=== PATIENT | female | born 1950 | race Two or more races ===

== ENCOUNTER → 2022-02-18 | Outpatient (CLI) | payer OTHER ==
[2022-02-18 11:15] LABS: Basophils # (auto) 0.1 10 ^3/uL (0-0.2); Eosinophils # (auto) 0.1 10 ^3/uL (0-0.8); Eosinophils % (auto) 1.7 % (0.0-7.0); Hematocrit 39.6 % (36.0-46.0); Hemoglobin 12.9 g/dL (12.2-16.2); Lymphocytes # (auto) 1.6 10 ^3/uL (0.4-5.4); Lymphocytes % (auto) 18.9 % (10.0-50.0); Mean Corpuscular Hemoglobin 28.6 pg (28.0-32.0); Mean Corpuscular Hgb Conc. 32.6 g/dL (32.0-36.0); Mean Corpuscular Volume 87.8 fL (80.0-100.0); Monocytes # (auto) 0.4 10 ^3/uL (0-1.3); Monocytes % (auto) 4.6 % (0.0-12.0); Neutrophils # (auto) 6.1 10 ^3/uL (1.6-8.6); Neutrophils % (auto) 73.8 % (37.0-80.0); Nucleated Red Blood Cells % 0.1 %; Red Cell Distribution Width 14.9 % (11.8-14.3); White Blood Cell 8.2 10^3/uL (4.4-10.8)
[2022-02-18 12:00] LABS: Albumin 3.3 g/dL (3.4-5.0); Calcium 9.5 mg/dL (8.5-10.1)
[2022-02-18 12:02] LABS: BUN/Creatinine Ratio 26.4; Bilirubin, Total 0.4 mg/dL (0.2-1.0); Phosphorus 3.2 mg/dL (2.5-4.90); Total Protein 7.3 g/dL (6.4-8.2); Uric Acid 5.8 mg/dL (2.6-6.0)
[2022-02-18 12:05] LABS: Protein, Urine 55.4 mg/dL (0.0-11.9)
== END | disposition home or self-care (01) ==
LOC: LAB 10:41
PROVIDERS: ATTEND Internal Medicine
DX: E11.69 Type 2 diabetes mellitus with other specified complication (principal); N18.30 Chronic kidney disease, stage 3 unspecified; D63.1 Anemia in chronic kidney disease; E56.9 Vitamin deficiency, unspecified; R00.9 Unspecified abnormalities of heart beat; E43 Unspecified severe protein-calorie malnutrition
CPT/HCPCS: 36415; 80053; 80069; 82306; 82570; 83036; 83970; 84156; 84550; 85025

== ENCOUNTER 2022-06-21 08:13 | Inpatient (IN) | payer OTHER ==
[2022-06-18 10:12] LABS: Basophils # (auto) 0.1 10 ^3/uL (0-0.2); Eosinophils # (auto) 0.2 10 ^3/uL (0-0.8); Hematocrit 37.7 % (36.0-46.0); Hemoglobin 12.3 g/dL (12.2-16.2); Lymphocytes # (auto) 1.3 10 ^3/uL (0.4-5.4); Lymphocytes % (auto) 16.1 % (10.0-50.0); Mean Corpuscular Hemoglobin 28.8 pg (28.0-32.0); Mean Corpuscular Hgb Conc. 32.7 g/dL (32.0-36.0); Mean Corpuscular Volume 88.2 fL (80.0-100.0); Monocytes # (auto) 0.5 10 ^3/uL (0-1.3); Monocytes % (auto) 6.3 % (0.0-12.0); Neutrophils # (auto) 6.2 10 ^3/uL (1.6-8.6); Neutrophils % (auto) 74.6 % (37.0-80.0); Nucleated Red Blood Cells % 0.1 %; Red Blood Cells 4.28 10^6/uL (4.0-5.20); Red Cell Distribution Width 14.6 % (11.8-14.3); White Blood Cell 8.3 10^3/uL (4.4-10.8)
[2022-06-18 10:21] LABS: Urine Bacteria NONE SEEN /hpf (None Seen); Urine Blood Negative /uL (Negative); Urine WBC 10 /hpf (0 - 5)
[2022-06-18 10:22] LABS: INR 0.91 (0.9-1.15)
[2022-06-18 10:47] LABS: Albumin 3.2 g/dL (3.4-5.0); Calcium 9.4 mg/dL (8.5-10.1); Potassium 4.7 mmol/L (3.5-5.1)
[2022-06-18 10:48] LABS: BUN/Creatinine Ratio 22.2; Bilirubin, Total 0.4 mg/dL (0.2-1.0)
[~2022-06-21] VITALS: Ht 152.4 cm; Wt 79.0 kg
[~2022-06-21 08:13] MED LIST: ALLO300T2 PO; AML5T PO; ATO40T PO; GLIP10TA9 PO; INSU100I47 SC; INSU1INJ19 SC
[2022-06-21] MEDS ORDERED: KETOROLAC TROMETH 30 MG/ML 1ML VIAL ONE ×2 (08:48→09:49)
[2022-06-21] MEDS ORDERED: SODIUM CHLORIDE LOCK 10 ML ONE ×3 (08:48→10:53)
[2022-06-21] MEDS ORDERED: DexAMETHasone SOD PHOS 10MG/1ML VIAL INJ ONE (08:48)
[2022-06-21] MEDS ORDERED: ONDANSETRON HCL 4 MG/2 ML VIAL ONE (08:48)
[2022-06-21] MEDS ORDERED: PROPOFOL 10 MG/ML 20 ML IV ONE ×2 (08:48→11:19)
[2022-06-21] MEDS ORDERED: GLYCOPYRROLATE 0.2 MG/ML 1ML VIAL ONE (08:48)
[2022-06-21] MEDS ORDERED: CELECOXIB 100 MG CAP PO ONE (09:00)
[2022-06-21] MEDS ORDERED: PREGABALIN CAPSULE 75 MG CAP ONE (09:00)
[2022-06-21] MEDS ORDERED: VANCOMYCIN HCL 1000 MG VL ONE ×2 (09:00→09:47)
[2022-06-21] MEDS ORDERED: ACETAMINOPHEN IV 1000 MG/100ML (10MG/ML) IV ONE (09:00)
[2022-06-21] MEDS ORDERED: PREGABALIN CAPSULE 75 MG CAP PO ONE (09:00)
[2022-06-21] MEDS ORDERED: TRANEXAMIC ACID 20 ML ONE (09:47)
[2022-06-21] MEDS ORDERED: BUPIVACAINE 0.25% INJ 50ML VIAL ONE (09:48)
[2022-06-21] MEDS ORDERED: MORPHINE SULF PF 5 MG/10 ML VIAL ONE (09:49)
[2022-06-21] MEDS ORDERED: DexAMETHasone SOD PHOS 4 MG/1ML SDV INJ ONE (10:02)
[2022-06-21] MEDS ORDERED: BUPIVACAINE 0.5% P/F INJ 10 ML VIAL ONE (10:02)
[2022-06-21] MEDS ORDERED: LIDOCAINE W/ EPINEPHRINE 2% INJ 20ML VIAL ONE (10:17)
[2022-06-21] MEDS ORDERED: PHENYLEPHRINE HCL 10 MG/ML VL ONE (10:45)
[2022-06-21] MEDS ORDERED: ceFAZolin 1GM VL ONE (10:53)
[2022-06-21] MEDS ORDERED: ePHEDrine SULFATE 50 MG/ML AMP ONE (11:28)
[2022-06-21] MEDS ORDERED: DEXTROSE (50%) 50ML SYRG IV PRN ×2 (12:15→14:00)
[2022-06-21] MEDS ORDERED: NITROGLYCERIN 0.4 MG SL TAB SL PRN (12:15)
[2022-06-21] MEDS ORDERED: LACTATED RINGER'S 1,000 ML IV SCH (12:15)
[2022-06-21] MEDS ORDERED: ONDANSETRON HCL 4 MG/2 ML VIAL IV PRN ×2 (12:15→13:15)
[2022-06-21] MEDS ORDERED: HYDROmorphone HCL 2 MG/ML VL/or syr IV PRN ×3 (12:15→14:00)
[2022-06-21] MEDS ORDERED: MORPHINE SULFATE INJ 2 MG/ml SYRG IV PRN (12:15)
[2022-06-21] MEDS ORDERED: LABETALOL HCL 5 MG/ML 4ML SYRINGE IV PRN (13:15)
[2022-06-21] MEDS ORDERED: FLUMAZENIL 0.1 MG/ML INJ 10ML MDV IV PRN (13:15)
[2022-06-21] MEDS ORDERED: ePHEDrine SULFATE 50 MG/ML AMP IV PRN (13:15)
[2022-06-21] MEDS ORDERED: fentaNYL CITRATE 100 MCG/2 ML VL IV PRN (13:15)
[2022-06-21] MEDS ORDERED: NALOXONE HCL 0.4 MG/ML VIAL IV PRN (13:15)
[2022-06-21] MEDS ORDERED: hydrALAZINE HCL 20 MG/ML VL IV PRN (13:15)
[2022-06-21] MEDS ORDERED: ceFAZolin 1GM/50ML 50 ML IV SCH (14:00)
[2022-06-21 17:00] VITALS: BP 138/86
[2022-06-21] MEDS ORDERED: InsuLIN REG 1unit/0.01ml Soln (100units/ml) SC SCH ×2 (17:00→22:00)
[2022-06-21] MEDS: InsuLIN REG 1unit/0.01ml Soln (100units/ml) SC SCH ×2 (17:30→22:04)
[2022-06-21] MEDS: ACCU-CHEK COMFORT CURVE STRIP VI SCH ×4 (17:30→21:58)
[2022-06-21] MEDS: ceFAZolin 1GM/50ML 50 ML IV SCH (18:15)
[2022-06-21 20:00] VITALS: BP 122/49
[2022-06-21] MEDS: ATORVASTATIN 20 MG TAB PO SCH (21:56)
[2022-06-21] MEDS: DOCUSATE SOD 100 MG CAP PO SCH (21:56)
[2022-06-21] MEDS: SODIUM CHLOR 0.9% PF (SALINE LOCK) 10ML VIAL/SYR IV SCH (21:57)
[2022-06-21] MEDS ORDERED: VANCOMYCIN 1GM/250ML 250 ML IV SCH (22:00)
[2022-06-22] MEDS: ceFAZolin 1GM/50ML 50 ML IV SCH ×3 (02:02→17:55)
[2022-06-22 03:55] VITALS: BP 122/49
[2022-06-22 06:22] LABS: Basophils # (auto) 0 10 ^3/uL (0-0.2); Eosinophils # (auto) 0 10 ^3/uL (0-0.8); Hematocrit 32.2 % (36.0-46.0); Hemoglobin 10.6 g/dL (12.2-16.2); Lymphocytes # (auto) 0.8 10 ^3/uL (0.4-5.4); Mean Corpuscular Hemoglobin 29.3 pg (28.0-32.0); Mean Corpuscular Volume 88.9 fL (80.0-100.0); Monocytes # (auto) 0.6 10 ^3/uL (0-1.3); Monocytes % (auto) 5.6 % (0.0-12.0); Neutrophils # (auto) 8.5 10 ^3/uL (1.6-8.6); Neutrophils % (auto) 86.4 % (37.0-80.0); Nucleated Red Blood Cells % 0.1 %; Red Blood Cells 3.62 10^6/uL (4.0-5.20); Red Cell Distribution Width 14.3 % (11.8-14.3); White Blood Cell 9.8 10^3/uL (4.4-10.8)
[2022-06-22 06:49] LABS: Albumin 2.7 g/dL (3.4-5.0); Potassium 5.2 mmol/L (3.5-5.1)
[2022-06-22] MEDS: SODIUM CHLOR 0.9% PF (SALINE LOCK) 10ML VIAL/SYR IV SCH ×3 (06:49→20:37)
[2022-06-22] MEDS: InsuLIN REG 1unit/0.01ml Soln (100units/ml) SC SCH ×3 (06:50→17:00)
[2022-06-22] MEDS: ACCU-CHEK COMFORT CURVE STRIP VI SCH ×6 (06:50→21:02)
[2022-06-22 06:59] LABS: BUN/Creatinine Ratio 28.4; Bilirubin, Total 0.3 mg/dL (0.2-1.0); Calcium 8.9 mg/dL (8.5-10.1); Total Protein 5.4 g/dL (6.4-8.2)
[2022-06-22 09:00] VITALS: BP 153/90
[2022-06-22] MEDS: amLODIPine BESYLATE 5 MG TAB PO SCH (10:06)
[2022-06-22] MEDS: ENOXAPARIN SOD 40 MG/0.4 ML SYRINGE SC SCH (10:07)
[2022-06-22] MEDS: OXYCODONE W/ ACETAMINOPHEN 5/325MG TABLET PO PRN (10:07)
[2022-06-22] MEDS: DOCUSATE SOD 100 MG CAP PO SCH ×2 (10:16→20:37)
[2022-06-22] MEDS ORDERED: DEXTROSE (50%) 50ML SYRG IV PRN (12:15)
[2022-06-22 13:00] VITALS: BP 132/73
[2022-06-22 16:52] VITALS: BP 136/75
[2022-06-22 20:00] VITALS: BP 122/54
[2022-06-22] MEDS: ATORVASTATIN 20 MG TAB PO SCH (20:37)
[2022-06-22] MEDS ORDERED: InsuLIN REG 1unit/0.01ml Soln (100units/ml) SC SCH (22:00)
[2022-06-23] MEDS: ceFAZolin 1GM/50ML 50 ML IV SCH ×2 (02:06→09:23)
[2022-06-23] MEDS: ACCU-CHEK COMFORT CURVE STRIP VI SCH ×4 (05:07→11:10)
[2022-06-23] MEDS: SODIUM CHLOR 0.9% PF (SALINE LOCK) 10ML VIAL/SYR IV SCH ×2 (05:07→14:00)
[2022-06-23 05:29] VITALS: BP 130/60
[2022-06-23] MEDS: InsuLIN REG 1unit/0.01ml Soln (100units/ml) SC SCH ×2 (05:42→11:12)
[2022-06-23 06:24] LABS: Basophils # (auto) 0 10 ^3/uL (0-0.2); Basophils % (auto) 0.4 % (0.0-2.0); Eosinophils # (auto) 0 10 ^3/uL (0-0.8); Eosinophils % (auto) 0.5 % (0.0-7.0); Hematocrit 32.2 % (36.0-46.0); Hemoglobin 10.3 g/dL (12.2-16.2); Lymphocytes # (auto) 1.3 10 ^3/uL (0.4-5.4); Lymphocytes % (auto) 15.3 % (10.0-50.0); Mean Corpuscular Hemoglobin 28.4 pg (28.0-32.0); Mean Corpuscular Volume 88.7 fL (80.0-100.0); Monocytes # (auto) 0.8 10 ^3/uL (0-1.3); Monocytes % (auto) 9.7 % (0.0-12.0); Neutrophils # (auto) 6.4 10 ^3/uL (1.6-8.6); Neutrophils % (auto) 74.1 % (37.0-80.0); Nucleated Red Blood Cells % 0.1 %; Red Blood Cells 3.63 10^6/uL (4.0-5.20); Red Cell Distribution Width 14.3 % (11.8-14.3); White Blood Cell 8.6 10^3/uL (4.4-10.8)
[2022-06-23 06:39] LABS: BUN/Creatinine Ratio 30.1; Calcium 9.5 mg/dL (8.5-10.1); Potassium 4.5 mmol/L (3.5-5.1)
[2022-06-23 09:00] VITALS: BP 176/90
[2022-06-23] MEDS: DOCUSATE SOD 100 MG CAP PO SCH (09:23)
[2022-06-23] MEDS: OXYCODONE W/ ACETAMINOPHEN 5/325MG TABLET PO PRN (09:25)
[2022-06-23] MEDS: amLODIPine BESYLATE 5 MG TAB PO SCH (09:25)
[2022-06-23] MEDS: ENOXAPARIN SOD 40 MG/0.4 ML SYRINGE SC SCH (09:26)
[2022-06-23 13:00] VITALS: BP 136/54
[2022-06-23 14:06] VITALS: BP 146/90
== END 2022-06-23 16:01 | disposition home health service (06) | DRG 470 ==
LOC: SUR 08:13 → TELE 12:07 → TELE-WESTW 16:11 → WEST WING 17:20
PROVIDERS: ADMIT Orthopaedic Surgery Adult Reconstructive Orthopaedic Surgery; ATTEND Internal Medicine
PROC: 0SRD0J9 Replacement of Left Knee Joint with Synthetic Substitute, Cemented, Open Approach (ICD-10-PCS; principal; 2022-06-21 10:22)
DX: M17.12 Unilateral primary osteoarthritis, left knee (principal); E11.22 Type 2 diabetes mellitus with diabetic chronic kidney disease; E66.9 Obesity, unspecified; E78.5 Hyperlipidemia, unspecified; I12.9 Hypertensive chronic kidney disease with stage 1 through stage 4 chronic kidney disease, or unspecified chronic kidney disease; M10.9 Gout, unspecified; N18.30 Chronic kidney disease, stage 3 unspecified; Z20.822 Contact with and (suspected) exposure to COVID-19; Z88.0 Allergy status to penicillin; Z68.34 Body mass index [BMI] 34.0-34.9, adult
CPT/HCPCS: 36415; 73562; 80048; 80053; 81001; 82962; 83036; 84443; 85025; 85610; 85730; 86850; 86900; 86901; 97110; 97116; 97163; 97530; C1713; C1776; G0378; J0131; J0690; J1100; J1815; J1885; J2405; J2704; J3490

== ENCOUNTER 2022-07-01 15:29 | Inpatient (IN) | payer OTHER ==
[~2022-07-01] VITALS: Ht 152.4 cm; Wt 81.3 kg
[2022-07-01 17:03] LABS: Basophils # (auto) 0.1 10 ^3/uL (0-0.2); Basophils % (auto) 0.8 % (0.0-2.0); Eosinophils # (auto) 0.1 10 ^3/uL (0-0.8); Eosinophils % (auto) 1.2 % (0.0-7.0); Hematocrit 32.8 % (36.0-46.0); Lymphocytes # (auto) 1.5 10 ^3/uL (0.4-5.4); Mean Corpuscular Hemoglobin 28.6 pg (28.0-32.0); Mean Corpuscular Hgb Conc. 33.5 g/dL (32.0-36.0); Mean Corpuscular Volume 85.5 fL (80.0-100.0); Monocytes # (auto) 0.7 10 ^3/uL (0-1.3); Monocytes % (auto) 6.3 % (0.0-12.0); Neutrophils # (auto) 9.3 10 ^3/uL (1.6-8.6); Neutrophils % (auto) 78.7 % (37.0-80.0); Red Blood Cells 3.83 10^6/uL (4.0-5.20); Red Cell Distribution Width 14.2 % (11.8-14.3); White Blood Cell 11.8 10^3/uL (4.4-10.8)
[2022-07-01] MEDS ORDERED: SODIUM CHLORIDE 0.9% 1,000 ML IV ONE (17:15)
[2022-07-01 17:21] LABS: Albumin 2.8 g/dL (3.4-5.0); BUN/Creatinine Ratio 38.9; Calcium 9.6 mg/dL (8.5-10.1); Potassium 4.9 mmol/L (3.5-5.1)
[2022-07-01 17:25] LABS: Bilirubin, Total 0.4 mg/dL (0.2-1.0); INR 0.93 (0.9-1.15); Partial Thromboplastin Time 27.5 sec (24.6-33.4); Total Protein 6.4 g/dL (6.4-8.2)
[2022-07-01] MEDS ORDERED: DOCUSATE SOD 100 MG CAP PO PRN (22:45)
[2022-07-01] MEDS ORDERED: SODIUM CHLORIDE 0.9% 1,000 ML IV SCH (22:45)
[2022-07-01] MEDS ORDERED: ACETAMINOPHEN 325 MG TAB PO PRN (22:45)
[2022-07-01] MEDS ORDERED: ONDANSETRON HCL 4 MG/2 ML VIAL IV PRN (22:45)
[2022-07-01] MEDS ORDERED: HYDROcodone-ACET 5/325MG TAB PO PRN (22:45)
[2022-07-01] MEDS ORDERED: DEXTROSE (50%) 50ML SYRG IV PRN (22:45)
[2022-07-01] MEDS ORDERED: levoFLOXacin 250MG 50 ML IV SCH (23:00)
[2022-07-01] MEDS ORDERED: NITROGLYCERIN 0.4 MG SL TAB SL PRN (23:45)
[2022-07-01] MEDS ORDERED: MORPHINE SULFATE INJ 2 MG/ml SYRG IV PRN (23:45)
[2022-07-02 06:28] LABS: Basophils # (auto) 0.1 10 ^3/uL (0-0.2); Eosinophils # (auto) 0.2 10 ^3/uL (0-0.8); Eosinophils % (auto) 2.2 % (0.0-7.0); Hemoglobin 9.4 g/dL (12.2-16.2); Lymphocytes # (auto) 1.3 10 ^3/uL (0.4-5.4); Lymphocytes % (auto) 14.9 % (10.0-50.0); Mean Corpuscular Hemoglobin 28.5 pg (28.0-32.0); Mean Corpuscular Hgb Conc. 32.6 g/dL (32.0-36.0); Mean Corpuscular Volume 87.4 fL (80.0-100.0); Monocytes # (auto) 0.7 10 ^3/uL (0-1.3); Monocytes % (auto) 7.9 % (0.0-12.0); Neutrophils # (auto) 6.7 10 ^3/uL (1.6-8.6); Red Blood Cells 3.32 10^6/uL (4.0-5.20); Red Cell Distribution Width 14.1 % (11.8-14.3)
[2022-07-02] MEDS: ACCU-CHEK COMFORT CURVE STRIP VI SCH ×2 (06:43→12:27)
[2022-07-02 06:44] LABS: Potassium 4.6 mmol/L (3.5-5.1)
[2022-07-02] MEDS: InsuLIN REG 1unit/0.01ml Soln (100units/ml) SC SCH ×2 (06:44→12:29)
[2022-07-02 07:00] LABS: Albumin 2.3 g/dL (3.4-5.0); BUN/Creatinine Ratio 40.5; Calcium 9.5 mg/dL (8.5-10.1)
[2022-07-02 07:03] LABS: Bilirubin, Total 0.3 mg/dL (0.2-1.0); Total Protein 6.2 g/dL (6.4-8.2)
[2022-07-02 08:50] VITALS: BP 139/77
[2022-07-02] MEDS ORDERED: HEPARIN SODIUM (PORCINE) 5000 UNITS/ML 1ML VIAL SC SCH (10:00)
[2022-07-02] MEDS ORDERED: FAMOTIDINE (10MG/ML) 2ML VL IV SCH (10:00)
[2022-07-02 13:30] VITALS: BP 148/67
[2022-07-02 13:30] LABS: Urine Bacteria NONE SEEN /hpf (None Seen); Urine Blood Negative /uL (Negative); Urine Specific Gravity 1.008 (1.001-1.035); Urine WBC 2 /hpf (0 - 5)
[2022-07-02 13:42] LABS: Creatinine, Urine 20 mg/dL (30.0-125.0); Sodium Urine 60 mmol/L (40-220)
[2022-07-02] MEDS ORDERED: InsuLIN REG 1unit/0.01ml Soln (100units/ml) SC SCH (22:00)
== END 2022-07-02 16:31 | disposition home or self-care (01) | DRG 555 ==
LOC: ER 15:29 → OVERFLOW 23:40 → WEST WING 07-02 08:25
PROVIDERS: ADMIT Nurse Practitioner Family; ATTEND Internal Medicine
DX: M79.89 Other specified soft tissue disorders (principal); N17.0 Acute kidney failure with tubular necrosis; D63.1 Anemia in chronic kidney disease; D72.829 Elevated white blood cell count, unspecified; E78.5 Hyperlipidemia, unspecified; E87.5 Hyperkalemia; I12.9 Hypertensive chronic kidney disease with stage 1 through stage 4 chronic kidney disease, or unspecified chronic kidney disease; Z96.652 Presence of left artificial knee joint; E88.09 Other disorders of plasma-protein metabolism, not elsewhere classified; E11.22 Type 2 diabetes mellitus with diabetic chronic kidney disease; Z20.822 Contact with and (suspected) exposure to COVID-19; D50.0 Iron deficiency anemia secondary to blood loss (chronic); N18.32 Chronic kidney disease, stage 3b; R00.0 Tachycardia, unspecified; R79.89 Other specified abnormal findings of blood chemistry; E66.9 Obesity, unspecified; Z88.0 Allergy status to penicillin; Z83.3 Family history of diabetes mellitus; Z68.35 Body mass index [BMI] 35.0-35.9, adult
CPT/HCPCS: 36415; 76775; 78582; 80053; 81001; 82570; 84300; 85025; 85379; 85610; 85730; 87081; 87426; 93970; 93971; 96365; 96366; G0378; J1815; J3490

== ENCOUNTER → 2022-07-05 | Outpatient (CLI) | payer OTHER ==
[~2022-07-05] MED LIST changes: -GLIP10TA9 PO
[2022-07-05 13:37] LABS: Basophils # (auto) 0.1 10 ^3/uL (0-0.2); Eosinophils # (auto) 0.1 10 ^3/uL (0-0.8); Eosinophils % (auto) 1.6 % (0.0-7.0); Hematocrit 31.4 % (36.0-46.0); Hemoglobin 10.5 g/dL (12.2-16.2); Lymphocytes % (auto) 10.8 % (10.0-50.0); Mean Corpuscular Hemoglobin 29.1 pg (28.0-32.0); Mean Corpuscular Hgb Conc. 33.3 g/dL (32.0-36.0); Mean Corpuscular Volume 87.5 fL (80.0-100.0); Monocytes # (auto) 0.5 10 ^3/uL (0-1.3); Monocytes % (auto) 5.5 % (0.0-12.0); Neutrophils # (auto) 7.4 10 ^3/uL (1.6-8.6); Neutrophils % (auto) 81.1 % (37.0-80.0); Nucleated Red Blood Cells % 0.1 %; Red Blood Cells 3.59 10^6/uL (4.0-5.20); Red Cell Distribution Width 14.4 % (11.8-14.3); White Blood Cell 9.1 10^3/uL (4.4-10.8)
[2022-07-05 14:00] LABS: Protein, Urine 206.7 mg/dL (0.0-11.9)
[2022-07-05 14:20] LABS: Calcium 10.1 mg/dL (8.5-10.1); Potassium 4.9 mmol/L (3.5-5.1)
[2022-07-05 14:22] LABS: BUN/Creatinine Ratio 28.7 (10.0-20.0)
== END | disposition home or self-care (01) ==
LOC: LAB 12:54
PROVIDERS: ATTEND Internal Medicine
DX: N18.4 Chronic kidney disease, stage 4 (severe) (principal)
CPT/HCPCS: 36415; 80048; 82306; 82570; 83970; 84156; 84550; 85025

== ENCOUNTER → 2022-10-04 | Outpatient (CLI) | payer OTHER ==
[2022-10-04 12:11] LABS: Calcium 9.1 mg/dL (8.5-10.1); Potassium 4.8 mmol/L (3.5-5.1)
[2022-10-04 12:13] LABS: BUN/Creatinine Ratio 25.3 (10.0-20.0)
== END | disposition home or self-care (01) ==
LOC: LAB 10:35
PROVIDERS: ATTEND Internal Medicine
DX: E11.22 Type 2 diabetes mellitus with diabetic chronic kidney disease (principal); N18.9 Chronic kidney disease, unspecified
CPT/HCPCS: 36415; 80048; 82043; 82570

== ENCOUNTER → 2022-10-07 | Outpatient (CLI) | payer OTHER ==
[2022-10-07 10:22] LABS: Basophils # (auto) 0.1 10 ^3/uL (0-0.2); Basophils % (auto) 1.6 % (0.0-2.0); Eosinophils # (auto) 0.2 10 ^3/uL (0-0.8); Eosinophils % (auto) 2.2 % (0.0-7.0); Hematocrit 35.5 % (36.0-46.0); Hemoglobin 11.5 g/dL (12.2-16.2); Lymphocytes # (auto) 1.2 10 ^3/uL (0.4-5.4); Lymphocytes % (auto) 16.6 % (10.0-50.0); Mean Corpuscular Hemoglobin 28.3 pg (28.0-32.0); Mean Corpuscular Hgb Conc. 32.4 g/dL (32.0-36.0); Mean Corpuscular Volume 87.2 fL (80.0-100.0); Monocytes # (auto) 0.4 10 ^3/uL (0-1.3); Neutrophils # (auto) 5.2 10 ^3/uL (1.6-8.6); Neutrophils % (auto) 73.6 % (37.0-80.0); Nucleated Red Blood Cells % 0.1 %; Red Blood Cells 4.07 10^6/uL (4.0-5.20)
[2022-10-07 11:02] LABS: Albumin 3.1 g/dL (3.4-5.0); BUN/Creatinine Ratio 27.2 (10.0-20.0); Calcium 8.6 mg/dL (8.5-10.1); Phosphorus 3.2 mg/dL (2.5-4.90); Potassium 5.2 mmol/L (3.5-5.1); Uric Acid 5.9 mg/dL (2.6-6.0)
== END | disposition home or self-care (01) ==
LOC: LAB 10:06
PROVIDERS: ATTEND Internal Medicine Nephrology
DX: N18.30 Chronic kidney disease, stage 3 unspecified (principal); D63.1 Anemia in chronic kidney disease; M10.9 Gout, unspecified; E21.3 Hyperparathyroidism, unspecified; R80.9 Proteinuria, unspecified; E56.9 Vitamin deficiency, unspecified
CPT/HCPCS: 36415; 80069; 82306; 82570; 83970; 84156; 84550; 85025

== ENCOUNTER → 2023-01-31 | Outpatient (CLI) | payer OTHER ==
[2023-01-31 10:37] LABS: Basophils # (auto) 0.1 10 ^3/uL (0-0.2); Basophils % (auto) 1.1 % (0.0-2.0); Eosinophils # (auto) 0.2 10 ^3/uL (0-0.8); Eosinophils % (auto) 2.3 % (0.0-7.0); Hemoglobin 11.8 g/dL (12.2-16.2); Lymphocytes # (auto) 1.5 10 ^3/uL (0.4-5.4); Lymphocytes % (auto) 21.7 % (10.0-50.0); Mean Corpuscular Hemoglobin 28.4 pg (28.0-32.0); Mean Corpuscular Hgb Conc. 32.8 g/dL (32.0-36.0); Mean Corpuscular Volume 86.6 fL (80.0-100.0); Monocytes # (auto) 0.5 10 ^3/uL (0-1.3); Monocytes % (auto) 6.8 % (0.0-12.0); Neutrophils # (auto) 4.6 10 ^3/uL (1.6-8.6); Neutrophils % (auto) 68.1 % (37.0-80.0); Red Blood Cells 4.15 10^6/uL (4.0-5.20); Red Cell Distribution Width 15.2 % (11.8-14.3); White Blood Cell 6.8 10^3/uL (4.4-10.8)
[2023-01-31 12:05] LABS: Potassium 4.7 mmol/L (3.5-5.1)
[2023-01-31 12:06] LABS: Calcium 9.4 mg/dL (8.5-10.1)
[2023-01-31 12:08] LABS: Protein, Urine 94.4 mg/dL (0.0-11.9)
[2023-01-31 12:11] LABS: BUN/Creatinine Ratio 20.3 (10.0-20.0); Creatinine, Urine 40.45 mg/dL (30.0-125.0); Urine Protein/Creatinine Ratio 2.33
[2023-01-31 12:13] LABS: Albumin 3.9 g/dL (3.2-4.8)
[2023-01-31 12:14] LABS: Phosphorus 3.9 mg/dL (2.4-5.1)
[2023-01-31 14:41] LABS: Uric Acid 5.6 mg/dL (3.1-7.8)
[2023-01-31 15:53] LABS: Urine Bacteria FEW /hpf (None Seen); Urine Blood Negative /uL (Negative); Urine Clarity Clear (Clear); Urine Color Colorless (Yellow); Urine Protein, UAD 2+ (Negative); Urine Specific Gravity 1.008 (1.001-1.035); Urine Urobilinogen Normal (Negative); Urine WBC 2 /hpf (0 - 5)
== END | disposition home or self-care (01) ==
LOC: LAB 10:17
PROVIDERS: ATTEND Internal Medicine Nephrology
DX: E56.9 Vitamin deficiency, unspecified (principal); E21.3 Hyperparathyroidism, unspecified; R80.9 Proteinuria, unspecified
CPT/HCPCS: 36415; 80069; 81001; 82306; 82570; 83970; 84156; 84550; 85025

== ENCOUNTER → 2023-03-30 | Outpatient (CLI) | payer OTHER ==
[2023-03-30 10:29] LABS: Basophils # (auto) 0.1 10 ^3/uL (0-0.2); Eosinophils # (auto) 0.1 10 ^3/uL (0-0.8); Hematocrit 35.4 % (36.0-46.0); Hemoglobin 11.4 g/dL (12.2-16.2); Lymphocytes # (auto) 1.4 10 ^3/uL (0.4-5.4); Lymphocytes % (auto) 20.4 % (10.0-50.0); Mean Corpuscular Hemoglobin 28.2 pg (28.0-32.0); Mean Corpuscular Hgb Conc. 32.2 g/dL (32.0-36.0); Mean Corpuscular Volume 87.6 fL (80.0-100.0); Monocytes # (auto) 0.4 10 ^3/uL (0-1.3); Neutrophils % (auto) 70.6 % (37.0-80.0); Nucleated Red Blood Cells % 0.1 %; Red Blood Cells 4.05 10^6/uL (4.0-5.20); Red Cell Distribution Width 15.1 % (11.8-14.3); White Blood Cell 7.1 10^3/uL (4.4-10.8)
[2023-03-30 11:17] LABS: Alanine Aminotransferase 25 U/L (7-40); Albumin 3.9 g/dL (3.2-4.8); Alkaline Phosphatase 157 U/L (46-116); Anion Gap 6 (5-15); Aspartate Aminotransferase 25 U/L (13-40); BUN/Creatinine Ratio 17.8 (10.0-20.0); Bilirubin, Total 0.4 mg/dL (0.2-1.0); Blood Urea Nitrogen 37 mg/dL (9-23); Calcium 9.4 mg/dL (8.5-10.1); Carbon Dioxide 25 mmol/L (20-30); Chloride 107 mmol/L (98-107); Cholesterol 170 mg/dL (< 200); Glucose 113 mg/dL (74-106); HDL Cholesterol 46 mg/dL (40-59); LDL Cholesterol 99 mg/dL (< 100); Potassium 4.8 mmol/L (3.5-5.1); Sodium 138 mmol/L (136-145); Triglycerides 122 mg/dL (< 150)
[2023-03-30 11:18] LABS: Total Protein 6.4 g/dL (5.7-8.2)
== END | disposition home or self-care (01) ==
LOC: LAB 09:53
PROVIDERS: ATTEND Internal Medicine
DX: E11.22 Type 2 diabetes mellitus with diabetic chronic kidney disease (principal); N18.9 Chronic kidney disease, unspecified; E11.69 Type 2 diabetes mellitus with other specified complication
CPT/HCPCS: 36415; 80053; 80061; 82274; 83036; 85025

== ENCOUNTER → 2023-07-04 | Outpatient (CLI) | payer OTHER ==
[2023-07-04 11:33] LABS: Basophils # (auto) 0.1 10 ^3/uL (0-0.2); Basophils % (auto) 1.3 % (0.0-2.0); Eosinophils # (auto) 0.1 10 ^3/uL (0-0.8); Eosinophils % (auto) 1.7 % (0.0-7.0); Hematocrit 36.7 % (36.0-46.0); Hemoglobin 11.8 g/dL (12.2-16.2); Lymphocytes # (auto) 1.7 10 ^3/uL (0.4-5.4); Lymphocytes % (auto) 19.6 % (10.0-50.0); Mean Corpuscular Hemoglobin 28.2 pg (28.0-32.0); Mean Corpuscular Hgb Conc. 32.2 g/dL (32.0-36.0); Mean Corpuscular Volume 87.6 fL (80.0-100.0); Monocytes # (auto) 0.4 10 ^3/uL (0-1.3); Monocytes % (auto) 5.2 % (0.0-12.0); Neutrophils # (auto) 6.2 10 ^3/uL (1.6-8.6); Neutrophils % (auto) 72.2 % (37.0-80.0); Nucleated Red Blood Cells % 0.1 %; Red Blood Cells 4.19 10^6/uL (4.0-5.20); Red Cell Distribution Width 15.2 % (11.8-14.3); White Blood Cell 8.6 10^3/uL (4.4-10.8)
[2023-07-04 11:41] LABS: Urine Bacteria NONE SEEN /hpf (None Seen); Urine Blood Negative /uL (Negative); Urine Clarity Clear (Clear); Urine Protein, UAD 2+ (Negative); Urine Specific Gravity 1.008 (1.001-1.035); Urine Urobilinogen Normal (Negative); Urine WBC 8 /hpf (0 - 5); Urine pH 6.5 (5.0-8.0)
[2023-07-04 11:42] LABS: Urine Color Straw (Yellow)
[2023-07-04 12:18] LABS: Creatinine, Urine 27.76 mg/dL (30.0-125.0)
[2023-07-04 12:27] LABS: Alanine Aminotransferase 27 U/L (7-40); Albumin 4.1 g/dL (3.2-4.8); Alkaline Phosphatase 149 U/L (46-116); Anion Gap 7 (5-15); Aspartate Aminotransferase 30 U/L (13-40); BUN/Creatinine Ratio 22.8 (10.0-20.0); Blood Urea Nitrogen 45 mg/dL (9-23); Calcium 9.6 mg/dL (8.5-10.1); Carbon Dioxide 27 mmol/L (20-30); Chloride 108 mmol/L (98-107); Glucose 77 mg/dL (74-106); LDL Cholesterol 93 mg/dL (< 100); Potassium 4.9 mmol/L (3.5-5.1); Sodium 142 mmol/L (136-145); Triglycerides 177 mg/dL (< 150)
[2023-07-04 12:28] LABS: Bilirubin, Total 0.5 mg/dL (0.2-1.0); Cholesterol 182 mg/dL (< 200); HDL Cholesterol 56 mg/dL (40-59)
[2023-07-04 12:29] LABS: Total Protein 6.5 g/dL (5.7-8.2)
== END | disposition home or self-care (01) ==
LOC: LAB 10:27
PROVIDERS: ATTEND Internal Medicine
DX: Z00.01 Encounter for general adult medical examination with abnormal findings (principal); I12.9 Hypertensive chronic kidney disease with stage 1 through stage 4 chronic kidney disease, or unspecified chronic kidney disease; E11.22 Type 2 diabetes mellitus with diabetic chronic kidney disease; N18.4 Chronic kidney disease, stage 4 (severe)
CPT/HCPCS: 36415; 80053; 80061; 81001; 82043; 82570; 83036; 84439; 84443; 85025

== ENCOUNTER → 2023-08-23 | Outpatient (CLI) | payer OTHER ==
[~2023-08-23] MED LIST changes: -ATO40T PO; +ATOR-507 PO
== END | disposition home or self-care (01) ==
LOC: LAB 15:16
PROVIDERS: ATTEND Internal Medicine
DX: Z12.11 Encounter for screening for malignant neoplasm of colon (principal)
CPT/HCPCS: 82270

== ENCOUNTER 2023-10-13 12:16 | Emergency (ER) | payer OTHER ==
[~2023-10-13] VITALS: Ht 149.9 cm; Wt 85.0 kg
[2023-10-13] MEDS: ACETAMINOPHEN 500 MG TAB PO ONE (14:37)
[2023-10-13 15:22] VITALS: BP 153/74; PULSE 69; RESP 16; TEMP 97.6; O2SAT 96
[2023-10-13] MEDS ORDERED: METH-1181 PO (15:24)
[2023-10-13] MEDS ORDERED: ACET-1080 PO (15:24)
== END 2023-10-13 15:30 | disposition home or self-care (01) ==
LOC: ER 12:16
DX: S29.019A Strain of muscle and tendon of unspecified wall of thorax, initial encounter (principal); S00.03XA Contusion of scalp, initial encounter; R91.1 Solitary pulmonary nodule; E78.5 Hyperlipidemia, unspecified; I12.9 Hypertensive chronic kidney disease with stage 1 through stage 4 chronic kidney disease, or unspecified chronic kidney disease; E11.22 Type 2 diabetes mellitus with diabetic chronic kidney disease; N18.9 Chronic kidney disease, unspecified; Z79.1 Long term (current) use of non-steroidal anti-inflammatories (NSAID); Z79.4 Long term (current) use of insulin; W18.39XA Other fall on same level, initial encounter; Y93.89 Activity, other specified; Y92.89 Other specified places as the place of occurrence of the external cause; Y99.8 Other external cause status
CPT/HCPCS: 70450; 71250

== ENCOUNTER 2023-10-18 06:18 | Emergency (ER) | payer OTHER ==
[~2023-10-18] VITALS: Ht 149.9 cm; Wt 180.0 kg
[~2023-10-18 06:18] MED LIST changes: +ACET-1080 PO; +METH-1181 PO
[2023-10-18 08:18] VITALS: BP 161/79; PULSE 68; RESP 96; TEMP 97.9; O2SAT 96
[2023-10-18] MEDS ORDERED: HYDR-4902 PO ×2 (08:44→08:57)
[2023-10-18] MEDS ORDERED: LIDO4PAD EX (08:44)
[2023-10-18] MEDS: ACETAMINOPHEN 325 MG TAB PO ONE (08:55)
== END 2023-10-18 09:00 | disposition home or self-care (01) ==
LOC: ER 06:18
DX: R07.81 Pleurodynia (principal); E78.5 Hyperlipidemia, unspecified; I12.9 Hypertensive chronic kidney disease with stage 1 through stage 4 chronic kidney disease, or unspecified chronic kidney disease; E11.22 Type 2 diabetes mellitus with diabetic chronic kidney disease; N18.9 Chronic kidney disease, unspecified; Z88.0 Allergy status to penicillin; Z79.1 Long term (current) use of non-steroidal anti-inflammatories (NSAID); Z79.4 Long term (current) use of insulin; Z79.891 Long term (current) use of opiate analgesic; Z98.890 Other specified postprocedural states

== ENCOUNTER → 2023-11-07 | Outpatient (CLI) | payer OTHER ==
[~2023-11-07] MED LIST changes: +HYDR-4902 PO; +LIDO4PAD EX
[2023-11-07 09:19] LABS: Urine Bacteria None Seen /hpf (None Seen)
[2023-11-07 09:33] LABS: Basophils # (auto) 0.1 10 ^3/uL (0-0.2); Basophils % (auto) 0.8 % (0.0-2.0); Eosinophils # (auto) 0.1 10 ^3/uL (0-0.8); Eosinophils % (auto) 2.1 % (0.0-7.0); Hematocrit 29.8 % (36.0-46.0); Hemoglobin 9.7 g/dL (12.2-16.2); Lymphocytes # (auto) 1.4 10 ^3/uL (0.4-5.4); Lymphocytes % (auto) 20.3 % (10.0-50.0); Mean Corpuscular Hemoglobin 28.2 pg (28.0-32.0); Mean Corpuscular Hgb Conc. 32.4 g/dL (32.0-36.0); Mean Corpuscular Volume 86.9 fL (80.0-100.0); Monocytes # (auto) 0.5 10 ^3/uL (0-1.3); Monocytes % (auto) 7.9 % (0.0-12.0); Neutrophils # (auto) 4.7 10 ^3/uL (1.6-8.6); Neutrophils % (auto) 68.9 % (37.0-80.0); Nucleated Red Blood Cells % 0.1 %; Red Blood Cells 3.43 10^6/uL (4.0-5.20); Red Cell Distribution Width 15.6 % (11.8-14.3); White Blood Cell 6.9 10^3/uL (4.4-10.8)
[2023-11-07 09:41] LABS: Urine Blood Negative /uL (Negative); Urine Clarity Clear (Clear); Urine Color Light-Yellow (Yellow); Urine Protein, UAD 1+ (Negative); Urine Specific Gravity 1.009 (1.001-1.035); Urine Urobilinogen Normal (Negative); Urine WBC 3 /hpf (0 - 5)
[2023-11-07 10:09] LABS: Potassium 5.5 mmol/L (3.5-5.1)
[2023-11-07 10:10] LABS: Calcium 8.7 mg/dL (8.7-10.4)
[2023-11-07 10:11] LABS: Protein, Urine 84.1 mg/dL (0.0-11.9)
[2023-11-07 10:14] LABS: Creatinine, Urine 44.84 mg/dL (30.0-125.0); Urine Protein/Creatinine Ratio 1.88
[2023-11-07 10:15] LABS: BUN/Creatinine Ratio 21.9 (10.0-20.0)
[2023-11-07 10:16] LABS: Albumin 3.5 g/dL (3.2-4.8)
[2023-11-07 10:17] LABS: Phosphorus 3.7 mg/dL (2.4-5.1)
[2023-11-07 12:34] LABS: Uric Acid 5.7 mg/dL (3.1-7.8)
== END | disposition home or self-care (01) ==
LOC: LAB 09:06
PROVIDERS: ATTEND Internal Medicine Nephrology
DX: I12.9 Hypertensive chronic kidney disease with stage 1 through stage 4 chronic kidney disease, or unspecified chronic kidney disease (principal); E11.22 Type 2 diabetes mellitus with diabetic chronic kidney disease; E11.69 Type 2 diabetes mellitus with other specified complication; N18.4 Chronic kidney disease, stage 4 (severe); E56.9 Vitamin deficiency, unspecified; E21.3 Hyperparathyroidism, unspecified; R80.9 Proteinuria, unspecified
CPT/HCPCS: 36415; 80069; 81001; 82306; 82570; 83970; 84156; 84550; 85025

== ENCOUNTER → 2023-11-15 | Outpatient (CLI) | payer OTHER ==
[2023-11-15 10:52] LABS: Urine Bacteria None Seen /hpf (None Seen)
[2023-11-15 11:11] LABS: Basophils # (auto) 0.1 10 ^3/uL (0-0.2); Basophils % (auto) 0.9 % (0.0-2.0); Eosinophils # (auto) 0.1 10 ^3/uL (0-0.8); Eosinophils % (auto) 1.8 % (0.0-7.0); Hematocrit 33.2 % (36.0-46.0); Lymphocytes # (auto) 1.5 10 ^3/uL (0.4-5.4); Lymphocytes % (auto) 18.6 % (10.0-50.0); Mean Corpuscular Hemoglobin 28.9 pg (28.0-32.0); Mean Corpuscular Hgb Conc. 33.2 g/dL (32.0-36.0); Mean Corpuscular Volume 86.9 fL (80.0-100.0); Monocytes # (auto) 0.6 10 ^3/uL (0-1.3); Monocytes % (auto) 7.7 % (0.0-12.0); Neutrophils # (auto) 5.8 10 ^3/uL (1.6-8.6); Red Blood Cells 3.81 10^6/uL (4.0-5.20); Red Cell Distribution Width 16.3 % (11.8-14.3); White Blood Cell 8.1 10^3/uL (4.4-10.8)
[2023-11-15 11:32] LABS: Chloride 112 mmol/L (98-107); Potassium 5.1 mmol/L (3.5-5.1); Sodium 140 mmol/L (136-145)
[2023-11-15 11:33] LABS: Anion Gap 7 (5-15); Carbon Dioxide 21 mmol/L (20-30)
[2023-11-15 11:34] LABS: Calcium 9.5 mg/dL (8.7-10.4)
[2023-11-15 11:37] LABS: Urine Blood Negative /uL (Negative); Urine Clarity Clear (Clear); Urine Color Colorless (Yellow); Urine Protein, UAD 1+ (Negative); Urine Specific Gravity 1.009 (1.001-1.035); Urine Urobilinogen Normal (Negative); Urine WBC <1 /hpf (0 - 5); Urine pH 5.5 (5.0-9.0)
[2023-11-15 11:38] LABS: BUN/Creatinine Ratio 24.4 (10.0-20.0); Blood Urea Nitrogen 50 mg/dL (9-23); Glucose 92 mg/dL (74-106)
== END | disposition home or self-care (01) ==
LOC: LAB 10:41
PROVIDERS: ATTEND Internal Medicine
DX: E11.22 Type 2 diabetes mellitus with diabetic chronic kidney disease (principal); N18.9 Chronic kidney disease, unspecified; E87.5 Hyperkalemia; N17.9 Acute kidney failure, unspecified; R00.1 Bradycardia, unspecified; R82.90 Unspecified abnormal findings in urine
CPT/HCPCS: 36415; 80048; 81001; 85025

== ENCOUNTER → 2024-02-10 | Outpatient (CLI) | payer OTHER ==
[2024-02-10 10:45] LABS: Basophils # (auto) 0.1 10 ^3/uL (0-0.2); Basophils % (auto) 1.1 % (0.0-2.0); Eosinophils # (auto) 0.1 10 ^3/uL (0-0.8); Eosinophils % (auto) 2.2 % (0.0-7.0); Hematocrit 32.4 % (36.0-46.0); Hemoglobin 10.4 g/dL (12.2-16.2); Lymphocytes # (auto) 1.4 10 ^3/uL (0.4-5.4); Lymphocytes % (auto) 21.9 % (10.0-50.0); Mean Corpuscular Hemoglobin 28.2 pg (28.0-32.0); Mean Corpuscular Hgb Conc. 32.1 g/dL (32.0-36.0); Mean Corpuscular Volume 87.9 fL (80.0-100.0); Monocytes # (auto) 0.4 10 ^3/uL (0-1.3); Monocytes % (auto) 6.5 % (0.0-12.0); Neutrophils # (auto) 4.3 10 ^3/uL (1.6-8.6); Neutrophils % (auto) 68.3 % (37.0-80.0); Nucleated Red Blood Cells % 0.1 %; Platelet Count (auto) 252 10^3/uL (140-450); Red Blood Cells 3.68 10^6/uL (4.0-5.20); Red Cell Distribution Width 15.8 % (11.8-14.3); White Blood Cell 6.3 10^3/uL (4.4-10.8)
[2024-02-10 11:27] LABS: Calcium 9.7 mg/dL (8.7-10.4)
[2024-02-10 11:31] LABS: Uric Acid 6.7 mg/dL (3.1-7.8)
[2024-02-10 11:32] LABS: BUN/Creatinine Ratio 21.8 (10.0-20.0)
[2024-02-10 11:33] LABS: Albumin 3.9 g/dL (3.2-4.8)
[2024-02-10 11:43] LABS: Creatinine, Urine 31.13 mg/dL (30.0-125.0)
== END | disposition home or self-care (01) ==
LOC: LAB 10:20
PROVIDERS: ATTEND Internal Medicine Nephrology
DX: E11.21 Type 2 diabetes mellitus with diabetic nephropathy (principal); E21.3 Hyperparathyroidism, unspecified; N39.0 Urinary tract infection, site not specified; R80.9 Proteinuria, unspecified; D63.1 Anemia in chronic kidney disease; N18.30 Chronic kidney disease, stage 3 unspecified; M10.9 Gout, unspecified; E55.9 Vitamin D deficiency, unspecified
CPT/HCPCS: 36415; 80069; 82043; 82306; 82570; 83970; 84550; 85025

== ENCOUNTER → 2024-03-13 | Outpatient (CLI) | payer OTHER ==
[~2024-03-13] VITALS: Ht 152.4 cm; Wt 78.9 kg
[2024-03-13] MEDS: ADENOSINE 66 MG in GIVE UN-DILUTED 0 ML IV STA (11:44)
--- NOTE | 2024-03-13 14:14 | DVHSR ---
APPROVED REPORT Exam: Nuclear Stress Test BMI: 0 Stress Test Details HR Max Heart Rate (APMHR): 149.772312 bpm Target HR (85% APMHR): 126.848803 bpm BP ECG Stress ECG Conclusion Resting ECG shows normal sinus rhythm. Resting images shows near homogeneous uptake of radioactive tracer throughout the myocardium without evidence of myocardial infarction. Stress images shows near homogeneous uptake of radioactive tracer throughout the myocardium without e vidence of myocardial ischemia. Well-preserved left ventricular systolic function at 73%. Impression: Negative stress test for ischemia, low risk study. NM EXAM: Myocardial Perfusion REST/STRESS Imaging Protocol: Rest Tc-99m/Stress Tc-99m 1 day Resting Data Rest SPECT myocardial perfusion imaging was performed in supine position 60 minutes following the int ravenous injection of 11.5 mCi of Tc-99m Sestamibi. Time of rest injection: 1030 Time of rest imagin Administration Route: IV Administration Site: Left AC Pharmacologic Stress Pharmacologic stress test was performed by injecting Adenosine mg IV push followed by the intravenou s injection of 30.8 mCi of Tc-99m Sestamibi. Time of stress injection: 1142 Time of stress imagin Administration Route: IV Administration Site: Left AC Gated Stress SPECT was performed 60 minutes after stress injection. The images were gated to evaluate regional wall motion and calculate left ventricular ejection fracti on. Stress only was performed in the Supine position. Nuclear Conclusion ECG Findings: negative for ischemia Clinical Findings: negative for ischemia Nuclear Findings: negative for ischemia Exercise Capacity: not assessed Left Ventricular Function: normal Risk Study: low Resting ECG shows normal sinus rhythm. Resting images shows near homogeneous uptake of radioactive tracer throughout the myocardium without evidence of myocardial infarction. Stress images shows near homogeneous uptake of radioactive tracer throughout the myocardium without e vidence of myocardial ischemia. Well-preserved left ventricular systolic function at 73%. Impression: Negative stress test for ischemia, low risk study.
== END | disposition home or self-care (01) ==
LOC: XYW 10:25
PROVIDERS: ATTEND Student in an Organized Health Care Education/Training Program
CPT/HCPCS: 78452 ×2; 93017 ×2; A9500; J0153 ×2

== ENCOUNTER → 2024-04-24 | Outpatient (CLI) | payer OTHER ==
[2024-04-24 10:03] LABS: Urine Bacteria None Seen /hpf (None Seen)
[2024-04-24 10:22] LABS: Basophils # (auto) 0.1 10 ^3/uL (0-0.2); Basophils % (auto) 1.2 % (0.0-2.0); Eosinophils # (auto) 0.2 10 ^3/uL (0-0.8); Eosinophils % (auto) 2.3 % (0.0-7.0); Hematocrit 30.8 % (36.0-46.0); Hemoglobin 9.7 g/dL (12.2-16.2); Lymphocytes # (auto) 1.3 10 ^3/uL (0.4-5.4); Lymphocytes % (auto) 15.9 % (10.0-50.0); Mean Corpuscular Hemoglobin 28.1 pg (28.0-32.0); Mean Corpuscular Hgb Conc. 31.6 g/dL (32.0-36.0); Mean Corpuscular Volume 89.1 fL (80.0-100.0); Monocytes # (auto) 0.6 10 ^3/uL (0-1.3); Monocytes % (auto) 7.2 % (0.0-12.0); Neutrophils % (auto) 73.4 % (37.0-80.0); Platelet Count (auto) 273 10^3/uL (140-450); Red Blood Cells 3.46 10^6/uL (4.0-5.20); Red Cell Distribution Width 17.1 % (11.8-14.3); White Blood Cell 8.1 10^3/uL (4.4-10.8)
[2024-04-24 10:37] LABS: Urine Blood TRACE /uL (Negative); Urine Clarity Clear (Clear); Urine Color Colorless (Yellow); Urine Protein, UAD 2+ (Negative); Urine Specific Gravity 1.008 (1.001-1.035); Urine Squamous Epithelial Cell FEW /hpf (<5); Urine Urobilinogen Normal (Negative); Urine WBC 1 /hpf (0 - 5)
[2024-04-24 11:06] LABS: Protein, Urine 159.4 mg/dL (1-14)
[2024-04-24 11:08] LABS: Calcium 9.5 mg/dL (8.7-10.4)
[2024-04-24 11:09] LABS: Creatinine, Urine 32.94 mg/dL (30.0-125.0); Urine Protein/Creatinine Ratio 4.84
[2024-04-24 11:12] LABS: Albumin 3.8 g/dL (3.2-4.8)
[2024-04-24 11:13] LABS: BUN/Creatinine Ratio 20.6 (10.0-20.0); Potassium 5.1 mmol/L (3.5-5.1)
[2024-04-24 11:15] LABS: Phosphorus 4.7 mg/dL (2.4-5.1)
[2024-04-24 12:19] LABS: Uric Acid 7.9 mg/dL (3.1-7.8)
== END | disposition home or self-care (01) ==
LOC: LAB 09:49
PROVIDERS: ATTEND Internal Medicine Nephrology
DX: E11.21 Type 2 diabetes mellitus with diabetic nephropathy (principal); N39.0 Urinary tract infection, site not specified; N18.30 Chronic kidney disease, stage 3 unspecified; E21.3 Hyperparathyroidism, unspecified; M10.9 Gout, unspecified; E55.9 Vitamin D deficiency, unspecified; R80.9 Proteinuria, unspecified; D63.1 Anemia in chronic kidney disease
CPT/HCPCS: 36415; 80069; 81001; 82570; 83970; 84156; 84550; 85025

== ENCOUNTER 2024-05-17 22:03 | Inpatient (IN) | payer OTHER ==
[~2024-05-17] VITALS: Ht 152.4 cm; Wt 82.6 kg
--- NOTE | 2024-05-17 22:17 | ED.PDOC ---
HPI Comments HPI: Poor Historian. Cough, Diarrhea, Sore Throat, Hypertension (189 systolic at home). 73-year-old female brought in by her daughter for evaluation of hypertension in the last week that is not being well managed at home. She does take a blood pressure medications. She was informed that the blood pressures greater than 160 to seek medical attention. She decided to come here today because her blood pressure at home was systolic 189. Daughter at bedside does not remember the lower diastolic number. Incidentally patient has been having four day history of some nonspecific diarrhea sore throat cough but they specifically state they are not here for that. Past Medical History: CKF, DM, HLD, HTN Past Surgical History: Left Knee Allergies: Penicillins REVIEW OF SYSTEMS: CONSTITUTIONAL: Denies acute: fever, diaphoresis, chills, HEAD: Denies acute: headache, photophobia Eyes: Denies acute: Double vision, vision loss, eye pain, eye discharge. EARS: Denies acute: tinnitus, hearing loss, ear discharge, ear pain, THROAT: Denies acute: sore throat, swelling, difficulty swallowing , pain with swallowing, change in voice. NECK: Denies acute: neck pain, neck swelling, stiff neck. HEART: Denies acute : chest pain, palpitations, LUNGS: Denies acute: SOB, wheezing, hemoptysis ABDOMEN: Denies acute: abdominal pain, Nausea, Vomiting, melena , hematemesis, hematochezia SKIN: Denies acute: rash, redness, lesions, itchiness. EXTREMITIES: Denies acute: calf pain, numbness, tingling, weakness, denies pain in extremity. Denies acute: Low back pain. Neuro: Denies acute: focal neurological deficit, motor or sensory focal neurological deficit, tremors, seizure like activity, confusion, dizziness, change in mental status, loss of bowel or bladder function, cauda equina like symptoms. : Denies acute: dysuria, hematuria, flank pain, increase in urinary frequency. PSYCH: Denies acute: hallucination, suicidal ideation, homicidal ideation. FEMALE: Denies acute: abnormal vaginal bleeding, foul odor, unusual discharge. PHYSICAL EXAM: General: no acute distress, awake and alert. Head: normocephalic, atraumatic. Neck: supple, trachea is midline, no swelling. Throat: Normal phonation. Eyes:, no erythema, no purulent discharge, no proptosis, no icterus. Heart: regular rate, regular rhythm, no significant murmur appreciated. Lungs: no apparent respiratory distress, Able to speak in full sentences. No wheezing, no rhonchi, no crackles. No stridors Clear to auscultation bilaterally. Abdomen: non tender to palpation, non distended, soft, no guarding, no rebound, + bowel sounds. Neuro: Awake, Alert, oriented to name, self, situation, follows commands GCS=15. Speech is normal. Skin: no petechia, no purpura, no cyanosis, non-pale, not jaundice. Lower extremities: --1/4 - Pitting edema no deformity, no focal swelling, no calf TTP. Makes eye contact. moves all four extremities. Face: no apparent facial droop. Ambulating in the ED independently. Ears: Normal appearing TM b/l, Stroke: finger to nose cerebellar testing is intact. No pronator drift. 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 Time Seen by MD: 22:13 Primary Care Provider: MICHAEL Cid Notes: Nurses Notes, Medications, Allergies Allergies: Coded Allergies: Penicillins (Unverified Allergy, Mild, hives, 03/13/24) Home Meds Active Scripts Lidocaine (Lidocaine Maximum Strengt) 4 % Pad, 4 % EX DAILY PRN for 15 Days, #15 PAD Prov:LUDWIN SHIPMAN TELEMETRY TECH 10/18/23 Hydrocodone-Acetaminophen (Hydrocodone Bitartrate/AC 5-325 mg) 1 Tab Tab, 1 TAB PO Q6HP PRN for 5 Days, #20 TAB Prov:LUDWIN SHIPMAN NP 24 Lidocaine (Lidocaine Maximum Strengt) 4 % Pad, 4 % EX DAILY PRN for 15 Days, #15 PAD Prov:LUDWIN SHIPMAN TELEMETRY TECH 24 Methocarbamol (Methocarbamol) 500 Mg Tab, 500 MG PO BID, #20 TAB Prov:MARTHA KIRKPATRICK 10/13/23 Acetaminophen (Tylenol 8 Hour Arthritis) 650 Mg Tab, 650 MG PO TID, #30 TAB Prov:MARTHA KIRKPATRICK 10/13/23 Reported Medications Insulin NPH (Human) (Isophane) (Novolin N Flexpen) 100 Unit/Ml Inj, 100 UNIT SC UD, INJ 0-150 0 151-200 4 u 201-250 6 u 251-300 8 u 301-350 10 u 351-400 12 u 06/18/22 Insulin Glargine (Basaglar Kwikpen) 100 Unit/Ml Inj, 100 UNIT SC, INJ 25 units q am, 10 units qhs 06/18/22 Atorvastatin Calcium (Lipitor) 40 Mg Tab, 40 MG PO HS, TAB 06/18/22 Allopurinol (Allopurinol) 300 Mg Tab, 300 MG PO DAILY, TAB 06/18/22 Amlodipine Besylate (NORVASC TABLET) 5 Mg Tb, 5 MG PO DAILY, TAB 06/18/22 Information Source: Patient, Relative Past Medical History PAST MEDICAL HISTORY: CKF, DM, High Lipids, HTN Surgical History: Denies all surgeries 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 Was a procedure done?: No CP Differential Dx Differential Diagnosis: N/A Differential Diagnosis: N/A (DDX include renal disease, thyroid disease, electrolyte abnormality, increased salt intake, medications non-compliance, undiagnosed HTN, Hypertensive crisis, hypertensive urgency., drug toxicity.) X-Ray, Labs, Meds, VS Vital Signs Date Time Temp Pulse Resp B/P (MAP) Pulse Ox O2 Delivery O2 Flow Rate FiO2 05/18/24 01:35 159/78 05/18/24 00:08 154/69 05/18/24 00:07 154/69 05/18/24 00:00 66 05/18/24 00:00 68 16 154/69 (97) 98 05/17/24 23:45 18 98 Room Air* 0 21 05/17/24 22:20 60 05/17/24 22:20 97.7 60 20 195/69 (111) 99 05/17/24 22:03 56 Lab Test 05/18/24 01:20 05/17/24 23:17 05/17/24 23:00 05/17/24 22:40 Range/Units Troponin I High Sensitivity Pending 7 </=34 ng/L Sodium Level 134 L 136-145 mmol/L Potassium Level 7.2 *H 3.5-5.1 mmol/L Chloride Level 110 H 98-107 mmol/L Carbon Dioxide Level 17 L 20-31 mmol/L Anion Gap 7 5-15 Blood Urea Nitrogen 64 H 9-23 mg/dL Creatinine 3.32 H 0.550-1.02 mg/dL Glomerular Filtration Rate Calc 14 >90 mL/min BUN/Creatinine Ratio 19.3 10.0-20.0 Serum Glucose 172 H 74-106 mg/dL Calcium Level 9.8 8.7-10.4 mg/dL Urine Color Colorless Yellow Urine Clarity Clear Clear Urine pH 6.5 5.0-9.0 Urine Specific [place] 1.007 1.001-1.035 Urine Protein 2+ H Negative Urine Ketones Negative Negative Urine Blood Trace H Negative /uL Urine Nitrite Negative Negative Urine Bilirubin Negative Negative Urine Urobilinogen Normal Negative mg/dL Urine Leukocyte Esterase Negative Negative /uL Urine RBC <1 0 - 4 /hpf Urine Microscopic WBC 1 0-5 /HPF Urine Squamous Epithelial Cells Few <5 /hpf Urine Bacteria None seen None Seen /hpf Urine Glucose Normal Normal mg/dL Influenza Type A Antigen Negative Negative Influenza Type B Antigen Negative Negative SARS-CoV-2 Antigen (Rapid) Negative NEGATIVE Test 05/17/24 22:29 Range/Units White Blood Count 8.7 4.4-10.8 10^3/uL Red Blood Count 3.98 L 4.0-5.20 10^6/uL Hemoglobin 11.2 L 12.2-16.2 g/dL Hematocrit 34.6 L 36.0-46.0 % Mean Corpuscular Volume 86.9 80.0-100.0 fL Mean Corpuscular Hemoglobin 28.2 28.0-32.0 pg Mean Corpuscular Hemoglobin Concent 32.5 32.0-36.0 g/dL Red Cell Distribution Width 16.1 H 11.8-14.3 % Platelet Count 348 140-450 10^3/uL Mean Platelet Volume 7.2 6.9-10.8 fL Neutrophils (%) (Auto) 72.1 37.0-80.0 % Lymphocytes (%) (Auto) 18.3 10.0-50.0 % Monocytes (%) (Auto) 6.0 0.0-12.0 % Eosinophils (%) (Auto) 2.6 0.0-7.0 % Basophils (%) (Auto) 1.0 0.0-2.0 % Neutrophils # (Auto) 6.3 1.6-8.6 10 ^3/uL Lymphocytes # (Auto) 1.6 0.4-5.4 10 ^3/uL Monocytes # (Auto) 0.5 0-1.3 10 ^3/uL Eosinophils # (Auto) 0.2 0-0.8 10 ^3/uL Basophils # (Auto) 0.1 0-0.2 10 ^3/uL Nucleated Red Blood Cells 0.1 % Sodium Level 134 L 136-145 mmol/L Potassium Level 7.4 *H 3.5-5.1 mmol/L Chloride Level 108 H 98-107 mmol/L Carbon Dioxide Level 19 L 20-31 mmol/L Anion Gap 7 5-15 Blood Urea Nitrogen 64 H 9-23 mg/dL Creatinine 3.32 H 0.550-1.02 mg/dL Glomerular Filtration Rate Calc 14 >90 mL/min BUN/Creatinine Ratio 19.3 10.0-20.0 Serum Glucose 190 H 74-106 mg/dL Lactic Acid Level 0.7 0.4-2.0 mmol/L Calcium Level 9.8 8.7-10.4 mg/dL Total Bilirubin 0.3 0.2-1.0 mg/dL Aspartate Amino Transferase (AST) 28 13-40 U/L Alanine Aminotransferase (ALT) 32 7-40 U/L Alkaline Phosphatase 171 H 46-116 U/L Troponin I High Sensitivity 7 </=34 ng/L Total Protein 7.1 5.7-8.2 g/dL Albumin 4.3 3.2-4.8 g/dL Current Medications Medications (Trade) Dose Ordered Sig/Rigo Route Start Time Stop Time Status Last Admin Nitroglycerin (Ntrostat Sublingual) 0.4 mg ONCE ONCE SL 05/17/24 22:30 05/17/24 22:31 DC 05/18/24 00:07 Albuterol (Ventolin Medneb) 20 mg ONCE ONCE NEB 05/17/24 23:30 05/17/24 23:37 DC 05/17/24 23:44 Sodium Bicarbonate 50 ml ONCE ONCE IV 05/17/24 23:30 05/17/24 23:37 DC 05/18/24 00:09 Furosemide (Lasix Injection) 20 mg ONCE ONCE IV 05/17/24 23:30 05/17/24 23:37 DC 05/18/24 00:08 Calcium Gluconate/ Sodium Chloride 50 ml @ 120 mls/hr ONCE ONCE IV 05/17/24 23:30 05/17/24 23:54 DC 05/18/24 00:39 Zirconium Oxide (Lokelma) 10 gm ONCE ONCE PO 05/17/24 23:30 05/17/24 23:37 DC 05/18/24 00:09 Ceftriaxone Sodium 50 ml @ 100 mls/hr ONCE ONCE IV 05/18/24 00:45 05/18/24 01:14 DC 05/18/24 01:31 Time of 1ST Reevaluation: 22:45 Reevaluation 1ST: Unchanged Patient Education/Counseling: Diagnosis, Treatment Family Education/Counseling: Diagnosis, Treatment Comments Patient presented with the above HPI.---hypertension evaluation and vital symptoms---workup was initiated. patient was found with the above mentioned diagnosis. the following medications were ordered: please refer to order lists of meds and tests obtained by myself Dr. Sumner. Patient ED course and VS have been stabilized. Patient has been reassessed in e ED and remained in a stable condition. Pertinent incidental findings were discussed with the patient and/or family. Patient/family voices understanding and is agreeable with plan. Patient has been observed in the ED adequate length of time to insure improvement/stability. Escalation of care considered: Consideration of escalation to observation or admission Patient was ADMITTED to the medicine team for further evaluation and treatment of their presentation. Patient was found with hyperkalemia. Hyperkalemia protocol was initiated. All the reports of any imaging studies that were ordered by myself were reviewed by myself. Departure 1 Departure Time of Disposition: 23:18 Impression: Primary Impression: Hypertensive crisis Additional Impression: Hyperkalemia Disposition: ADMITTED INPATIENT Admit to: Tele Condition: Guarded Discharged With: Self Critical Care Note Critical Care Time?: Yes (45 min-critical care time only) Heart Score Heart Score: Heart Score Response (Comments) Value History Slightly Suspicious 0 EKG Normal 0 Age >65 2 Risk Factors >3 or Hx ASHD 2 Troponin Normal limit 0 Total 4 TAMI SUMNER DO May 17, 2024 22:17
[2024-05-17 22:42] LABS: Basophils # (auto) 0.1 10 ^3/uL (0-0.2); Eosinophils # (auto) 0.2 10 ^3/uL (0-0.8); Eosinophils % (auto) 2.6 % (0.0-7.0); Hematocrit 34.6 % (36.0-46.0); Hemoglobin 11.2 g/dL (12.2-16.2); Lymphocytes # (auto) 1.6 10 ^3/uL (0.4-5.4); Lymphocytes % (auto) 18.3 % (10.0-50.0); Mean Corpuscular Hemoglobin 28.2 pg (28.0-32.0); Mean Corpuscular Hgb Conc. 32.5 g/dL (32.0-36.0); Mean Corpuscular Volume 86.9 fL (80.0-100.0); Monocytes # (auto) 0.5 10 ^3/uL (0-1.3); Neutrophils # (auto) 6.3 10 ^3/uL (1.6-8.6); Neutrophils % (auto) 72.1 % (37.0-80.0); Nucleated Red Blood Cells % 0.1 %; Platelet Count (auto) 348 10^3/uL (140-450); Red Blood Cells 3.98 10^6/uL (4.0-5.20); Red Cell Distribution Width 16.1 % (11.8-14.3); White Blood Cell 8.7 10^3/uL (4.4-10.8)
[2024-05-17 23:02] LABS: Alanine Aminotransferase 32 U/L (7-40); Albumin 4.3 g/dL (3.2-4.8); Anion Gap 7 (5-15); Aspartate Aminotransferase 28 U/L (13-40); BUN/Creatinine Ratio 19.3 (10.0-20.0); Calcium 9.8 mg/dL (8.7-10.4); Total Protein 7.1 g/dL (5.7-8.2)
[2024-05-17 23:13] LABS: Sodium 134 mmol/L (136-145)
[2024-05-17 23:14] LABS: Alkaline Phosphatase 171 U/L (46-116); Bilirubin, Total 0.3 mg/dL (0.2-1.0); Blood Urea Nitrogen 64 mg/dL (9-23); Carbon Dioxide 19 mmol/L (20-31); Chloride 108 mmol/L (98-107); Glucose 190 mg/dL (74-106)
[2024-05-17 23:20] LABS: Potassium 7.4 mmol/L (3.5-5.1)
--- NOTE | 2024-05-17 23:26 | DVH ---
EXAMINATION: AP portable chest radiograph CLINICAL HISTORY: HTN, cough COMPARISON: Chest CT dated 10/13/2023 FINDINGS: Prominence of the cardiac silhouette which may be in part exaggerated by technique. Interstitial prom inence also noted. No sizable pleural effusion or pneumothorax. No lobar consolidation identified. IMPRESSION: Pulmonary vascular congestion/interstitial edema. Please correlate to exclude atypical infection.
[2024-05-17 23:33] LABS: Urine Bacteria None Seen /hpf (None Seen)
[2024-05-17] MEDS: ALBUTEROL SULF 2.5 MG/0.5ML(0.5%) NEB SOLN NEB ONE (23:44)
[2024-05-17] MEDS: ALBUTEROL SULF 2.5 MG/0.5ML(0.5%) NEB SOLN ONE (23:45)
[2024-05-17 23:51] LABS: COVID19 ANTIGEN SOFIA FIA NEGATIVE (NEGATIVE); Rapid Influenza A Negative (Negative); Rapid Influenza B Negative (Negative)
[2024-05-17 23:56] LABS: Urine Blood TRACE /uL (Negative); Urine Clarity Clear (Clear); Urine Color Colorless (Yellow); Urine Protein, UAD 2+ (Negative); Urine Specific Gravity 1.007 (1.001-1.035); Urine Squamous Epithelial Cell FEW /hpf (<5); Urine Urobilinogen Normal (Negative); Urine WBC 1 /HPF (0-5); Urine pH 6.5 (5.0-9.0)
[2024-05-18] VITALS (8 sets, daily range): BP systolic 137–164; BP diastolic 63–77; PULSE 84–93; RESP 14–19; TEMP 98–98.1; O2SAT 95–99
[2024-05-18] MEDS: NITROGLYCERIN 0.4 MG SL TAB SL ONE (00:07)
[2024-05-18] MEDS: FUROSEMIDE 20 MG/2 ML VIAL IV ONE (00:08)
[2024-05-18] MEDS: SODIUM BICARB 8.4% 50Meq/50ml SYR INJ IV ONE (00:09)
[2024-05-18] MEDS: SODIUM ZIRCONIUM CYCL 10 GM PAK PO ONE ×4 (00:09→20:42)
[2024-05-18 00:27] LABS: Anion Gap 7 (5-15); Calcium 9.8 mg/dL (8.7-10.4)
[2024-05-18 00:32] LABS: BUN/Creatinine Ratio 19.3 (10.0-20.0)
[2024-05-18 00:33] LABS: Blood Urea Nitrogen 64 mg/dL (9-23); Carbon Dioxide 17 mmol/L (20-31); Chloride 110 mmol/L (98-107); Glucose 172 mg/dL (74-106); Sodium 134 mmol/L (136-145)
[2024-05-18 00:34] LABS: Potassium 7.2 mmol/L (3.5-5.1)
[2024-05-18] MEDS: CALCIUM GLUC 1,000mg/50ml-NS 50 ML IV ONE ×2 (00:39→13:24)
[2024-05-18] MEDS: cefTRIAXone 1GM/50ML D5W 50 ML IV ONE (01:31)
--- NOTE | 2024-05-18 02:03 | ECG ---
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
[2024-05-18] MEDS: InsuLIN REG 1unit/0.01ml Soln (100units/ml) IV ONE ×2 (02:14→14:36)
[2024-05-18] MEDS: DEXTROSE (50%) 50ML SYRG IV ONE ×2 (02:15→14:10)
--- NOTE | 2024-05-18 07:12 | DVHHP2 ---
History of Present Illness Reason for Visit: High blood pressure History of Present Illness Geovanna Peres is a 73-year-old female with past medical history of hypertension, hyperlipidemia, diabetes, CKD and left knee replacement who presents to the ED for high blood pressure, general weakness, diarrhea, protective cough with white phlegm, sore throat, and bilateral lower extremity pitting edema 2+ x1 day. Patient's daughter is at bedside and states that she just recently felt weak and has not been walking but no complaints of lower extremity pain. Patient's daughter also reports no recent injury or trauma, no chest pain, no abdominal pain nausea, vomiting, dizziness, and headaches. Cardiovascular: HTN, hyperipidemia Renal/: Chronic renal failure Endocrine: Diabetes Past Surgical History: Other (Left knee replacement) Family History: Cancer, DM, Other (Grandma with diabetes and grandfather with prostate cancer) Smoke: No ALCOHOL: none Drugs: None Lives: with Family Domestic Violence: Neg Review of Systems Constitutional: Yes: Weakness; No: Fever, Chills, Sweats, Malaise, Other Eyes: No: Pain, Vision change, Conjunctivae inflammation, Eyelid inflammation, Other, Redness ENT: Throat pain; No: Ear pain, Ear discharge, Nose pain, Nose discharge, Nose congestion, Mouth pain, Mouth swelling, Throat swelling, Other Respiratory: Cough; No: Dry, Shortness of breath, SOB with excertion, Wheezing, Hemoptysis, Pleuritic Pain, Sputum, Wheezing, Other Cardiovascular: No: Chest Pain, Palpitations, Orthopnea, Paroxysmal Noc. Dyspnea, Edema, Lt Headedness, Other Gastrointestinal: Diarrhea; No: Nausea, Vomiting, Abdominal Pain, Constipation, Melena, Hematochezia, Other Genitourinary: No Dysuria, No Frequency, No Incontinence, No Hematuria, No Retention, No Other Musculoskeletal: No: other, neck pain, shoulder pain, arm pain, back pain, hand pain, leg pain, foot pain Skin: Other (Bilateral pitting edema 2+); No: Rash, Lesions, Jaundice, Bruising Neurological: No: Weakness, Numbness, Incoordination, Change in speech, Confusion, Seizures, Other Allergies: Coded Allergies: Penicillins (Unverified Allergy, Mild, hives, 03/13/24) Medications Current Medications Medications Dose Ordered Sig/Rigo Route Start Time Stop Time Status Last Admin Dose Admin Furosemide 40 mg BIDD IV 1/31/25 18:00 UNV Ondansetron HCl 4 mg Q4HP PRN IV 05/18/24 07:15 UNV Enoxaparin Sodium 40 mg DAILY SC 05/18/24 10:00 UNV Acetaminophen 650 mg Q6HP PRN PO 05/18/24 07:15 UNV Nitroglycerin 0.4 mg Q5MINP PRN SL 05/18/24 07:15 UNV Morphine Sulfate 2 mg Q30M PRN IV 05/18/24 07:15 UNV Ceftriaxone Sodium 50 ml @ 100 mls/hr DAILY@09 IV 05/18/24 09:00 UNV Exam Vital Signs Vital Signs Date Time Temp Pulse Resp B/P (MAP) Pulse Ox O2 Delivery O2 Flow Rate FiO2 05/18/24 06:00 85 20 149/64 (92) 92 05/17/24 23:45 Room Air* 0 21 05/17/24 23:35 98.1 98.1 General Appearance: Alert, Oriented X3, Cooperative, No acute distress HEENT: Atraumatic, PERRLA, EOMI, Mucous membr. moist/pink Respiratory: Normal air movement Cardiovascular: Regular rate, Normal S1, Normal S2, No murmurs Abdominal: Normal bowel sounds, Soft, No tenderness, No hepatospenomegaly, No masses Extremities: No clubbing, No cyanosis, Normal pulses, No tenderness/swelling Skin: No significant lesion Neuro: Normal speech, Normal tone, Sensation intact Psych/Mental Status: Mental status NL, Mood NL Labs/Xrays Labs Test 05/18/24 03:17 05/18/24 02:09 05/18/24 01:20 05/17/24 23:17 Range/Units Potassium Level 6.0 *H 3.5-5.1 mmol/L POC Glucose 231 H 70-106 mg/dl Troponin I High Sensitivity 8 </=34 ng/L Sodium Level 134 L 136-145 mmol/L Chloride Level 110 H 98-107 mmol/L Carbon Dioxide Level 17 L 20-31 mmol/L Anion Gap 7 5-15 Blood Urea Nitrogen 64 H 9-23 mg/dL Creatinine 3.32 H 0.550-1.02 mg/dL Glomerular Filtration Rate Calc 14 >90 mL/min BUN/Creatinine Ratio 19.3 10.0-20.0 Serum Glucose 172 H 74-106 mg/dL Calcium Level 9.8 8.7-10.4 mg/dL Test 05/17/24 23:00 05/17/24 22:40 05/17/24 22:29 Range/Units Urine Color Colorless Yellow Urine Clarity Clear Clear Urine pH 6.5 5.0-9.0 Urine Specific [place] 1.007 1.001-1.035 Urine Protein 2+ H Negative Urine Ketones Negative Negative Urine Blood Trace H Negative /uL Urine Nitrite Negative Negative Urine Bilirubin Negative Negative Urine Urobilinogen Normal Negative mg/dL Urine Leukocyte Esterase Negative Negative /uL Urine RBC <1 0 - 4 /hpf Urine Microscopic WBC 1 0-5 /HPF Urine Squamous Epithelial Cells Few <5 /hpf Urine Bacteria None seen None Seen /hpf Urine Glucose Normal Normal mg/dL Influenza Type A Antigen Negative Negative Influenza Type B Antigen Negative Negative SARS-CoV-2 Antigen (Rapid) Negative NEGATIVE White Blood Count 8.7 4.4-10.8 10^3/uL Red Blood Count 3.98 L 4.0-5.20 10^6/uL Hemoglobin 11.2 L 12.2-16.2 g/dL Hematocrit 34.6 L 36.0-46.0 % Mean Corpuscular Volume 86.9 80.0-100.0 fL Mean Corpuscular Hemoglobin 28.2 28.0-32.0 pg Mean Corpuscular Hemoglobin Concent 32.5 32.0-36.0 g/dL Red Cell Distribution Width 16.1 H 11.8-14.3 % Platelet Count 348 140-450 10^3/uL Mean Platelet Volume 7.2 6.9-10.8 fL Neutrophils (%) (Auto) 72.1 37.0-80.0 % Lymphocytes (%) (Auto) 18.3 10.0-50.0 % Monocytes (%) (Auto) 6.0 0.0-12.0 % Eosinophils (%) (Auto) 2.6 0.0-7.0 % Basophils (%) (Auto) 1.0 0.0-2.0 % Neutrophils # (Auto) 6.3 1.6-8.6 10 ^3/uL Lymphocytes # (Auto) 1.6 0.4-5.4 10 ^3/uL Monocytes # (Auto) 0.5 0-1.3 10 ^3/uL Eosinophils # (Auto) 0.2 0-0.8 10 ^3/uL Basophils # (Auto) 0.1 0-0.2 10 ^3/uL Nucleated Red Blood Cells 0.1 % Lactic Acid Level 0.7 0.4-2.0 mmol/L Total Bilirubin 0.3 0.2-1.0 mg/dL Aspartate Amino Transferase (AST) 28 13-40 U/L Alanine Aminotransferase (ALT) 32 7-40 U/L Alkaline Phosphatase 171 H 46-116 U/L Total Protein 7.1 5.7-8.2 g/dL Albumin 4.3 3.2-4.8 g/dL EXAMINATION: AP portable chest radiograph CLINICAL HISTORY: HTN, cough COMPARISON: Chest CT dated 10/13/2023 FINDINGS: Prominence of the cardiac silhouette which may be in part exaggerated by technique. Interstitial prominence also noted. No sizable pleural effusion or pneumothorax. No lobar consolidation identified. IMPRESSION: Pulmonary vascular congestion/interstitial edema. Please correlate to exclude at ypical infection. Assessment/Plan Assessment/Plan Assessment/Plan: Hypertensive crisis Hyperkalemia Probable pneumonia Hyperkalemia protocol Labs IV antibiotics-ceftriaxone Lasix Breathing treatments Nitro given in ED Troponin negative x2 EKG Chest x-ray COVID test Flu test UA Lactic acid level BNP A.m. 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 Procedure Category Date Status Time Furosemide Injection PHA 05/18/24 Logged (Lasix Injection) 18:00 B-Type Natriuretic LAB 05/18/24 Logged Peptide 07:08 Admit ADMIT 05/18/24 Transmitted 07:08 Allergies DELL 05/18/24 In Process 07:08 Code Status CODE 05/18/24 Transmitted 07:08 Ondansetron Hcl PHA 05/18/24 Logged (Zofran) 07:15 Enoxaparin Sodium PHA 05/18/24 Logged (Lovenox) 10:00 Complete Blood Count LAB 05/19/24 Verified 04:00 Comprehensive LAB 05/19/24 Verified Metabolic Panel 04:00 Cardiac DIET 05/18/24 Transmitted Diet-2gna,Lofat,Lochol Breakfast Acetaminophen Tablet PHA 05/18/24 Logged (Tylenol Tablet) 07:15 Nitroglycerin PHA 05/18/24 Logged Sublingual (Ntrostat 07:15 Morphine Sulfate PHA 05/18/24 Logged Injection 07:15 Stat Ekg For Chest [facility] 05/18/24 In Process Pain 07:08 Notify Md Of Changes [facility] 05/18/24 In Process From Base 07:08 Tallow Refiner For [facility] 05/18/24 In Process 24 Hours 07:08 Emergency Dysrhythmia [facility] 05/18/24 In Process Protocol 07:08 Rhythm Strips Once [facility] 05/18/24 In Process Every Shift 07:08 Oxygen By Nasal RT 05/18/24 Transmitted Cannula 07:08 Ceftriaxone 1gm/50ml PHA 05/18/24 Logged D5w (Rocephin) 09:00 Albuterol Medneb PHA 05/18/24 Transmitted (Ventolin Medneb) 07:15 Ipratropium Medneb PHA 05/18/24 Transmitted (Atrovent Medneb) 07:15 Hemoglobin A1c LAB 05/18/24 Transmitted 07:10 Glucose Blood PHA 05/18/24 Transmitted (Accu-Chek Comfort 11:30 Mild Sliding Scale PHA 05/18/24 Transmitted 11:30 Dextrose 50% Syringe PHA 05/18/24 Transmitted 07:15 Date of Service: May 18, 2024 Billing Provider: ALLAN LARA Common Visit Codes: [id number] INP/OBS CARE (HIGH) ALLAN LARA May 18, 2024 07:12
[2024-05-18] MEDS ORDERED: NITROGLYCERIN 0.4 MG SL TAB SL PRN (07:15)
[2024-05-18] MEDS ORDERED: DEXTROSE (50%) 50ML SYRG IV PRN (07:15)
[2024-05-18] MEDS ORDERED: IPRATROPIUM BROM 0.5 MG/2.5ML INH SOL NEB PRN (07:15)
[2024-05-18] MEDS ORDERED: ALBUTEROL SULF 2.5 MG/0.5ML(0.5%) NEB SOLN NEB PRN (07:15)
[2024-05-18] MEDS ORDERED: MORPHINE SULFATE INJ 2 MG/ml SYRG IV PRN (07:15)
[2024-05-18] MEDS ORDERED: cefTRIAXone 1GM/50ML D5W 50 ML IV SCH (09:00)
[2024-05-18] MEDS ORDERED: ERGO400T PO (11:20)
[2024-05-18] MEDS ORDERED: ALLO100T PO (11:20)
[2024-05-18] MEDS ORDERED: AMLO1TAB22 PO (11:20)
[2024-05-18] MEDS ORDERED: MET50T PO (11:20)
[2024-05-18] MEDS: ACCU-CHEK COMFORT CURVE STRIP VI SCH (12:30)
[2024-05-18] MEDS: ENOXAPARIN SOD 40 MG/0.4 ML SYRINGE SC SCH (12:31)
[2024-05-18] MEDS: InsuLIN REG 1unit/0.01ml Soln (100units/ml) SC SCH (12:34)
[2024-05-18 15:22] LABS: Base Excess -6.3 mmol/L (-2.0-3.0)
[2024-05-18 16:22] LABS: Erythrocyte Sedimentation Rate 46 mm/hr (0-20)
--- NOTE | 2024-05-18 17:04 | DVHPN2 ---
Subjective 05/18 - patient recent darrhea illness, although looks volume overload on feet swelling. will need volume to reassess if mackenzie on ckd from depletion vs overload. will conitnue magnement. Reviewed: H&P Changes from previous H/P or p: No Changes General: Per HPI Skin: Other (Bilateral pitting edema 2+) Objective Vitals Vital Signs Date Time Temp Pulse Resp B/P (MAP) Pulse Ox O2 Delivery O2 Flow Rate FiO2 05/18/24 16:46 98.1 89 17 164/76 (105) 96 98.1 05/18/24 07:54 Room Air* 0 21 Exam lungs clear, BL LE edema +2-3 , no murmur. abd BS nl. Medications Current Medications Medications Dose Ordered Sig/Rigo Route Start Time Stop Time Status Last Admin Dose Admin Furosemide 40 mg BIDD IV 05/18/24 18:00 Ondansetron HCl 4 mg Q4HP PRN IV 05/18/24 07:15 Enoxaparin Sodium 40 mg DAILY SC 05/18/24 10:00 05/18/24 12:31 40 MG Acetaminophen 650 mg Q6HP PRN PO 05/18/24 07:15 Nitroglycerin 0.4 mg Q5MINP PRN SL 05/18/24 07:15 Morphine Sulfate 2 mg Q30M PRN IV 05/18/24 07:15 Ceftriaxone Sodium 50 ml @ 100 mls/hr DAILY@09 IV 05/18/24 09:00 Hold Albuterol 2.5 mg Q4HPRN PRN NEB 05/18/24 07:15 Ipratropium [place] 0.5 mg Q4HPRN PRN NEB 05/18/24 07:15 Diagnostic Test (Pha) 1 strip ACHS 05/18/24 11:30 05/18/24 12:30 1 STRIP Insulin Human Regular ACHS SC 05/18/24 11:30 05/18/24 12:34 3 UNITS Dextrose 50 ml UD PRN IV 05/18/24 07:15 Laboratory Results Laboratory Tests 05/17/24 22:29 05/17/24 23:17 05/18/24 14:50 Chemistry Test 05/17/24 22:29 05/17/24 23:17 Albumin 4.3 g/dL (3.2-4.8) Calcium Level 9.8 mg/dL (8.7-10.4) 9.8 mg/dL (8.7-10.4) Total Protein 7.1 g/dL (5.7-8.2) Cardiac Markers Test 05/18/24 07:48 B-Type Natriuretic Peptide 85.59 pg/mL (0-100) LFT Test 05/17/24 22:29 Alanine Aminotransferase (ALT) 32 U/L (7-40) Alkaline Phosphatase 171 U/L (46-116) H Aspartate Amino Transferase (AST) 28 U/L (13-40) Total Bilirubin 0.3 mg/dL (0.2-1.0) HgA1c, TSH Test 05/18/24 07:48 Hemoglobin A1c 7.0 % A1C (<5.7) H Urinalysis Test 05/17/24 23:00 Urine Color Colorless (Yellow) Urine Clarity Clear (Clear) Urine pH 6.5 (5.0-9.0) Urine Specific [place] 1.007 (1.001-1.035) Urine Protein 2+ (Negative) H Urine Ketones Negative (Negative) Urine Blood Trace /uL (Negative) H Urine Nitrite Negative (Negative) Urine Bilirubin Negative (Negative) Urine Urobilinogen Normal mg/dL (Negative) Urine Leukocyte Esterase Negative /uL (Negative) Urine RBC <1 /hpf (0 - 4) Urine Microscopic WBC 1 /HPF (0-5) Urine Squamous Epithelial Cells Few /hpf (<5) Urine Bacteria None seen /hpf (None Seen) Urine Glucose Normal mg/dL (Normal) Blood Gas Results Test 05/18/24 15:13 Arterial Blood pH 7.385 (7.350-7.450) FiO2 % 21.0 Labs and/or images reviewed: Labs reviewed by me, Image(s) reviewed by me Assessment/Plan Assessment/Plan 05/18 - patient recent darrhea illness, although looks volume overload on feet swelling. will need volume to reassess if mackenzie on ckd from depletion vs overload. will conitnue magnement. mackenzie on ckd - trial lfuids. hold off lasix. repeat bmp and monitor. bnp nl. hyperkalemia - on protocol, repeat bmp, K q6h. on tele. s/p hyperK protocol URI infection - pt with SOB - flu/cov neg, URI common cold possible pneumonia possible - atypical pna possibe. will tx empirically with zpac iv HTN - home meds HLD - home meds DM - mild SSI Hx L TKA Plan discussed with: Patient My Orders Orders - ANANDA SMALL MD Procedure Category Date Status Time *Dr. Ramirez [facility] CONS 05/18/24 Transmitted -[place] 13:11 Abg W/ Co-Ox RT 05/18/24 Logged 14:02 Date of Service: May 18, 2024 Billing Provider: ANANDA SMALL MD Common Visit Codes: [id number] INP/OBS CARE(HIGH) ANANDA SMALL MD May 18, 2024 17:03
[2024-05-18] MEDS: FUROSEMIDE 40 MG/4 ML VIAL IV SCH ×2 (17:07→20:42)
[2024-05-18] MEDS: LACTATED RINGER'S 1,000 ML IV SCH (17:15)
--- NOTE | 2024-05-18 19:22 | DVHINCON2 ---
Date of service: May 18, [address] Smomers Reason for Consultation Acute kidney injury History of Present Illness History obtained from patient's daughter who is her caregiver 73-year-old female past medical history of diabetes, hypertension, diastolic heart failure, chronic kidney disease stage 4. Patient sees Dr[address] Ramirez in renal Clinic. Patient reports recent visit her amlodipine was increased due to uncontrolled blood pressure. Patient has been complaining over the last several days of abnormal feeling in her legs while sleeping and restlessness. She presents to the hospital for this reason was found to have a potassium level of 7.4. Nephrology consulted for acute management of electrolytes and renal function. Her workup during this hospitalization thus far showed an x-ray showing pulmonary congestion and echo showing diastolic heart failure. Patient has bilateral lower extremity swelling and per daughter the swelling has been persistent over the last several months. Past Medical History As above Allergies: Coded Allergies: Penicillins (Unverified Allergy, Mild, hives, 03/13/24) Home Meds Reported Medications Amlodipine Besylate (Amlodipine Besylate) 5 Mg Tab, 10 MG PO DAILY for 30 Days, MG 05/18/24 Allopurinol (Allopurinol) 100 Mg Tab, 100 MG PO DAILY for 30 Days, MG 05/18/24 Ergocalciferol (VITAMIN D2) 400 Unit Tab, 74702 UNIT PO once a week, TAB 05/18/24 Metoprolol Tartrate (LOPRESSOR TABLET) 50 Mg Tb, 25 MG PO PRN for bid, TAB 05/18/24 Insulin NPH (Human) (Isophane) (Novolin N Flexpen) 100 Unit/Ml Inj, 100 UNIT SC UD, INJ 0-150 0 151-200 4 u 201-250 6 u 251-300 8 u 301-350 10 u 351-400 12 u 06/18/22 Insulin Glargine (Basaglar Kwikpen) 100 Unit/Ml Inj, 100 UNIT SC, INJ 25 units q am, 10 units qhs 06/18/22 Atorvastatin Calcium (Lipitor) 40 Mg Tab, 40 MG PO HS, TAB 06/18/22 Current Medications Current Medications Medications (Trade) Dose Ordered Sig/Rigo Route PRN Reason Start Time Stop Time Status Last Admin Furosemide (Lasix Injection) 40 mg BIDD IV 05/18/24 18:00 Ondansetron HCl (Zofran) 4 mg Q4HP PRN IV NAUSEA / VOMITING 05/18/24 07:15 Enoxaparin Sodium (Lovenox) 40 mg DAILY SC 05/18/24 10:00 05/18/24 12:31 Acetaminophen (Tylenol Tablet) 650 mg Q6HP PRN PO PAIN SCALE 1-3 OR TEMP>100.4 05/18/24 07:15 Nitroglycerin (Ntrostat Sublingual) 0.4 mg Q5MINP PRN SL FOR CHEST PAIN 05/18/24 07:15 Morphine Sulfate 2 mg Q30M PRN IV FOR CHEST PAIN 05/18/24 07:15 Ceftriaxone Sodium 50 ml @ 100 mls/hr DAILY@09 IV 05/18/24 09:00 Hold Albuterol (Ventolin Medneb) 2.5 mg Q4HPRN PRN NEB SHORTNESS OF BREATH 05/18/24 07:15 Ipratropium [place] (Atrovent Medneb) 0.5 mg Q4HPRN PRN NEB SHORTNESS OF BREATH 05/18/24 07:15 Diagnostic Test (Pha) (Accu-Chek Comfort Curve T) 1 strip ACHS 05/18/24 11:30 05/18/24 17:07 Insulin Human Regular (InsuLIN R) ACHS SC 05/18/24 11:30 05/18/24 17:06 Dextrose 50 ml UD PRN IV Blood Sugar LESS THAN 60 05/18/24 07:15 Azithromycin 250 ml @ 125 mls/hr DAILY IV 05/19/24 10:00 Lactated Ringer's 1,000 ml @ 125 mls/hr Q8H IV 05/18/24 17:15 05/18/24 17:15 Family History: Diabetes mellitus G8 MOTHER FHx: cancer G8 MOTHER G8 FATHER Review of Systems Weakness H&P Exam Vital Signs/I&O Vital Sign Date Time Temp Pulse Resp B/P (MAP) Pulse Ox O2 Delivery O2 Flow Rate FiO2 05/18/24 16:46 98.1 89 17 164/76 (105) 96 98.1 05/18/24 08:59 Room Air* 0 21 Physical Exam Elderly female Not in overt distress Abdomen is soft Mild crackles at the bases No murmur Abdomen is soft Bilateral lower extremity edema with mild pitting Labs/Diagnostic Data Labs/Diagnostic Data Laboratory Tests Test 05/18/24 18:45 05/18/24 16:39 05/18/24 15:13 05/18/24 15:10 Range/Units POC Glucose 136 H 221 H 70-106 mg/dl Blood Gas Specimen Type Arterial Blood Gas Sample Site Right radial Blood Gas Patient Temperature 37.0 Arterial Blood Date Drawn [id number] Arterial Blood pH 7.385 7.350-7.450 Arterial Blood Partial Pressure CO2 30.4 L 32.0-45.0 mmHg Arterial Blood Partial Pressure O2 88.9 83.0-108.0 mmHg Arterial Blood HCO3 17.8 L 21.0-28.0 mmol/L Arterial Blood Oxygen Saturation 96.5 94.0-98.0 % Arterial Blood Base Excess -6.3 L -2.0-3.0 mmol/L Arterial Blood Oxyhemoglobin 96.2 94.0-98.0 % Arterial Blood Carboxyhemoglobin 0.1 L 0.5-1.5 % Arterial Blood Methemoglobin 0.2 0.0-1.5 % Romulo Test Yes Blood Gas Total Hemoglobin 10.50 L 12.0-16.0 g/dL Blood Gas Modality Room air FiO2 % 21.0 Test 05/18/24 14:50 05/18/24 14:16 05/18/24 11:22 05/18/24 10:35 Range/Units Erythrocyte Sedimentation Rate 46 H 0-20 mm/hr Potassium Level 6.0 *H 6.7 *H 3.5-5.1 mmol/L POC Glucose 251 H 171 H 70-106 mg/dl Test 05/18/24 07:48 05/18/24 03:17 05/18/24 02:09 05/18/24 01:20 Range/Units Hemoglobin A1c 7.0 H <5.7 % A1C B-Type Natriuretic Peptide 85.59 0-100 pg/mL Potassium Level 6.0 *H 3.5-5.1 mmol/L POC Glucose 231 H 70-106 mg/dl Troponin I High Sensitivity 8 </=34 ng/L Test 05/17/24 23:17 05/17/24 23:00 05/17/24 22:40 05/17/24 22:29 Range/Units Sodium Level 134 L 134 L 136-145 mmol/L Potassium Level 7.2 *H 7.4 *H 3.5-5.1 mmol/L Chloride Level 110 H 108 H 98-107 mmol/L Carbon Dioxide Level 17 L 19 L 20-31 mmol/L Anion Gap 7 7 5-15 Blood Urea Nitrogen 64 H 64 H 9-23 mg/dL Creatinine 3.32 H 3.32 H 0.550-1.02 mg/dL Glomerular Filtration Rate Calc 14 14 >90 mL/min BUN/Creatinine Ratio 19.3 19.3 10.0-20.0 Serum Glucose 172 H 190 H 74-106 mg/dL Calcium Level 9.8 9.8 8.7-10.4 mg/dL Troponin I High Sensitivity 7 7 </=34 ng/L Urine Color Colorless Yellow Urine Clarity Clear Clear Urine pH 6.5 5.0-9.0 Urine Specific [place] 1.007 1.001-1.035 Urine Protein 2+ H Negative Urine Ketones Negative Negative Urine Blood Trace H Negative /uL Urine Nitrite Negative Negative Urine Bilirubin Negative Negative Urine Urobilinogen Normal Negative mg/dL Urine Leukocyte Esterase Negative Negative /uL Urine RBC <1 0 - 4 /hpf Urine Microscopic WBC 1 0-5 /HPF Urine Squamous Epithelial Cells Few <5 /hpf Urine Bacteria None seen None Seen /hpf Urine Glucose Normal Normal mg/dL Influenza Type A Antigen Negative Negative Influenza Type B Antigen Negative Negative SARS-CoV-2 Antigen (Rapid) Negative NEGATIVE White Blood Count 8.7 4.4-10.8 10^3/uL Red Blood Count 3.98 L 4.0-5.20 10^6/uL Hemoglobin 11.2 L 12.2-16.2 g/dL Hematocrit 34.6 L 36.0-46.0 % Mean Corpuscular Volume 86.9 80.0-100.0 fL Mean Corpuscular Hemoglobin 28.2 28.0-32.0 pg Mean Corpuscular Hemoglobin Concent 32.5 32.0-36.0 g/dL Red Cell Distribution Width 16.1 H 11.8-14.3 % Platelet Count 348 140-450 10^3/uL Mean Platelet Volume 7.2 6.9-10.8 fL Neutrophils (%) (Auto) 72.1 37.0-80.0 % Lymphocytes (%) (Auto) 18.3 10.0-50.0 % Monocytes (%) (Auto) 6.0 0.0-12.0 % Eosinophils (%) (Auto) 2.6 0.0-7.0 % Basophils (%) (Auto) 1.0 0.0-2.0 % Neutrophils # (Auto) 6.3 1.6-8.6 10 ^3/uL Lymphocytes # (Auto) 1.6 0.4-5.4 10 ^3/uL Monocytes # (Auto) 0.5 0-1.3 10 ^3/uL Eosinophils # (Auto) 0.2 0-0.8 10 ^3/uL Basophils # (Auto) 0.1 0-0.2 10 ^3/uL Nucleated Red Blood Cells 0.1 % Lactic Acid Level 0.7 0.4-2.0 mmol/L Total Bilirubin 0.3 0.2-1.0 mg/dL Aspartate Amino Transferase (AST) 28 13-40 U/L Alanine Aminotransferase (ALT) 32 7-40 U/L Alkaline Phosphatase 171 H 46-116 U/L Total Protein 7.1 5.7-8.2 g/dL Albumin 4.3 3.2-4.8 g/dL Assessment Acute kidney injury on chronic kidney disease stage 4 Hyperkalemia possibly due to decreased renal function versus in garage is intake or medication side effect. Hypertension Fluid overload Diastolic heart disease Type 4 renal tubular acidosis? Discontinue IV fluids clinically patient appears to be hypervolemic Start diuretics Add sodium bicarbonate Medical treatment for elevated potassium Obtain ultrasound of the kidney for baseline evaluation and to rule out any obstruction Strict Is&Os No emergent indication for hemodialysis at this time Hold angiotensin and JO ANN inhibitors Reduce amlodipine as it possibly contributed to patient's lower extremity swelling Plan discussed with: Patient, Daughter GALISumiVENANCIO MD May 18, 2024 19:22
[2024-05-18 19:38] LABS: Anion Gap 9 (5-15); Chloride 107 mmol/L (98-107)
[2024-05-18 19:39] LABS: Calcium 10.1 mg/dL (8.7-10.4)
[2024-05-18 19:44] LABS: BUN/Creatinine Ratio 17.4 (10.0-20.0); Magnesium 2.3 mg/dL (1.6-2.6)
[2024-05-18 19:46] LABS: Phosphorus 4.7 mg/dL (2.4-5.1)
[2024-05-18 19:47] LABS: Blood Urea Nitrogen 62 mg/dL (9-23); Carbon Dioxide 19 mmol/L (20-31); Glucose 247 mg/dL (74-106); Sodium 135 mmol/L (136-145)
[2024-05-18 19:50] LABS: Potassium 5.8 mmol/L (3.5-5.1)
--- NOTE | 2024-05-18 20:20 | DVH ---
EXAM: US KIDNEY INDICATION: KEHINDE TECHNIQUE: Multiple real-time sonographic images of the kidneys and bladder were obtained. COMPARISON: US KIDNEY on DOS: 07/02/22 Findings: Right kidney measures 6.1 cm with normal contours, increased echotexture, and normal cortical thickne ss. 1.1 x 0.9 x 0.8 cm anechoic lesion. No evidence of hydronephrosis, calculi, or solid lesions. Left kidney measures 8.4 cm with normal contours, increased echotexture, and normal cortical thicknes s. 1.5 x 1.1 x 1.1 cm anechoic lesion. No evidence of hydronephrosis, calculi, or solid lesions. Urinary bladder is unremarkable without evidence of abnormal wall thickening, mass, or calculi. Prevo id volume 95 mL. Postvoid volume was not obtained. Impression: 1. Unremarkable sonographic study of the urinary bladder. 2. Increased echogenicity of bilateral kidneys. Correlate for medical renal disease. 3. Bilateral renal cysts.
[2024-05-18] MEDS ORDERED: LACTATED RINGER'S 1,000 ML IV ONE (20:30)
[2024-05-18] MEDS: SODIUM BICARBONATE 650 MG TAB PO SCH (22:47)
[2024-05-18] MEDS: AZITHROMYCIN 500MG/ 250ML 250 ML IV ONE (22:55)
[2024-05-18] MEDS: ACETAMINOPHEN 325 MG TAB PO PRN (23:53)
[2024-05-19] VITALS (10 sets, daily range): BP systolic 115–152; BP diastolic 61–83; PULSE 80–117; RESP 16–19; TEMP 97.6–98.4; O2SAT 94–98
[2024-05-19 06:14] LABS: Basophils # (auto) 0.1 10 ^3/uL (0-0.2); Basophils % (auto) 1.4 % (0.0-2.0); Eosinophils # (auto) 0.2 10 ^3/uL (0-0.8); Eosinophils % (auto) 2.7 % (0.0-7.0); Hematocrit 31.5 % (36.0-46.0); Hemoglobin 10.4 g/dL (12.2-16.2); Lymphocytes # (auto) 1.8 10 ^3/uL (0.4-5.4); Lymphocytes % (auto) 24.9 % (10.0-50.0); Mean Corpuscular Hemoglobin 28.3 pg (28.0-32.0); Mean Corpuscular Hgb Conc. 33.1 g/dL (32.0-36.0); Mean Corpuscular Volume 85.6 fL (80.0-100.0); Monocytes # (auto) 0.5 10 ^3/uL (0-1.3); Monocytes % (auto) 6.2 % (0.0-12.0); Neutrophils # (auto) 4.8 10 ^3/uL (1.6-8.6); Neutrophils % (auto) 64.8 % (37.0-80.0); Nucleated Red Blood Cells % 0.1 %; Platelet Count (auto) 322 10^3/uL (140-450); Red Blood Cells 3.68 10^6/uL (4.0-5.20); Red Cell Distribution Width 15.5 % (11.8-14.3); White Blood Cell 7.4 10^3/uL (4.4-10.8)
[2024-05-19] MEDS: SODIUM ZIRCONIUM CYCL 10 GM PAK PO SCH (06:32)
[2024-05-19 06:49] LABS: Alanine Aminotransferase 25 U/L (7-40); Anion Gap 11 (5-15); BUN/Creatinine Ratio 15.7 (10.0-20.0); Carbon Dioxide 21 mmol/L (20-31); Chloride 101 mmol/L (98-107)
[2024-05-19 06:50] LABS: Albumin 4.1 g/dL (3.2-4.8); Aspartate Aminotransferase 23 U/L (13-40); Bilirubin, Total 0.5 mg/dL (0.2-1.0); Total Protein 6.6 g/dL (5.7-8.2)
[2024-05-19 06:52] LABS: Alkaline Phosphatase 145 U/L (46-116); Blood Urea Nitrogen 52 mg/dL (9-23); Calcium 10.8 mg/dL (8.7-10.4); Glucose 62 mg/dL (74-106); Potassium 5.3 mmol/L (3.5-5.1); Sodium 133 mmol/L (136-145)
[2024-05-19] MEDS: AZITHROMYCIN 500MG/ 250ML 250 ML IV SCH (09:28)
[2024-05-19] MEDS: ALLOPURINOL 100 MG TAB PO SCH (10:00)
[2024-05-19] MEDS: ONDANSETRON HCL 4 MG/2 ML VIAL IV PRN (10:32)
--- NOTE | 2024-05-19 10:51 | DVHPN2 ---
Progress Note Date Seen: May 19, 2024 Medical Necessity Reason Pt with a Central, PICC or Fol: No Subjective Patient reports: Feels better Objective vital signs Vital Sign Date Time Temp Pulse Resp B/P (MAP) Pulse Ox O2 Delivery O2 Flow Rate FiO2 05/19/24 09:00 97.9 80 17 115/61 (79) 98 97.9 05/19/24 08:00 Room Air* 0 21 Total Intake and Output 05/18/24 05/18/24 05/19/24 15:00 23:00 07:00 Intake Total 50 ml 1735 ml 1510 ml Output Total 1500 ml Balance 50 ml 1735 ml 10 ml medications Current Medications Medications Dose Ordered Sig/Rigo Route Start Time Stop Time Status Last Admin Dose Admin Ondansetron HCl 4 mg Q4HP PRN IV 05/18/24 07:15 05/19/24 10:32 4 MG Enoxaparin Sodium 40 mg DAILY SC 05/18/24 10:00 05/19/24 10:00 40 MG Acetaminophen 650 mg Q6HP PRN PO 05/18/24 07:15 05/18/24 23:53 650 MG Nitroglycerin 0.4 mg Q5MINP PRN SL 05/18/24 07:15 Morphine Sulfate 2 mg Q30M PRN IV 05/18/24 07:15 Ceftriaxone Sodium 50 ml @ 100 mls/hr DAILY@09 IV 05/18/24 09:00 Hold Albuterol 2.5 mg Q4HPRN PRN NEB 05/18/24 07:15 Ipratropium [place] 0.5 mg Q4HPRN PRN NEB 05/18/24 07:15 Diagnostic Test (Pha) 1 strip ACHS 05/18/24 11:30 05/19/24 06:09 1 STRIP Insulin Human Regular ACHS SC 05/18/24 11:30 05/18/24 22:51 3 UNITS Dextrose 50 ml UD PRN IV 05/18/24 07:15 Azithromycin 250 ml @ 125 mls/hr DAILY IV 05/19/24 10:00 05/19/24 09:28 125 MLS/HR Furosemide 80 mg BIDD IV 05/18/24 19:15 05/19/24 05:38 80 MG Sodium Bicarbonate 650 mg TID PO 05/18/24 22:00 05/19/24 04:43 650 MG Zirconium Oxide 10 gm TID PO 05/19/24 06:00 05/21/24 05:59 05/19/24 06:32 10 GM Allopurinol 100 mg DAILY PO 05/19/24 10:00 05/19/24 10:00 100 MG Examination: GENERAL:Normal, CVS:Normal, ABDOMEN:Normal laboratory and microbiology Laboratory Tests 05/19/24 04:36 Test 05/19/24 04:36 Range/Units Serum Glucose 62 L 74-106 mg/dL Problem List/Assessment/Plan Problem List/Assessment/Plan Acute kidney injury on chronic kidney disease stage 4 Hyperkalemia possibly due to decreased renal function versus in garage is intake or medication side effect. Hypertension Fluid overload Diastolic heart disease Type 4 renal tubular acidosis hyperuricemia IV diuretics Continue sodium bicarbonate Medical treatment for elevated potassium ultrasound of the kidney unremarkable Strict Is&Os No emergent indication for hemodialysis at this time Hold angiotensin and JO ANN inhibitors Reduce amlodipine as it possibly contributed to patient's lower extremity swelling Plan discussed with: Patient My Orders My Orders Orders - VENANCIO PALMER MD Procedure Category Date Status Time Urine LAB 05/18/24 Logged Protein/Creatinine Moni; Comprehensive LAB 05/18/24 In Process Panel 14:18 Anca Panel LAB 05/18/24 In Process 14:18 Complement C3 & C4 LAB 05/18/24 In Process 14:18 Furosemide Injection PHA 05/18/24 In Process (Lasix Injection) 19:15 Communication Order ORDERS 05/18/24 Transmitted 19:11 Kidney US 05/18/24 Resulted 19:16 Strict I & O DELL 05/18/24 In Process 19:17 Sodium Bicarb Tab PHA 05/18/24 In Process 22:00 Cardiac DIET 05/19/24 Transmitted Diet-2gna,Lofat,Lochol Breakfast Sodium Zirconium PHA 05/19/24 In Process Cyclosilicate 06:00 Allopurinol Tablet PHA 05/19/24 In Process (Zyloprim Tablet) 10:00 VENANCIO PALMER MD May 19, 2024 10:51
[2024-05-19 13:24] LABS: Protein, Urine 80.6 mg/dL (1-14)
[2024-05-19 13:27] LABS: Creatinine, Urine 19.77 mg/dL (30.0-125.0); Urine Protein/Creatinine Ratio 4.08
[2024-05-19 14:33] LABS: Anion Gap 10 (5-15); Calcium 10.2 mg/dL (8.7-10.4); Carbon Dioxide 22 mmol/L (20-31)
[2024-05-19 14:38] LABS: BUN/Creatinine Ratio 14.9 (10.0-20.0)
[2024-05-19 14:39] LABS: Blood Urea Nitrogen 55 mg/dL (9-23); Chloride 97 mmol/L (98-107); Glucose 184 mg/dL (74-106); Sodium 129 mmol/L (136-145)
[2024-05-19 14:41] LABS: Potassium 5.9 mmol/L (3.5-5.1)
[2024-05-19] MEDS: InsuLIN REG 1unit/0.01ml Soln (100units/ml) IV ONE (16:07)
[2024-05-19] MEDS: DEXTROSE (50%) 50ML SYRG IV ONE (16:07)
--- NOTE | 2024-05-19 23:27 | DVHPN2 ---
Subjective 05/19 update 05/18 - patient recent darrhea illness, although looks volume overload on feet swelling. will need volume to reassess if mackenzie on ckd from depletion vs overload. will conitnue magnement. 05/19 - patient doing well. no complains. nephro onboard doing diuress. starte bicaarb tabs, [facility]. Reviewed: H&P Changes from previous H/P or p: No Changes General: Per HPI Skin: Other (Bilateral pitting edema 2+) Objective Vitals Vital Signs Date Time Temp Pulse Resp B/P (MAP) Pulse Ox O2 Delivery O2 Flow Rate FiO2 05/19/24 21:00 98.1 94 18 139/71 (93) 95 98.1 05/19/24 20:02 Room Air 0.0 05/19/24 20:02 21 Intake/Output Intake and Output 05/19/24 07:00 Intake Total 3295 ml Output Total 1500 ml Balance 1795 ml Intake Oral 1820 ml IV Total 1475 ml Output Urine Total 1500 ml # Voids 4 # Bowel Movements 2 Exam lungs clear, BL LE edema +2-3 , no murmur. abd BS nl. Medications Current Medications Medications Dose Ordered Sig/Rigo Route Start Time Stop Time Status Last Admin Dose Admin Ondansetron HCl 4 mg Q4HP PRN IV 05/18/24 07:15 05/19/24 10:32 4 MG Enoxaparin Sodium 40 mg DAILY SC 05/18/24 10:00 05/19/24 10:00 40 MG Acetaminophen 650 mg Q6HP PRN PO 05/18/24 07:15 05/18/24 23:53 650 MG Nitroglycerin 0.4 mg Q5MINP PRN SL 05/18/24 07:15 Morphine Sulfate 2 mg Q30M PRN IV 05/18/24 07:15 Ceftriaxone Sodium 50 ml @ 100 mls/hr DAILY@09 IV 05/18/24 09:00 Hold Albuterol 2.5 mg Q4HPRN PRN NEB 05/18/24 07:15 Ipratropium [place] 0.5 mg Q4HPRN PRN NEB 05/18/24 07:15 Diagnostic Test (Pha) 1 strip ACHS 05/18/24 11:30 05/19/24 21:14 1 STRIP Insulin Human Regular ACHS SC 05/18/24 11:30 05/19/24 21:14 2 UNITS Dextrose 50 ml UD PRN IV 05/18/24 07:15 Azithromycin 250 ml @ 125 mls/hr DAILY IV 05/19/24 10:00 05/19/24 09:28 125 MLS/HR Sodium Bicarbonate 650 mg TID PO 05/18/24 22:00 05/19/24 21:14 650 MG Zirconium Oxide 10 gm TID PO 05/19/24 06:00 05/21/24 05:59 05/19/24 21:14 10 GM Allopurinol 100 mg DAILY PO 05/19/24 10:00 05/19/24 10:00 100 MG Furosemide 80 mg DAILY IV 05/20/24 10:00 Laboratory Results Laboratory Tests 05/19/24 04:36 05/19/24 13:24 Chemistry Test 05/19/24 04:36 05/19/24 13:24 Albumin 4.1 g/dL (3.2-4.8) Calcium Level 10.8 mg/dL (8.7-10.4) H 10.2 mg/dL (8.7-10.4) Total Protein 6.6 g/dL (5.7-8.2) LFT Test 05/19/24 04:36 Alanine Aminotransferase (ALT) 25 U/L (7-40) Alkaline Phosphatase 145 U/L (46-116) H Aspartate Amino Transferase (AST) 23 U/L (13-40) Total Bilirubin 0.5 mg/dL (0.2-1.0) Urinalysis Test 05/17/24 23:00 05/19/24 12:53 Urine Color Colorless (Yellow) Urine Clarity Clear (Clear) Urine pH 6.5 (5.0-9.0) Urine Specific [place] 1.007 (1.001-1.035) Urine Protein 2+ (Negative) H Urine Ketones Negative (Negative) Urine Blood Trace /uL (Negative) H Urine Nitrite Negative (Negative) Urine Bilirubin Negative (Negative) Urine Urobilinogen Normal mg/dL (Negative) Urine Leukocyte Esterase Negative /uL (Negative) Urine RBC <1 /hpf (0 - 4) Urine Microscopic WBC 1 /HPF (0-5) Urine Squamous Epithelial Cells Few /hpf (<5) Urine Bacteria None seen /hpf (None Seen) Urine Glucose Normal mg/dL (Normal) Urine Creatinine 19.77 mg/dL (30.0-125.0) L Urine Protein/Creatinine Ratio 4.08 Urine Total Protein 80.6 mg/dL (1-14) H Microbiology Microbiology Date/Time Source Procedure Growth Status 05/19/24 02:50 Nose MRSA Screen - Final Complete Labs and/or images reviewed: Labs reviewed by me, Image(s) reviewed by me Assessment/Plan Assessment/Plan 05/19 - patient doing well. no complains. nephro onboard doing diuress. starte bicaarb tabs, [facility] now. mackenzie on ckd 4- lasix 80 iv bid. bnp nl Type 4 renal tubular acidosis- hyperkalemia acidosis, hyperkalemia - on protocol, on tele. s/p hyperK protocol. [facility] URI infection - pt with SOB - flu/cov neg, URI common cold possible pneumonia possible - atypical pna possibe. will tx empirically with zpac/ctx. Fluid overload Diastolic heart disease possible hyperuricemia/ gout - allopurinol. HTN - home meds HLD - home meds DM - mild SSI Hx L TKA diet renal dvt OOB gi - [place] diet med tele (for hyperK) full code. Plan discussed with: Patient My Orders Orders - ANANDA SMALL MD Procedure Category Date Status Time Furosemide Injection PHA 05/20/24 In Process (Lasix Injection) 10:00 Date of Service: May 19, 2024 Billing Provider: ANANDA SMALL MD Common Visit Codes: [id number] INP/OBS CARE(HIGH) ANANDA SMALL MD May 19, 2024 23:27
[2024-05-20] VITALS (10 sets, daily range): BP systolic 130–154; BP diastolic 60–79; PULSE 86–102; RESP 16–18; TEMP 97.7–98.2; O2SAT 95–99
[2024-05-20] MEDS: ALBUMIN 25% 100 ML IV ONE (05:50)
[2024-05-20 07:49] LABS: Basophils # (auto) 0.1 10 ^3/uL (0-0.2); Eosinophils # (auto) 0.1 10 ^3/uL (0-0.8); Eosinophils % (auto) 1.7 % (0.0-7.0); Hematocrit 28.9 % (36.0-46.0); Hemoglobin 9.5 g/dL (12.2-16.2); Lymphocytes # (auto) 1.1 10 ^3/uL (0.4-5.4); Lymphocytes % (auto) 21.4 % (10.0-50.0); Mean Corpuscular Hemoglobin 28.3 pg (28.0-32.0); Mean Corpuscular Hgb Conc. 32.9 g/dL (32.0-36.0); Mean Corpuscular Volume 85.8 fL (80.0-100.0); Monocytes # (auto) 0.4 10 ^3/uL (0-1.3); Monocytes % (auto) 7.9 % (0.0-12.0); Neutrophils # (auto) 3.6 10 ^3/uL (1.6-8.6); Nucleated Red Blood Cells % 0.1 %; Platelet Count (auto) 296 10^3/uL (140-450); Red Blood Cells 3.37 10^6/uL (4.0-5.20); Red Cell Distribution Width 15.3 % (11.8-14.3); White Blood Cell 5.4 10^3/uL (4.4-10.8)
[2024-05-20 08:05] LABS: Alanine Aminotransferase 22 U/L (7-40); Anion Gap 12 (5-15); Aspartate Aminotransferase 22 U/L (13-40); BUN/Creatinine Ratio 13.1 (10.0-20.0); Calcium 9.9 mg/dL (8.7-10.4); Carbon Dioxide 21 mmol/L (20-31); Potassium 4.5 mmol/L (3.5-5.1)
[2024-05-20 08:06] LABS: Bilirubin, Total 0.4 mg/dL (0.2-1.0); Total Protein 6.1 g/dL (5.7-8.2)
[2024-05-20 08:22] LABS: Alkaline Phosphatase 133 U/L (46-116); Blood Urea Nitrogen 50 mg/dL (9-23); Chloride 93 mmol/L (98-107); Glucose 133 mg/dL (74-106); Sodium 126 mmol/L (136-145)
[2024-05-20] MEDS: FUROSEMIDE 40 MG/4 ML VIAL IV SCH (09:08)
[2024-05-20] MEDS: SODIUM BICARBONATE 650 MG TAB PO SCH (14:00)
--- NOTE | 2024-05-20 17:51 | DVHPN2 ---
Subjective 05/20 update 05/18 - patient recent darrhea illness, although looks volume overload on feet swelling. will need volume to reassess if mackenzie on ckd from depletion vs overload. will conitnue magnement. 05/19 - patient doing well. no complains. nephro onboard doing diuress. starte bicaarb tabs, rigo lokelma now. 05/20 K is better with Lokelma, patient continues to feel nauseated. But also wound take Zofran IV. She had a has a headache from not being able to sleep. Because of her restless legs . Family family wants to have home remedies for restless leg, some sort of magnesium cream and oral magnesium. Reviewed: H&P Changes from previous H/P or p: No Changes General: Per HPI Skin: Other (Bilateral pitting edema 2+) Objective Vitals Vital Signs Date Time Temp Pulse Resp B/P (MAP) Pulse Ox O2 Delivery O2 Flow Rate FiO2 05/20/24 13:00 97.7 95 18 130/60 (83) 99 97.7 05/20/24 07:57 Room Air* 0 21 Intake/Output Intake and Output 05/20/24 07:00 Intake Total 2000 ml Output Total 2645 ml Balance -645 ml Intake Oral 1750 ml IV Total 250 ml Output Urine Total 2645 ml # Bowel Movements 3 Exam lungs clear, BL LE edema +2-3 , murmur. abd BS nl. Medications Current Medications Medications Dose Ordered Sig/Rigo Route Start Time Stop Time Status Last Admin Dose Admin Ondansetron HCl 4 mg Q4HP PRN IV 05/18/24 07:15 05/19/24 10:32 4 MG Enoxaparin Sodium 40 mg DAILY SC 05/18/24 10:00 05/19/24 10:00 40 MG Acetaminophen 650 mg Q6HP PRN PO 05/18/24 07:15 05/18/24 23:53 650 MG Nitroglycerin 0.4 mg Q5MINP PRN SL 05/18/24 07:15 Morphine Sulfate 2 mg Q30M PRN IV 05/18/24 07:15 Ceftriaxone Sodium 50 ml @ 100 mls/hr DAILY@09 IV 05/18/24 09:00 Hold Albuterol 2.5 mg Q4HPRN PRN NEB 05/18/24 07:15 Ipratropium [place] 0.5 mg Q4HPRN PRN NEB 05/18/24 07:15 Diagnostic Test (Pha) 1 strip ACHS 05/18/24 11:30 05/20/24 17:01 1 STRIP Insulin Human Regular ACHS SC 05/18/24 11:30 05/20/24 17:26 3 UNITS Dextrose 50 ml UD PRN IV 05/18/24 07:15 Azithromycin 250 ml @ 125 mls/hr DAILY IV 05/19/24 10:00 05/19/24 09:28 125 MLS/HR Zirconium Oxide 10 gm TID PO 05/19/24 06:00 05/21/24 05:59 05/20/24 05:49 10 GM Allopurinol 100 mg DAILY PO 05/19/24 10:00 05/19/24 10:00 100 MG Furosemide 80 mg DAILY IV 05/20/24 10:00 Sodium Bicarbonate 1,300 mg TID PO 05/20/24 14:00 Laboratory Results Laboratory Tests 05/20/24 06:44 Chemistry Test 05/20/24 06:44 Albumin 4.0 g/dL (3.2-4.8) Calcium Level 9.9 mg/dL (8.7-10.4) Total Protein 6.1 g/dL (5.7-8.2) LFT Test 05/20/24 06:44 Alanine Aminotransferase (ALT) 22 U/L (7-40) Alkaline Phosphatase 133 U/L (46-116) H Aspartate Amino Transferase (AST) 22 U/L (13-40) Total Bilirubin 0.4 mg/dL (0.2-1.0) Urinalysis Test 05/17/24 23:00 05/19/24 12:53 Urine Color Colorless (Yellow) Urine Clarity Clear (Clear) Urine pH 6.5 (5.0-9.0) Urine Specific [place] 1.007 (1.001-1.035) Urine Protein 2+ (Negative) H Urine Ketones Negative (Negative) Urine Blood Trace /uL (Negative) H Urine Nitrite Negative (Negative) Urine Bilirubin Negative (Negative) Urine Urobilinogen Normal mg/dL (Negative) Urine Leukocyte Esterase Negative /uL (Negative) Urine RBC <1 /hpf (0 - 4) Urine Microscopic WBC 1 /HPF (0-5) Urine Squamous Epithelial Cells Few /hpf (<5) Urine Bacteria None seen /hpf (None Seen) Urine Glucose Normal mg/dL (Normal) Urine Creatinine 19.77 mg/dL (30.0-125.0) L Urine Protein/Creatinine Ratio 4.08 Urine Total Protein 80.6 mg/dL (1-14) H Microbiology Microbiology Date/Time Source Procedure Growth Status 05/19/24 02:50 Nose MRSA Screen - Final Complete Labs and/or images reviewed: Labs reviewed by me, Image(s) reviewed by me Assessment/Plan Assessment/Plan 05/20 K is better with Lokelma, patient continues to feel nauseated. But also wound take Zofran IV. She had a has a headache from not being able to sleep. Because of her restless legs . Family family wants to have home remedies for restless leg, some sort of magnesium cream and oral magnesium. We will add Tylenol and magnesium cream as per patient's family's request mackenzie on ckd 4- lasix 80 iv bid. bnp nl Type 4 renal tubular acidosis- hyperkalemia acidosis, hyperkalemia - on protocol, on tele. s/p hyperK protocol. on rigo lokelm URI infection - pt with SOB - flu/cov neg, URI common cold possible pneumonia possible - atypical pna possibe. will tx empirically with zpac/ctx. Fluid overload Diastolic heart disease possible Restless legs family wants home magnesium cream. hyperuricemia/ gout - allopurinol. HTN - home meds HLD - home meds DM - mild SSI Hx L TKA diet renal dvt OOB gi - khushboo diet med tele (for hyperK) full code. Plan discussed with: Daughter My Orders Orders - ANANDA SMALL MD Procedure Category Date Status Time Furosemide Injection PHA 05/20/24 In Process (Lasix Injection) 10:00 Date of Service: May 20, 2024 Billing Provider: ANANDA SMALL MD Common Visit Codes: [id number] INP/OBS CARE(HIGH) ANANDA SMALL MD May 20, 2024 17:51
--- NOTE | 2024-05-20 18:47 | DVHPN2 ---
Progress Note Date Seen: May 20, 2024 Medical Necessity Reason Pt with a Central, PICC or Fol: No Subjective Patient reports: Feels worse (vomited) Objective vital signs Vital Sign Date Time Temp Pulse Resp B/P (MAP) Pulse Ox O2 Delivery O2 Flow Rate FiO2 05/20/24 13:00 97.7 95 18 130/60 (83) 99 97.7 05/20/24 07:57 Room Air* 0 21 Total Intake and Output 05/19/24 05/19/24 05/20/24 15:00 23:00 07:00 Intake Total 250 ml 400 ml 1350 ml Output Total 820 ml 1825 ml Balance 250 ml -420 ml -475 ml medications Current Medications Medications Dose Ordered Sig/Rigo Route Start Time Stop Time Status Last Admin Dose Admin Ondansetron HCl 4 mg Q4HP PRN IV 05/18/24 07:15 05/19/24 10:32 4 MG Enoxaparin Sodium 40 mg DAILY SC 05/18/24 10:00 05/19/24 10:00 40 MG Acetaminophen 650 mg Q6HP PRN PO 05/18/24 07:15 05/18/24 23:53 650 MG Nitroglycerin 0.4 mg Q5MINP PRN SL 05/18/24 07:15 Morphine Sulfate 2 mg Q30M PRN IV 05/18/24 07:15 Ceftriaxone Sodium 50 ml @ 100 mls/hr DAILY@09 IV 05/18/24 09:00 Hold Albuterol 2.5 mg Q4HPRN PRN NEB 05/18/24 07:15 Ipratropium [place] 0.5 mg Q4HPRN PRN NEB 05/18/24 07:15 Diagnostic Test (Pha) 1 strip ACHS 05/18/24 11:30 05/20/24 17:01 1 STRIP Insulin Human Regular ACHS SC 05/18/24 11:30 05/20/24 17:26 3 UNITS Dextrose 50 ml UD PRN IV 05/18/24 07:15 Azithromycin 250 ml @ 125 mls/hr DAILY IV 05/19/24 10:00 05/19/24 09:28 125 MLS/HR Zirconium Oxide 10 gm TID PO 05/19/24 06:00 05/21/24 05:59 05/20/24 05:49 10 GM Allopurinol 100 mg DAILY PO 05/19/24 10:00 05/19/24 10:00 100 MG Furosemide 80 mg DAILY IV 05/20/24 10:00 Sodium Bicarbonate 1,300 mg TID PO 05/20/24 14:00 Patient Own Medication 1 HS PO 05/20/24 22:00 Examination: GENERAL:Normal, CVS:Normal laboratory and microbiology Laboratory Tests 05/20/24 06:44 Test 05/20/24 06:44 Range/Units Serum Glucose 133 H 74-106 mg/dL Microbiology Date/Time Source Procedure Growth Status 05/19/24 02:50 Nose MRSA Screen - Final Complete Problem List/Assessment/Plan Problem List/Assessment/Plan Acute kidney injury on chronic kidney disease stage 4 Hyperkalemia possibly due to decreased renal function versus in garage is intake or medication side effect. Hypertension Fluid overload Diastolic heart disease Type 4 renal tubular acidosis hyperuricemia IV diuretics reduce and convert to po Continue sodium bicarbonate reduce lokelma to once a day in outpatient ultrasound of the kidney unremarkable Strict Is&Os No emergent indication for hemodialysis at this time Hold angiotensin and JO ANN inhibitors Reduce amlodipine as it possibly contributed to patient's lower extremity swelling can be discharged tomorrow if potassium is normal to follow Dr. Ramirez in clinic for ckd 4 Plan discussed with: Patient My Orders My Orders Orders - VENANCIO PALMER MD Procedure Category Date Status Time Sodium Bicarb Tab PHA 05/20/24 In Process 14:00 Basic Metabolic Panel LAB 05/21/24 Verified 04:00 VENANCIO PALMER MD May 20, 2024 18:47
[2024-05-20] MEDS: MAGNESIUM PO SCH (20:20)
[2024-05-20] MEDS: MELATONIN 5 MG TAB PO SCH (21:08)
[2024-05-21 05:00] VITALS: BP 148/74; PULSE 88; RESP 18; TEMP 97.8; O2SAT 97
[2024-05-21] MEDS: FUROSEMIDE 40 MG TAB PO SCH (06:20)
[2024-05-21 06:57] LABS: Basophils # (auto) 0 10 ^3/uL (0-0.2); Eosinophils # (auto) 0.1 10 ^3/uL (0-0.8); Eosinophils % (auto) 2.1 % (0.0-7.0); Hematocrit 28.9 % (36.0-46.0); Hemoglobin 9.8 g/dL (12.2-16.2); Lymphocytes # (auto) 1.2 10 ^3/uL (0.4-5.4); Lymphocytes % (auto) 23.4 % (10.0-50.0); Mean Corpuscular Hemoglobin 28.8 pg (28.0-32.0); Mean Corpuscular Volume 84.7 fL (80.0-100.0); Monocytes # (auto) 0.5 10 ^3/uL (0-1.3); Monocytes % (auto) 10.1 % (0.0-12.0); Neutrophils # (auto) 3.3 10 ^3/uL (1.6-8.6); Neutrophils % (auto) 63.4 % (37.0-80.0); Platelet Count (auto) 289 10^3/uL (140-450); Red Blood Cells 3.42 10^6/uL (4.0-5.20); Red Cell Distribution Width 14.7 % (11.8-14.3); White Blood Cell 5.2 10^3/uL (4.4-10.8)
[2024-05-21 07:01] LABS: Anion Gap 12 (5-15); Carbon Dioxide 21 mmol/L (20-31); Potassium 4.5 mmol/L (3.5-5.1)
[2024-05-21 07:02] LABS: Calcium 9.6 mg/dL (8.7-10.4)
[2024-05-21 07:07] LABS: BUN/Creatinine Ratio 12.2 (10.0-20.0)
[2024-05-21 07:09] LABS: Blood Urea Nitrogen 47 mg/dL (9-23); Chloride 92 mmol/L (98-107); Glucose 116 mg/dL (74-106); Sodium 125 mmol/L (136-145)
[2024-05-21 08:00] VITALS: PULSE 102; PULSE 95; RESP 17; O2SAT 95
[2024-05-21 08:06] LABS: Complement C3 146 mg/dL (82-167)
[2024-05-21 09:00] VITALS: BP 157/80; PULSE 95; RESP 17; TEMP 97.8; O2SAT 95
[2024-05-21] MEDS: NIFEdipine ER 30 MG TAB PO ONE (11:39)
[2024-05-21 13:00] VITALS: BP 145/83; PULSE 95; RESP 17; TEMP 97.9; O2SAT 96
[2024-05-21] MEDS ORDERED: SODI650T PO (14:03)
[2024-05-21] MEDS ORDERED: ZOFR4T PO (14:03)
[2024-05-21] MEDS ORDERED: CARV6.2551 PO (14:03)
[2024-05-21] MEDS ORDERED: SODI10PA PO (14:03)
[2024-05-21] MEDS ORDERED: MECL1TAB42 PO (14:03)
[2024-05-21] MEDS ORDERED: FURO40TA4 PO (14:03)
--- NOTE | 2024-05-21 14:05 | DVHDS2 ---
Discharge Summary Date of Admission May 18, 2024 at 07:08 Date of Discharge: May 21, 2024 Labs/Diagnostic Data: Laboratory Results Test 05/21/24 11:50 05/21/24 05:27 05/20/24 06:44 05/19/24 12:53 POC Glucose 174 mg/dl (70-106) White Blood Count 5.2 10^3/uL (4.4-10.8) Red Blood Count 3.42 10^6/uL (4.0-5.20) Hemoglobin 9.8 g/dL (12.2-16.2) Hematocrit 28.9 % (36.0-46.0) Mean Corpuscular Volume 84.7 fL (80.0-100.0) Mean Corpuscular Hemoglobin 28.8 pg (28.0-32.0) Mean Corpuscular Hemoglobin Concent 34.0 g/dL (32.0-36.0) Red Cell Distribution Width 14.7 % (11.8-14.3) Platelet Count 289 10^3/uL (140-450) Mean Platelet Volume 7.6 fL (6.9-10.8) Neutrophils (%) (Auto) 63.4 % (37.0-80.0) Lymphocytes (%) (Auto) 23.4 % (10.0-50.0) Monocytes (%) (Auto) 10.1 % (0.0-12.0) Eosinophils (%) (Auto) 2.1 % (0.0-7.0) Basophils (%) (Auto) 1.0 % (0.0-2.0) Neutrophils # (Auto) 3.3 10 ^3/uL (1.6-8.6) Lymphocytes # (Auto) 1.2 10 ^3/uL (0.4-5.4) Monocytes # (Auto) 0.5 10 ^3/uL (0-1.3) Eosinophils # (Auto) 0.1 10 ^3/uL (0-0.8) Basophils # (Auto) 0 10 ^3/uL (0-0.2) Nucleated Red Blood Cells 0.0 % Sodium Level 125 mmol/L (136-145) Potassium Level 4.5 mmol/L (3.5-5.1) Chloride Level 92 mmol/L (98-107) Carbon Dioxide Level 21 mmol/L (20-31) Anion Gap 12 (5-15) Blood Urea Nitrogen 47 mg/dL (9-23) Creatinine 3.84 mg/dL (0.550-1.02) Glomerular Filtration Rate Calc 12 mL/min (>90) BUN/Creatinine Ratio 12.2 (10.0-20.0) Serum Glucose 116 mg/dL (74-106) Calcium Level 9.6 mg/dL (8.7-10.4) Total Bilirubin 0.4 mg/dL (0.2-1.0) Aspartate Amino Transferase (AST) 22 U/L (13-40) Alanine Aminotransferase (ALT) 22 U/L (7-40) Alkaline Phosphatase 133 U/L (46-116) Total Protein 6.1 g/dL (5.7-8.2) Albumin 4.0 g/dL (3.2-4.8) Urine Creatinine 19.77 mg/dL (30.0-125.0) Urine Protein/Creatinine Ratio 4.08 Urine Total Protein 80.6 mg/dL (1-14) Test 05/19/24 04:36 05/18/24 18:45 05/18/24 15:13 05/18/24 14:50 Parathyroid Hormone (Intact) 252.5 pg/mL (18.4-80.1) Uric Acid 8.0 mg/dL (3.1-7.8) Phosphorus Level 4.7 mg/dL (2.4-5.1) Magnesium Level 2.3 mg/dL (1.6-2.6) Anti-Nuclear Antibody Comment Comment (.) Complement C3 146 mg/dL (82-167) Complement C4 46 mg/dL (12-38) Blood Gas Specimen Type Arterial Blood Gas Sample Site Right radial Blood Gas Patient Temperature 37.0 Arterial Blood Date Drawn [id number] Arterial Blood pH 7.385 (7.350-7.450) Arterial Blood Partial Pressure CO2 30.4 mmHg (32.0-45.0) Arterial Blood Partial Pressure O2 88.9 mmHg (83.0-108.0) Arterial Blood HCO3 17.8 mmol/L (21.0-28.0) Arterial Blood Oxygen Saturation 96.5 % (94.0-98.0) Arterial Blood Base Excess -6.3 mmol/L (-2.0-3.0) Arterial Blood Oxyhemoglobin 96.2 % (94.0-98.0) Arterial Blood Carboxyhemoglobin 0.1 % (0.5-1.5) Arterial Blood Methemoglobin 0.2 % (0.0-1.5) Romulo Test Yes Blood Gas Total Hemoglobin 10.50 g/dL (12.0-16.0) Blood Gas Modality Room air FiO2 % 21.0 Erythrocyte Sedimentation Rate 46 mm/hr (0-20) Test 05/18/24 07:48 05/18/24 01:20 05/17/24 23:00 05/17/24 22:40 Hemoglobin A1c 7.0 % A1C (<5.7) B-Type Natriuretic Peptide 85.59 pg/mL (0-100) Troponin I High Sensitivity 8 ng/L (</=34) Urine Color Colorless (Yellow) Urine Clarity Clear (Clear) Urine pH 6.5 (5.0-9.0) Urine Specific [place] 1.007 (1.001-1.035) Urine Protein 2+ (Negative) Urine Ketones Negative (Negative) Urine Blood Trace /uL (Negative) Urine Nitrite Negative (Negative) Urine Bilirubin Negative (Negative) Urine Urobilinogen Normal mg/dL (Negative) Urine Leukocyte Esterase Negative /uL (Negative) Urine RBC <1 /hpf (0 - 4) Urine Microscopic WBC 1 /HPF (0-5) Urine Squamous Epithelial Cells Few /hpf (<5) Urine Bacteria None seen /hpf (None Seen) Urine Glucose Normal mg/dL (Normal) Influenza Type A Antigen Negative (Negative) Influenza Type B Antigen Negative (Negative) SARS-CoV-2 Antigen (Rapid) Negative (NEGATIVE) Test 05/17/24 22:29 Lactic Acid Level 0.7 mmol/L (0.4-2.0) Other Laboratory Tests 05/21/24 05:27 Brief Hx & Hospital Course: HPI: 73-year-old female with past medical history of hypertension, hyperlipidemia, diabetes, CKD and left knee replacement who presents to the ED for high blood pressure, general weakness, diarrhea, protective cough with white phlegm, sore throat, and bilateral lower extremity pitting edema 2+ x1 day. Patient's daughter is at bedside and states that she just recently felt weak and has not been walking but no complaints of lower extremity pain. course: present with complains of high BP and s/p recent URI/diarrheal illness. labs in ED show hyperkalemia 7.4 , mackenzie on ckd4 cr 3.3, pexcal edema +2-3 signs of volume overload. she has high PTH, uric acid high 8.0. Tn neg, BNP wnl. There is also acidosis NAGMA, bicarb 19, abg pH7.3. admit for mackenzie on ckd and hyperkaemia. nephrology onboard. treated with lasix 80 bid, hyperkalemia protocol (calcium gluconate, insulin/d50, albuterol, lokelma), shc lokelma 10mg bid and sodium bicarb tabs 1.3 tid. patient becomes euvolemic, hyperK resolves, acidosis controlled. Cr 3.8 near discharge, bmp stable. cxr appear congested, concern for pna, started on ctx/azithro. plan to continue following outpatient with nephrology. stable dc with plan below. diagnosis: Acute kidney injury on chronic kidney disease stage 4 Type 4 renal tubular acidosis Hyperkalemia possibly due to decreased renal function, resolving pneumonia possible, gram-/gram+ /atypical possible. URI infection possible s/p diarrheal illness, resolved acute on chronic Diastolic heart failure exacerbation possible EF 55% (03/12/24) gout hyperuricemia HTN discharge plan: - Take Lasix 40 daily, sodium bicarb 1.3 g 3 times daily, Lokelma 10 g daily, Coreg 6 mg twice daily - For dizziness use meclizine as needed, Zofran for nausea as needed. - stop metoprolol, - Follow up with Nephrology in 1 week - Repeat BNP labs on Tuesday05/25/2024 - Strict renal diet (low-sodium, < 1.5 L fluids per day) - Follow up with PCP to review discharge - Continue other home medications not mentioned above. Condition at Discharge: Fair Final Diagnosis/Problems List Acute kidney injury on chronic kidney disease stage 4 Type 4 renal tubular acidosis Hyperkalemia possibly due to decreased renal function, resolving pneumonia possible, gram-/gram+ /atypical possible. URI infection possible s/p diarrheal illness, resolved acute on chronic Diastolic heart failure exacerbation possible EF 55% (03/12/24) gout hyperuricemia HTN Discharge Disposition: Home Discharge Instruct/Medications Diet: Consistent carbohydrate, Renal Activity: No Restrictions, As Tolerated Follow Up/Referral: pcp, nephro Medications: below Discharge Statement: "Patient was advised to return to the ER or call 911 if any headaches, dizziness, shortness of breath, chest pain, abdominal pain, bleeding, fevers, or worsening of medical condition. Patient was counseled about treatment plan, medications, possible side effects, patientverbalized understanding. All questions were answered to the best of my ability. This discharge took greater then 30 minutes in planning, reviewing documentation, counseling the patient, and discussing with other team members." ASSESSMENT ASSESSMENT Assessment Acute kidney injury on chronic kidney disease stage 4 Type 4 renal tubular acidosis Hyperkalemia possibly due to decreased renal function, resolving pneumonia possible, gram-/gram+ /atypical possible. URI infection possible s/p diarrheal illness, resolved acute on chronic Diastolic heart failure exacerbation possible EF 55% (03/12/24) gout hyperuricemia HTN Date of Service: May 21, 2024 Billing Provider: ANANDA SMALL MD Common Visit Codes: [id number] DISCH DAY >30min ANANDA SMALL MD May 21, 2024 14:05
[2024-05-21 14:52] VITALS: BP 158/80
--- NOTE | 2024-05-21 15:04 | DVHPN2 ---
Progress Note Date Seen: May 21, 2024 Medical Necessity Reason Pt with a Central, PICC or Fol: No Subjective Patient reports: No new complaints Review of Systems: HEENT:Normal, CVS:Normal, RESPIRATORY:Normal, GI:Normal, :Normal, MSK:Normal, NEURO:Normal Objective vital signs Vital Sign Date Time Temp Pulse Resp B/P (MAP) Pulse Ox O2 Delivery O2 Flow Rate FiO2 05/21/24 11:39 158/80 05/21/24 09:00 97.8 95 17 95 97.8 05/21/24 08:00 Room Air* 0 21 Total Intake and Output 05/20/24 05/20/24 05/21/24 15:00 23:00 07:00 Intake Total 500 ml 1350 ml Output Total 1000 ml 1100 ml Balance -500 ml 250 ml medications Current Medications Medications Dose Ordered Sig/Rigo Route Start Time Stop Time Status Last Admin Dose Admin Ondansetron HCl 4 mg Q4HP PRN IV 05/18/24 07:15 05/20/24 20:16 4 MG Enoxaparin Sodium 40 mg DAILY SC 05/18/24 10:00 05/19/24 10:00 40 MG Acetaminophen 650 mg Q6HP PRN PO 05/18/24 07:15 05/21/24 02:32 650 MG Nitroglycerin 0.4 mg Q5MINP PRN SL 05/18/24 07:15 Morphine Sulfate 2 mg Q30M PRN IV 05/18/24 07:15 Ceftriaxone Sodium 50 ml @ 100 mls/hr DAILY@09 IV 05/18/24 09:00 Hold Albuterol 2.5 mg Q4HPRN PRN NEB 05/18/24 07:15 Cancel Ipratropium [place] 0.5 mg Q4HPRN PRN NEB 05/18/24 07:15 Cancel Diagnostic Test (Pha) 1 strip ACHS 05/18/24 11:30 05/21/24 12:15 1 STRIP Insulin Human Regular ACHS SC 05/18/24 11:30 05/21/24 12:14 3 UNITS Dextrose 50 ml UD PRN IV 05/18/24 07:15 Azithromycin 250 ml @ 125 mls/hr DAILY IV 05/19/24 10:00 05/21/24 09:33 125 MLS/HR Allopurinol 100 mg DAILY PO 05/19/24 10:00 05/21/24 09:33 100 MG Sodium Bicarbonate 1,300 mg TID PO 05/20/24 14:00 Patient Own Medication 1 HS PO 05/20/24 22:00 05/20/24 20:20 1 Furosemide 40 mg BIDD PO 05/21/24 06:00 05/21/24 06:20 40 MG Melatonin 10 mg HS PO 05/20/24 22:00 05/20/24 21:08 10 MG Examination: GENERAL:Normal, HEENT:Normal, NECK:Normal, LUNGS:Normal, CVS:Normal, ABDOMEN:Normal, MSK:Abnormal, SKIN:Normal, NEURO:Normal, :Normal laboratory and microbiology Laboratory Tests 05/21/24 05:27 Test 05/21/24 05:27 Range/Units Serum Glucose 116 H 74-106 mg/dL Microbiology Date/Time Source Procedure Growth Status 05/19/24 02:50 Nose MRSA Screen - Final Complete Problem List/Assessment/Plan Problem List/Assessment/Plan Acute kidney injury on chronic kidney disease stage 4 Hyperkalemia Hypertension Fluid overload Diastolic heart disease Type 4 renal tubular acidosis hyperuricemia Hyponatremia likely secondary to Lasix po lasix Continue sodium bicarbonate reduce lokelma to once a day in outpatient ultrasound of the kidney unremarkable Strict Is&Os No emergent indication for hemodialysis at this time Hold angiotensin and JO ANN inhibitors fluid restriction 1200 cc a day Plan discussed with: Patient, Daughter PRICE VILLANUEVA MD May 21, 2024 15:04
--- NOTE | 2024-05-21 15:40 | CONS ---
Pharmacy Clinical Information: From Heart Failure Fallout Report on CQM Application, Geovanna Peres is a 73 year old female with PMH of HTN, HLD, DM, CKD, and left knee replacement. Her home medications include atorvastatin 40 mg PO QHS. Her inpatient medications do not include any lipid lowering drugs. The 2024 ADA guidelines recommend a high intensity statin for diabetic patients aged 40 - 75 years with > 1 ASCVD risk factor. Consider resuming home statin dose if patient tolerates PO since LFTs are WNL or consider continuing at discharge. LAWRENCE SALEH PHARMACIST May 21, 2024 15:40
[2024-05-21 16:06] LABS: Cytoplasmic (C-ANCA) <1:20 titer (Neg:<1:20); Perinuclear (P-ANCA) <1:20 titer (Neg:<1:20)
[2024-05-21 17:06] LABS: Antimyeloperoxidase (MPO) Ab <0.2 units (0.0-0.9); Antiproteinase 3 (PR-3) Ab <0.2 units (0.0-0.9)
[2024-05-22] MEDS ORDERED: ENOXAPARIN SOD 30 MG/0.3 ML SYRINGE SC SCH (10:00)
[2024-05-22 11:06] LABS: Anti-Centromere B Antibody <0.2 AI (0.0-0.9); Anti-Jo-1 Antibody <0.2 AI (0.0-0.9); Anti-dsDNA Antibody <1 IU/mL (0-9); Antichromatin Antibody <0.2 AI (0.0-0.9); Antiscleroderma-70 Antibody <0.2 AI (0.0-0.9); RNP Antibody 0.2 AI (0.0-0.9); Sjogren's Anti-SS-A Antibody <0.2 AI (0.0-0.9); Sjogren's Anti-SS-B Antibody <0.2 AI (0.0-0.9); Smith Antibody <0.2 AI (0.0-0.9)
== END 2024-05-21 16:00 | disposition home or self-care (01) | DRG 177 ==
LOC: ER 22:03 → TELE 05-18 07:08 → TELE-WESTW 05-18 07:10
PROVIDERS: ATTEND Student in an Organized Health Care Education/Training Program
DX: J15.69 Pneumonia due to other Gram-negative bacteria (principal); I50.33 Acute on chronic diastolic (congestive) heart failure; I13.0 Hypertensive heart and chronic kidney disease with heart failure and stage 1 through stage 4 chronic kidney disease, or unspecified chronic kidney disease; I16.9 Hypertensive crisis, unspecified; N17.9 Acute kidney failure, unspecified; N18.4 Chronic kidney disease, stage 4 (severe); J18.9 Pneumonia, unspecified organism; J15.9 Unspecified bacterial pneumonia; E87.5 Hyperkalemia; M10.9 Gout, unspecified; Z20.822 Contact with and (suspected) exposure to COVID-19; E78.5 Hyperlipidemia, unspecified; E11.22 Type 2 diabetes mellitus with diabetic chronic kidney disease; J06.9 Acute upper respiratory infection, unspecified; G25.81 Restless legs syndrome; Z96.652 Presence of left artificial knee joint; Z83.3 Family history of diabetes mellitus; Z80.42 Family history of malignant neoplasm of prostate; Z88.0 Allergy status to penicillin; Z79.4 Long term (current) use of insulin; Z79.899 Other long term (current) drug therapy; E87.70 Fluid overload, unspecified
CPT/HCPCS: 36415; 36600; 71045; 76775; 80048; 80053; 81001; 82570; 82805; 82962; 83036; 83516; 83520; 83605; 83735; 83880; 83970; 84100; 84132; 84156; 84484; 84550; 85025; 85652; 86160; 86225; 86235; 86256; 87081; 87426; 87804; 93005; 94640; 99291; G0378; J1815; J2405

== ENCOUNTER 2024-05-25 12:44 | Inpatient (IN) | payer OTHER ==
[~2024-05-25] VITALS: Ht 152.4 cm; Wt 75.3 kg
[~2024-05-25 12:44] MED LIST changes: -ACET-1080 PO; +ALLO100T PO; -ALLO300T2 PO; -AML5T PO; +CARV6.2551 PO; +ERGO400T PO; +FURO40TA4 PO; -HYDR-4902 PO; -LIDO4PAD EX; +MECL1TAB42 PO; +MET50T PO; -METH-1181 PO; +SODI10PA PO; +SODI650T PO; +ZOFR4T PO
--- NOTE | 2024-05-25 13:04 | ED.PDOC ---
History of Present Illness HPI Comments 73 year old female accompanied by daughter presents to the ED with chief complaint of abnormal labs. Daughter reports that the patient had lab work performed today in [facility] and had later received a call from her PCP Dr. Luna, who reported that the patient's BUN and Potassium were elevated, advising them to come into the ED for further evaluation. Daughter relays that the patient has history of stage 4 CKF, but is not currently on dialysis as her zigzag elastic attacher Dr. Ramirez wants to try to manage it with medication first. Patient states she has been experiencing some nausea and poor appetite over the past few days and daughter notes that the patient has lost quite a bit of weight since her last ED visit. Patient denies any chest pain, SOB, fever, chills, headache, or dizziness. Chief Complaint: Abnormal LAB's Time Seen by MD: 13:00 Primary Care Provider: MICHAEL Cid Notes: Nurses Notes, Medications, Allergies Allergies: Coded Allergies: Penicillins (Unverified Allergy, Mild, hives, 03/13/24) Home Meds Active Scripts Sodium Zirconium Cyclosilicate (Lokelma) 10 Gm Kermit, 10 GM PO DAILY, #30 PACK 0 Refills Prov:ANANDA SMALL MD 05/21/24 Ondansetron Odt 4MG Tab (ZOFRAN PO) 4 Mg Tb, 4 MG PO TIDPRN PRN for 10 Days, #30 TAB 0 Refills ODT TAB-DISSOLVE IN MOUTH, THEN SWALLOW Prov:ANANDA SMALL MD 05/21/24 Meclizine HCl (Meclizine 25) 25 Mg Tab, 25 MG PO BIDPRN PRN for 10 Days, #20 TAB Prov:ANANDA SMALL MD 05/21/24 Carvedilol (Carvedilol) 6.25 Mg Tab, 1 TAB PO BID, #60 TAB 0 Refills Prov:ANANDA SMALL MD 05/21/24 Furosemide (Furosemide) 40 Mg Tab, 40 MG PO DAILY for 30 Days, #30 TAB 0 Refills Prov:ANANDA SMALL MD 05/21/24 Sodium Bicarbonate (Sodium Bicarbonate) 650 Mg Tab, 1300 MG PO TID for 30 Days, #180 TAB 0 Refills Prov:ANANDA SMALL MD 05/21/24 Reported Medications Allopurinol (Allopurinol) 100 Mg Tab, 100 MG PO DAILY for 30 Days, MG 05/18/24 Ergocalciferol (VITAMIN D2) 400 Unit Tab, 13213 UNIT PO once a week, TAB 05/18/24 Metoprolol Tartrate (LOPRESSOR TABLET) 50 Mg Tb, 25 MG PO PRN for bid, TAB 05/18/24 Insulin NPH (Human) (Isophane) (Novolin N Flexpen) 100 Unit/Ml Inj, 100 UNIT SC UD, INJ 0-150 0 151-200 4 u 201-250 6 u 251-300 8 u 301-350 10 u 351-400 12 u 06/18/22 Insulin Glargine (Basaglar Kwikpen) 100 Unit/Ml Inj, 100 UNIT SC, INJ 25 units q am, 10 units qhs 06/18/22 Atorvastatin Calcium (Lipitor) 40 Mg Tab, 40 MG PO HS, TAB 06/18/22 Discontinued Reported Medications Amlodipine Besylate (Amlodipine Besylate) 5 Mg Tab, 10 MG PO DAILY for 30 Days, MG 05/18/24 Information Source: Patient, Relative (Daughter) Mode of Arrival: Ambulatory Severity: Moderate Timing: Hours Duration: Since onset Prehospital treatment: None Past Medical History PAST MEDICAL HISTORY: CKF, DM, High Lipids, HTN Surgical History (Other): Left knee replacement RENDERER History: No Pertinent RENDERER History Family History Family History: Reviewed,noncontributory to illness, Family hx of DM, Family hx of Cancer Social History Smoker: Non-Smoker Alcohol: Denies ETOH Use Drugs: Denies Drug Use Lives In: Home Constitutional: denies: chills, diaphoresis, fatigue, fever, malaise, sweats, weakness, others EENTM: denies: blurred vision, double vision, ear bleeding, ear discharge, ear drainage, ear pain, ear ringing, eye pain, eye redness, hearing loss, mouth pain, mouth swelling, nasal discharge, nose bleeding, nose congestion, nose pain, photophobia, tearing, throat pain, throat swelling, voice changes, others Respiratory: denies: cough, hemoptysis, orthopnea, SOB at rest, shortness of breath, SOB with excertion, stridor, wheezing, others Cardiovascular: denies: chest pain, dizzy spells, diaphoresis, Dyspnea on exertion, edema, irregular heart beat, left arm pain, lightheadedness, palpitations, PND, syncope, others Gastrointestinal: reports: nausea, poor appetite; denies: abdomen distended, abdominal pain, blood streaked bowels, constipated, diarrhea, dysphagia, difficulty swallowing, hematemesis, melena, poor fluid intake, rectal bleeding, rectal pain, vomiting, others Genitourinary: denies: abnormal vagina bleeding, burning, dyspareunia, dysuria, flank pain, frequency, hematuria, incontinence, pain, , vagina discharge, urgency, others Neurological: denies: dizziness, fainting, headache, left sided numbness, left sided weakness, numbness, paresthesia, pre-existing deficit, right sided n umbness, right sided weakness, seizure, speech problems, tingling, tremors, weakness, others Musculoskeletal: denies: back pain, gout, joint pain, joint swelling, muscle pain, muscle stiffness, neck pain, others Integumetry: denies: bruises, change in color, change in hair/nails, dryness, laceration, lesions, lumps, rash, wounds, others Allergic/Immunocompromised: denies: Difficulty Healing, Frequent Infections, Hives, Itching, others Hematologic/Lymphatic: denies: anemia, blood clots, easy bleeding, easy bruising, swollen glands, others Endocrine: denies: excessive hunger, excessive sweating, excessive thirst, excessive urination, flushing, intolerance to cold, intolerance to heat, unexplained weight gain, unexplained weight loss, others Psychiatric: denies: anxiety, bipolar disorder, depression, hopeless, panic disorder, schizophrenia, sleepless, suicidal, others All Other Systems: Reviewed and Negative Physical Exam General Appearance: Mild Distress HEENT: Normal ENT Inspection, Pharynx Normal, TMs Normal Neck: Full Range of Motion, Non-Tender, Normal, Normal Inspection Respiratory: Chest Non-Tender, Lungs Clear, No Accessory Muscle Use, No Respiratory Distress, Normal Breath Sounds Cardiovascular: No Edema, No JVD, No Murmur, No Gallop, Normal Peripheral Pulses, Regular Rate/Rhythm Breast Exam: Deferred Gastrointestinal: No Organomegaly, Non Tender, No Pulsatile Mass, Normal Bowel Sounds, Soft Genitalia: Deferred Pelvic: Deferred Rectal: Deferred Extremities: No calf tenderness, Normal capillary refill, Normal inspection, Normal range of motion, Non-tender, No pedal edema Musculoskeletal : Apperance: Normal Neurologic: Alert, business management associate II-XII nml as Tested, No Motor Deficits, Normal Affect, Normal Mood, No Sensory Deficits Cerebellar Function: Normal Reflexes: Normal Skin: Dry, Normal Color, Warm Lymphatic: No Adenopathy Was a procedure done? Was a procedure done?: No EKG EKG : Pulse Rate (adult): 84 [place]: Normal Hypertrophy: LAE Differential Dx Considerations may include: Acute renal failure, electrolyte imbalance, generalized weakness X-Ray, Labs, Meds, VS Vital Signs Date Time Temp Pulse Resp B/P (MAP) Pulse Ox O2 Delivery O2 Flow Rate FiO2 05/25/24 13:42 84 05/25/24 13:39 84 05/25/24 12:56 97.6 81 16 158/70 (99) 98 Lab Test 05/25/24 00:00 Range/Units Urine Color Light-yellow Yellow Urine Clarity Clear Clear Urine pH 5.5 5.0-9.0 Urine Specific [place] 1.011 1.001-1.035 Urine Protein 2+ H Negative Urine Ketones Negative Negative Urine Blood Trace H Negative /uL Urine Nitrite Negative Negative Urine Bilirubin Negative Negative Urine Urobilinogen Normal Negative mg/dL Urine Leukocyte Esterase Negative Negative /uL Urine RBC 2 0 - 4 /hpf Urine Microscopic WBC < 1 0-5 /HPF Urine Squamous Epithelial Cells Few <5 /hpf Urine Bacteria None seen None Seen /hpf Urine Glucose Normal Normal mg/dL The patient's urine test is negative for infection The patient has an elevated BUN and creatinine We are going to admit the patient was this time A nephrology consult will be obtained. The patient was admitted Time of 1ST Reevaluation: 14:52 Reevaluation 1ST: Unchanged Patient Education/Counseling: Diagnosis, Treatment, Prognosis Family Education/Counseling: Diagnosis, Treatment, Prognosis Additional Information - I reviewed the following notes from patient's past medical encounters: 05/18/24 for hypertensive crisis - The following tests were ordered, and results were reviewed by me: (Labs, X- Ray, EKG): - Additional information was gathered from interviewing the following independent Historian: (Family, Other Providers, EMT): - I reviewed and agreed with the following test results read by other provider: (X-ray, CT, US): - I discussed treatments and results with medical personnel and: (consultants, family): Departure 1 Departure Time of Disposition: 14:52 Impression: Primary Impression: Acute renal failure Qualified Codes: N17.1 - Acute kidney failure with acute cortical necrosis Disposition: 09 ADMITTED INPATIENT Admit to: Tele Condition: Fair Critical Care Note Critical Care Time?: Yes (35 min-critical care time only) Stability Stability form required: Yes Unstable for transfer: Telemetry monitoring (Telemetry monitoring required), ED Physician Assesment (Clinical assesment) Heart Score Heart Score: Heart Score Response (Comments) Value History N/A 0 EKG N/A 0 Age N/A 0 Risk Factors N/A 0 Troponin N/A 0 Total 0 I personally scribed for KENDY BALDWIN MD ([email or web address]) on 05/25/24 at 13:04. Electronically submitted by Jeramy Andrade ([email or web address]). KENDY BALDWIN MD May 25, 2024 13:04
[2024-05-25 13:51] LABS: Urine Bacteria None Seen /hpf (None Seen)
[2024-05-25 14:26] LABS: Urine Blood TRACE /uL (Negative); Urine Clarity Clear (Clear); Urine Color Light-Yellow (Yellow); Urine Protein, UAD 2+ (Negative); Urine Specific Gravity 1.011 (1.001-1.035); Urine Squamous Epithelial Cell FEW /hpf (<5); Urine Urobilinogen Normal (Negative); Urine WBC < 1 /HPF (0-5); Urine pH 5.5 (5.0-9.0)
[2024-05-25 21:52] LABS: Basophils # (auto) 0.1 10 ^3/uL (0-0.2); Eosinophils # (auto) 0.1 10 ^3/uL (0-0.8); Eosinophils % (auto) 1.1 % (0.0-7.0); Hematocrit 29.8 % (36.0-46.0); Lymphocytes # (auto) 1.5 10 ^3/uL (0.4-5.4); Lymphocytes % (auto) 21.5 % (10.0-50.0); Mean Corpuscular Hemoglobin 28.3 pg (28.0-32.0); Mean Corpuscular Hgb Conc. 33.7 g/dL (32.0-36.0); Mean Corpuscular Volume 84.2 fL (80.0-100.0); Monocytes # (auto) 0.6 10 ^3/uL (0-1.3); Monocytes % (auto) 9.1 % (0.0-12.0); Neutrophils # (auto) 4.7 10 ^3/uL (1.6-8.6); Neutrophils % (auto) 67.3 % (37.0-80.0); Nucleated Red Blood Cells % 0.1 %; Platelet Count (auto) 334 10^3/uL (140-450); Red Blood Cells 3.54 10^6/uL (4.0-5.20); Red Cell Distribution Width 14.9 % (11.8-14.3)
[2024-05-25 22:01] LABS: Alanine Aminotransferase 29 U/L (7-40); Albumin 4.3 g/dL (3.2-4.8); Anion Gap 11 (5-15); Aspartate Aminotransferase 22 U/L (13-40); BUN/Creatinine Ratio 22.1 (10.0-20.0); Calcium 9.3 mg/dL (8.7-10.4); Carbon Dioxide 21 mmol/L (20-31); Potassium 4.7 mmol/L (3.5-5.1)
[2024-05-25 22:02] LABS: Bilirubin, Total 0.4 mg/dL (0.2-1.0); Total Protein 6.5 g/dL (5.7-8.2)
[2024-05-25 22:04] LABS: Alkaline Phosphatase 135 U/L (46-116); Chloride 87 mmol/L (98-107); Glucose 189 mg/dL (74-106)
[2024-05-25 22:08] LABS: Blood Urea Nitrogen 96 mg/dL (9-23); Sodium 119 mmol/L (136-145)
--- NOTE | 2024-05-25 23:57 | DVHHPRES ---
History of Present Illness Resident Creating Document: CUAUHTEMOC ARNDT RESDIENT History of Present Illness This is a 73-year-old female with past medical history of gout, hypertension, CKD grade 5, diabetes, dyslipidemia came to the hospital due to abnormal labs. Today, the patient was seen at office (PCP Dr. Rodriguez), and due to abnormal lab reports including potassium, creatinine and sodium referred to the hospital. Patient was recently admitted at [facility] due to high blood pressure, and was also found to have hyperkalemia, and was given Lokelma upon discharge. Patient has also has been followed by Dr. Ramirez (molasses and caramel operator) at office, patient can make urine and still has not been started on dialysis. In hospital lab showed raised potassium at 5.1, creatinine 4.34 and sodium 119. Patient reports headache. PMHx: gout, hypertension, CKD grade 5, diabetes, dyslipidemia PSHx: Left knee replaced Social history: Denies smoking, and any other drug use Home medication: Spironolactone 100 mg, carvedilol 6.25 b.i.d., atorvastatin 40 mg, Lasix 40, Lokelma 10 g, and laxative, and sodium bicarbonate, insulin glargine (25 units at a.m., 10 units p.m.), and insulin NPH (per SS, before meal) Allergic history: No known allergies Review of Systems Review of Systems General: patient denies fever, fatigue, weaknes, sweating, any recent changes in appetite and weight HEENT: Reports headache Cardiovascular: Denies chest pain, palpitations, dyspnea on exertion, orthopnea, or claudication. Respiratory: No cough, and wheezing. Gastrointestinal: Denies nausea, vomiting, dysphagia, odynophagia, heartburn, abdominal pain, flatulence, bloating, diarrhea, constipation, change in stool, or blood in stool. Genitourinary: No dysuria, hematuria, discharge, frequency, urgency, nocturia, incontinence, and urinary retention. Endocrine: No heat or cold intolerance, polydipsia, polyuria, and polyphagia. Neurological: No dizziness, extremity weakness and numbness, tremors, gait disturbance, seizures, and memory impairment. Psychiatric: Denies depression, anxiety,or insomnia. Musculoskeletal: Denies neck pain, stiffness and swelling, back pain, muscle weakness, joint pain, stiffness, swelling, or limited range of motion. Skin: No rashes, itching, skin lesion, changes in hair, nail, skin texture and breast. Hematologic/Lymphatic: Denies easy bruising, bleeding tendencies, or lymph node enlargement. Allergies: Coded Allergies: Penicillins (Unverified Allergy, Mild, hives, 03/13/24) Exam Vital Signs Vital Signs Date Time Temp Pulse Resp B/P (MAP) Pulse Ox O2 Delivery O2 Flow Rate FiO2 05/25/24 20:37 97.9 82 144/82 (102) 98 97.9 05/25/24 12:56 16 Exam General Appearance: Alert, Oriented X3, Cooperative, No acute distress HEENT: Atraumatic, PERRLA, EOMI, Mucous membrane moist/pink Respiratory: Clear to auscultation, Normal air movement Cardiovascular: Regular rate, Normal S1, Normal S2, No murmurs, no chest wall tenderness Abdominal: Normal bowel sounds, Soft, No tenderness, No hepatospenomegaly, No masses Extremities: Bilateral grade 1 pedal edema Skin: No rashes, No breakdown, No significant lesion Neuro: Normal gait, Normal speech, Strength at 5/5 X4 ext, Normal tone, Sensation intact, Cranial nerves 3-12 NL, Reflexes 2+ Psych/Mental Status: Mental status NL, Mood NL Labs/Xrays Labs Test 05/25/24 21:37 05/25/24 00:00 Range/Units White Blood Count 7.0 4.4-10.8 10^3/uL Red Blood Count 3.54 L 4.0-5.20 10^6/uL Hemoglobin 10.0 L 12.2-16.2 g/dL Hematocrit 29.8 L 36.0-46.0 % Mean Corpuscular Volume 84.2 80.0-100.0 fL Mean Corpuscular Hemoglobin 28.3 28.0-32.0 pg Mean Corpuscular Hemoglobin Concent 33.7 32.0-36.0 g/dL Red Cell Distribution Width 14.9 H 11.8-14.3 % Platelet Count 334 140-450 10^3/uL Mean Platelet Volume 7.7 6.9-10.8 fL Neutrophils (%) (Auto) 67.3 37.0-80.0 % Lymphocytes (%) (Auto) 21.5 10.0-50.0 % Monocytes (%) (Auto) 9.1 0.0-12.0 % Eosinophils (%) (Auto) 1.1 0.0-7.0 % Basophils (%) (Auto) 1.0 0.0-2.0 % Neutrophils # (Auto) 4.7 1.6-8.6 10 ^3/uL Lymphocytes # (Auto) 1.5 0.4-5.4 10 ^3/uL Monocytes # (Auto) 0.6 0-1.3 10 ^3/uL Eosinophils # (Auto) 0.1 0-0.8 10 ^3/uL Basophils # (Auto) 0.1 0-0.2 10 ^3/uL Nucleated Red Blood Cells 0.1 % Sodium Level 119 *L 136-145 mmol/L Potassium Level 4.7 3.5-5.1 mmol/L Chloride Level 87 L 98-107 mmol/L Carbon Dioxide Level 21 20-31 mmol/L Anion Gap 11 5-15 Blood Urea Nitrogen 96 *H 9-23 mg/dL Creatinine 4.34 H 0.550-1.02 mg/dL Glomerular Filtration Rate Calc 10 >90 mL/min BUN/Creatinine Ratio 22.1 H 10.0-20.0 Serum Glucose 189 H 74-106 mg/dL Calcium Level 9.3 8.7-10.4 mg/dL Total Bilirubin 0.4 0.2-1.0 mg/dL Aspartate Amino Transferase (AST) 22 13-40 U/L Alanine Aminotransferase (ALT) 29 7-40 U/L Alkaline Phosphatase 135 H 46-116 U/L Total Protein 6.5 5.7-8.2 g/dL Albumin 4.3 3.2-4.8 g/dL Urine Color Light-yellow Yellow Urine Clarity Clear Clear Urine pH 5.5 5.0-9.0 Urine Specific [place] 1.011 1.001-1.035 Urine Protein 2+ H Negative Urine Ketones Negative Negative Urine Blood Trace H Negative /uL Urine Nitrite Negative Negative Urine Bilirubin Negative Negative Urine Urobilinogen Normal Negative mg/dL Urine Leukocyte Esterase Negative Negative /uL Urine RBC 2 0 - 4 /hpf Urine Microscopic WBC < 1 0-5 /HPF Urine Squamous Epithelial Cells Few <5 /hpf Urine Bacteria None seen None Seen /hpf Urine Glucose Normal Normal mg/dL Assessment/Plan Assessment/Plan Severe hyponatremia Serum sodium is decreased at 119 NaCl pill Lasix Possible KEHINDE on CKD grade 5, likely VMN Secondary hyperparathyroidism Hyperkalemia Lokelma Hypertension Continue spironolactone and carvedilol Dyslipidemia Continue atorvastatin Diabetes type 2 Lantus Insulin moderate SS DIET: Renal diet DVT PROPHYLAXIS: Lovenox DISPOSITION: Med/surge Patient's status and paln discussed with the patient and the patient's daughters at the bedside. Case discussed with Dr. Huntley Plan discussed with: Patient, Other Date of Service: May 26, 2024 Billing Provider: ADDIE HUNTLEY MD Common Visit Codes: [id number] INP/OBS CARE (HIGH) CUAUHTEMOC ARNDT RESDIENT May 25, 2024 23:57 ADDIE HUNTLEY MD May 27, 2024 18:25
[2024-05-26] MEDS ORDERED: DEXTROSE (50%) 50ML SYRG IV PRN (01:45)
[2024-05-26] MEDS: CARVEDILOL 3.125 MG TAB PO ONE (03:50)
[2024-05-26 04:00] VITALS: PULSE 79; RESP 18; O2SAT 97
[2024-05-26] MEDS: FUROSEMIDE 40 MG/4 ML VIAL IV ONE (04:04)
[2024-05-26] MEDS: ATORVASTATIN 20 MG TAB PO ONE (04:04)
[2024-05-26] MEDS: SPIRONOLACTONE 25 MG TAB PO ONE (04:04)
--- NOTE | 2024-05-26 04:09 | DVH ---
Examination: CXR1 Clinical Indication: Pneumonia Comparison: None. Technique: Frontal view of chest radiograph Findings: The lung parenchyma is clear. Hilar and mediastinal shadows show no obvious abnormality. Costophrenic angles are clear. Aorta is unfolded. Calcification of aortic knob is present. Descending thoracic aorta is ectatic. Cardiac shadow size is within normal limits. Impression: No significant abnormality is seen. Electronically Signed 05/26/2024 04:08 Aimee Jorgensen
[2024-05-26] MEDS: INSULIN LANTUS (GLARGINE) 1 /0.01ml (100units/ml) SC ONE (04:11)
[2024-05-26] MEDS: SODIUM ZIRCONIUM CYCL 10 GM PAK PO ONE (04:12)
[2024-05-26 04:37] LABS: Basophils # (auto) 0.1 10 ^3/uL (0-0.2); Basophils % (auto) 0.8 % (0.0-2.0); Eosinophils # (auto) 0.1 10 ^3/uL (0-0.8); Eosinophils % (auto) 1.3 % (0.0-7.0); Hematocrit 27.4 % (36.0-46.0); Hemoglobin 9.5 g/dL (12.2-16.2); Lymphocytes # (auto) 1.3 10 ^3/uL (0.4-5.4); Lymphocytes % (auto) 17.7 % (10.0-50.0); Mean Corpuscular Hemoglobin 28.6 pg (28.0-32.0); Mean Corpuscular Hgb Conc. 34.6 g/dL (32.0-36.0); Mean Corpuscular Volume 82.9 fL (80.0-100.0); Monocytes # (auto) 0.6 10 ^3/uL (0-1.3); Neutrophils # (auto) 5.2 10 ^3/uL (1.6-8.6); Neutrophils % (auto) 72.2 % (37.0-80.0); Platelet Count (auto) 307 10^3/uL (140-450); Red Cell Distribution Width 14.7 % (11.8-14.3); White Blood Cell 7.2 10^3/uL (4.4-10.8)
[2024-05-26 04:55] LABS: Alanine Aminotransferase 27 U/L (7-40); Albumin 4.1 g/dL (3.2-4.8); Anion Gap 12 (5-15); Aspartate Aminotransferase 22 U/L (13-40); BUN/Creatinine Ratio 23.7 (10.0-20.0); Calcium 9.1 mg/dL (8.7-10.4); Glucose 99 mg/dL (74-106); Magnesium 2.4 mg/dL (1.6-2.6); Potassium 4.2 mmol/L (3.5-5.1)
[2024-05-26 04:56] LABS: Bilirubin, Total 0.5 mg/dL (0.2-1.0); Total Protein 6.2 g/dL (5.7-8.2)
[2024-05-26 05:04] LABS: Alkaline Phosphatase 124 U/L (46-116); Carbon Dioxide 18 mmol/L (20-31); Chloride 90 mmol/L (98-107); Sodium 120 mmol/L (136-145)
[2024-05-26 05:05] LABS: Blood Urea Nitrogen 94 mg/dL (9-23)
[2024-05-26] MEDS: SODIUM CHLORIDE 1 GM TAB PO ONE (06:16)
[2024-05-26] MEDS: ACCU-CHEK COMFORT CURVE STRIP VI SCH (06:25)
[2024-05-26] MEDS: InsuLIN REG 1unit/0.01ml Soln (100units/ml) SC SCH ×2 (06:25→21:56)
[2024-05-26] MEDS: SODIUM CHLORIDE 0.9% 1,000 ML IV ONE (08:49)
[2024-05-26] MEDS: FUROSEMIDE 40 MG TAB PO SCH (09:04)
[2024-05-26] MEDS: CARVEDILOL 3.125 MG TAB PO SCH (09:11)
[2024-05-26 09:25] VITALS: PULSE 74; RESP 16; O2SAT 96
[2024-05-26] MEDS ORDERED: SPIRONOLACTONE 25 MG TAB PO SCH (10:00)
[2024-05-26] MEDS ORDERED: FUROSEMIDE 40 MG/4 ML VIAL IV SCH (10:00)
--- NOTE | 2024-05-26 11:06 | DVHPNRES ---
Progress Note Date Seen: May 26, 2024 Resident Creating Document: CHARLOTTE SMITH RESIDENT Medical Necessity Reason Pt with a Central, PICC or Fol: No Subjective Review of Systems This is a 73-year-old female with past medical history of gout, hypertension, CKD grade 5, type 2 diabetes mellitus, dyslipidemia presented to the ED due to abnormal lab PCP due to abnormal lab of sodium, potassium and creatinine. the patient was recently admitted admitted in [facility] due to high blood pressure and also found to have hyperkalemia and on discharge given and given Lokelma upon discharge. Patient has been following government relations manager Dr. Ramirez, and still has not been started on dialysis. On admission potassium was 5.1, creatinine 4.34 and sodium 119 . Patient was seen and examined in the lobby of ER then on the floor. She is alert oriented x3. Complain of weakness and headache. sodium is 120 and corrected sodium is 122 then 118. BNP is normal and started IV normal saline at 100 mL/hours. Discontinue spironolactone. Family translated Constitutional: Weakness No: Fever, Chills, Sweats, Malaise, Other Eyes: No: Pain, Vision change, Conjunctivae inflammation, Eyelid inflammation, Other, Redness ENT: No: Ear pain, Ear discharge, Nose pain, Nose discharge, Nose congestion, Mouth pain, Mouth swelling, Throat pain, Throat swelling, Other Respiratory: Shortness of breath, improving No: Cough, Dry,Wheezing, Hemoptysis, Pleuritic Pain, Sputum, Wheezing, Other Cardiovascular: No: Chest Pain, Palpitations, Orthopnea, Paroxysmal Noc. Dyspnea, Edema, Lt Headedness, Other Gastrointestinal: No: Nausea, Vomiting, Abdominal Pain, Diarrhea, Constipation, Melena, Hematochezia, Other Musculoskeletal: No: other, neck pain, shoulder pain, arm pain, back pain, hand pain, leg pain, foot pain Neurological:; Headache No: Weakness, Numbness, Incoordination, Change in speech, Confusion, Seizures Objective vital signs Vital Sign Date Time Temp Pulse Resp B/P (MAP) Pulse Ox O2 Delivery O2 Flow Rate FiO2 05/26/24 09:25 74 16 96 Room Air* 0 21 05/26/24 09:11 132/73 05/26/24 09:02 98.0 98.0 medications Current Medications Medications Dose Ordered Sig/Rigo Route Start Time Stop Time Status Last Admin Dose Admin Atorvastatin Calcium 40 mg HS PO 05/26/24 22:00 Carvedilol 6.25 mg Q12HR PO 05/26/24 10:00 05/26/24 09:11 6.25 MG Insulin Glargine 15 units DAILY@1000 SC 05/27/24 10:00 Diagnostic Test (Pha) 1 strip ACHS 05/26/24 07:00 05/26/24 06:25 1 STRIP Insulin Human Regular HS SC 05/26/24 22:00 Insulin Human Regular AC SC 05/26/24 07:00 05/26/24 06:25 2 UNITS Dextrose 50 ml UD PRN IV 05/26/24 01:45 Furosemide 40 mg DAILY PO 05/26/24 10:00 05/26/24 09:04 40 MG Examination Physical examination: General Appearance: Alert, Oriented X3, Cooperative, No acute distress HEENT: Atraumatic, PERRLA, EOMI, Mucous membrane moist/pink Respiratory: Clear to auscultation, Normal air movement Cardiovascular: Regular rate, Normal S1, Normal S2, No murmurs, no chest wall tenderness Abdominal: Normal bowel sounds, Soft, No tenderness, No hepatospenomegaly, No masses Extremities: Bilateral pedal edema+, No clubbing, No cyanosis, Normal pulses, No tenderness/swelling Skin: No rashes, No breakdown, No significant lesion Neuro: Normal gait, Normal speech, Strength at 5/5 X4 ext, Normal tone, Sensation intact, grossly intact cranial nerves. Psych/Mental Status: Mental status NL, Mood NL laboratory and microbiology Laboratory Tests 05/26/24 04:18 Test 05/26/24 04:18 Range/Units Serum Glucose 99 74-106 mg/dL Labs and/or images reviewed: Labs reviewed by me, Image(s) reviewed by me Problem List/Assessment/Plan Problem List/Assessment/Plan Assessment and plan: # Possible hypervolemic hyponatremia; sodium dropped to 118; unclear if symptomatic or asymptomatic as the patient could be confused according to her family # Suspected acute metabolic/toxic encephalopathy due to hyponatremia - Ordered urine sodium, urine creatinine and urine protein to calculate FENa - to hold diuretics including spironolactone and furosemide as per Nephrology - continue IV normal saline fluids as per Nephrology - Monitor BMP # KEHINDE on CKD stage 5 likely secondary to hemodynamically mediated /VMN - IV normal saline at 100 mL/hours - Nephrology on board - Strict I&O - Avoid nephrotoxic medications. - monitor BMP # Hypertensive heart disease; not in exacerbation - BNP is normal - Echo on 04/10 demonstrated EF 55% and RVSP 41 mm Hg - continue carvedilol 6.25 mg b.i.d. # Dyslipidemia - Atorvastatin 40 mg at HS # Type 2 diabetes mellitus, HbA1C 6.7% - Lantus 15 units at q.a.m. and moderate sliding scale of insulin 66 minutes of critical care time Goal of care discussed with the patient for 20 minutes; full code Plan discussed with Dr. Rodriguez Plan discussed with: Patient, Spouse, Daughter, Other (RN) My Orders My Orders Orders - CHARLOTTE SMITH Procedure Category Date Status Time Sodium Chloride 0.9% PHA 05/26/24 In Process 08:30 Furosemide Tablet PHA 05/26/24 In Process (Lasix Tablet) 10:00 *Dr. Ramirez Group CONS 05/26/24 Transmitted -[place] 10:31 Addendum Addendum Addendum I was physically present for the lopez portions of the service provided to patient by THE RESIDENT. I have reviewed the documentation, discussed the case with resident and agree with the resident's documentation except as noted. Also the patient's clinical case was discussed with the patient's nurse. This medical document was created using an electronic medical record system with computerized dictation system. Although this document has been carefully reviewed, there might still be some phonetic and typographical errors. These areas are purely typographical due to imperfections of the software programs, and do not reflect any compromise in the patient's medical care. Late signature. Date of Service: May 26, 2024 Billing Provider: JAEL RODRIGUEZ MD Common Visit Codes: 22598-ISCSMVYS CARE 30-74 MIN (66 minutes) Secondary Visit Codes: 49997-[id number] CARE PLAN 30 MINUTES (20 minutes) CHARLOTTE SMITH May 26, 2024 11:06 JAEL RODRIGUEZ MD May 27, 2024 07:00
[2024-05-26 15:34] LABS: Potassium 4.4 mmol/L (3.5-5.1)
[2024-05-26 15:35] LABS: Anion Gap 12 (5-15); Calcium 9.4 mg/dL (8.7-10.4)
[2024-05-26 15:40] LABS: BUN/Creatinine Ratio 20.2 (10.0-20.0)
[2024-05-26 15:46] LABS: Carbon Dioxide 19 mmol/L (20-31); Chloride 87 mmol/L (98-107); Glucose 202 mg/dL (74-106)
[2024-05-26 15:49] LABS: Sodium 118 mmol/L (136-145)
[2024-05-26 15:50] LABS: Blood Urea Nitrogen 80 mg/dL (9-23)
[2024-05-26 15:58] VITALS: PULSE 70; RESP 17; O2SAT 99
[2024-05-26 16:00] VITALS: BP 135/62; PULSE 70; RESP 17; TEMP 97.6; O2SAT 99
[2024-05-26] MEDS: SODIUM CHLORIDE 0.9% 1,000 ML IV SCH (16:15)
--- NOTE | 2024-05-26 18:13 | DVHINCON2 ---
Date of service: May 26, 2024 Reason for Consultation hyponatremia History of Present Illness 73 years old female with past medical history of Chronic kidney disease five, gout, hypertension, dyslipidemia, diabetes presented with abnormal labs as sent by PCP patient found to have hyponatremia and Acute kidney injury Patient does not report any other neurological symptoms at the moment She is taking spironolactone 100 mg daily and Lasix 40 mg daily no Acei,thiazide , Arb noted on home medications Both daughters next to her Past Medical History As per HPI Allergies: Coded Allergies: Penicillins (Unverified Allergy, Mild, hives, 03/13/24) Home Meds Active Scripts Sodium Zirconium Cyclosilicate (Lokelma) 10 Gm Kermit, 10 GM PO DAILY, #30 PACK 0 Refills Prov:ANANDA SMALL MD 05/21/24 Ondansetron Odt 4MG Tab (ZOFRAN PO) 4 Mg Tb, 4 MG PO TIDPRN PRN for 10 Days, #30 TAB 0 Refills ODT TAB-DISSOLVE IN MOUTH, THEN SWALLOW Prov:ANANDA SMALL MD 05/21/24 Meclizine HCl (Meclizine 25) 25 Mg Tab, 25 MG PO BIDPRN PRN for 10 Days, #20 TAB Prov:ANANDA SMALL MD 05/21/24 Carvedilol (Carvedilol) 6.25 Mg Tab, 1 TAB PO BID, #60 TAB 0 Refills Prov:ANANDA SMALL MD 05/21/24 Furosemide (Furosemide) 40 Mg Tab, 40 MG PO DAILY for 30 Days, #30 TAB 0 Refills Prov:ANANDA SMALL MD 05/21/24 Sodium Bicarbonate (Sodium Bicarbonate) 650 Mg Tab, 1300 MG PO TID for 30 Days, #180 TAB 0 Refills Prov:ANANDA SMALL MD 05/21/24 Reported Medications Allopurinol (Allopurinol) 100 Mg Tab, 100 MG PO DAILY for 30 Days, MG 05/18/24 Ergocalciferol (VITAMIN D2) 400 Unit Tab, 18531 UNIT PO once a week, TAB 05/18/24 Metoprolol Tartrate (LOPRESSOR TABLET) 50 Mg Tb, 25 MG PO PRN for bid, TAB 05/18/24 Insulin NPH (Human) (Isophane) (Novolin N Flexpen) 100 Unit/Ml Inj, 100 UNIT SC UD, INJ 0-150 0 151-200 4 u 201-250 6 u 251-300 8 u 301-350 10 u 351-400 12 u 06/18/22 Insulin Glargine (Basaglar Kwikpen) 100 Unit/Ml Inj, 100 UNIT SC, INJ 25 units q am, 10 units qhs 06/18/22 Atorvastatin Calcium (Lipitor) 40 Mg Tab, 40 MG PO HS, TAB 06/18/22 Discontinued Reported Medications Amlodipine Besylate (Amlodipine Besylate) 5 Mg Tab, 10 MG PO DAILY for 30 Days, MG 05/18/24 Current Medications Current Medications Medications (Trade) Dose Ordered Sig/Rigo Route PRN Reason Start Time Stop Time Status Last Admin Atorvastatin Calcium (Lipitor) 40 mg HS PO 05/26/24 22:00 Carvedilol (Coreg Tablet) 6.25 mg Q12HR PO 05/26/24 10:00 05/26/24 09:11 Furosemide (Lasix Injection) 40 mg DAILY IV 05/26/24 10:00 05/26/24 08:46 DC Spironolactone (Aldactone) 100 mg DAILY PO 05/26/24 10:00 05/26/24 08:34 DC Insulin Glargine (Lantus) 15 units DAILY@1000 SC 05/27/24 10:00 Diagnostic Test (Pha) (Accu-Chek Comfort Curve T) 1 strip ACHS 05/26/24 07:00 05/26/24 17:02 Insulin Human Regular (InsuLIN R) HS SC 05/26/24 22:00 Insulin Human Regular (InsuLIN R) AC SC 05/26/24 07:00 05/26/24 17:26 Dextrose 50 ml UD PRN IV Blood Sugar LESS THAN 60 05/26/24 01:45 Furosemide (Lasix Tablet) 40 mg DAILY PO 05/26/24 10:00 05/26/24 11:46 DC 05/26/24 09:04 Sodium Chloride 1,000 ml @ 100 mls/hr Q10H IV 05/26/24 16:15 05/26/24 16:15 Family History: Diabetes mellitus G8 MOTHER FHx: cancer G8 MOTHER G8 FATHER Review of Systems HEENT-denies headache, denies vision changes, no hearing issue, denies neck complaints, denies throat issues Respiratory system-denies cough, denies shortness of breath Cardiovascular system-denies chest pain, denies palpitations Abdomen-denies abdominal pain, denies nausea, denies vomiting, denies constipation or diarrhea Musculoskeletal-denies swelling in the legs, denies pain in the extremities Genitourinary-denies urinary symptoms like dysuria, stream issues Neuro-denies dizziness, denies seizures Psychiatric-denies psychiatric history H&P Exam Vital Signs/I&O Vital Sign Date Time Temp Pulse Resp B/P (MAP) Pulse Ox O2 Delivery O2 Flow Rate FiO2 05/26/24 16:00 97.6 70 17 135/62 (86) 99 97.6 05/26/24 15:58 Room Air* 0 21 Physical Exam General-not in any distress HEENT-normocephalic, no icterus, no pallor, neck supple Respiratory-fair air entry bilateral, no rhonchi, no wheeze [id number] heard, no murmurs appreciated Abdominal-soft, nontender, nondistended Musculoskeletal-no pedal edema, no calf tenderness Genitourinary-deferred Neuro-awake alert oriented x3, Psychiatric-not agitated, cooperative, Labs/Diagnostic Data Labs/Diagnostic Data Laboratory Tests Test 05/26/24 17:19 05/26/24 15:11 05/26/24 13:08 05/26/24 06:19 Range/Units POC Glucose 133 H 179 H 142 H 70-106 mg/dl Sodium Level 118 *L 136-145 mmol/L Potassium Level 4.4 3.5-5.1 mmol/L Chloride Level 87 L 98-107 mmol/L Carbon Dioxide Level 19 L 20-31 mmol/L Anion Gap 12 5-15 Blood Urea Nitrogen 80 #*H 9-23 mg/dL Creatinine 3.96 H 0.550-1.02 mg/dL Glomerular Filtration Rate Calc 12 >90 mL/min BUN/Creatinine Ratio 20.2 H 10.0-20.0 Serum Glucose 202 H 74-106 mg/dL Calcium Level 9.4 8.7-10.4 mg/dL Test 05/26/24 04:18 05/26/24 03:42 05/25/24 21:37 05/25/24 00:00 Range/Units White Blood Count 7.2 7.0 4.4-10.8 10^3/uL Red Blood Count 3.30 L 3.54 L 4.0-5.20 10^6/uL Hemoglobin 9.5 L 10.0 L 12.2-16.2 g/dL Hematocrit 27.4 L 29.8 L 36.0-46.0 % Mean Corpuscular Volume 82.9 84.2 80.0-100.0 fL Mean Corpuscular Hemoglobin 28.6 28.3 28.0-32.0 pg Mean Corpuscular Hemoglobin Concent 34.6 33.7 32.0-36.0 g/dL Red Cell Distribution Width 14.7 H 14.9 H 11.8-14.3 % Platelet Count 307 334 140-450 10^3/uL Mean Platelet Volume 7.8 7.7 6.9-10.8 fL Neutrophils (%) (Auto) 72.2 67.3 37.0-80.0 % Lymphocytes (%) (Auto) 17.7 21.5 10.0-50.0 % Monocytes (%) (Auto) 8.0 9.1 0.0-12.0 % Eosinophils (%) (Auto) 1.3 1.1 0.0-7.0 % Basophils (%) (Auto) 0.8 1.0 0.0-2.0 % Neutrophils # (Auto) 5.2 4.7 1.6-8.6 10 ^3/uL Lymphocytes # (Auto) 1.3 1.5 0.4-5.4 10 ^3/uL Monocytes # (Auto) 0.6 0.6 0-1.3 10 ^3/uL Eosinophils # (Auto) 0.1 0.1 0-0.8 10 ^3/uL Basophils # (Auto) 0.1 0.1 0-0.2 10 ^3/uL Nucleated Red Blood Cells 0.0 0.1 % Sodium Level 120 L 119 *L 136-145 mmol/L Potassium Level 4.2 4.7 3.5-5.1 mmol/L Chloride Level 90 L 87 L 98-107 mmol/L Carbon Dioxide Level 18 L 21 20-31 mmol/L Anion Gap 12 11 5-15 Blood Urea Nitrogen 94 *H 96 *H 9-23 mg/dL Creatinine 3.96 H 4.34 H 0.550-1.02 mg/dL Glomerular Filtration Rate Calc 12 10 >90 mL/min BUN/Creatinine Ratio 23.7 H 22.1 H 10.0-20.0 Serum Glucose 99 189 H 74-106 mg/dL Calcium Level 9.1 9.3 8.7-10.4 mg/dL Magnesium Level 2.4 1.6-2.6 mg/dL Total Bilirubin 0.5 0.4 0.2-1.0 mg/dL Aspartate Amino Transferase (AST) 22 22 13-40 U/L Alanine Aminotransferase (ALT) 27 29 7-40 U/L Alkaline Phosphatase 124 H 135 H 46-116 U/L B-Type Natriuretic Peptide 12.91 0-100 pg/mL Total Protein 6.2 6.5 5.7-8.2 g/dL Albumin 4.1 4.3 3.2-4.8 g/dL POC Glucose 98 70-106 mg/dl Urine Color Light-yellow Yellow Urine Clarity Clear Clear Urine pH 5.5 5.0-9.0 Urine Specific [place] 1.011 1.001-1.035 Urine Protein 2+ H Negative Urine Ketones Negative Negative Urine Blood Trace H Negative /uL Urine Nitrite Negative Negative Urine Bilirubin Negative Negative Urine Urobilinogen Normal Negative mg/dL Urine Leukocyte Esterase Negative Negative /uL Urine RBC 2 0 - 4 /hpf Urine Microscopic WBC < 1 0-5 /HPF Urine Squamous Epithelial Cells Few <5 /hpf Urine Bacteria None seen None Seen /hpf Urine Glucose Normal Normal mg/dL Assessment Hyponatremia suspect likely secondary to diuretics Acute kidney injury on Chronic kidney disease five hemodynamic mediated Hypertension Recommendations Normal saline IV as ordered Hold spironolactone and Lasix for now Patient appears euvolemic Check serum osmolality urine osmolality urine sodium acid We will follow closely Reviewed vital signs, lab work, imaging studies, medications, microbiology, other physician recommendations More than 50% of the time spent providing direct [id number]-quni care . Thank you for allowing me to participate in the care of your patient. Plan discussed with: Patient, Daughter PRICE VILLANUEVA MD May 26, 2024 18:13
[2024-05-26 21:00] VITALS: BP 111/52; PULSE 68; RESP 18; TEMP 97.4; O2SAT 94
[2024-05-26] MEDS: ATORVASTATIN 20 MG TAB PO SCH (21:52)
[2024-05-27] MEDS: ACETAMINOPHEN 325 MG TAB PO PRN (00:40)
[2024-05-27 01:00] VITALS: BP 140/68; PULSE 67; RESP 20; TEMP 97.9; O2SAT 98
[2024-05-27 05:00] VITALS: BP 117/54; PULSE 67; RESP 22; TEMP 98.3; O2SAT 99
[2024-05-27 06:57] LABS: Basophils # (auto) 0.1 10 ^3/uL (0-0.2); Basophils % (auto) 1.1 % (0.0-2.0); Eosinophils # (auto) 0.1 10 ^3/uL (0-0.8); Eosinophils % (auto) 1.9 % (0.0-7.0); Hematocrit 25.2 % (36.0-46.0); Hemoglobin 8.7 g/dL (12.2-16.2); Lymphocytes # (auto) 1.2 10 ^3/uL (0.4-5.4); Lymphocytes % (auto) 22.5 % (10.0-50.0); Mean Corpuscular Hemoglobin 28.8 pg (28.0-32.0); Mean Corpuscular Hgb Conc. 34.4 g/dL (32.0-36.0); Mean Corpuscular Volume 83.8 fL (80.0-100.0); Monocytes # (auto) 0.4 10 ^3/uL (0-1.3); Neutrophils # (auto) 3.5 10 ^3/uL (1.6-8.6); Neutrophils % (auto) 66.5 % (37.0-80.0); Nucleated Red Blood Cells % 0.1 %; Platelet Count (auto) 269 10^3/uL (140-450); Red Blood Cells 3.01 10^6/uL (4.0-5.20); White Blood Cell 5.2 10^3/uL (4.4-10.8)
[2024-05-27 07:09] LABS: Potassium 3.9 mmol/L (3.5-5.1)
[2024-05-27 07:10] LABS: Anion Gap 12 (5-15); Carbon Dioxide 20 mmol/L (20-31)
[2024-05-27 07:11] LABS: Calcium 8.9 mg/dL (8.7-10.4)
[2024-05-27 07:14] LABS: Chloride 95 mmol/L (98-107); Sodium 127 mmol/L (136-145)
[2024-05-27 07:15] LABS: BUN/Creatinine Ratio 24.6 (10.0-20.0); Glucose 78 mg/dL (74-106)
[2024-05-27 07:35] LABS: Blood Urea Nitrogen 86 mg/dL (9-23)
[2024-05-27 08:00] VITALS: PULSE 69; RESP 16; O2SAT 94
[2024-05-27 09:07] VITALS: BP 136/65; PULSE 69; RESP 16; TEMP 97.7; O2SAT 94
[2024-05-27] MEDS: INSULIN LANTUS (GLARGINE) 1 /0.01ml (100units/ml) SC SCH (09:57)
[2024-05-27] MEDS: SODIUM BICARBONATE 650 MG TAB PO SCH (09:58)
--- NOTE | 2024-05-27 11:42 | DVHDSRES ---
Discharge Summary Date of Admission Resident Creating Document: TRIXIE BROWNING RESIDENT May 25, 2024 at 23:56 Date of Discharge: May 27, 2024 Admitting Diagnosis Abnormal labs, severe hyponatremia Wounds: No wounds present at this time. Labs/Diagnostic Data: Laboratory Results Test 05/27/24 09:41 05/27/24 06:32 05/26/24 04:18 05/25/24 00:00 POC Glucose 116 mg/dl (70-106) White Blood Count 5.2 10^3/uL (4.4-10.8) Red Blood Count 3.01 10^6/uL (4.0-5.20) Hemoglobin 8.7 g/dL (12.2-16.2) Hematocrit 25.2 % (36.0-46.0) Mean Corpuscular Volume 83.8 fL (80.0-100.0) Mean Corpuscular Hemoglobin 28.8 pg (28.0-32.0) Mean Corpuscular Hemoglobin Concent 34.4 g/dL (32.0-36.0) Red Cell Distribution Width 15.0 % (11.8-14.3) Platelet Count 269 10^3/uL (140-450) Mean Platelet Volume 7.6 fL (6.9-10.8) Neutrophils (%) (Auto) 66.5 % (37.0-80.0) Lymphocytes (%) (Auto) 22.5 % (10.0-50.0) Monocytes (%) (Auto) 8.0 % (0.0-12.0) Eosinophils (%) (Auto) 1.9 % (0.0-7.0) Basophils (%) (Auto) 1.1 % (0.0-2.0) Neutrophils # (Auto) 3.5 10 ^3/uL (1.6-8.6) Lymphocytes # (Auto) 1.2 10 ^3/uL (0.4-5.4) Monocytes # (Auto) 0.4 10 ^3/uL (0-1.3) Eosinophils # (Auto) 0.1 10 ^3/uL (0-0.8) Basophils # (Auto) 0.1 10 ^3/uL (0-0.2) Nucleated Red Blood Cells 0.1 % Sodium Level 127 mmol/L (136-145) Potassium Level 3.9 mmol/L (3.5-5.1) Chloride Level 95 mmol/L (98-107) Carbon Dioxide Level 20 mmol/L (20-31) Anion Gap 12 (5-15) Blood Urea Nitrogen 86 mg/dL (9-23) Creatinine 3.50 mg/dL (0.550-1.02) Glomerular Filtration Rate Calc 13 mL/min (>90) BUN/Creatinine Ratio 24.6 (10.0-20.0) Serum Glucose 78 mg/dL (74-106) Serum Osmolality 291 mOsm/kg (278-298) Calcium Level 8.9 mg/dL (8.7-10.4) Magnesium Level 2.4 mg/dL (1.6-2.6) Total Bilirubin 0.5 mg/dL (0.2-1.0) Aspartate Amino Transferase (AST) 22 U/L (13-40) Alanine Aminotransferase (ALT) 27 U/L (7-40) Alkaline Phosphatase 124 U/L (46-116) B-Type Natriuretic Peptide 12.91 pg/mL (0-100) Total Protein 6.2 g/dL (5.7-8.2) Albumin 4.1 g/dL (3.2-4.8) Urine Color Light-yellow (Yellow) Urine Clarity Clear (Clear) Urine pH 5.5 (5.0-9.0) Urine Specific [place] 1.011 (1.001-1.035) Urine Protein 2+ (Negative) Urine Ketones Negative (Negative) Urine Blood Trace /uL (Negative) Urine Nitrite Negative (Negative) Urine Bilirubin Negative (Negative) Urine Urobilinogen Normal mg/dL (Negative) Urine Leukocyte Esterase Negative /uL (Negative) Urine RBC 2 /hpf (0 - 4) Urine Microscopic WBC < 1 /HPF (0-5) Urine Squamous Epithelial Cells Few /hpf (<5) Urine Bacteria None seen /hpf (None Seen) Urine Glucose Normal mg/dL (Normal) Other Laboratory Tests 05/27/24 06:32 Brief Hx & Hospital Course: This is a 73-year-old female with past medical history of gout, hypertension, CKD grade 5, type 2 diabetes mellitus, dyslipidemia presented to the ED due to abnormal lab PCP due to abnormal lab of sodium, potassium and creatinine. the patient was recently admitted admitted in [facility] due to high blood pressure and also was found to have hyperkalemia and on discharge was given Lokelma. Patient has been following rn diabetes educator Dr. Ramirez, and still has not been started on dialysis. On admission potassium was 5.1, creatinine 4.34 and sodium 119. Patient was started on IV normal saline 0.9% at 100 cc/hour and spironolactone was discontinued at that time. Follow-up sodium levels started to increase slowly to 120 and subsequently to 127. Principal Biostatistician is following the case which state that at this time the patient has been asymptomatic with no further complaints could be discharged home following up with her PCP closely and Nephrology as an outpatient. Patient and family agrees and understands the plan. Patient was seen and examined today at bedside, denied chest pain, shortness of breath, dizziness, or any additional concerns. Patient states that is feels overall fine. Patient will be discharged home today with continuing all her home medications. Patient needs to follow up in one week with her PCP to monitor electrolyte levels. Patient agrees and understands plan. Physical examination on the day of discharge: General Appearance: Alert, Oriented X3, Cooperative, No acute distress HEENT: Atraumatic, PERRLA, EOMI, Mucous membrane moist/pink Respiratory: Clear to auscultation, Normal air movement Cardiovascular: Regular rate, Normal S1, Normal S2, No murmurs, no chest wall tenderness Abdominal: Normal bowel sounds, Soft, No tenderness, No hepatosplenomegaly, No masses Extremities: Bilateral pedal edema+, No clubbing, No cyanosis, Normal pulses, No tenderness/swelling Skin: No rashes, No breakdown, No significant lesion Neuro: Normal gait, Normal speech, Strength at 5/5 X4 ext, Normal tone, Sensation intact, grossly intact cranial nerves. Psych/Mental Status: Mental status NL, Mood NL Discharge plan: Continue home meds Follow-up with nephrology as an outpatient on Tuesday May 28, 2024 at 3:[address] Ramirez Discussed with Dr. Rodriguez Consults/Reason for consult Nephrology for severe hyponatremia Operations or Procedures Examination: CXR1 Clinical Indication: Pneumonia Comparison: None. Technique: Frontal view of chest radiograph Findings: The lung parenchyma is clear. Hilar and mediastinal shadows show no obvious abnormality. Costophrenic angles are clear. Aorta is unfolded. Calcification of aortic knob is present. Descending thoracic aorta is ectatic. Cardiac shadow size is within normal limits. Impression: No significant abnormality is seen. Condition at Discharge: Stable Final Diagnosis/Problems List Possible hypervolemic symptomatic hyponatremia Suspected acute metabolic/toxic encephalopathy due to hyponatremia KEHINDE on CKD stage 5 likely secondary to hemodynamically mediated /VMN Hypertensive heart disease; not in exacerbation Dyslipidemia Type 2 diabetes mellitus, HbA1C 6.7% Discharge Disposition: Home Discharge Instruct/Medications Diet: Consistent carbohydrate, Cardiac 2g Na,low cholest, Renal Activity: No Restrictions, As Tolerated Follow Up/Referral: F/U with her PCP Dr. Rodriguez in 1 week F/U with nephrology as outpatient on May 28, 2024 at 3:00 p.m. Medications: Continue home medications Discharge Statement: "Patient was advised to return to the ER or call 911 if any headaches, dizziness, shortness of breath, chest pain, abdominal pain, bleeding, fevers, or worsening of medical condition. Patient was counseled about treatment plan, medications, possible side effects, patientverbalized understanding. All questions were answered to the best of my ability. This discharge took greater then 30 minutes in planning, reviewing documentation, counseling the patient, and discussing with other team members." ASSESSMENT ASSESSMENT Assessment Possible hypervolemic symptomatic hyponatremia Suspected acute metabolic/toxic encephalopathy due to hyponatremia KEHINDE on CKD stage 5 likely secondary to hemodynamically mediated /VMN Hypertensive heart disease; not in exacerbation Dyslipidemia Type 2 diabetes mellitus, HbA1C 6.7% Addendum Addendum Addendum I was physically present for the lopez portions of the service provided to patient by THE RESIDENT. I have reviewed the documentation, discussed the case with resident and agree with the resident's documentation except as noted. Also the patient's clinical case was discussed with the patient's nurse. This medical document was created using an electronic medical record system with computerized dictation system. Although this document has been carefully reviewed, there might still be some phonetic and typographical errors. These areas are purely typographical due to imperfections of the software programs, and do not reflect any compromise in the patient's medical care. Late signature. Date of Service: May 27, 2024 Billing Provider: JAEL RODRIGUEZ MD Common Visit Codes: 67695-NQL/OBS DISCH DAY >30min TRIXIE BROWNING RESIDENT May 27, 2024 11:42 JAEL RODRIGUEZ MD May 28, 2024 07:06
[2024-05-27 12:31] VITALS: BP 136/65; PULSE 69; RESP 16; TEMP 97.7; O2SAT 94
[2024-05-27 12:48] VITALS: BP 111/59; PULSE 68; RESP 16; TEMP 97.5; O2SAT 98
--- NOTE | 2024-05-27 17:53 | DVHPN2 ---
Progress Note Date Seen: May 27, 2024 Medical Necessity Reason Pt with a Central, PICC or Fol: No Subjective Patient reports: No new complaints, Feels better Review of Systems: HEENT:Normal, CVS:Normal, RESPIRATORY:Normal, GI:Normal, :Normal, MSK:Normal, NEURO:Normal Objective vital signs Vital Sign Date Time Temp Pulse Resp B/P (MAP) Pulse Ox O2 Delivery O2 Flow Rate FiO2 05/27/24 12:48 97.5 68 16 111/59 (76) 98 97.5 05/27/24 08:00 Room Air* 0 21 Total Intake and Output 05/26/24 05/26/24 05/27/24 15:00 23:00 07:00 Intake Total 250 ml 345 ml Output Total 0 ml 3 ml Balance 250 ml 342 ml Examination: GENERAL:Normal, HEENT:Normal, NECK:Normal, LUNGS:Normal, CVS:Normal, ABDOMEN:Normal, MSK:Normal, SKIN:Normal, NEURO:Normal, :Normal laboratory and microbiology Laboratory Tests 05/27/24 06:32 Test 05/27/24 06:32 Range/Units Serum Glucose 78 74-106 mg/dL Microbiology Date/Time Source Procedure Growth Status 05/26/24 16:20 Nose MRSA Screen - Final Complete Problem List/Assessment/Plan Problem List/Assessment/Plan Hyponatremia suspect likely secondary to diuretics Acute kidney injury on Chronic kidney disease five hemodynamic mediated Hypertension Recommendations Normal saline IV as ordered Hold spironolactone and Lasix for now Patient appears euvolemic Check serum osmolality urine osmolality urine sodium acid na better Plan discussed with: Patient PRICE VILLANUEVA MD May 27, 2024 17:53
--- NOTE | 2024-05-28 14:36 | ECG ---
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
== END 2024-05-27 13:22 | disposition home or self-care (01) | DRG 640 ==
LOC: ER 12:47 → OVERFLOW 23:56 → CENTRAL 05-26 15:39
PROVIDERS: ATTEND Internal Medicine
DX: E87.1 Hypo-osmolality and hyponatremia (principal); G92.8 Other toxic encephalopathy; N17.0 Acute kidney failure with tubular necrosis; N25.81 Secondary hyperparathyroidism of renal origin; N18.5 Chronic kidney disease, stage 5; I13.11 Hypertensive heart and chronic kidney disease without heart failure, with stage 5 chronic kidney disease, or end stage renal disease; E78.5 Hyperlipidemia, unspecified; Z96.652 Presence of left artificial knee joint; E11.22 Type 2 diabetes mellitus with diabetic chronic kidney disease; E87.5 Hyperkalemia; M10.9 Gout, unspecified; Z79.4 Long term (current) use of insulin; Z83.3 Family history of diabetes mellitus; Z88.0 Allergy status to penicillin; Z79.899 Other long term (current) drug therapy
CPT/HCPCS: 36415; 71045; 80048; 80053; 80061; 80069; 81001; 82043; 82570; 82962; 83036; 83735; 83880; 83930; 83970; 84295; 84439; 84443; 84550; 85025; 87081; 93005; 96361; 96372; 99291; G0378; J1815

== ENCOUNTER 2024-05-30 22:35 | Emergency (ER) | payer OTHER ==
[~2024-05-30] VITALS: Ht 152.4 cm; Wt 80.9 kg
[~2024-05-30 22:35] MED LIST changes: -ALLO100T PO; -FURO40TA4 PO; -MECL1TAB42 PO; -MET50T PO; -ZOFR4T PO
--- NOTE | 2024-05-31 01:28 | ED.PDOC ---
History of Present Illness HPI Comments 73-YEAR-OLD FEMALE COMPLAINING OF HEADACHE AND NECK PAIN. PATIENT STATES SHE WOKE UP THIS MORNING WITH THE NECK PAIN. HER BLOOD PRESSURE WAS NORMAL IN THE MORNING, SHE TOOK HER CARVEDILOL THIS EVENING 8:00 P.M. AND NOTICED THAT HER BLOOD PRESSURE WAS STILL HIGH. DENIES ANY HEADACHE BUT STILL HAVING NECK PAIN. NO CHEST PAIN NO SHORTNESS A BREATH. NOTHING MAKES IT BETTER, MOVEMENT MAKES HER PAIN WORSE. Chief Complaint: High Blood Pressure Time Seen by MD: 22:51 Primary Care Provider: MICHAEL Cid Notes: Nurses Notes Allergies: Coded Allergies: Penicillins (Unverified Allergy, Mild, hives, 03/13/24) Home Meds Active Scripts Sodium Zirconium Cyclosilicate (Lokelma) 10 Gm Kermit, 10 GM PO DAILY, #30 PACK 0 Refills Prov:ANANDA SMALL MD 05/21/24 Carvedilol (Carvedilol) 6.25 Mg Tab, 1 TAB PO BID, #60 TAB 0 Refills Prov:ANANDA SMALL MD 05/21/24 Sodium Bicarbonate (Sodium Bicarbonate) 650 Mg Tab, 1300 MG PO TID for 30 Days, #180 TAB 0 Refills Prov:ANANDA SMALL MD 05/21/24 Reported Medications Ergocalciferol (VITAMIN D2) 400 Unit Tab, 09784 UNIT PO once a week, TAB 05/18/24 Insulin NPH (Human) (Isophane) (Novolin N Flexpen) 100 Unit/Ml Inj, 100 UNIT SC UD, INJ 0-150 0 151-200 4 u 201-250 6 u 251-300 8 u 301-350 10 u 351-400 12 u 06/18/22 Insulin Glargine (Basaglar Kwikpen) 100 Unit/Ml Inj, 100 UNIT SC, INJ 25 units q am, 10 units qhs 06/18/22 Atorvastatin Calcium (Lipitor) 40 Mg Tab, 40 MG PO HS, TAB 06/18/22 Information Source: Patient Mode of Arrival: Wheelchair Past Medical History PAST MEDICAL HISTORY: CKF, DM, High Lipids, HTN Surgical History: Denies all surgeries DRAW PRESS 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: No 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 Family History Family History: Reviewed,noncontributory to illness, Family hx of DM, Family hx of Cancer Social History Smoker: Non-Smoker Alcohol: Denies ETOH Use Drugs: Denies Drug Use Lives In: Home Constitutional: denies: chills, diaphoresis, fatigue, fever, malaise, sweats, weakness, others EENTM: denies: blurred vision, double vision, ear bleeding, ear discharge, ear drainage, ear pain, ear ringing, eye pain, eye redness, hearing loss, mouth pain, mouth swelling, nasal discharge, nose bleeding, nose congestion, nose pain, photophobia, tearing, throat pain, throat swelling, voice changes, others Respiratory: denies: cough, hemoptysis, orthopnea, SOB at rest, shortness of breath, SOB with excertion, stridor, wheezing, others Cardiovascular: denies: chest pain, dizzy spells, diaphoresis, Dyspnea on exertion, edema, irregular heart beat, left arm pain, lightheadedness, palpitations, PND, syncope, others Gastrointestinal: denies: abdomen distended, abdominal pain, blood streaked bowels, constipated, diarrhea, dysphagia, difficulty swallowing, hematemesis, melena, nausea, poor appetite, poor fluid intake, rectal bleeding, rectal pain, vomiting, others Genitourinary: denies: abnormal vagina bleeding, burning, dyspareunia, dysuria, flank pain, frequency, hematuria, incontinence, pain, , vagina discharge, urgency, others Neurological: denies: dizziness, fainting, headache, left sided numbness, left sided weakness, numbness, paresthesia, pre-existing deficit, right sided numbness, right sided weakness, seizure, speech problems, tingling, tremors, weakness, others Musculoskeletal: denies: back pain, gout, joint pain, joint swelling, muscle pain, muscle stiffness, neck pain, others Integumetry: denies: bruises, change in color, change in hair/nails, dryness, laceration, lesions, lumps, rash, wounds, others Allergic/Immunocompromised: denies: Difficulty Healing, Frequent Infections, Hives, Itching, others Hematologic/Lymphatic: denies: anemia, blood clots, easy bleeding, easy bruising, swollen glands, others Endocrine: denies: excessive hunger, excessive sweating, excessive thirst, excessive urination, flushing, intolerance to cold, intolerance to heat, unexplained weight gain, unexplained weight loss, others Psychiatric: denies: anxiety, bipolar disorder, depression, hopeless, panic dis order, schizophrenia, sleepless, suicidal, others Physical Exam General Appearance: No Apparent Distress, Normal HEENT: Normal ENT Inspection, Pharynx Normal, TMs Normal Neck: Full Range of Motion, Normal Inspection, Other (TENDER TO PALPATION OVER CERVICAL PARASPINOUS MUSCLES.) Respiratory: Chest Non-Tender, Lungs Clear, No Accessory Muscle Use, No Respiratory Distress, Normal Breath Sounds Cardiovascular: No Edema, No JVD, No Murmur, No Gallop, Normal Peripheral Pulses, Regular Rate/Rhythm Breast Exam: Deferred Gastrointestinal: No Organomegaly, Non Tender, No Pulsatile Mass, Normal Bowel Sounds, Soft Genitalia: Deferred Pelvic: Deferred Rectal: Deferred Extremities: No calf tenderness, Normal capillary refill, Normal inspection, Normal range of motion, Non-tender, No pedal edema Musculoskeletal : Apperance: Normal Neurologic: Alert, functional skills tutor II-XII nml as Tested, No Motor Deficits, Normal Affect, Normal Mood, No Sensory Deficits Cerebellar Function: Normal Reflexes: Normal Skin: Dry, Normal Color, Warm Lymphatic: No Adenopathy Was a procedure done? Was a procedure done?: No Differential Dx Considerations may include: TORTICOLLIS, HYPERTENSIVE CRISIS, [place], X-Ray, Labs, Meds, VS Vital Signs Date Time Temp Pulse Resp B/P (MAP) Pulse Ox O2 Delivery O2 Flow Rate FiO2 05/30/24 22:59 91 05/30/24 22:46 98.7 89 18 184/73 (110) 100 X-Ray, Labs, Meds, VS Comment IMAGING: X-RAYS AND CT SCANS WERE REVIEWED AND INTERPRETED BY THIS PROVIDER, IMAGING SHOWS NO FRACTURES AND NO PATHOLOGICAL DISEASE. PENDING RADIOLOGY REVIEW. LABORATORY: LABS REVIEWED AND INTERPRETED BY THIS PROVIDER. NO SIGNIFICANT ABNORMALITIES NOTED. PATIENT HAS PRIOR MEDICAL VISITS REVIEWED. MED RECONCILIATION PERFORMED VITAL SIGNS REVIEWED Time of 1ST Reevaluation: :28 Reevaluation 1ST: Improved Patient Education/Counseling: Diagnosis, Treatment, Need For Follow Up (PATIENT ADVISED TO FOLLOW-UP IN THE EMERGENCY ROOM IN THE NEXT 24 TO 48 HOURS IF SYMPTOMS DO NOT IMPROVE. ADVISED FOLLOW-UP WITH PCP IN THE NEXT 3 TO 5 DAYS. PATIENT VERBALIZED UNDERSTANDING. ) Family Education/Counseling: Diagnosis Departure 1 Departure Time of Disposition: :27 Impression: Primary Impression: Torticollis Disposition: HOME / SELF CARE / HOMELESS Condition: Fair Discharged With: Self Critical Care Note Critical Care Time?: No Stability Stability form required: No Heart Score Heart Score: Heart Score Response (Comments) Value History N/A 0 EKG N/A 0 Age N/A 0 Risk Factors N/A 0 Troponin N/A 0 Total 0 BETTY HITCHCOCK May 31, 2024 01:28
[2024-05-31 02:05] VITALS: BP 162/84; TEMP 98.7
[2024-05-31 02:10] VITALS: PULSE 86; RESP 16; O2SAT 99
[2024-05-31] MEDS: KETOROLAC TROMETH 30 MG/ML 1ML VIAL IM ONE (02:21)
--- NOTE | 2024-06-01 09:17 | ECG ---
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
== END 2024-05-31 02:26 | disposition home or self-care (01) ==
LOC: ER 22:35
DX: M43.6 Torticollis (principal); I12.9 Hypertensive chronic kidney disease with stage 1 through stage 4 chronic kidney disease, or unspecified chronic kidney disease; E11.22 Type 2 diabetes mellitus with diabetic chronic kidney disease; N18.9 Chronic kidney disease, unspecified; Z79.899 Other long term (current) drug therapy; Z88.0 Allergy status to penicillin
CPT/HCPCS: 93005

== ENCOUNTER → 2024-06-26 | Outpatient (CLI) | payer OTHER ==
[2024-06-26 09:43] LABS: Urine Bacteria None Seen /hpf (None Seen)
[2024-06-26 10:00] LABS: Basophils # (auto) 0.1 10 ^3/uL (0-0.2); Basophils % (auto) 1.2 % (0.0-2.0); Eosinophils # (auto) 0.1 10 ^3/uL (0-0.8); Eosinophils % (auto) 1.5 % (0.0-7.0); Hematocrit 28.7 % (36.0-46.0); Hemoglobin 9.2 g/dL (12.2-16.2); Lymphocytes # (auto) 1.2 10 ^3/uL (0.4-5.4); Lymphocytes % (auto) 17.2 % (10.0-50.0); Mean Corpuscular Hemoglobin 28.3 pg (28.0-32.0); Mean Corpuscular Hgb Conc. 32.2 g/dL (32.0-36.0); Monocytes # (auto) 0.5 10 ^3/uL (0-1.3); Monocytes % (auto) 7.3 % (0.0-12.0); Neutrophils % (auto) 72.8 % (37.0-80.0); Nucleated Red Blood Cells % 0.1 %; Platelet Count (auto) 266 10^3/uL (140-450); Red Blood Cells 3.26 10^6/uL (4.0-5.20); White Blood Cell 6.8 10^3/uL (4.4-10.8)
[2024-06-26 10:04] LABS: Calcium 9.6 mg/dL (8.7-10.4)
[2024-06-26 10:09] LABS: BUN/Creatinine Ratio 26.4 (10.0-20.0)
[2024-06-26 10:11] LABS: Albumin 3.9 g/dL (3.2-4.8); Phosphorus 4.4 mg/dL (2.4-5.1)
[2024-06-26 10:12] LABS: Potassium 5.4 mmol/L (3.5-5.1)
[2024-06-26 10:30] LABS: Urine Blood Negative /uL (Negative); Urine Clarity Clear (Clear); Urine Color Colorless (Yellow); Urine Protein, UAD 1+ (Negative); Urine Specific Gravity 1.008 (1.001-1.035); Urine Squamous Epithelial Cell FEW /hpf (<5); Urine Urobilinogen Normal (Negative); Urine WBC 3 /HPF (0-5); Urine pH 5.5 (5.0-9.0)
[2024-06-26 10:36] LABS: Protein, Urine 96.3 mg/dL (1-14)
[2024-06-26 10:38] LABS: Creatinine, Urine 41.34 mg/dL (30.0-125.0); Urine Protein/Creatinine Ratio 2.33
[2024-06-26 10:47] LABS: Uric Acid 9.4 mg/dL (3.1-7.8)
== END | disposition home or self-care (01) ==
LOC: LAB 09:19
PROVIDERS: ATTEND Internal Medicine Nephrology
DX: E11.22 Type 2 diabetes mellitus with diabetic chronic kidney disease (principal); N18.30 Chronic kidney disease, stage 3 unspecified; E11.21 Type 2 diabetes mellitus with diabetic nephropathy; E21.3 Hyperparathyroidism, unspecified; E55.9 Vitamin D deficiency, unspecified; N39.0 Urinary tract infection, site not specified; M10.9 Gout, unspecified; R80.9 Proteinuria, unspecified; D63.1 Anemia in chronic kidney disease
CPT/HCPCS: 36415; 80069; 81001; 82570; 83036; 83970; 84156; 84550; 85025

== ENCOUNTER → 2024-07-31 | Outpatient (CLI) | payer OTHER ==
[2024-07-31 08:55] LABS: Urine Bacteria None Seen /hpf (None Seen)
[2024-07-31 09:50] LABS: Urine Blood TRACE /uL (Negative); Urine Clarity Clear (Clear); Urine Color Colorless (Yellow); Urine Protein, UAD 2+ (Negative); Urine Specific Gravity 1.011 (1.001-1.035); Urine Squamous Epithelial Cell FEW /hpf (<5); Urine Urobilinogen Normal (Negative); Urine WBC 2 /HPF (0-5)
[2024-07-31 09:52] LABS: Potassium 4.8 mmol/L (3.5-5.1)
[2024-07-31 09:53] LABS: Calcium 9.6 mg/dL (8.7-10.4)
[2024-07-31 09:57] LABS: Protein, Urine 208.9 mg/dL (1-14)
[2024-07-31 09:58] LABS: BUN/Creatinine Ratio 25.7 (10.0-20.0)
[2024-07-31 10:00] LABS: Creatinine, Urine 50.49 mg/dL (30.0-125.0); Phosphorus 4.6 mg/dL (2.4-5.1); Urine Protein/Creatinine Ratio 4.14
[2024-07-31 10:14] LABS: Basophils # (auto) 0.1 10 ^3/uL (0-0.2); Eosinophils # (auto) 0.1 10 ^3/uL (0-0.8); Eosinophils % (auto) 1.8 % (0.0-7.0); Hematocrit 30.1 % (36.0-46.0); Hemoglobin 9.5 g/dL (12.2-16.2); Lymphocytes # (auto) 1.2 10 ^3/uL (0.4-5.4); Mean Corpuscular Hemoglobin 26.7 pg (28.0-32.0); Mean Corpuscular Hgb Conc. 31.4 g/dL (32.0-36.0); Mean Corpuscular Volume 84.9 fL (80.0-100.0); Monocytes # (auto) 0.3 10 ^3/uL (0-1.3); Monocytes % (auto) 4.9 % (0.0-12.0); Neutrophils # (auto) 4.5 10 ^3/uL (1.6-8.6); Neutrophils % (auto) 73.3 % (37.0-80.0); Nucleated Red Blood Cells % 0.1 %; Platelet Count (auto) 312 10^3/uL (140-450); Red Blood Cells 3.54 10^6/uL (4.0-5.20); Red Cell Distribution Width 14.8 % (11.8-14.3); Uric Acid 10.1 mg/dL (3.1-7.8); White Blood Cell 6.2 10^3/uL (4.4-10.8)
== END | disposition home or self-care (01) ==
LOC: LAB 08:41
PROVIDERS: ATTEND Internal Medicine
DX: E11.22 Type 2 diabetes mellitus with diabetic chronic kidney disease (principal); N18.30 Chronic kidney disease, stage 3 unspecified; E11.21 Type 2 diabetes mellitus with diabetic nephropathy; E21.3 Hyperparathyroidism, unspecified; E55.9 Vitamin D deficiency, unspecified; M10.9 Gout, unspecified; N39.0 Urinary tract infection, site not specified; R80.9 Proteinuria, unspecified; D63.1 Anemia in chronic kidney disease
CPT/HCPCS: 36415; 80069; 81001; 82570; 83970; 84156; 84550; 85025

== ENCOUNTER → 2024-09-04 | Outpatient (CLI) | payer OTHER | END | disposition home or self-care (01) | LOC: LAB 13:22 | PROVIDERS: ATTEND Internal Medicine | DX: Z12.11 Encounter for screening for malignant neoplasm of colon (principal) | CPT/HCPCS: 82270 ==

== ENCOUNTER → 2024-09-07 | Outpatient (CLI) | payer OTHER ==
[2024-09-07 09:41] LABS: Calcium 9.7 mg/dL (8.7-10.4)
[2024-09-07 09:45] LABS: Potassium 5.4 mmol/L (3.5-5.1)
[2024-09-07 09:46] LABS: Albumin 3.7 g/dL (3.2-4.8); BUN/Creatinine Ratio 23.7 (10.0-20.0)
[2024-09-07 09:48] LABS: Phosphorus 4.8 mg/dL (2.4-5.1)
== END | disposition home or self-care (01) ==
LOC: LAB 08:52
PROVIDERS: ATTEND Internal Medicine Nephrology
DX: E11.21 Type 2 diabetes mellitus with diabetic nephropathy (principal); E11.22 Type 2 diabetes mellitus with diabetic chronic kidney disease; N18.30 Chronic kidney disease, stage 3 unspecified; E21.3 Hyperparathyroidism, unspecified; E55.9 Vitamin D deficiency, unspecified; M10.9 Gout, unspecified; N39.0 Urinary tract infection, site not specified; R80.9 Proteinuria, unspecified; D63.1 Anemia in chronic kidney disease
CPT/HCPCS: 36415; 80069

== ENCOUNTER 2024-10-11 07:09 | Outpatient (CLI) | payer OTHER ==
[2024-10-11 07:34] LABS: Basophils # (auto) 0.1 10 ^3/uL (0-0.2); Eosinophils # (auto) 0.2 10 ^3/uL (0-0.8); Hemoglobin 8.1 g/dL (12.2-16.2); Lymphocytes # (auto) 1.1 10 ^3/uL (0.4-5.4); Monocytes # (auto) 0.5 10 ^3/uL (0-1.3); Platelet Count (auto) 264 10^3/uL (140-450)
[2024-10-11 07:41] LABS: Basophils % (auto) 0.9 % (0.0-2.0); Hematocrit 25.1 % (36.0-46.0); Lymphocytes % (auto) 14.7 % (10.0-50.0); Mean Corpuscular Hemoglobin 26.8 pg (28.0-32.0); Mean Corpuscular Hgb Conc. 32.3 g/dL (32.0-36.0); Neutrophils # (auto) 5.4 10 ^3/uL (1.6-8.6); Neutrophils % (auto) 74.4 % (37.0-80.0); Red Blood Cells 3.03 10^6/uL (4.0-5.20); Red Cell Distribution Width 16.2 % (11.8-14.3); White Blood Cell 7.3 10^3/uL (4.4-10.8)
[2024-10-11 08:01] LABS: Urine Bacteria FEW /hpf (None Seen); Urine Blood TRACE /uL (Negative); Urine Clarity Clear (Clear); Urine Protein, UAD 1+ (Negative); Urine Specific Gravity 1.008 (1.001-1.035); Urine Squamous Epithelial Cell FEW /hpf (<5); Urine Urobilinogen Normal (Negative); Urine WBC 3 /HPF (0-5)
[2024-10-11 08:02] LABS: Calcium 9.3 mg/dL (8.7-10.4)
[2024-10-11 08:06] LABS: Protein, Urine 131.7 mg/dL (1-14)
[2024-10-11 08:07] LABS: BUN/Creatinine Ratio 25.1 (10.0-20.0)
[2024-10-11 08:08] LABS: Albumin 3.7 g/dL (3.2-4.8)
[2024-10-11 08:09] LABS: Creatinine, Urine 30.77 mg/dL (30.0-125.0); Urine Protein/Creatinine Ratio 4.28
[2024-10-11 08:15] LABS: Urine Color Light-Yellow (Yellow)
[2024-10-11 08:40] LABS: Phosphorus 5.4 mg/dL (2.4-5.1)
[2024-10-11 09:09] LABS: Uric Acid 9.2 mg/dL (3.1-7.8)
== END 2024-10-11 17:00 | disposition home or self-care (01) ==
LOC: LAB 07:09
PROVIDERS: ATTEND Internal Medicine
DX: E11.22 Type 2 diabetes mellitus with diabetic chronic kidney disease (principal); N18.30 Chronic kidney disease, stage 3 unspecified; E11.21 Type 2 diabetes mellitus with diabetic nephropathy; D63.1 Anemia in chronic kidney disease; N39.0 Urinary tract infection, site not specified; R80.9 Proteinuria, unspecified; E21.3 Hyperparathyroidism, unspecified; M10.9 Gout, unspecified; E55.9 Vitamin D deficiency, unspecified
CPT/HCPCS: 36415; 80069; 81001; 82570; 83970; 84156; 84550; 85025

== ENCOUNTER → 2024-11-21 | Outpatient (CLI) | payer OTHER ==
[2024-11-21 10:24] LABS: Nucleated Red Blood Cells % 0.0 %
[2024-11-21 10:29] LABS: Hematocrit 24.8 % (36.0-46.0); Hemoglobin 8.1 g/dL (12.2-16.2); Mean Corpuscular Hemoglobin 27.4 pg (28.0-32.0); Mean Corpuscular Volume 84.4 fL (80.0-100.0)
[2024-11-21 10:47] LABS: Anion Gap 9.0 (5-15); Carbon Dioxide 21.0 mmol/L (20-31); Sodium 141.0 mmol/L (136-145); Urine Protein, UAD 2+ (Negative); Urine WBC Clumps PRESENT /hpf (None Seen)
[2024-11-21 10:53] LABS: BUN/Creatinine Ratio 20.4 (10.0-20.0); Glucose 89.0 mg/dL (74-106)
[2024-11-21 10:54] LABS: Albumin 3.7 g/dL (3.2-4.8)
[2024-11-21 11:23] LABS: Blood Urea Nitrogen 80.0 mg/dL (9-23); Chloride 111.0 mmol/L (98-107); Potassium 5.3 mmol/L (3.5-5.1)
[2024-11-21 11:24] LABS: Calcium 8.7 mg/dL (8.7-10.4)
[2024-11-21 11:33] LABS: Uric Acid 8.9 mg/dL (3.1-7.8)
[2024-11-21 14:12] LABS: Microalb/Creat Ratio, Urine 2241.0
== END | disposition home or self-care (01) ==
LOC: LAB 09:47
PROVIDERS: ATTEND Internal Medicine
DX: E11.22 Type 2 diabetes mellitus with diabetic chronic kidney disease (principal); N18.30 Chronic kidney disease, stage 3 unspecified; N39.0 Urinary tract infection, site not specified; R80.9 Proteinuria, unspecified; E21.3 Hyperparathyroidism, unspecified; M10.9 Gout, unspecified; E55.9 Vitamin D deficiency, unspecified; D63.1 Anemia in chronic kidney disease; M85.852 Other specified disorders of bone density and structure, left thigh
CPT/HCPCS: 36415; 80069; 81001; 82043; 82306; 82570; 83970; 84550; 85025

== ENCOUNTER 2025-01-02 08:55 | Outpatient (CLI) | payer OTHER ==
[2025-01-02 09:23] LABS: Hemoglobin 8.1 g/dL (12.2-16.2)
[2025-01-02 09:26] LABS: Urine Protein, UAD 1+ (Negative)
[2025-01-02 09:27] LABS: Hematocrit 24.8 % (36.0-46.0); Mean Corpuscular Hemoglobin 28.0 pg (28.0-32.0); Mean Corpuscular Volume 85.6 fL (80.0-100.0); Nucleated Red Blood Cells % 0.0 %
[2025-01-02 09:35] LABS: Sodium 139.0 mmol/L (136-145)
[2025-01-02 09:36] LABS: Anion Gap 12.0 (5-15)
[2025-01-02 09:41] LABS: BUN/Creatinine Ratio 18.9 (10.0-20.0); Glucose 91.0 mg/dL (74-106)
[2025-01-02 09:42] LABS: Albumin 3.6 g/dL (3.2-4.8)
[2025-01-02 09:48] LABS: Potassium 5.1 mmol/L (3.5-5.1)
[2025-01-02 09:49] LABS: Calcium 8.5 mg/dL (8.7-10.4); Carbon Dioxide 16.0 mmol/L (20-31); Chloride 111.0 mmol/L (98-107)
[2025-01-02 09:50] LABS: Blood Urea Nitrogen 89.0 mg/dL (9-23)
[2025-01-02 09:55] LABS: Protein, Urine 98.5 mg/dL (1-14)
[2025-01-02 10:26] LABS: Uric Acid 8.9 mg/dL (3.1-7.8)
[2025-01-02 10:40] LABS: Total Iron Binding Capacity 269.0 ug/dL (250-425)
[2025-01-02 10:41] LABS: Iron 49.0 ug/dL (50-170)
[2025-01-02 10:46] LABS: Ferritin 24.3 ng/mL (10-291)
== END 2025-01-02 17:00 | disposition home or self-care (01) ==
LOC: LAB 08:55
PROVIDERS: ATTEND Internal Medicine
DX: E11.22 Type 2 diabetes mellitus with diabetic chronic kidney disease (principal); N18.30 Chronic kidney disease, stage 3 unspecified; E11.21 Type 2 diabetes mellitus with diabetic nephropathy; E21.3 Hyperparathyroidism, unspecified; E55.9 Vitamin D deficiency, unspecified; N39.0 Urinary tract infection, site not specified; D63.1 Anemia in chronic kidney disease; M10.9 Gout, unspecified; R80.9 Proteinuria, unspecified
CPT/HCPCS: 36415; 80069; 81001; 82570; 82607; 82728; 82746; 83540; 83550; 83970; 84156; 84550; 85025

== ENCOUNTER 2025-02-01 13:44 | Inpatient (IN) | payer OTHER ==
[~2025-02-01] VITALS: Ht 149.9 cm; Wt 65.9 kg
[~2025-02-01 13:44] MED LIST changes: +HYDR-4902 PO
--- NOTE | 2025-02-01 14:35 | ED.PDOC ---
HPI Comments Geovanna Davis is a 74-year-old female with past medical history of HTN, DM2, CKD stage V (not in dialysis), and dyslipidemia. The patient came to the ED with chief complain of 1 week of increase in high blood pressure reading at home > 190/90 mmHg, associated with dizziness and generalized weakness. On further questioning, the patient reports she is stage V kidney disease but she does not want to start dialysis, and reports she still producing urine. Today, her blood pressure did not improved, despite her medication (Carvedilol 6.25mg po bid), this prompted her visit to the ED. The patient denies chest pain, palpitation, abdominal pain, fever, chills, or other symptoms. The patient will be further assessed. Chief Complaint: High Blood Pressure Time Seen by MD: 13:55 Primary Care Provider: MICHAEL Cid Notes: Nurses Notes, Medications, Allergies Allergies: Coded Allergies: Penicillins (Unverified Allergy, Mild, hives, 03/13/24) Home Meds Active Scripts Sodium Zirconium Cyclosilicate (Lokelma) 10 Gm Kermit, 10 GM PO DAILY, #30 PACK 0 Refills Prov:ANANDA SMALL MD 05/21/24 Carvedilol (Carvedilol) 6.25 Mg Tab, 1 TAB PO BID, #60 TAB 0 Refills Prov:ANANDA SMALL MD 05/21/24 Sodium Bicarbonate (Sodium Bicarbonate) 650 Mg Tab, 1300 MG PO TID for 30 Days, #180 TAB 0 Refills Prov:ANANDA SMALL MD 05/21/24 Reported Medications Ergocalciferol (VITAMIN D2) 400 Unit Tab, 73691 UNIT PO once a week, TAB 05/18/24 Insulin NPH (Human) (Isophane) (Novolin N Flexpen) 100 Unit/Ml Inj, 100 UNIT SC UD, INJ 0-150 0 151-200 4 u 201-250 6 u 251-300 8 u 301-350 10 u 351-400 12 u 06/18/22 Insulin Glargine (Basaglar Kwikpen) 100 Unit/Ml Inj, 100 UNIT SC, INJ 25 units q am, 10 units qhs 06/18/22 Atorvastatin Calcium (Lipitor) 40 Mg Tab, 40 MG PO HS, TAB 06/18/22 Information Source: Patient, Relative (Child) Mode of Arrival: Wheelchair Severity: Moderate Timing: Weeks Duration: Since onset Past Medical History PAST MEDICAL HISTORY: CKF, DM, ESRD, High Lipids, HTN Past Medical History (Other): Stage V, not in dyalisis. Surgical History: Denies all surgeries ENERGY ASSISTANT History: No Pertinent ENERGY ASSISTANT History Family History Family History: Reviewed,noncontributory to illness, Family hx of DM, Family hx of Cancer Social History Smoker: Non-Smoker Alcohol: Denies ETOH Use Drugs: Denies Drug Use Lives In: Home Constitutional: reports: weakness (generalized); denies: chills, diaphoresis, fatigue, fever, malaise, sweats, others EENTM: denies: blurred vision, double vision, ear bleeding, ear discharge, ear drainage, ear pain, ear ringing, eye pain, eye redness, hearing loss, mouth pain, mouth swelling, nasal discharge, nose bleeding, nose congestion, nose pain, photophobia, tearing, throat pain, throat swelling, voice changes, others Respiratory: denies: cough, hemoptysis, orthopnea, SOB at rest, shortness of breath, SOB with excertion, stridor, wheezing, others Cardiovascular: denies: chest pain, dizzy spells, diaphoresis, Dyspnea on exertion, edema, irregular heart beat, left arm pain, lightheadedness, palpitations, PND, syncope, others Gastrointestinal: denies: abdomen distended, abdominal pain, blood streaked bowels, constipated, diarrhea, dysphagia, difficulty swallowing, hematemesis, melena, nausea, poor appetite, poor fluid intake, rectal bleeding, rectal pain, vomiting, others Genitourinary: denies: abnormal vagina bleeding, burning, dyspareunia, dysuria, flank pain, frequency, hematuria, incontinence, pain, , vagina discharge, urgency, others Neurological: denies: dizziness, fainting, headache, left sided numbness, left sided weakness, numbness, paresthesia, pre-existing deficit, right sided numbness, right sided weakness, seizure, speech problems, tingling, tremors, weakness, others Musculoskeletal: denies: back pain, gout, joint pain, joint swelling, muscle pain, muscle stiffness, neck pain, others Integumetry: denies: bruises, change in color, change in hair/nails, dryness, laceration, lesions, lumps, rash, wounds, others Allergic/Immunocompromised: denies: Difficulty Healing, Frequent Infections, Hives, Itching, others Hematologic/Lymphatic: denies: anemia, blood clots, easy bleeding, easy bruising, swollen glands, others Endocrine: denies: excessive hunger, excessive sweating, excessive thirst, excessive urination, flushing, intolerance to cold, intolerance to heat, unexplained weight gain, unexplained weight loss, others Psychiatric: denies: anxiety, bipolar disorder, depression, hopeless, panic disorder, schizophrenia, sleepless, suicidal, others Physical Exam Exam Comments Alert, Oriented x3. General Appearance: No Apparent Distress, Normal HEENT: Normal ENT Inspection, Pharynx Normal, TMs Normal Neck: Full Range of Motion, Non-Tender, Normal, Normal Inspection Respiratory: Chest Non-Tender, Lungs Clear, No Accessory Muscle Use, No Respiratory Distress, Normal Breath Sounds Cardiovascular: No Murmur, Normal Peripheral Pulses, Regular Rate/Rhythm Breast Exam: Deferred Gastrointestinal: Non Tender, Normal Bowel Sounds, Soft Genitalia: Deferred Pelvic: Deferred Rectal: Deferred Extremities: Normal inspection, Normal range of motion, Non-tender Musculoskeletal : Apperance: Normal Neurologic: Alert, mastercam programmer II-XII nml as Tested, No Motor Deficits, Normal Affect, Normal Mood, No Sensory Deficits Cerebellar Function: Normal Reflexes: Normal Skin: Dry, Normal Color, Warm Lymphatic: No Adenopathy EKG EKG : Pulse Rate (adult): 70 [place]: Normal Cardiac Rhythm: NSR Block: None Hypertrophy: None ST: New (Minimal ST depression ) Was a procedure done? Was a procedure done?: No CP Differential Dx Differential Diagnosis: N/A Differential Diagnosis: HTN Accelerated, N/A (Hypertensive emergency) Differential Diagnosis: Other X-Ray, Labs, Meds, VS Vital Signs Date Time Temp Pulse Resp B/P (MAP) Pulse Ox O2 Delivery O2 Flow Rate FiO2 02/01/25 19:43 70 02/01/25 14:00 70 02/01/25 13:46 98.1 75 16 223/77 100 98.1 Lab Test 02/01/25 18:41 02/01/25 15:33 02/01/25 14:49 Range/Units Potassium Level 4.7 5.7 *H 3.5-5.1 mmol/L Troponin I High Sensitivity 17 16 18 </=34 ng/L White Blood Count 10.5 4.4-10.8 10^3/uL Red Blood Count 2.78 L 4.0-5.20 10^6/uL Hemoglobin 7.7 L 12.2-16.2 g/dL Hematocrit 24.0 L 36.0-46.0 % Mean Corpuscular Volume 86.1 80.0-100.0 fL Mean Corpuscular Hemoglobin 27.5 L 28.0-32.0 pg Mean Corpuscular Hemoglobin Concent 32.0 32.0-36.0 g/dL Red Cell Distribution Width 16.5 H 11.8-14.3 % Platelet Count 255 140-450 10^3/uL Mean Platelet Volume 8.4 6.9-10.8 fL Neutrophils (%) (Auto) 75.7 37.0-80.0 % Lymphocytes (%) (Auto) 13.7 10.0-50.0 % Monocytes (%) (Auto) 8.3 0.0-12.0 % Eosinophils (%) (Auto) 1.1 0.0-7.0 % Basophils (%) (Auto) 1.2 0.0-2.0 % Neutrophils # (Auto) 7.9 1.6-8.6 10 ^3/uL Lymphocytes # (Auto) 1.4 0.4-5.4 10 ^3/uL Monocytes # (Auto) 0.9 0-1.3 10 ^3/uL Eosinophils # (Auto) 0.1 0-0.8 10 ^3/uL Basophils # (Auto) 0.1 0-0.2 10 ^3/uL Nucleated Red Blood Cells 0.0 % Sodium Level 130 L 136-145 mmol/L Chloride Level 99 98-107 mmol/L Carbon Dioxide Level 19 L 20-31 mmol/L Anion Gap 12 5-15 Blood Urea Nitrogen 83 *H 9-23 mg/dL Creatinine 4.60 H 0.550-1.02 mg/dL Glomerular Filtration Rate Calc 10 >90 mL/min BUN/Creatinine Ratio 18.0 10.0-20.0 Serum Glucose 89 74-106 mg/dL Calcium Level 7.8 L 8.7-10.4 mg/dL Magnesium Level 2.0 1.6-2.6 mg/dL X-Ray, Labs, Meds, VS Comment 14:55 The patient was re-evaluated BP: 150/79mmhg HR: 76bpm Dr. Ibarra was around and was report that his patient was in the lobby, he stopped by and was agree with current plan. He will see the patient again tomorrow. CBC: Hb:7.7mg/dl WBC: 10.5x10e3 CMP: K: 5.7mmol/l, Crea: 4.6, BUN: 83, GFR: 10, Mg+: 2.0 Troponin: 18 The patient will be admitted for further assessment and management. 15:33 Troponin: 16 Dr. Rodriguez came to see the patient, labs were reported to him, he advised to transfused RBC if Hb drops below 7. Type and screen will be ordered. 19:27 The patient was re-evaluated, reports headache I request to nursing a re-check of BP Head CT non contrast will be requested Re-check potassium is 4.7mmol/L Patient is still pending for admission. Time of 1ST Reevaluation: 14:49 Reevaluation 1ST: Unchanged Time of 2ND Reevaluation: 15:33 Reevaluation 2ND: Unchanged Time of 3RD Reevaluation: 19:27 Reevaluation 3RD: Unchanged Patient Education/Counseling: Diagnosis, Treatment, Prognosis, Need For Follow Up Family Education/Counseling: Diagnosis, Treatment, Prognosis, Need For Follow Up SEPSIS Sepsis Screen Date sepsis recognized/suspect: Feb 01, 2025 Time Sepsis recognized/suspect: 1351 Recent Procedure: No On Antibiotic Therapy: No Respiratory Rate >20: No Heart Rate >90: No Temp<36 C (96.8 F) or >38.3 C: No SBP <90 or MAP <65 mmHG: No New Acute Mental Status Change: No Is the patient on CPAP, BIPAP,: No Physician Orders Urinalysis (02/01/25 14:29) Chest Xray 1 View (02/01/25 14:29) Electrocardigram (02/01/25 15:37) *[facility] (02/01/25 16:23) Type And Screen (02/01/25 19:02) Hydralazine Injection (Apresoline Inject (02/01/25 19:15) Head Without Contrast (02/01/25 19:27) Echo 2d Mode Cardiac Dop (02/01/25 19:29) * Cardiology Consult (02/01/25 19:30) Vital Signs Date Time Temp Pulse Resp B/P (MAP) Pulse Ox O2 Delivery O2 Flow Rate FiO2 02/01/25 19:43 70 02/01/25 14:00 70 02/01/25 13:46 98.1 75 16 223/77 100 98.1 Laboratory Tests Test 02/01/25 14:49 White Blood Count 10.5 10^3/uL (4.4-10.8) Departure 1 Departure Time of Disposition: 14:55 Impression: Primary Impression: Hypertensive emergency Additional Impressions: CKD stage 5 due to type 2 diabetes mellitus Hyperkalemia Disposition: ADMITTED INPATIENT Admit to: Tele Condition: Fair Comments Goals of care discussed with the patient > 35 min. Discussed plan of care with Dr. Tafoya Code status: Full code PCP: Dr. Rodriguez Plan discussed with: Patient and daughter, the patient agrees with the admission plan. Critical Care Note Critical Care Time?: No Stability Stability form required: No Heart Score Heart Score: Heart Score Response (Comments) Value History Highly Suspicious 2 EKG Repolarization Disturb 1 Age >65 2 Risk Factors 1 or 2 risk factors 1 Troponin Normal limit 0 Total 6 JULI COREAS RESIDENT Feb 01, 2025 14:35
--- NOTE | 2025-02-01 15:05 | DVH ---
CHEST RADIOGRAPH Indication: Hypertensive crisis Technique: Single frontal view of the chest was obtained Comparison: XY CHEST XRAY 1 VIEW on DOS: 05/26/24, XY CHEST PORTABLE on DOS: 05/17/24 FINDINGS: Lines and Tubes: None Lungs: Newly prominent bronchovascular markings especially in the right base. Pleura: No effusion. No pneumothorax. Cardiomediastinal contours: Cardiomegaly Bones: No acute osseous abnormality. IMPRESSION: 1. Cardiomegaly 2. Mildly prominent bronchovascular markings in the right base may be chronic there are no prior stud ies for comparison.
[2025-02-01 15:21] LABS: Anion Gap 12 (5-15); Chloride 99 mmol/L (98-107)
[2025-02-01 15:27] LABS: BUN/Creatinine Ratio 18.0 (10.0-20.0); Glucose 89 mg/dL (74-106)
[2025-02-01 15:28] LABS: Calcium 7.8 mg/dL (8.7-10.4); Carbon Dioxide 19 mmol/L (20-31); Sodium 130 mmol/L (136-145)
[2025-02-01 15:33] LABS: Blood Urea Nitrogen 83 mg/dL (9-23); Potassium 5.7 mmol/L (3.5-5.1)
[2025-02-01 15:34] LABS: Hematocrit 24.0 % (36.0-46.0); Hemoglobin 7.7 g/dL (12.2-16.2); Nucleated Red Blood Cells % 0.0 %
[2025-02-01 15:36] LABS: Mean Corpuscular Hemoglobin 27.5 pg (28.0-32.0); Mean Corpuscular Volume 86.1 fL (80.0-100.0)
--- NOTE | 2025-02-01 18:10 | ECG ---
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
--- NOTE | 2025-02-01 20:02 | DVH ---
EXAM: CT HEAD WITHOUT CONTRAST INDICATION: Hypertensive emergency and headache TECHNIQUE: CT of the head without intravenous contrast. Radiation Dose Information: CT Dose: CTDI volume is 60.21 mGy. Dose-length product is 1066.05 mGy*cm The dose indicators for CT are the volume Computed Tomography (CT) Dose Index (CTDIvol) and the Dose Length Product (DLP), and are measured in units of mGy and mGy-cm, respectively. These indicators are not patient dose, but values generated from the CT scanner acquisition factors. The report includes radiation exposure data for exposures received during this examination. COMPARISON: CT HEAD WITHOUT CONTRAST on DOS: 10/13/23 FINDINGS: There is no evidence of acute intracranial hemorrhage, extra-axial collection, mass effect, midline s hift, herniation or hydrocephalus. The ventricles, sulci and cisterns are age appropriate. The alanis-white differentiation is intact. Patchy periventricular and subcortical white matter hypoattenuation is nonspecific but may be related to small vessel ischemic disease. The visualized paranasal sinuses and mastoid air cells are clear. The surrounding soft tissues and osseous structures are unremarkable. IMPRESSION: No acute intracranial abnormality.
[2025-02-01] MEDS: CALCIUM GLUC 1,000mg/50ml-NS 50 ML IV ONE (20:22)
[2025-02-01] MEDS: DEXTROSE (50%) 50ML SYRG IV ONE (20:22)
[2025-02-01] MEDS: InsuLIN REG 1unit/0.01ml Soln (100units/ml) IV ONE (20:22)
[2025-02-01] MEDS: FUROSEMIDE 40 MG/4 ML VIAL IV ONE (20:22)
[2025-02-01] MEDS: ALBUTEROL SULF 2.5 MG/0.5ML(0.5%) NEB SOLN NEB ONE (20:23)
[2025-02-01] MEDS: SODIUM ZIRCONIUM CYCL 10 GM PAK PO ONE (20:23)
[2025-02-01] MEDS ORDERED: DOCUSATE SOD 100 MG CAP PO PRN (21:30)
[2025-02-01] MEDS ORDERED: hydrALAZINE HCL 20 MG/ML VL IV PRN (21:30)
[2025-02-01] MEDS ORDERED: DEXTROSE (50%) 50ML SYRG IV PRN (21:30)
[2025-02-01] MEDS ORDERED: ACETAMINOPHEN 325 MG TAB PO PRN (21:30)
[2025-02-01] MEDS: hydrALAZINE HCL 20 MG/ML VL IV ONE (21:35)
[2025-02-01 21:36] VITALS: PULSE 80; RESP 17; O2SAT 98
[2025-02-01] MEDS ORDERED: MORPHINE SULFATE INJ 2 MG/ml SYRG IV PRN (22:00)
[2025-02-01] MEDS: InsuLIN REG 1unit/0.01ml Soln (100units/ml) SC SCH (22:00)
[2025-02-01] MEDS: METOPROLOL TARTRATE 25 MG TAB PO SCH (22:00)
[2025-02-01] MEDS: ACCU-CHEK COMFORT CURVE STRIP VI SCH (22:00)
[2025-02-01] MEDS ORDERED: NITROGLYCERIN 0.4 MG SL TAB SL PRN (22:00)
--- NOTE | 2025-02-01 22:02 | DVHHP2 ---
History of Present Illness Reason for Visit: Hypertensive emergency History of Present Illness The patient is a 74-year-old female with past medical history of diabetes mellitus, end-stage renal disease not on dialysis, hyperlipidemia, and hypertension who presented to [facility] ED with complaint of elevated high blood pressure. Daughter reports patient has been experiencing generalized weakness, associated with dizziness, reports she is in stage V kidney disease but she does not one to start dialysis, still producing urine at this time. Patient's blood pressure did not improve today despite her medication (Carvedilol 6.25mg by mouth 2 times a day), getting worse that prompted this visit. Patient was seen and evaluated in the ED, laboratory data shows WBC 10.5, hemoglobin 7.7, hematocrit 24.0, platelets 255, sodium 130, potassium 5.7 trending down to 4.7, BUN 83, creatinine 4.60, GFR 10, glucose 89, calcium 7.8, troponin 18, blood pressure 223/77 trending down to 197/93, heart rate 78, temperature 98.8 F, O2 saturation 99% on room air. Head CT showed no acute intracranial abnormality. Chest x-ray revealing cardiomegaly, mildly prominent bronchovascular marking in the right base. Please see medication orders section in the computer. On my assessment, daughter at bedside, patient denies chest pain, no dizziness, headache, shortness of breaths, diaphoresis, no diarrhea, nausea, vomiting, fever, no chills. Patient was admitted for further evaluation and medical management. Past Medical History CKF, DM, ESRD not in dialysis, High Lipids, HTN Past Surgical History Denies all surgeries Family History Reviewed, noncontributory to the management of this case. Past Social History The patient lives at home, denies smoking, alcohol or illicit drugs abuse. Review of Systems Constitutional: Yes: Weakness; No: Fever, Chills, Sweats, Malaise, Other Eyes: No: Pain, Vision change, Conjunctivae inflammation, Eyelid inflammation, Other, Redness ENT: No: Ear pain, Ear discharge, Nose pain, Nose discharge, Nose congestion, Mouth pain, Mouth swelling, Throat pain, Throat swelling, Other Respiratory: No: Cough, Dry, Shortness of breath, SOB with excertion, Wheezing, Hemoptysis, Pleuritic Pain, Sputum, Wheezing, Other Cardiovascular: Other (Hypertension); No: Chest Pain, Palpitations, Orthopnea, Paroxysmal Noc. Dyspnea, Edema, Lt Headedness Gastrointestinal: No: Nausea, Vomiting, Abdominal Pain, Diarrhea, Constipation, Melena, Hematochezia, Other Genitourinary: No Dysuria, No Frequency, No Incontinence, No Hematuria, No Retention, No Other Musculoskeletal: No: other, neck pain, shoulder pain, arm pain, back pain, hand pain, leg pain, foot pain Skin: No: Rash, Lesions, Jaundice, Bruising, Other Neurological: Other (Dizziness); No: Weakness, Numbness, Incoordination, Change in speech, Confusion, Seizures Allergies: Coded Allergies: Penicillins (Unverified Allergy, Mild, hives, 03/13/24) Medications Current Medications Medications Dose Ordered Sig/Rigo Route Start Time Stop Time Status Last Admin Dose Admin Aspirin 81 mg DAILY PO 02/02/25 10:00 Atorvastatin Calcium 10 mg HS PO 02/01/25 22:00 Hydralazine HCl 10 mg Q6HP PRN IV 02/01/25 21:30 Multivit/Ca Carb/ B Cmplx/FA/Prenat 1 tab DAILY PO 02/02/25 10:00 Sevelamer HCl 800 mg TIDWM PO 02/02/25 08:00 Amlodipine Besylate 10 mg DAILY PO 02/02/25 10:00 Metoprolol Tartrate 25 mg BID PO 02/01/25 22:00 Diagnostic Test (Pha) 1 strip ACHS 02/01/25 22:00 Insulin Human Regular ACHS SC 02/01/25 22:00 Dextrose 50 ml UD PRN IV 02/01/25 21:30 Acetaminophen/ Hydrocodone Bitart 1 tab Q4HP PRN PO 02/01/25 21:30 Ondansetron HCl 4 mg Q4HP PRN IV 02/01/25 21:30 Docusate Sodium 100 mg BIDPRN PRN PO 02/01/25 21:30 Acetaminophen 650 mg Q6HP PRN PO 02/01/25 21:30 Exam Vital Signs Vital Signs Date Time Temp Pulse Resp B/P (MAP) Pulse Ox O2 Delivery O2 Flow Rate FiO2 02/01/25 21:36 80 17 98 Room Air* 0 21 02/01/25 21:36 98.2 201/95 (130) 98.2 General Appearance: Alert, Oriented X3, Cooperative, No acute distress HEENT: Atraumatic, PERRLA, EOMI, Mucous membr. moist/pink Respiratory: Normal air movement Cardiovascular: Regular rate, Normal S1, Normal S2, No murmurs Abdominal: Normal bowel sounds, Soft, No tenderness, No hepatospenomegaly, No masses Extremities: No clubbing, No cyanosis, No edema, Normal pulses, No tenderness/swelling Skin: No rashes, No significant lesion Neuro: Normal speech, Normal tone, Sensation intact, Cranial nerves 3-12 NL Psych/Mental Status: Mental status NL, Mood NL Labs/Xrays Labs Test 02/01/25 18:41 02/01/25 14:49 Range/Units Potassium Level 4.7 3.5-5.1 mmol/L Troponin I High Sensitivity 17 </=34 ng/L White Blood Count 10.5 4.4-10.8 10^3/uL Red Blood Count 2.78 L 4.0-5.20 10^6/uL Hemoglobin 7.7 L 12.2-16.2 g/dL Hematocrit 24.0 L 36.0-46.0 % Mean Corpuscular Volume 86.1 80.0-100.0 fL Mean Corpuscular Hemoglobin 27.5 L 28.0-32.0 pg Mean Corpuscular Hemoglobin Concent 32.0 32.0-36.0 g/dL Red Cell Distribution Width 16.5 H 11.8-14.3 % Platelet Count 255 140-450 10^3/uL Mean Platelet Volume 8.4 6.9-10.8 fL Neutrophils (%) (Auto) 75.7 37.0-80.0 % Lymphocytes (%) (Auto) 13.7 10.0-50.0 % Monocytes (%) (Auto) 8.3 0.0-12.0 % Eosinophils (%) (Auto) 1.1 0.0-7.0 % Basophils (%) (Auto) 1.2 0.0-2.0 % Neutrophils # (Auto) 7.9 1.6-8.6 10 ^3/uL Lymphocytes # (Auto) 1.4 0.4-5.4 10 ^3/uL Monocytes # (Auto) 0.9 0-1.3 10 ^3/uL Eosinophils # (Auto) 0.1 0-0.8 10 ^3/uL Basophils # (Auto) 0.1 0-0.2 10 ^3/uL Nucleated Red Blood Cells 0.0 % Sodium Level 130 L 136-145 mmol/L Chloride Level 99 98-107 mmol/L Carbon Dioxide Level 19 L 20-31 mmol/L Anion Gap 12 5-15 Blood Urea Nitrogen 83 *H 9-23 mg/dL Creatinine 4.60 H 0.550-1.02 mg/dL Glomerular Filtration Rate Calc 10 >90 mL/min BUN/Creatinine Ratio 18.0 10.0-20.0 Serum Glucose 89 74-106 mg/dL Calcium Level 7.8 L 8.7-10.4 mg/dL Magnesium Level 2.0 1.6-2.6 mg/dL PATIENT: BECKY BOO ACCT: [id number] UNIT: [id number] : 1950 LOC: ER ROOM / BED: / AGE / SEX: 74 / F ADM STATUS: REG ER SERVICE 26 ORDERING PHYSICIAN: JULI COREAS RESIDENT PROCEDURE(s): HWOCT - HEAD WITHOUT CONTRAST REASON: Hypertensive emergency and headache ORDER NUMBER(s): [id number], ACCESSION NUMBER(s): [id number] EXAM: CT HEAD WITHOUT CONTRAST INDICATION: Hypertensive emergency and headache TECHNIQUE: CT of the head without intravenous contrast. Radiation Dose Information: CT Dose: CTDI volume is 60.21 mGy. Dose-length product is 1066.05 mGy*cm The dose indicators for CT are the volume Computed Tomography (CT) Dose Index (CTDIvol) and the Dose Length Product (DLP), and are measured in units of mGy and mGy-cm, respectively. These indicators are not patient dose, but values generated from the CT scanner acquisition factors. The report includes radiation exposure data for exposures received during this examination. COMPARISON: CT HEAD WITHOUT CONTRAST on DOS: 10/13/23 FINDINGS: There is no evidence of acute intracranial hemorrhage, extra-axial collection, mass effect, midline shift, herniation or hydrocephalus. The ventricles, sulci and cisterns are age appropriate. The alanis-white differentiation is intact. Patchy periventricular and subcortical white matter hypoattenuation is nonspecific but may be related to small vessel ischemic disease. The visualized paranasal sinuses and mastoid air cells are clear. The surrounding soft tissues and osseous structures are unremarkable. IMPRESSION: No acute intracranial abnormality. ORDERING PHYSICIAN: JULI COREAS RESIDENT PROCEDURE(s): CXR1 - CHEST XRAY 1 VIEW REASON: Hypertensive crisis ORDER NUMBER(s): [id number], ACCESSION NUMBER(s): [id number] CHEST RADIOGRAPH Indication: Hypertensive crisis Technique: Single frontal view of the chest was obtained Comparison: XY CHEST XRAY 1 VIEW on DOS: 05/26/24, XY CHEST PORTABLE on DOS: 05/17/24 FINDINGS: Lines and Tubes: None Lungs: Newly prominent bronchovascular markings especially in the right base. Pleura: No effusion. No pneumothorax. Cardiomediastinal contours: Cardiomegaly Bones: No acute osseous abnormality. IMPRESSION: 1. Cardiomegaly 2. Mildly prominent bronchovascular markings in the right base may be chronic there are no prior studies for comparison. SEPSIS Sepsis Screen Date sepsis recognized/suspect: Feb 01, 2025 Time Sepsis recognized/suspect: 2135 Recent Procedure: No On Antibiotic Therapy: No Respiratory Rate >20: No Heart Rate >90: No Temp<36 C (96.8 F) or >38.3 C: No SBP <90 or MAP <65 mmHG: No New Acute Mental Status Change: No Is the patient on CPAP, BIPAP,: No Physician Orders Urinalysis (02/01/25 14:29) Chest Xray 1 View (02/01/25 14:29) Electrocardigram (02/01/25 15:37) *[facility] (02/01/25 16:23) Head Without Contrast (02/01/25 19:27) Echo 2d Mode Cardiac Dop (02/01/25 19:29) * Cardiology Consult (02/01/25 19:30) Aspirin Tablet (02/02/25 10:00) Atorvastatin (Lipitor) (02/01/25 22:00) Hydralazine Injection (Apresoline Inject (02/01/25 21:30) Consistent Carb(Ccho)Diabetes (02/02/25 Breakfast) B-Complex W/ C & Folic Tablet (Nephro-Vi (02/02/25 10:00) Sevelamer (Renagel) (02/02/25 08:00) Amlodipine Tablet (Norvasc Tablet) (02/02/25 10:00) Metoprolol Tartrate Tablet (Lopressor Ta (02/01/25 22:00) Glucose Blood (Accu-Chek Comfort Curve T (02/01/25 22:00) Insulin R (Human) (Insulin R) (02/01/25 22:00) Dextrose 50% Syringe (02/01/25 21:30) Allergies (02/01/25:18) Code Status (02/01/25:18) Renal Standard(2gna,3gk,Lopho) (02/02/25 Breakfast) Oxygen Per Hour (02/01/25:18) Hydrocodone-Acet 5/325mg Tab (Reagan 5/32 (02/01/25 21:30) Ondansetron Hcl (Zofran) (02/01/25 21:30) Docusate Sodium Capsule (Colace Capsule) (02/01/25 21:30) Fall Risk Precautions In Place QSHIFT (02/01/25:18) Complete Blood Count (02/02/25 04:00) Comprehensive Metabolic Panel (02/02/25 04:00) Condition: Serious (02/01/25:18) Acetaminophen Tablet (Tylenol Tablet) (02/01/25 21:30) Maintain Bed Rest (02/01/25:18) Sequential Compression Device (02/01/25 ) Admit (02/01/25 22:00) Nitroglycerin Sublingual (Ntrostat Subli (02/01/25 22:00) Morphine Sulfate Injection (02/01/25 22:00) Stat Ekg For Chest Pain (02/01/25 22:00) Notify Of Changes From Base (02/01/25 22:00) Proj Engineer For 24 Hours (02/01/25 22:00) Emergency Dysrhythmia Protocol (02/01/25 22:00) Rhythm Strips Once Every Shift (02/01/25 22:00) Oxygen By Nasal Cannula (02/01/25 22:00) Vital Signs Date Time Temp Pulse Resp B/P (MAP) Pulse Ox O2 Delivery O2 Flow Rate FiO2 02/01/25 21:36 80 17 98 Room Air* 0 21 02/01/25 21:36 98.2 80 17 201/95 (130) 98 98.2 02/01/25 21:35 201/95 10/17/25 21:07 79 18 100 Room Air 02/01/25 20:50 98.8 79 18 211/104 (139) 100 98.8 202/92 (128) 02/01/25 19:43 70 Laboratory Tests Test 02/01/25 14:49 White Blood Count 10.5 10^3/uL (4.4-10.8) Medications Medications Dose Ordered Sig/Rigo Route Start Time Stop Time Status Last Admin Dose Admin Hydralazine HCl 10 mg ONCE ONCE IV 02/01/25 19:15 02/01/25 20:39 DC 02/01/25 21:35 10 MG Assessment/Plan Assessment/Plan Hypertensive emergency Electrolyte imbalance Anemia of chronic disease Generalized weakness End-stage renal disease needing dialysis CKD stage 5 due to type 2 diabetes mellitus Plan 1. Admit to telemetry unit 2. Breathing treatment 3. Pain control management 4. Management of fluids and electrolytes 5. Consultation for Nephrology 6. Diagnostic tests chest x-ray 7. DVT prophylaxis-on aspirin 8. Repeat labs CBC, CMP in a.m. 9. Continue with current medical management 10. Treatment plan discussed with patient and RN. Patient verbalized understanding. Plan discussed with: Patient, Other (RN) My Orders Orders - GABRIEL CHIN DNP Procedure Category Date Status Time Aspirin Tablet PHA 02/02/25 In Process 10:00 Atorvastatin (Lipitor) PHA 02/01/25 In Process 22:00 Hydralazine Injection PHA 02/01/25 In Process (Apresoline Inject 21:30 Consistent DIET 02/02/25 Transmitted Carb(Ccho)Diabetes Breakfast B-Complex W/ C & PHA 02/02/25 In Process Folic Tablet 10:00 Sevelamer (Renagel) PHA 02/02/25 In Process 08:00 Amlodipine Tablet PHA 02/02/25 In Process (Norvasc Tablet) 10:00 Metoprolol Tartrate PHA 02/01/25 In Process Tablet (Lopressor Ta 22:00 Glucose Blood PHA 02/01/25 In Process (Accu-Chek Comfort 22:00 Insulin R (Human) PHA 02/01/25 In Process (Insulin R) 22:00 Dextrose 50% Syringe PHA 02/01/25 In Process 21:30 Allergies DELL 02/01/25 In Process 21:18 Code Status CODE 02/01/25 Transmitted 21:18 Renal DIET 02/02/25 Transmitted Standard(2gna,3gk,Lopho) Breakfast Oxygen Per Hour RT 02/01/25 Transmitted 21:18 Hydrocodone-Acet PHA 02/01/25 In Process 5/325mg Tab (Reagan 21:30 Ondansetron Hcl PHA 02/01/25 In Process (Zofran) 21:30 Docusate Sodium PHA 02/01/25 In Process Capsule (Colace 21:30 Fall Risk Precautions DELL 02/01/[address] 21:18 Complete Blood Count LAB 02/02/25 Verified 04:00 Comprehensive LAB 02/02/25 Verified Metabolic Panel 04:00 Condition: Serious DELL 02/01/25 In Process 21:18 Acetaminophen Tablet PHA 02/01/25 In Process (Tylenol Tablet) 21:30 Maintain Bed Rest DELL 02/01/25 In Process 21:18 Sequential DELL 02/01/25 In Process Compression Device Admit ADMIT 02/01/25 Transmitted 22:00 Nitroglycerin PHA 02/01/25 Transmitted Sublingual (Ntrostat 22:00 Morphine Sulfate PHA 02/01/25 Transmitted Injection 22:00 Stat Ekg For Chest DELL 02/01/25 Transmitted Pain 22:00 Notify Md Of Changes DELL 02/01/25 Transmitted From Base 22:00 Proj Engineer For DELL 02/01/25 Transmitted 24 Hours 22:00 Emergency Dysrhythmia DELL 02/01/25 Transmitted Protocol 22:00 Rhythm Strips Once DELL 02/01/25 Transmitted Every Shift 22:00 Oxygen By Nasal RT 02/01/25 Transmitted Cannula 22:00 Problem List: (1) Hypertensive emergency (2) Electrolyte imbalance (3) Anemia of chronic disease (4) Generalized weakness (5) End-stage renal disease needing dialysis (6) CKD stage 5 due to type 2 diabetes mellitus Date of Service: Feb 01, 2025 Billing Provider: GABRIEL CHIN DNP Common Visit Codes: [id number] INP/OBS CARE (HIGH) GABRIEL CHIN DNP Feb 01, 2025 22:01
[2025-02-01] MEDS: HYDROcodone-ACET 5/325MG TAB PO PRN (22:05)
[2025-02-02] MEDS: ATORVASTATIN 20 MG TAB PO SCH (00:49)
[2025-02-02 01:57] LABS: Urine Protein, UAD 2+ (Negative)
[2025-02-02] MEDS: LABETALOL HCL 20 MG/4 ML VL IV ONE (02:14)
[2025-02-02 03:02] VITALS: BP 153/64; PULSE 73; RESP 18; TEMP 98.6; O2SAT 98
--- NOTE | 2025-02-02 03:04 | ECG ---
[facility] Test Date: 2025-02-01 Test Time: 14:00:04 Pat Name: BECKY BOO Department: ED Room: [address] [place] [address] Gender: F [employer] Operator: raudel : 1950 Requested By: JULI COREAS Order Number: [id number] Reading MD: William Goins Measurements Intervals [place] Rate: 70 P: 56 WI: 159 QRS: 47 QRSD: 103 T: 71 QT: 410 QTc: 443 Interpretive Statements Sinus rhythm Minimal ST depression Baseline wander in lead(s) I Electronically Signed On 02-02-2025 18:49:21 PDT by William Goins Please click the below link to view image of tracing.
[2025-02-02] MEDS: ONDANSETRON HCL 4 MG/2 ML VIAL IV PRN (03:54)
[2025-02-02 05:02] LABS: Nucleated Red Blood Cells % 0.0 %
[2025-02-02 05:04] LABS: Hematocrit 23.5 % (36.0-46.0); Hemoglobin 7.8 g/dL (12.2-16.2); Mean Corpuscular Hemoglobin 28.0 pg (28.0-32.0); Mean Corpuscular Volume 84.2 fL (80.0-100.0)
[2025-02-02 05:33] LABS: Alanine Aminotransferase 18 U/L (7-40); Albumin 3.7 g/dL (3.2-4.8); Alkaline Phosphatase 129 U/L (46-116); Anion Gap 13 (5-15); BUN/Creatinine Ratio 15.7 (10.0-20.0); Blood Urea Nitrogen 76 mg/dL (9-23); Calcium 8.3 mg/dL (8.7-10.4); Carbon Dioxide 20 mmol/L (20-31); Chloride 95 mmol/L (98-107); Glucose 165 mg/dL (74-106); Potassium 4.4 mmol/L (3.5-5.1); Sodium 128 mmol/L (136-145); Total Protein 6.4 g/dL (5.7-8.2)
[2025-02-02 05:39] LABS: Bilirubin, Total 0.4 mg/dL (0.2-1.0)
[2025-02-02 06:03] VITALS: BP 147/63; PULSE 65; RESP 18; TEMP 98.6; O2SAT 98
[2025-02-02 06:22] VITALS: PULSE 69; RESP 18; O2SAT 98
[2025-02-02] MEDS: CALCIUM ACETATE 667 MG CAP PO SCH (08:29)
[2025-02-02] MEDS: SEVELAMER 800 MG TAB PO SCH (08:29)
[2025-02-02 09:00] VITALS: BP 164/75; PULSE 73; RESP 17; TEMP 97.8; O2SAT 100
[2025-02-02] MEDS: B-COMPLEX W/ C & FOLIC ACID(NEPHROVITE TAB) PO SCH (09:23)
--- NOTE | 2025-02-02 09:26 | DVHPN2 ---
Subjective Feeling better today; daughter translated from Polish Reviewed: Care Plan, H&P, Labs, Medications, Previous Orders, Radiology, Other (Nephrology consult) Changes from previous H/P or p: Changes Objective Vitals Vital Signs Date Time Temp Pulse Resp B/P (MAP) Pulse Ox O2 Delivery O2 Flow Rate FiO2 02/02/25 09:23 164/75 02/02/25 09:22 73 02/02/25 09:00 97.8 17 100 97.8 02/02/25 06:22 Room Air* 0 21 General Appearance: Alert, Oriented X3, Cooperative, No acute distress HEENT: Atraumatic Lungs: Clear to auscultation, Normal air movement Cardiovascular: Regular rate, Normal S1, Normal S2, No murmurs Abdomen: Normal bowel sounds, Soft, No tenderness Neuro: Normal speech, Cranial nerves 3-12 NL Psych/Mental Status: Mental status NL, Mood NL Medications Current Medications Medications Dose Ordered Sig/Rigo Route Start Time Stop Time Status Last Admin Dose Admin Aspirin 81 mg DAILY PO 02/02/25 10:00 02/02/25 09:22 81 MG Atorvastatin Calcium 10 mg HS PO 02/01/25 22:00 02/02/25 00:49 10 MG Hydralazine HCl 10 mg Q6HP PRN IV 02/01/25 21:30 Multivit/Ca Carb/ B Cmplx/FA/Prenat 1 tab DAILY PO 02/02/25 10:00 02/02/25 09:23 1 TAB Sevelamer HCl 800 mg TIDWM PO 02/02/25 08:00 02/02/25 08:29 800 MG Amlodipine Besylate 10 mg DAILY PO 02/02/25 10:00 02/02/25 09:23 10 MG Metoprolol Tartrate 25 mg BID PO 02/01/25 22:00 02/02/25 09:22 25 MG Diagnostic Test (Pha) 1 strip ACHS 02/01/25 22:00 02/02/25 05:22 1 STRIP Insulin Human Regular ACHS SC 02/01/25 22:00 02/02/25 05:22 3 UNITS Dextrose 50 ml UD PRN IV 02/01/25 21:30 Acetaminophen/ Hydrocodone Bitart 1 tab Q4HP PRN PO 02/01/25 21:30 02/01/25 22:05 1 TAB Ondansetron HCl 4 mg Q4HP PRN IV 02/01/25 21:30 02/02/25 03:54 4 MG Docusate Sodium 100 mg BIDPRN PRN PO 02/01/25 21:30 Acetaminophen 650 mg Q6HP PRN PO 02/01/25 21:30 Nitroglycerin 0.4 mg Q5MINP PRN SL 02/01/25 22:00 Morphine Sulfate 2 mg Q30M PRN IV 02/01/25 22:00 Laboratory Results Laboratory Tests 02/02/25 04:35 Chemistry Test 02/01/25 14:49 02/02/25 04:35 Calcium Level 7.8 mg/dL (8.7-10.4) L 8.3 mg/dL (8.7-10.4) L Magnesium Level 2.0 mg/dL (1.6-2.6) Albumin 3.7 g/dL (3.2-4.8) Total Protein 6.4 g/dL (5.7-8.2) LFT Test 02/02/25 04:35 Alanine Aminotransferase (ALT) 18 U/L (7-40) Alkaline Phosphatase 129 U/L (46-116) H Aspartate Amino Transferase (AST) 23 U/L (13-40) Total Bilirubin 0.4 mg/dL (0.2-1.0) Urinalysis Test 02/01/25 22:03 Urine Color Colorless (Yellow) Urine Clarity Clear (Clear) Urine pH 6.5 (5.0-9.0) Urine Specific [place] 1.006 (1.001-1.035) Urine Protein 2+ (Negative) H Urine Ketones Negative (Negative) Urine Blood 1+ /uL (Negative) H Urine Nitrite Negative (Negative) Urine Bilirubin Negative (Negative) Urine Urobilinogen Normal mg/dL (Negative) Urine Leukocyte Esterase Negative /uL (Negative) Urine RBC <1 /hpf (0 - 4) Urine Microscopic WBC 1 /HPF (0-5) Urine Squamous Epithelial Cells Few /hpf (<5) Urine Bacteria Few /hpf (None Seen) H Urine Glucose Normal mg/dL (Normal) Labs and/or images reviewed: Labs reviewed by me, Image(s) reviewed by me Assessment/Plan Assessment/Plan A 74-year-old female patient with multiple comorbidities; who presented to the emergency department because of elevated blood pressure and was found to be hyperkalemic. Hypertensive crisis; resolved Hypertensive kidney disease with chronic kidney disease stage V Suspected KEHINDE; most likely vasomotor nephropathy Hyperkalemia due to suspected KEHINDE Diabetes mellitus type 2 Hypertensive heart disease with a chronic diastolic heart failure; not in exacerbation Obesity Adjusted antihypertensive medications and will discharge later in the day if blood pressure becomes controlled Continue insulin management and adjust according to blood glucose readings Hyperkalemia resolved Nephrology cleared the patient for discharge and to follow up as outpatient Continue monitoring blood pressure with possible discharge later today To avoid nephrotoxic agents and to keep well hydrated Counseled the patient on the importance of adopting healthy lifestyle with diet and exercise in order to lose weight Goals of care discussed with the patient and her daughter for 20 minutes; full code Late Entry. This medical document was created using an electronic medical record system with computerized dictation system. Although this document has been carefully reviewed, there might still be some phonetic and typographical errors. These areas are purely typographical due to imperfections of the software programs, and do not reflect any compromise in the patient's medical care. Plan discussed with: Patient, Spouse, Daughter, Other (Nurse) Date of Service: Feb 02, 2025 Billing Provider: JAEL RODRIGUEZ MD Common Visit Codes: [id number] INP/OBS CARE(HIGH) Secondary Visit Codes: [id number] CARE PLAN 30 MINUTES (20 minutes) JAEL RODRIGUEZ MD Feb 02, 2025 09:26
[2025-02-02] MEDS: METOPROLOL TARTRATE 25 MG TAB PO SCH (10:00)
--- NOTE | 2025-02-02 11:24 | DVHINCON2 ---
Date of service: Feb 02, [address] Salazar Reason for Consultation Chronic kidney disease History of Present Illness Mrs. Peres is a 74-year-old female known to this technical publications writer from outpatient chronic kidney Disease Clinic. She was sent to the ER reportedly for hyperkalemia noticed on outpatient labs. She was seen outside of the ER yesterday along with her family. Today she is seen in the holding area of the emergency department, patient is much more calm currently. Patient's daughter is at her side. Patient denies any worsening symptoms of nausea, anorexia, shortness of breath, lower extremity edema. Family states that she has not been taking her outpa tient Lokelma or sodium bicarbonate tablets. 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 Nephrotic syndrome Type 2 diabetes Hypertension Allergies: Coded Allergies: Penicillins (Unverified Allergy, Mild, hives, 03/13/24) Home Meds Active Scripts Sodium Zirconium Cyclosilicate (Lokelma) 10 Gm Kermit, 10 GM PO DAILY, #30 PACK 0 Refills Prov:ANANDA SMALL MD 05/21/24 Carvedilol (Carvedilol) 6.25 Mg Tab, 1 TAB PO BID, #60 TAB 0 Refills Prov:ANANDA SMALL MD 05/21/24 Sodium Bicarbonate (Sodium Bicarbonate) 650 Mg Tab, 1300 MG PO TID for 30 Days, #180 TAB 0 Refills Prov:ANANDA SMALL MD 05/21/24 Reported Medications Ergocalciferol (VITAMIN D2) 400 Unit Tab, 44746 UNIT PO once a week, TAB 05/18/24 Insulin NPH (Human) (Isophane) (Novolin N Flexpen) 100 Unit/Ml Inj, 100 UNIT SC UD, INJ 0-150 0 151-200 4 u 201-250 6 u 251-300 8 u 301-350 10 u 351-400 12 u 06/18/22 Insulin Glargine (Basaglar Kwikpen) 100 Unit/Ml Inj, 100 UNIT SC, INJ 25 units q am, 10 units qhs 06/18/22 Atorvastatin Calcium (Lipitor) 40 Mg Tab, 40 MG PO HS, TAB 06/18/22 Current Medications Current Medications Medications (Trade) Dose Ordered Sig/Rigo Route PRN Reason Start Time Stop Time Status Last Admin Aspirin 81 mg DAILY PO 02/02/25 10:00 02/02/25 09:22 Atorvastatin Calcium (Lipitor) 10 mg HS PO 02/01/25 22:00 02/02/25 00:49 Hydralazine HCl (Apresoline Injection) 10 mg Q6HP PRN IV SBP>150 02/01/25 21:30 Multivit/Ca Carb/ B Cmplx/FA/Prenat (Nephro-Austen Tablet) 1 tab DAILY PO 02/02/25 10:00 02/02/25 09:23 Sevelamer HCl (Renagel) 800 mg TIDWM PO 02/02/25 08:00 02/02/25 08:29 Amlodipine Besylate (Norvasc Tablet) 10 mg DAILY PO 02/02/25 10:00 02/02/25 09:23 Metoprolol Tartrate (Lopressor Tablet) 25 mg BID PO 02/01/25 22:00 02/02/25 09:29 DC 02/02/25 09:22 Diagnostic Test (Pha) (Accu-Chek Comfort Curve T) 1 strip ACHS 02/01/25 22:00 02/02/25 11:15 Insulin Human Regular (InsuLIN R) ACHS SC 02/01/25 22:00 02/02/25 05:22 Dextrose 50 ml UD PRN IV Blood Sugar LESS THAN 60 02/01/25 21:30 Acetaminophen/ Hydrocodone Bitart ([place] 5/325MG Tab) 1 tab Q4HP PRN PO MODERATE PAIN (4-6 PAIN SCALE) 02/01/25 21:30 02/01/25 22:05 Ondansetron HCl (Zofran) 4 mg Q4HP PRN IV NAUSEA / VOMITING 02/01/25 21:30 02/02/25 03:54 Docusate Sodium (Colace Capsule) 100 mg BIDPRN PRN PO FOR CONSTIPATION 02/01/25 21:30 Acetaminophen (Tylenol Tablet) 650 mg Q6HP PRN PO PAIN SCALE 1-3 OR TEMP>100.4 02/01/25 21:30 Nitroglycerin (Ntrostat Sublingual) 0.4 mg Q5MINP PRN SL FOR CHEST PAIN 02/01/25 22:00 Morphine Sulfate 2 mg Q30M PRN IV FOR CHEST PAIN 02/01/25 22:00 Calcium Acetate (Phoslo Capsule) 667 mg TIDWMEALS PO 02/02/25 08:00 02/02/25 08:39 DC 02/02/25 08:29 Metoprolol Tartrate (Lopressor Tablet) 50 mg BID PO 02/02/25 10:00 Hydralazine HCl (Apresoline Tablet) 50 mg Q8HR PO 02/02/25 14:00 Family History: Diabetes mellitus G8 MOTHER FHx: cancer G8 MOTHER G8 FATHER Review of Systems Denies gross hematuria, dysuria, tea or Coca-Cola colored urine Denies excessive use of recent NSAIDs, foamy urine, recent IV contrast studies Denies recent chest pain, dyspnea, PND, orthopnea Denies fever, chills, nausea, vomiting, diarrhea Denies unintentional weight loss, night sweats Denies focal weakness, numbness H&P Exam Vital Signs/I&O Vital Sign Date Time Temp Pulse Resp B/P (MAP) Pulse Ox O2 Delivery O2 Flow Rate FiO2 02/02/25 09:30 164/71 02/02/25 09:22 73 02/02/25 09:00 97.8 17 100 97.8 02/02/25 06:22 Room Air* 0 21 Physical Exam Gen: nad heent: nc/at, mmm lungs: cta anteriorly cvs: no rub abd: soft, bowel sounds audible ext: no edema skin: no rash neuro: alert and oriented Labs/Diagnostic Data Labs/Diagnostic Data Laboratory Tests Test 02/02/25 05:21 02/02/25 04:35 02/01/25 22:22 02/01/25 22:03 Range/Units POC Glucose 169 H 125 H 70-106 mg/dl White Blood Count 5.3 # 4.4-10.8 10^3/uL Red Blood Count 2.79 L 4.0-5.20 10^6/uL Hemoglobin 7.8 L 12.2-16.2 g/dL Hematocrit 23.5 L 36.0-46.0 % Mean Corpuscular Volume 84.2 80.0-100.0 fL Mean Corpuscular Hemoglobin 28.0 28.0-32.0 pg Mean Corpuscular Hemoglobin Concent 33.2 32.0-36.0 g/dL Red Cell Distribution Width 16.2 H 11.8-14.3 % Platelet Count 257 140-450 10^3/uL Mean Platelet Volume 7.9 6.9-10.8 fL Neutrophils (%) (Auto) 73.8 37.0-80.0 % Lymphocytes (%) (Auto) 14.9 10.0-50.0 % Monocytes (%) (Auto) 9.2 0.0-12.0 % Eosinophils (%) (Auto) 1.1 0.0-7.0 % Basophils (%) (Auto) 1.0 0.0-2.0 % Neutrophils # (Auto) 3.9 1.6-8.6 10 ^3/uL Lymphocytes # (Auto) 0.8 0.4-5.4 10 ^3/uL Monocytes # (Auto) 0.5 0-1.3 10 ^3/uL Eosinophils # (Auto) 0.1 0-0.8 10 ^3/uL Basophils # (Auto) 0.1 0-0.2 10 ^3/uL Nucleated Red Blood Cells 0.0 % Sodium Level 128 L 136-145 mmol/L Potassium Level 4.4 3.5-5.1 mmol/L Chloride Level 95 L 98-107 mmol/L Carbon Dioxide Level 20 20-31 mmol/L Anion Gap 13 5-15 Blood Urea Nitrogen 76 H 9-23 mg/dL Creatinine 4.84 H 0.550-1.02 mg/dL Glomerular Filtration Rate Calc 9 >90 mL/min BUN/Creatinine Ratio 15.7 10.0-20.0 Serum Glucose 165 H 74-106 mg/dL Calcium Level 8.3 L 8.7-10.4 mg/dL Total Bilirubin 0.4 0.2-1.0 mg/dL Aspartate Amino Transferase (AST) 23 13-40 U/L Alanine Aminotransferase (ALT) 18 7-40 U/L Alkaline Phosphatase 129 H 46-116 U/L Total Protein 6.4 5.7-8.2 g/dL Albumin 3.7 3.2-4.8 g/dL Urine Color Colorless Yellow Urine Clarity Clear Clear Urine pH 6.5 5.0-9.0 Urine Specific [place] 1.006 1.001-1.035 Urine Protein 2+ H Negative Urine Ketones Negative Negative Urine Blood 1+ H Negative /uL Urine Nitrite Negative Negative Urine Bilirubin Negative Negative Urine Urobilinogen Normal Negative mg/dL Urine Leukocyte Esterase Negative Negative /uL Urine RBC <1 0 - 4 /hpf Urine Microscopic WBC 1 0-5 /HPF Urine Squamous Epithelial Cells Few <5 /hpf Urine Bacteria Few H None Seen /hpf Urine Glucose Normal Normal mg/dL Test 02/01/25 18:41 02/01/25 15:33 02/01/25 14:49 Range/Units Potassium Level 4.7 5.7 *H 3.5-5.1 mmol/L Troponin I High Sensitivity 17 16 18 </=34 ng/L White Blood Count 10.5 4.4-10.8 10^3/uL Red Blood Count 2.78 L 4.0-5.20 10^6/uL Hemoglobin 7.7 L 12.2-16.2 g/dL Hematocrit 24.0 L 36.0-46.0 % Mean Corpuscular Volume 86.1 80.0-100.0 fL Mean Corpuscular Hemoglobin 27.5 L 28.0-32.0 pg Mean Corpuscular Hemoglobin Concent 32.0 32.0-36.0 g/dL Red Cell Distribution Width 16.5 H 11.8-14.3 % Platelet Count 255 140-450 10^3/uL Mean Platelet Volume 8.4 6.9-10.8 fL Neutrophils (%) (Auto) 75.7 37.0-80.0 % Lymphocytes (%) (Auto) 13.7 10.0-50.0 % Monocytes (%) (Auto) 8.3 0.0-12.0 % Eosinophils (%) (Auto) 1.1 0.0-7.0 % Basophils (%) (Auto) 1.2 0.0-2.0 % Neutrophils # (Auto) 7.9 1.6-8.6 10 ^3/uL Lymphocytes # (Auto) 1.4 0.4-5.4 10 ^3/uL Monocytes # (Auto) 0.9 0-1.3 10 ^3/uL Eosinophils # (Auto) 0.1 0-0.8 10 ^3/uL Basophils # (Auto) 0.1 0-0.2 10 ^3/uL Nucleated Red Blood Cells 0.0 % Sodium Level 130 L 136-145 mmol/L Chloride Level 99 98-107 mmol/L Carbon Dioxide Level 19 L 20-31 mmol/L Anion Gap 12 5-15 Blood Urea Nitrogen 83 *H 9-23 mg/dL Creatinine 4.60 H 0.550-1.02 mg/dL Glomerular Filtration Rate Calc 10 >90 mL/min BUN/Creatinine Ratio 18.0 10.0-20.0 Serum Glucose 89 74-106 mg/dL Calcium Level 7.8 L 8.7-10.4 mg/dL Magnesium Level 2.0 1.6-2.6 mg/dL Assessment IMP: 1) stage 5 chronic kidney disease in the setting of likely diabetic nephropathy 2) proteinuria 3) hyperkalemia 4) hypertension 5) diabetes type 2 REC: - I discussed with patient and patient's daughter regarding reach initiation of therapy with maintenance Lokelma as outpatient - we discussed continued efforts at limiting dietary sodium and dietary potassium - we will plan to repeat a outpatient basic chemistry panel this week - at this time patient is still expressed significant anxiety, reluctance related to Even discussing dialysis. Patient's family is open to consideration for home dialysis modalities. I expressed that we can continue to discuss this in outpatient CKD Clinic. - from Nephrology perspective she is certainly stable for discharge, we will follow up in the office in one week's time. - thank you for the consultation. Plan discussed with: Patient, Daughter JIMMY SHERMAN MD Feb 02, 2025 11:24
[2025-02-02 12:06] VITALS: BP 153/67; PULSE 62; RESP 16; O2SAT 98
[2025-02-02 12:59] VITALS: BP 143/47; PULSE 60; RESP 16; TEMP 98; O2SAT 98
[2025-02-02] MEDS ORDERED: MET50T GT (14:52)
[2025-02-02] MEDS ORDERED: HYDR50TA47 PO (14:52)
[2025-02-02] MEDS ORDERED: AMLO1TAB23 PO (14:52)
--- NOTE | 2025-02-02 14:59 | DVHDS2 ---
Discharge Summary Date of Admission Feb 01, 2025 at 22:00 Date of Discharge: Feb 02, 2025 Admitting Diagnosis Hypertensive crisis; sent by PCP because blood pressure was above 200/100 Labs/Diagnostic Data: Laboratory Results Test 02/02/25 11:14 02/02/25 04:35 02/01/25 22:03 02/01/25 18:41 POC Glucose 178 mg/dl (70-106) White Blood Count 5.3 10^3/uL (4.4-10.8) Red Blood Count 2.79 10^6/uL (4.0-5.20) Hemoglobin 7.8 g/dL (12.2-16.2) Hematocrit 23.5 % (36.0-46.0) Mean Corpuscular Volume 84.2 fL (80.0-100.0) Mean Corpuscular Hemoglobin 28.0 pg (28.0-32.0) Mean Corpuscular Hemoglobin Concent 33.2 g/dL (32.0-36.0) Red Cell Distribution Width 16.2 % (11.8-14.3) Platelet Count 257 10^3/uL (140-450) Mean Platelet Volume 7.9 fL (6.9-10.8) Neutrophils (%) (Auto) 73.8 % (37.0-80.0) Lymphocytes (%) (Auto) 14.9 % (10.0-50.0) Monocytes (%) (Auto) 9.2 % (0.0-12.0) Eosinophils (%) (Auto) 1.1 % (0.0-7.0) Basophils (%) (Auto) 1.0 % (0.0-2.0) Neutrophils # (Auto) 3.9 10 ^3/uL (1.6-8.6) Lymphocytes # (Auto) 0.8 10 ^3/uL (0.4-5.4) Monocytes # (Auto) 0.5 10 ^3/uL (0-1.3) Eosinophils # (Auto) 0.1 10 ^3/uL (0-0.8) Basophils # (Auto) 0.1 10 ^3/uL (0-0.2) Nucleated Red Blood Cells 0.0 % Sodium Level 128 mmol/L (136-145) Potassium Level 4.4 mmol/L (3.5-5.1) Chloride Level 95 mmol/L (98-107) Carbon Dioxide Level 20 mmol/L (20-31) Anion Gap 13 (5-15) Blood Urea Nitrogen 76 mg/dL (9-23) Creatinine 4.84 mg/dL (0.550-1.02) Glomerular Filtration Rate Calc 9 mL/min (>90) BUN/Creatinine Ratio 15.7 (10.0-20.0) Serum Glucose 165 mg/dL (74-106) Calcium Level 8.3 mg/dL (8.7-10.4) Total Bilirubin 0.4 mg/dL (0.2-1.0) Aspartate Amino Transferase (AST) 23 U/L (13-40) Alanine Aminotransferase (ALT) 18 U/L (7-40) Alkaline Phosphatase 129 U/L (46-116) Total Protein 6.4 g/dL (5.7-8.2) Albumin 3.7 g/dL (3.2-4.8) Urine Color Colorless (Yellow) Urine Clarity Clear (Clear) Urine pH 6.5 (5.0-9.0) Urine Specific [place] 1.006 (1.001-1.035) Urine Protein 2+ (Negative) Urine Ketones Negative (Negative) Urine Blood 1+ /uL (Negative) Urine Nitrite Negative (Negative) Urine Bilirubin Negative (Negative) Urine Urobilinogen Normal mg/dL (Negative) Urine Leukocyte Esterase Negative /uL (Negative) Urine RBC <1 /hpf (0 - 4) Urine Microscopic WBC 1 /HPF (0-5) Urine Squamous Epithelial Cells Few /hpf (<5) Urine Bacteria Few /hpf (None Seen) Urine Glucose Normal mg/dL (Normal) Troponin I High Sensitivity 17 ng/L (</=34) Test 02/01/25 14:49 Magnesium Level 2.0 mg/dL (1.6-2.6) Other Laboratory Tests 02/02/25 04:35 Brief Hx & Hospital Course: A 74-year-old female patient with multiple comorbidities; who presented to the emergency department because of elevated blood pressure and was found to be hyperkalemic. 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 Ramirez To follow up with Dr. Rodriguez next week with home blood pressure readings documented To avoid nephrotoxic agents and to keep well hydrated Counseled the patient on the importance of adopting healthy lifestyle with diet and exercise in order to lose weight This medical document was created using an electronic medical record system with computerized dictation system. Although this document has been carefully reviewed, there might still be some phonetic and typographical errors. These areas are purely typographical due to imperfections of the software programs, and do not reflect any compromise in the patient's medical care. Consults/Reason for consult Nephrology for hyperkalemia and for suspected KEHINDE on CKD stage V Condition at Discharge: Stable Final Diagnosis/Problems List Hypertensive crisis; resolved Rest of diagnoses as above Discharge Disposition: Home Discharge Instruct/Medications Diet: Consistent carbohydrate, Cardiac 2g Na,low cholest, Renal Activity: No Restrictions, As Tolerated Follow Up/Referral: Follow up with Dr. Rodriguez next week; follow up with Dr. Ramirez next week Medications: Discontinued carvedilol; prescribed metoprolol tartrate 50 mg twice a day; prescribed amlodipine 10 mg daily; prescribed hydralazine 50 mg 3 times a day. Continue rest of home medications Scheduled Amlodipine Besylate (Amlodipine Besylate), 10 MG PO DAILY Atorvastatin Calcium (Lipitor), 40 MG PO HS, (Reported) Carvedilol (Carvedilol), 1 TAB PO BID Ergocalciferol (Vitamin D2), 50,000 UNIT PO once a week, (Reported) Hydralazine Hcl (Hydralazine Hcl), 1 TAB PO TID Insulin NPH (Human) (Isophane) (Novolin N Flexpen), 100 UNIT SC UD, (Reported) Metoprolol Tartrate (Lopressor Tablet), 50 MG GT BID Sodium Bicarbonate (Sodium Bicarbonate), 1,300 MG PO TID Sodium Zirconium Cyclosilicate (Lokelma), 10 GM PO DAILY Miscellaneous Medications Insulin Glargine (Basaglar Kwikpen), 100 UNIT SC, (Reported) Discharge Statement: "Patient was advised to return to the ER or call 911 if any headaches, dizziness, shortness of breath, chest pain, abdominal pain, bleeding, fevers, or worsening of medical condition. Patient was counseled about treatment plan, medications, possible side effects, patientverbalized understanding. All questions were answered to the best of my ability. This discharge took greater then 30 minutes in planning, reviewing documentation, counseling the patient, and discussing with other team members." ASSESSMENT ASSESSMENT Assessment Date of Service: Feb 02, 2025 Billing Provider: JAEL RODRIGUEZ MD Common Visit Codes: 77011-HUX/OBS DISCH DAY >30min JAEL RODRIGUEZ MD Feb 02, 2025 14:59
--- NOTE | 2025-02-02 17:02 | DVHINCON2 ---
Date Seen: Feb 02, 2025 Referring Physician Martin Reason for Consultation Hypertensive Emergency History of Present Illness 74-year-old female with PMH for HTN, HLD, diabetes, stage 5 CKD not on HD at this time presents to the hospital with elevated blood pressure. Per patient and daughter at bedside states blood pressure was reaching over 200s systolic. Patient was feeling dizzy having headaches not feeling right and therefore came to the hospital. Upon evaluation in the ER initial BP was 223/77 trending 211/104, 202/92. Troponins negative. Initial potassium 5.7. Creatinine 4.60 BUN 83. EKG reviewed and shows sinus rhythm at 70 beats per minute, LVH, no acute ST and T-wave abnormality. Past Medical History As stated above Past Surgical History Denies previous cardiac surgeries Family History: Diabetes mellitus G8 MOTHER FHx: cancer G8 MOTHER G8 FATHER Social History Denies alcohol, tobacco, or illicit drug use Allergies: Coded Allergies: Penicillins (Unverified Allergy, Mild, hives, 03/13/24) Home Meds Active Scripts Hydralazine Hcl (Hydralazine Hcl) 50 Mg Tab, 1 TAB PO TID for 30 Days, #90 TAB 3 Refills Prov:JAEL RODRIGUEZ MD 02/02/25 Amlodipine Besylate (Amlodipine Besylate) 10 Mg Tab, 10 MG PO DAILY for 30 Days, #30 TAB Prov:JAEL RODRIGUEZ MD 02/02/25 Metoprolol Tartrate (LOPRESSOR TABLET) 50 Mg Tb, 50 MG GT BID for 30 Days, #60 TAB Prov:JAEL RODRIGUEZ MD 02/02/25 Sodium Zirconium Cyclosilicate (Lokelma) 10 Gm Kermit, 10 GM PO DAILY, #30 PACK 0 Refills Prov:ANANDA SMALL MD 05/21/24 Sodium Bicarbonate (Sodium Bicarbonate) 650 Mg Tab, 1300 MG PO TID for 30 Days, #180 TAB 0 Refills Prov:ANANDA SMALL MD 05/21/24 Reported Medications Ergocalciferol (VITAMIN D2) 400 Unit Tab, 51663 UNIT PO once a week, TAB 05/18/24 Insulin NPH (Human) (Isophane) (Novolin N Flexpen) 100 Unit/Ml Inj, 100 UNIT SC UD, INJ 0-150 0 151-200 4 u 201-250 6 u 251-300 8 u 301-350 10 u 351-400 12 u 06/18/22 Insulin Glargine (Basaglar Kwikpen) 100 Unit/Ml Inj, 100 UNIT SC, INJ 25 units q am, 10 units qhs 06/18/22 Atorvastatin Calcium (Lipitor) 40 Mg Tab, 40 MG PO HS, TAB 06/18/22 Discontinued Scripts Carvedilol (Carvedilol) 6.25 Mg Tab, 1 TAB PO BID, #60 TAB 0 Refills Prov:ANANDA SMALL MD 05/21/24 Current Medications Current Medications Medications (Trade) Dose Ordered Sig/Rigo Route PRN Reason Start Time Stop Time Status Last Admin Aspirin 81 mg DAILY PO 02/02/25 10:00 02/02/25 09:22 Atorvastatin Calcium (Lipitor) 10 mg HS PO 02/01/25 22:00 02/02/25 00:49 Hydralazine HCl (Apresoline Injection) 10 mg Q6HP PRN IV SBP>150 02/01/25 21:30 Multivit/Ca Carb/ B Cmplx/FA/Prenat (Nephro-Austen Tablet) 1 tab DAILY PO 02/02/25 10:00 02/02/25 09:23 Sevelamer HCl (Renagel) 800 mg TIDWM PO 02/02/25 08:00 02/02/25 11:25 Amlodipine Besylate (Norvasc Tablet) 10 mg DAILY PO 02/02/25 10:00 02/02/25 09:23 Metoprolol Tartrate (Lopressor Tablet) 25 mg BID PO 02/01/25 22:00 02/02/25 09:29 DC 02/02/25 09:22 Diagnostic Test (Pha) (Accu-Chek Comfort Curve T) 1 strip ACHS 02/01/25 22:00 02/02/25 11:15 Insulin Human Regular (InsuLIN R) ACHS SC 02/01/25 22:00 02/02/25 11:20 Dextrose 50 ml UD PRN IV Blood Sugar LESS THAN 60 02/01/25 21:30 Acetaminophen/ Hydrocodone Bitart ([place] 5/325MG Tab) 1 tab Q4HP PRN PO MODERATE PAIN (4-6 PAIN SCALE) 02/01/25 21:30 02/01/25 22:05 Ondansetron HCl (Zofran) 4 mg Q4HP PRN IV NAUSEA / VOMITING 02/01/25 21:30 02/02/25 03:54 Docusate Sodium (Colace Capsule) 100 mg BIDPRN PRN PO FOR CONSTIPATION 02/01/25 21:30 Acetaminophen (Tylenol Tablet) 650 mg Q6HP PRN PO PAIN SCALE 1-3 OR TEMP>100.4 02/01/25 21:30 Nitroglycerin (Ntrostat Sublingual) 0.4 mg Q5MINP PRN SL FOR CHEST PAIN 02/01/25 22:00 Morphine Sulfate 2 mg Q30M PRN IV FOR CHEST PAIN 02/01/25 22:00 Calcium Acetate (Phoslo Capsule) 667 mg TIDWMEALS PO 02/02/25 08:00 02/02/25 08:39 DC 02/02/25 08:29 Metoprolol Tartrate (Lopressor Tablet) 50 mg BID PO 02/02/25 10:00 Hydralazine HCl (Apresoline Tablet) 50 mg Q8HR PO 02/02/25 14:00 Review of Systems Constitutional: No: Fever, Chills, Sweats, Weakness, Malaise, Other Eyes: No: Pain, Vision change, Conjunctivae inflammation, Eyelid inflammation, Other, Redness ENT: No: Ear pain, Ear discharge, Nose pain, Nose discharge, Nose congestion, Mouth pain, Mouth swelling, Throat pain, Throat swelling, Other Respiratory: No: Cough, Dry, Shortness of breath, SOB with exertion, Wheezing, Hemoptysis, Pleuritic Pain, Sputum, Wheezing, Other Cardiovascular: ; No: Chest Pain Palpitations, Orthopnea, Paroxysmal Noc. Dyspnea, Edema, Lt Headedness, Other Gastrointestinal: No: Nausea, Vomiting, Abdominal Pain, Diarrhea, Constipation, Melena, Hematochezia, Other Genitourinary: No Dysuria, No Frequency, No Incontinence, No Hematuria, No Retention, No Other Musculoskeletal: neck pain; No: other, shoulder pain, arm pain, back pain, hand pain, leg pain, foot pain Skin: No: Rash, Lesions, Jaundice, Bruising, Other Neurological: Other (Dizziness, headache.); No: Weakness, Numbness, Incoordination, Change in speech, Confusion, Seizures Vital Signs Vital Signs Date Time Temp Pulse Resp B/P (MAP) Pulse Ox O2 Delivery O2 Flow Rate FiO2 02/02/25 12:59 98.0 60 16 143/47 (79) 98 98.0 02/02/25 06:22 Room Air* 0 21 Physical Exam General appearance: Patient is well-developed, well-nourished, in no acute distress. HEENT: Exam shows: Normocephalic, atraumatic, PERRLA, EOMI Neck: Supple, no bruits Chest: Equal chest excursion bilaterally. Breath sounds normal-no rales or wheezes. Heart: Rhythm: Regular rate; no murmur or gallop Abdomen: Exam shows: Soft, nontender, nondistended Musculoskeletal: No clubbing, no cyanosis, no lower extremity edema Dermatology: Skin warm, moist. Neurological: Exam shows: Alert and oriented x4, normal speech Available prior records, labs, EKG, rhythm strips reviewed and interpreted Labs/Diagnostic Data Labs Test 02/02/25 11:14 02/02/25 04:35 02/01/25 22:03 02/01/25 18:41 Range/Units POC Glucose 178 H 70-106 mg/dl White Blood Count 5.3 # 4.4-10.8 10^3/uL Red Blood Count 2.79 L 4.0-5.20 10^6/uL Hemoglobin 7.8 L 12.2-16.2 g/dL Hematocrit 23.5 L 36.0-46.0 % Mean Corpuscular Volume 84.2 80.0-100.0 fL Mean Corpuscular Hemoglobin 28.0 28.0-32.0 pg Mean Corpuscular Hemoglobin Concent 33.2 32.0-36.0 g/dL Red Cell Distribution Width 16.2 H 11.8-14.3 % Platelet Count 257 140-450 10^3/uL Mean Platelet Volume 7.9 6.9-10.8 fL Neutrophils (%) (Auto) 73.8 37.0-80.0 % Lymphocytes (%) (Auto) 14.9 10.0-50.0 % Monocytes (%) (Auto) 9.2 0.0-12.0 % Eosinophils (%) (Auto) 1.1 0.0-7.0 % Basophils (%) (Auto) 1.0 0.0-2.0 % Neutrophils # (Auto) 3.9 1.6-8.6 10 ^3/uL Lymphocytes # (Auto) 0.8 0.4-5.4 10 ^3/uL Monocytes # (Auto) 0.5 0-1.3 10 ^3/uL Eosinophils # (Auto) 0.1 0-0.8 10 ^3/uL Basophils # (Auto) 0.1 0-0.2 10 ^3/uL Nucleated Red Blood Cells 0.0 % Sodium Level 128 L 136-145 mmol/L Potassium Level 4.4 3.5-5.1 mmol/L Chloride Level 95 L 98-107 mmol/L Carbon Dioxide Level 20 20-31 mmol/L Anion Gap 13 5-15 Blood Urea Nitrogen 76 H 9-23 mg/dL Creatinine 4.84 H 0.550-1.02 mg/dL Glomerular Filtration Rate Calc 9 >90 mL/min BUN/Creatinine Ratio 15.7 10.0-20.0 Serum Glucose 165 H 74-106 mg/dL Calcium Level 8.3 L 8.7-10.4 mg/dL Total Bilirubin 0.4 0.2-1.0 mg/dL Aspartate Amino Transferase (AST) 23 13-40 U/L Alanine Aminotransferase (ALT) 18 7-40 U/L Alkaline Phosphatase 129 H 46-116 U/L Total Protein 6.4 5.7-8.2 g/dL Albumin 3.7 3.2-4.8 g/dL Urine Color Colorless Yellow Urine Clarity Clear Clear Urine pH 6.5 5.0-9.0 Urine Specific [place] 1.006 1.001-1.035 Urine Protein 2+ H Negative Urine Ketones Negative Negative Urine Blood 1+ H Negative /uL Urine Nitrite Negative Negative Urine Bilirubin Negative Negative Urine Urobilinogen Normal Negative mg/dL Urine Leukocyte Esterase Negative Negative /uL Urine RBC <1 0 - 4 /hpf Urine Microscopic WBC 1 0-5 /HPF Urine Squamous Epithelial Cells Few <5 /hpf Urine Bacteria Few H None Seen /hpf Urine Glucose Normal Normal mg/dL Troponin I High Sensitivity 17 </=34 ng/L Test 02/01/25 14:49 Range/Units Magnesium Level 2.0 1.6-2.6 mg/dL Assessment * Hypertensive Emergency - better controlled, continue current regimen, check echocardiogram. * Diabetes - management per primary team * Hyperkalemia - resolved, patient on Lokelma * CKD stage 5 - patient trying to hold off on starting HD, following up with Nephrology. Continue management per Nephrology. Case Discussed with Dr Goins. Continue current medication regimen for BP control, titrate as tolerated. Currently improved/stable. Denies any active or overnight cardiac symptoms. Follow up nephrology recs for continued management of CKD. If no significant abnormalities on echo, there is no further cardiac work-up indicated at this time. Thank you for allowing us to participate in this patient's care. Critical care, time spent: 40 minutes This medical document was created using an electronic medical record system with voice recognition software and computerized dictation system. Although this document has been carefully reviewed, there might still be some phonetic and typographical errors. Occasional wrong-word or ``sound-alike substitutions may have occurred due to the inherent limitations of voice recognition software. These areas are purely typographical due to imperfections of the software programs and do not reflect any compromise in the patient's medical care. Please read the chart carefully and recognize, using context, where these substitutions have occurred. Thank you for allowing me to participate in the management of this patient. The treatment plan was discussed with and agreed upon by patient/family including requesting consultants and ordering of imaging/procedures. Plan discussed with: Patient, Daughter NYHA Physical activity limitations: Class2(Slight)fatigue,sob (palpitatns, angina w activityv) Date of Service: Feb 02, 2025 Billing Provider: ROD VALERIO Cardiology Common Codes: 89053-VMYUDUQ INP/OBS CARE (High), 54173-[id number] CARE 30-74 MIN ROD VALERIO Feb 02, 2025 17:02
== END 2025-02-02 16:50 | disposition home or self-care (01) | DRG 640 ==
LOC: ER 13:49 → OVERFLOW 22:00
PROVIDERS: ADMIT Nurse Practitioner Family; ATTEND Nurse Practitioner Family
DX: E87.5 Hyperkalemia (principal); N17.0 Acute kidney failure with tubular necrosis; I13.2 Hypertensive heart and chronic kidney disease with heart failure and with stage 5 chronic kidney disease, or end stage renal disease; I16.1 Hypertensive emergency; I50.32 Chronic diastolic (congestive) heart failure; N18.5 Chronic kidney disease, stage 5; E11.22 Type 2 diabetes mellitus with diabetic chronic kidney disease; D63.1 Anemia in chronic kidney disease; E66.9 Obesity, unspecified; E78.5 Hyperlipidemia, unspecified; F41.9 Anxiety disorder, unspecified; Z68.29 Body mass index [BMI] 29.0-29.9, adult; Z88.0 Allergy status to penicillin; Z83.3 Family history of diabetes mellitus; Z80.9 Family history of malignant neoplasm, unspecified; Z87.441 Personal history of nephrotic syndrome; Z99.2 Dependence on renal dialysis; Z79.4 Long term (current) use of insulin
CPT/HCPCS: 36415; 70450; 71045; 80048; 80053; 81001; 82962; 83735; 84132; 84484; 85025; 86850; 86900; 86901; 93005; 96374; G0378; J1815; J2405

== ENCOUNTER 2025-02-05 21:20 | Inpatient (IN) | payer OTHER ==
[~2025-02-05] VITALS: Ht 152.4 cm; Wt 70.3 kg
[~2025-02-05 21:20] MED LIST changes: +AMLO1TAB23 PO; -CARV6.2551 PO; -HYDR-4902 PO; +HYDR50TA47 PO; +MET50T GT
--- NOTE | 2025-02-05 21:47 | ECG ---
[facility] Test Date: 2025-02-05 Test Time: 21:37:44 Pat Name: BECKY BOO Department: [facility] ED Patient ID: [facility]-[id number] Room: 0222T Gender: F Intermediate Designer: CHANNING : 1950 Requested By: EMERGENCY EMERGENCY Order Number: [id number] Reading MD: William Goins Measurements Intervals Ellery Rate: 85 P: 70 AK: 175 QRS: 65 QRSD: 111 T: 60 QT: 395 QTc: 470 Interpretive Statements Sinus rhythm Electronically Signed On 02-11-2025 14:13:10 PDT by William Goins Please click the below link to view image of tracing.
--- NOTE | 2025-02-05 23:47 | ED.PDOC ---
History of Present Illness HPI Comments 74-year-old female presents to the ER in a wheelchair being pushed by daughter and with prior medical history of stage 5 kidney disease and the chief complain of N/V. Daughter reports the patient was here on Tuesday of 01/03/2025 for high blood pressure but these found that the patient had high potassium. Patient has started to have constant headache since then. Patient woke up this morning with headache, dizziness, N/V, anxiety-unable to stay still. Patient did take Tylenol at 1:00 p.m. today. Denies any other symptoms at this time. Denies chills, fever, /D, SOB, CP. No other associated symptoms, modifiers, recent injuries or sick contacts present at this time. REVIEW OF SYSTEMS: General: No fever, no chills, or fatigue HEENT: No sore throat, no earache, no congestion, no neck pain. Cardiac: No chest pain. No palpitations. Lungs: No shortness of breath, no cough. GI: + nausea, + vomiting, no diarrhea, no constipation, no abdominal pain : No dysuria, frequency, or urgency. No hematuria. Musculoskeletal: No joint pain , no joint swelling, no extremity edema. Skin: No rash, no itching. Neuro: + headache, + dizziness, no weakness PHYSICAL EXAM: General: Awake, alert and oriented. No acute distress. Skin: Skin in warm, dry and intact without rashes or lesions. HEENT: The head is normocephalic and atraumatic. Conjunctivae are clear without exudates or hemorrhage. Sclera is non-icteric. Neck: Normal range of motion. No JVD. Cardiac: Regular rate Respiratory: No signs of respiratory distress. No Stridor. Extremities: Upper and lower extremities are atraumatic in appearance without deformity. Neurological: The patient is awake, alert and oriented to person, place, and time with normal speech. Speech is clear. There is no facial asymmetry. Psychiatric: Appropriate mood and affect. Good judgement and insight. Chief Complaint: Nausea/Vomiting Time Seen by MD: 23:45 Primary Care Provider: MICHAEL Cid Notes: Nurses Notes, Medications, Allergies Allergies: Coded Allergies: Penicillins (Unverified Allergy, Mild, hives, 03/13/24) Home Meds Active Scripts Hydralazine Hcl (Hydralazine Hcl) 50 Mg Tab, 1 TAB PO TID for 30 Days, #90 TAB 3 Refills Prov:JAEL RODRIGUEZ MD 02/02/25 Amlodipine Besylate (Amlodipine Besylate) 10 Mg Tab, 10 MG PO DAILY for 30 Days, #30 TAB Prov:JAEL RODRIGUEZ MD 02/02/25 Metoprolol Tartrate (LOPRESSOR TABLET) 50 Mg Tb, 50 MG GT BID for 30 Days, #60 TAB Prov:JAEL RODRIGUEZ MD 02/02/25 Sodium Zirconium Cyclosilicate (Lokelma) 10 Gm Kermit, 10 GM PO DAILY, #30 PACK 0 Refills Prov:ANANDA SMALL MD 05/21/24 Sodium Bicarbonate (Sodium Bicarbonate) 650 Mg Tab, 1300 MG PO TID for 30 Days, #180 TAB 0 Refills Prov:ANANDA SMALL MD 05/21/24 Reported Medications Ergocalciferol (VITAMIN D2) 400 Unit Tab, 66172 UNIT PO once a week, TAB 05/18/24 Insulin NPH (Human) (Isophane) (Novolin N Flexpen) 100 Unit/Ml Inj, 100 UNIT SC UD, INJ 0-150 0 151-200 4 u 201-250 6 u 251-300 8 u 301-350 10 u 351-400 12 u 06/18/22 Insulin Glargine (Basaglar Kwikpen) 100 Unit/Ml Inj, 100 UNIT SC, INJ 25 units q am, 10 units qhs 06/18/22 Atorvastatin Calcium (Lipitor) 40 Mg Tab, 40 MG PO HS, TAB 06/18/22 Discontinued Scripts Carvedilol (Carvedilol) 6.25 Mg Tab, 1 TAB PO BID, #60 TAB 0 Refills Prov:ANANDA SMALL MD 05/21/24 Information Source: Patient, Relative (Child) Mode of Arrival: Wheelchair Severity: Moderate Timing: Days Duration: Since onset, Days Prehospital treatment: None Past Medical History PAST MEDICAL HISTORY: CKF, DM, ESRD, High Lipids, HTN Surgical History: Denies all surgeries LABORER HOISTING History: No Pertinent LABORER HOISTING History Family History Family History: Reviewed,noncontributory to illness, Unknown Social History Smoker: Non-Smoker Alcohol: Denies ETOH Use Drugs: Denies Drug Use Lives In: Home Was a procedure done? Was a procedure done?: No EKG EKG : Pulse Rate (adult): 85 Alexander: Normal Cardiac Rhythm: NSR Block: None Hypertrophy: None ST: Normal Differential Dx Considerations may include: Differential diagnoses considered include but are not limited to electrolyte imbalance, temporal arteritis, acute angle closure glaucoma, encephalitis, bacterial meningitis, carbon monoxide poisoning, posttraumatic headache, SAH, subdural hematoma, cervical artery dissection, venous sinus thrombosis, CVA, migraine headache, cluster headache, tension headache, TMJ disorder, frontal sinusitis, cervical spondylosis, intracranial mass, pituitary apoplexy. X-Ray, Labs, Meds, VS Vital Signs Date Time Temp Pulse Resp B/P (MAP) Pulse Ox O2 Delivery O2 Flow Rate FiO2 02/06/25 01:36 87 20 100 Room Air 02/06/25 01:36 98.3 87 20 151/69 (96) 100 98.3 02/05/25 23:47 85 02/05/25 21:37 8 02/05/25 21:22 98.6 88 18 175/88 99 98.6 Lab Test 02/06/25 01:31 02/05/25 23:54 02/05/25 21:40 Range/Units Sodium Level 111 *L 110 #*L 136-145 mmol/L Potassium Level 5.1 5.2 H 3.5-5.1 mmol/L Chloride Level 83 L 81 #L 98-107 mmol/L Carbon Dioxide Level 15 L 15 L 20-31 mmol/L Anion Gap 13 14 5-15 Blood Urea Nitrogen 70 H 79 H 9-23 mg/dL Creatinine 5.23 H 5.25 H 0.550-1.02 mg/dL Glomerular Filtration Rate Calc 8 8 >90 mL/min BUN/Creatinine Ratio 13.4 15.0 10.0-20.0 Serum Glucose 146 H 157 H 74-106 mg/dL Serum Osmolality 264 L 278-298 mOsm/kg Calcium Level 8.7 8.3 L 8.7-10.4 mg/dL White Blood Count 4.3 L 4.4-10.8 10^3/uL Red Blood Count 2.69 L 4.0-5.20 10^6/uL Hemoglobin 7.3 L 12.2-16.2 g/dL Hematocrit 22.3 L 36.0-46.0 % Mean Corpuscular Volume 83.1 80.0-100.0 fL Mean Corpuscular Hemoglobin 27.1 L 28.0-32.0 pg Mean Corpuscular Hemoglobin Concent 32.6 32.0-36.0 g/dL Red Cell Distribution Width 14.9 H 11.8-14.3 % Platelet Count 259 140-450 10^3/uL Mean Platelet Volume 7.1 6.9-10.8 fL Neutrophils (%) (Auto) 82.1 H 37.0-80.0 % Lymphocytes (%) (Auto) 13.1 10.0-50.0 % Monocytes (%) (Auto) 3.9 0.0-12.0 % Eosinophils (%) (Auto) 0.5 0.0-7.0 % Basophils (%) (Auto) 0.4 0.0-2.0 % Neutrophils # (Auto) 3.5 1.6-8.6 10 ^3/uL Lymphocytes # (Auto) 0.6 0.4-5.4 10 ^3/uL Monocytes # (Auto) 0.2 0-1.3 10 ^3/uL Eosinophils # (Auto) 0 0-0.8 10 ^3/uL Basophils # (Auto) 0 0-0.2 10 ^3/uL Nucleated Red Blood Cells 0.2 % Phosphorus Level 6.5 H 2.4-5.1 mg/dL Magnesium Level 1.8 1.6-2.6 mg/dL Total Bilirubin 0.4 0.2-1.0 mg/dL Aspartate Amino Transferase (AST) 27 13-40 U/L Alanine Aminotransferase (ALT) 18 7-40 U/L Alkaline Phosphatase 134 H 46-116 U/L Troponin I High Sensitivity 31 </=34 ng/L B-Type Natriuretic Peptide 328.98 0-100 pg/mL Total Protein 6.2 5.7-8.2 g/dL Albumin 3.7 3.2-4.8 g/dL POC Glucose 174 H 70-106 mg/dl Time of 1ST Reevaluation: 00:15 Reevaluation 1ST: Unchanged Patient Education/Counseling: Need For Follow Up Family Education/Counseling: Need For Follow Up SEPSIS Sepsis Screen Date sepsis recognized/suspect: Feb 05, 2025 Time Sepsis recognized/suspect: 2121 Recent Procedure: No On Antibiotic Therapy: No Respiratory Rate >20: No Heart Rate >90: No Temp<36 C (96.8 F) or >38.3 C: No SBP <90 or MAP <65 mmHG: No New Acute Mental Status Change: No Is the patient on CPAP, BIPAP,: No Physician Orders Head Without Contrast (02/05/25 23:44) Seizure Precautions (02/06/25 ) Assistant Shift Supervisor (02/06/25 ) Saline Lock (02/06/25 01:06) Vital Signs Date Time Temp Pulse Resp B/P (MAP) Pulse Ox O2 Delivery O2 Flow Rate FiO2 02/06/25 01:36 87 20 100 Room Air 02/06/25 01:36 98.3 87 20 151/69 (96) 100 98.3 02/05/25 23:47 85 02/05/25 21:37 8 02/05/25 21:22 98.6 88 18 175/88 99 98.6 Laboratory Tests Test 02/05/25 23:54 White Blood Count 4.3 10^3/uL (4.4-10.8) L Departure 1 Departure Time of Disposition: 02:48 Impression: Primary Impression: Renal failure Additional Impression: Hyponatremia Disposition: ADMITTED INPATIENT Condition: Guarded Comments Likely chonic hyponatremia. Slow, careful correction of sodium. Patient is stabilized in the emergency department Patient admitted to hospitalist service for further treatment, evaluation and monitoring. Critical Care Note Critical Care Time?: No Stability Stability form required: No I personally scribed for BRANDY HENDERSON MD ([email or web address]) on 02/05/25 at 23:47. Electronically submitted by Bharat Edwards ([email or web address]). I personally scribed for BRANDY HENDERSON MD ([email or web address]) on 02/05/25 at 23:47. Electronically submitted by Bharat Edwards ([email or web address]). BRANDY HENDERSON MD Feb 05, 2025 23:47
[2025-02-06] VITALS (16 sets, daily range): BP systolic 126–177; BP diastolic 48–76; PULSE 68–104; RESP 8–22; TEMP 97.9–98.5; O2SAT 89–100
--- NOTE | 2025-02-06 00:10 | DVH ---
EXAM: CT HEAD WITHOUT CONTRAST INDICATION: severe headache TECHNIQUE: CT of the head without intravenous contrast. Radiation Dose : 1. Head: CT Dose: CTDI volume is 56.08 mGy. Dose-length product is 900.22 mGy*cm The dose indicators for CT are the volume Computed Tomography (CT) Dose Index (CTDIvol) and the Dose Length Product (DLP), and are measured in units of mGy and mGy-cm, respectively. These indicators are not patient dose, but values generated from the CT scanner acquisition factors. The report includes radiation exposure data for exposures received during this examination. COMPARISON: CT HEAD WITHOUT CONTRAST on DOS: 02/01/25, CT HEAD WITHOUT CONTRAST on DOS: 10/13/23 FINDINGS: Motion artifact degrades fine detail. No acute territorial infarct, intracranial hemorrhage, or mass effect. There are global involutional changes with compensatory prominence of the ventricles and sulci. Patchy periventricular and subcorti augustus white matter hypoattenuation is nonspecific but may be related to small vessel ischemic disease. The orbits are normal. The paranasal sinuses and mastoid air cells are clear. The osseous structures are unremarkable. IMPRESSION: 1. No acute territorial infarct, intracranial hemorrhage, or mass effect. 2. Age-related involutional changes. Chronic microvascular changes. 3. If clinical symptoms persist, MRI may be beneficial in further evaluation. Radiation optimization: All CT scans at this facility use at least one of these dose optimization raymond hniques: automated exposure control mA and/or kV adjustment per patient size (includes targeted exam s where dose is matched to clinical indication) or iterative reconstruction.
[2025-02-06 00:13] LABS: Hematocrit 22.3 % (36.0-46.0); Hemoglobin 7.3 g/dL (12.2-16.2); Mean Corpuscular Hemoglobin 27.1 pg (28.0-32.0); Mean Corpuscular Volume 83.1 fL (80.0-100.0); Nucleated Red Blood Cells % 0.2 %
[2025-02-06 00:57] LABS: Alanine Aminotransferase 18 U/L (7-40); Albumin 3.7 g/dL (3.2-4.8); Anion Gap 14 (5-15); BUN/Creatinine Ratio 15.0 (10.0-20.0); Bilirubin, Total 0.4 mg/dL (0.2-1.0); Magnesium 1.8 mg/dL (1.6-2.6); Total Protein 6.2 g/dL (5.7-8.2)
[2025-02-06 01:00] LABS: Alkaline Phosphatase 134 U/L (46-116); Blood Urea Nitrogen 79 mg/dL (9-23); Calcium 8.3 mg/dL (8.7-10.4); Carbon Dioxide 15 mmol/L (20-31); Chloride 81 mmol/L (98-107); Glucose 157 mg/dL (74-106); Potassium 5.2 mmol/L (3.5-5.1)
[2025-02-06 01:01] LABS: Sodium 110 mmol/L (136-145)
[2025-02-06] MEDS: SODIUM CHLORIDE 0.9% 1,000 ML IV ONE (01:15)
[2025-02-06] MEDS ORDERED: hydrOXYzine 25 MG TAB or CAP PO PRN (02:15)
[2025-02-06] MEDS ORDERED: DEXTROSE (50%) 50ML SYRG IV PRN (02:15)
[2025-02-06] MEDS ORDERED: ONDANSETRON HCL 4 MG/2 ML VIAL IV PRN (02:15)
[2025-02-06] MEDS ORDERED: PATIENTS OWN MEDICATION (Ergocalciferol (Vitamin D2) 50,000 UNIT) PO SCH (02:15)
[2025-02-06 02:20] LABS: Anion Gap 13 (5-15)
[2025-02-06 02:21] LABS: Calcium 8.7 mg/dL (8.7-10.4)
[2025-02-06 02:22] LABS: Potassium 5.1 mmol/L (3.5-5.1)
[2025-02-06 02:23] LABS: Carbon Dioxide 15 mmol/L (20-31); Chloride 83 mmol/L (98-107)
[2025-02-06 02:26] LABS: BUN/Creatinine Ratio 13.4 (10.0-20.0)
[2025-02-06 02:27] LABS: Blood Urea Nitrogen 70 mg/dL (9-23); Glucose 146 mg/dL (74-106); Sodium 111 mmol/L (136-145)
[2025-02-06] MEDS: diphenhydrAMINE HCL 50 MG/1 ML VL IV ONE (03:49)
[2025-02-06] MEDS: METOCLOPRAMIDE HCL 5MG/ml INJ 2ml VIAL IV ONE (03:50)
[2025-02-06] MEDS: ACETAMINOPHEN IV 1000 MG/100ML (10MG/ML) IV ONE (03:50)
[2025-02-06] MEDS: FUROSEMIDE 100 MG/10ML VIAL IV ONE (04:01)
[2025-02-06] MEDS: SODIUM ZIRCONIUM CYCL 10 GM PAK PO ONE (04:01)
--- NOTE | 2025-02-06 04:05 | DVH ---
CHEST RADIOGRAPH Indication: sob Technique: Single frontal view of the chest was obtained COMPARISON: XY CHEST XRAY 1 VIEW on DOS: 02/01/25, XY CHEST XRAY 1 VIEW on DOS: 05/26/24, XY CHEST PORT ABLE on DOS: 05/17/24, CT CHEST WITHOUT CONTRAST on DOS: 10/13/23, XY CHEST TWO VIEWS ROUTINE on DOS: FINDINGS: Lines and Tubes: None Lungs: Mild diffuse increased prominence of the pulmonary vasculature. No evidence of focal consolida tion. Pleura: No effusion. No pneumothorax. Cardiomediastinal contours: Cardiomegaly. Bones: Unremarkable IMPRESSION: 1. Cardiomegaly with mild pulmonary vascular congestion.
--- NOTE | 2025-02-06 04:45 | DVHHPRES ---
History of Present Illness Resident Creating Document: ANNAMARIE OCONNOR RESIDENT History of Present Illness This is a 74-year-old Bulgarian-speaking female with past medical history of type 2 diabetes mellitus, hypertension, CKD stage 5 who presented to the emergency department in a wheelchair being pushed by her daughter, with chief complaints of headache and dizziness for the past 3 days. Patient's daughter reports that the patient was here on Tuesday on 01/03/2025 for high blood pressure and was told that her potassium levels were high. She was then later discharged home but has been having constant headaches since then. Patient states that today morning when she woke up she had a constant headache which was 6/10 in intensity, not localized but all over the head and associated with dizziness, nausea and 3 episodes of vomiting. Patient's daughter reports that the patient has been very anxious and unable to stay still but due to dizziness has been in the wheelc hair. She reports that her mother took Tylenol in the afternoon but it did not help with the headache. Patient denies any chills, fever, shortness of breath, chest pain. She has had no recent contacts with anyone who has been sick. Patient's daughter also states that patient was told she needs hemodialysis by her linen room worker Dr. Ramirez, but her mother did not want it before but is ready to get it if needed. On presentation patient's sodium is 110, potassium 5.2, BUN 79, creatinine 5.25, WBC 4.3, RBC 2.69, hemoglobin 7.3, hematocrit 22.3, MCV 83.1. We are admitting the patient for further workup and management Past medical history: Type 2 diabetes mellitus, hypertension, CKD stage 5, anemia Past surgical history: Left total knee replacement 2 years ago Family history: Mother had diabetes mellitus, father of prostate cancer Social history: Patient denies ever smoking, drinking alcohol or taking any illicit drugs Allergies: Penicillin PCP: Code status: Full code Review of Systems Constitutional: Yes: Other (Headache, dizziness); No: Fever, Chills, Sweats, Weakness, Malaise Eyes: No: Pain, Vision change, Conjunctivae inflammation, Eyelid inflammation, Other, Redness ENT: No: Ear pain, Ear discharge, Nose pain, Nose discharge, Nose congestion, Mouth pain, Mouth swelling, Throat pain, Throat swelling, Other Respiratory: No: Cough, Dry, Shortness of breath, SOB with excertion, Wheezing, Hemoptysis, Pleuritic Pain, Sputum, Wheezing, Other Cardiovascular: No: Chest Pain, Palpitations, Orthopnea, Paroxysmal Noc. Dyspnea, Edema, Lt Headedness, Other Gastrointestinal: Nausea, Vomiting; No: Abdominal Pain, Diarrhea, Constipation, Melena, Hematochezia, Other Genitourinary: No Dysuria, No Frequency, No Incontinence, No Hematuria, No Retention, No Other Musculoskeletal: No: other, neck pain, shoulder pain, arm pain, back pain, hand pain, leg pain, foot pain Skin: No: Rash, Lesions, Jaundice, Bruising, Other Neurological: No: Weakness, Numbness, Incoordination, Change in speech, Co nfusion, Seizures, Other Allergies: Coded Allergies: Penicillins (Unverified Allergy, Mild, hives, 03/13/24) Medications Current Medications Medications Dose Ordered Sig/Rigo Route Start Time Stop Time Status Last Admin Dose Admin Ondansetron HCl 4 mg Q4HP PRN IV 02/06/25 02:15 Atorvastatin Calcium 40 mg HS PO 02/06/25 22:00 Patient Own Medication 50,000 unit once a week PO 02/06/25 02:15 UNV Hydralazine HCl 50 mg TID PO 02/06/25 06:00 Furosemide 40 mg DAILY IV 02/06/25 10:00 Carvedilol 12.5 mg DAILY PO 02/06/25 10:00 Diagnostic Test (Pha) 1 strip ACHS 02/06/25 07:00 Insulin Human Regular ACHS SC 02/06/25 07:00 Dextrose 50 ml UD PRN IV 02/06/25 02:15 Heparin Sodium (Porcine) 5,000 units Q12HR SC 02/06/25 10:00 Hydroxyzine Pamoate 25 mg Q6HP PRN PO 02/06/25 02:15 Sodium Bicarbonate 650 mg BID PO 02/06/25 10:00 Exam Vital Signs Vital Signs Date Time Temp Pulse Resp B/P (MAP) Pulse Ox O2 Delivery O2 Flow Rate FiO2 02/06/25 04:01 156/61 02/06/25 03:40 98.0 87 21 100 98.0 02/06/25 01:36 Room Air Exam Pt is sitting in a wheelchair General Appearance: Alert, Oriented X3, Cooperative, appears anxious HEENT: Atraumatic, Mucous membranes moist/pink Respiratory: Clear to auscultation, Normal air movement, No added sounds Cardiovascular: Regular rate, Normal S1, Normal S2, No murmurs Abdominal: Active bowel sounds, Soft, no distention, no tenderness Extremities: No edema, Normal pulses, +1 pitting edema of bilateral legs up to the knee Skin: No Significant rash, except past surgical scars Neuro: Normal speech, sensorimotor deficits none Psych/Mental Status: Mental status NL, Mood NL Labs/Xrays Labs Test 02/06/25 01:31 02/05/25 23:54 02/05/25 21:40 Range/Units Sodium Level 111 *L 136-145 mmol/L Potassium Level 5.1 3.5-5.1 mmol/L Chloride Level 83 L 98-107 mmol/L Carbon Dioxide Level 15 L 20-31 mmol/L Anion Gap 13 5-15 Blood Urea Nitrogen 70 H 9-23 mg/dL Creatinine 5.23 H 0.550-1.02 mg/dL Glomerular Filtration Rate Calc 8 >90 mL/min BUN/Creatinine Ratio 13.4 10.0-20.0 Serum Glucose 146 H 74-106 mg/dL Serum Osmolality 264 L 278-298 mOsm/kg Calcium Level 8.7 8.7-10.4 mg/dL White Blood Count 4.3 L 4.4-10.8 10^3/uL Red Blood Count 2.69 L 4.0-5.20 10^6/uL Hemoglobin 7.3 L 12.2-16.2 g/dL Hematocrit 22.3 L 36.0-46.0 % Mean Corpuscular Volume 83.1 80.0-100.0 fL Mean Corpuscular Hemoglobin 27.1 L 28.0-32.0 pg Mean Corpuscular Hemoglobin Concent 32.6 32.0-36.0 g/dL Red Cell Distribution Width 14.9 H 11.8-14.3 % Platelet Count 259 140-450 10^3/uL Mean Platelet Volume 7.1 6.9-10.8 fL Neutrophils (%) (Auto) 82.1 H 37.0-80.0 % Lymphocytes (%) (Auto) 13.1 10.0-50.0 % Monocytes (%) (Auto) 3.9 0.0-12.0 % Eosinophils (%) (Auto) 0.5 0.0-7.0 % Basophils (%) (Auto) 0.4 0.0-2.0 % Neutrophils # (Auto) 3.5 1.6-8.6 10 ^3/uL Lymphocytes # (Auto) 0.6 0.4-5.4 10 ^3/uL Monocytes # (Auto) 0.2 0-1.3 10 ^3/uL Eosinophils # (Auto) 0 0-0.8 10 ^3/uL Basophils # (Auto) 0 0-0.2 10 ^3/uL Nucleated Red Blood Cells 0.2 % Phosphorus Level 6.5 H 2.4-5.1 mg/dL Magnesium Level 1.8 1.6-2.6 mg/dL Total Bilirubin 0.4 0.2-1.0 mg/dL Aspartate Amino Transferase (AST) 27 13-40 U/L Alanine Aminotransferase (ALT) 18 7-40 U/L Alkaline Phosphatase 134 H 46-116 U/L Troponin I High Sensitivity 31 </=34 ng/L B-Type Natriuretic Peptide 328.98 0-100 pg/mL Total Protein 6.2 5.7-8.2 g/dL Albumin 3.7 3.2-4.8 g/dL POC Glucose 174 H 70-106 mg/dl SEPSIS Sepsis Screen Date sepsis recognized/suspect: Feb 06, 2025 Time Sepsis recognized/suspect: 0138 Recent Procedure: No On Antibiotic Therapy: No Respiratory Rate >20: No Heart Rate >90: No Temp<36 C (96.8 F) or >38.3 C: No SBP <90 or MAP <65 mmHG: No New Acute Mental Status Change: No Is the patient on CPAP, BIPAP,: No Physician Orders Head Without Contrast (02/05/25 23:44) Seizure Precautions (02/06/25 ) Neuro Checks Q2hrs Q1HR (02/06/25 01:06) Tire Buffer (02/06/25 ) Saline Lock (02/06/25 01:06) Sodium Chloride 0.9% (02/06/25 01:15) Admit (02/06/25 02:01) Code Status (02/06/25 02:01) Ondansetron Hcl (Zofran) (02/06/25 02:15) Complete Blood Count (02/07/25 04:00) Comprehensive Metabolic Panel (02/07/25 04:00) Condition: Unstable (02/06/25 02:01) Stat Ekg For Chest Pain (02/06/25 02:01) Notify Of Changes From Base (02/06/25 02:01) Atorvastatin (Lipitor) (02/06/25 22:00) (Nf) Ergocalciferol (Vitamin D2) (02/06/25 02:15) Hydralazine Hcl Tablet (Apresoline Table (02/06/25 06:00) Furosemide Injection (Lasix Injection) (02/06/25 10:00) Ferrous Sulfate Tablet (02/06/25 10:00) Carvedilol Tablet (Coreg Tablet) (02/06/25 10:00) Glucose Blood (Accu-Chek Comfort Curve T (02/06/25 07:00) Insulin R (Human) (Insulin R) (02/06/25 07:00) Dextrose 50% Syringe (02/06/25 02:15) *[facility] (02/06/25 02:01) Chest Xray 1 View (02/06/25 02:01) Urinalysis (02/06/25 02:01) Stool Occult Blood (02/06/25 02:01) Heparin Sodium (Porcine) (02/06/25 10:00) Echo 2d Mode Cardiac Dop (02/06/25 02:01) Hydroxyzine Oral (Vistaril Oral) (02/06/25 02:15) Sodium Bicarb Tab (02/06/25 10:00) Hemoglobin A1c (02/06/25 04:31) Vital Signs Date Time Temp Pulse Resp B/P (MAP) Pulse Ox O2 Delivery O2 Flow Rate FiO2 02/06/25 04:01 156/61 02/06/25 03:40 98.0 87 21 156/61 (92) 100 98.0 02/06/25 01:36 87 20 100 Room Air 02/06/25 01:36 98.3 87 20 151/69 (96) 100 98.3 02/05/25 23:47 85 02/05/25 21:37 8 02/05/25 21:22 98.6 88 18 175/88 99 98.6 Laboratory Tests Test 02/05/25 23:54 White Blood Count 4.3 10^3/uL (4.4-10.8) L Medications Medications Dose Ordered Sig/Rigo Route Start Time Stop Time Status Last Admin Dose Admin Acetaminophen 1,000 mg ONCE ONCE IV 02/05/25 23:45 02/06/25 01:02 DC 02/06/25 03:50 1,000 MG Diphenhydramine HCl 12.5 mg ONCE ONCE IV 02/05/25 23:45 02/06/25 01:02 DC 02/06/25 03:49 12.5 MG Furosemide 80 mg ONCE ONCE IV 02/06/25 02:15 02/06/25 02:43 DC 02/06/25 04:01 80 MG Metoclopramide HCl 2.5 mg ONCE ONCE IV 02/05/25 23:45 02/06/25 01:02 DC 02/06/25 03:50 2.5 MG Zirconium Oxide 10 gm ONCE ONCE PO 02/06/25 02:15 02/06/25 02:43 DC 02/06/25 04:01 10 GM Assessment/Plan Assessment/Plan #Hypervolemic symptomatic hyponatremia #Metabolic encephalopathy due to above #mixed anemia- iron deficiency and anemia of chronic disease -iron profile and previous visit shows low iron levels -furosemide 80 mg IV once -Furosemide 40 mg IV daily -home medication Ferrous sulfate 325 mg p.o. daily continued -Zofran 4 mg IV q.4 PRN -stool occult blood #Type 2 diabetes mellitus - A1c, pending -Mild sliding scale insulin -Accu-Cheks #Dyslipidemia -home medication Atorvastatin 40 mg continue daily HS # CKD stage 5 -Nephrology consult placed -avoid any nephrotoxic agents #hyperkalemia -Lokelma 10 mg p.o. once -home medication Sodium bicarbonate 650 mg p.o. b.i.d. continued #rule out acute exacerbation of CHF -BNP 328.98 -ekg -echo, pending -chest x-ray shows: Cardiomegaly with mild pulmonary vascular congestion. # anxiety -hydroxyzine 25 mg p.o. q.6 PRN DVT prophylaxis: heparin 5000 units subcutaneous b.i.d. Goals of care discussed with the patient for more than 27 minutes: Full code status Case discussed with , patient Plan discussed with: Patient, Daughter My Orders Orders - ANNAMARIE OCONNOR RESIDENT Procedure Category Date Status Time Admit ADMIT 02/06/25 Transmitted 02:01 Code Status CODE 02/06/25 Transmitted 02:01 Ondansetron Hcl PHA 02/06/25 In Process (Zofran) 02:15 Complete Blood Count LAB 02/07/25 Verified 04:00 Comprehensive LAB 02/07/25 Verified Metabolic Panel 04:00 Condition: Unstable DELL 02/06/25 In Process 02:01 Stat Ekg For Chest DELL 02/06/25 In Process Pain 02:01 Notify Md Of Changes DELL 02/06/25 In Process From Base 02:01 Atorvastatin (Lipitor) PHA 02/06/25 In Process 22:00 (Nf) Ergocalciferol PHA 02/06/25 Pending (Vitamin D2) 02:15 Hydralazine Hcl PHA 02/06/25 In Process Tablet (Apresoline 06:00 Furosemide Injection PHA 02/06/25 In Process (Lasix Injection) 10:00 Ferrous Sulfate Tablet PHA 02/06/25 In Process 10:00 Carvedilol Tablet PHA 02/06/25 In Process (Coreg Tablet) 10:00 Glucose Blood PHA 02/06/25 In Process (Accu-Chek Comfort 07:00 Insulin R (Human) PHA 02/06/25 In Process (Insulin R) 07:00 Dextrose 50% Syringe PHA 02/06/25 In Process 02:15 *[facility] CONS 02/06/25 Transmitted -[place] 02:01 Chest Xray 1 View XY 02/06/25 Resulted 02:01 Urinalysis LAB 02/06/25 Logged 02:01 Stool Occult Blood LAB 02/06/25 Logged 02:01 Heparin Sodium PHA 02/06/25 In Process (Porcine) 10:00 Echo 2d Mode Cardiac US 02/06/25 Logged DOP 02:01 Hydroxyzine Oral PHA 02/06/25 In Process (Vistaril Oral) 02:15 Sodium Bicarb Tab PHA 02/06/25 In Process 10:00 Hemoglobin A1c LAB 02/06/25 In Process 04:31 Date of Service: Feb 06, 2025 Billing Provider: ANGELES GIRARD MD Common Visit Codes: 10097-EIURFRR INP/OBS CARE (HIGH) Secondary Visit Codes: 56702-EGCKWCTD CARE PLAN 30 MINUTES ANNAMARIE OCONNOR RESIDENT Feb 06, 2025 04:45 ANEGLES GIRARD MD Feb 06, 2025 17:02
[2025-02-06] MEDS: InsuLIN REG 1unit/0.01ml Soln (100units/ml) SC SCH (06:24)
[2025-02-06] MEDS: ACCU-CHEK COMFORT CURVE STRIP VI SCH (06:24)
[2025-02-06 09:03] LABS: Potassium 5.1 mmol/L (3.5-5.1)
[2025-02-06 09:04] LABS: Anion Gap 13 (5-15)
[2025-02-06 09:07] LABS: Calcium 7.9 mg/dL (8.7-10.4); Carbon Dioxide 15 mmol/L (20-31); Chloride 84 mmol/L (98-107)
[2025-02-06 09:09] LABS: BUN/Creatinine Ratio 14.2 (10.0-20.0)
[2025-02-06 09:11] LABS: Glucose 117 mg/dL (74-106); Sodium 112 mmol/L (136-145)
[2025-02-06 09:12] LABS: Blood Urea Nitrogen 76 mg/dL (9-23)
[2025-02-06 09:43] LABS: Hematocrit 25.5 % (36.0-46.0); Hemoglobin 8.5 g/dL (12.2-16.2); Mean Corpuscular Hemoglobin 27.0 pg (28.0-32.0); Mean Corpuscular Volume 81.6 fL (80.0-100.0); Nucleated Red Blood Cells % 0.1 %
[2025-02-06 09:59] LABS: Potassium 4.7 mmol/L (3.5-5.1)
[2025-02-06 10:06] LABS: Magnesium 1.7 mg/dL (1.6-2.6)
--- NOTE | 2025-02-06 10:27 | DVHPNRES ---
Progress Note Date Seen: Feb 06, 2025 Resident Creating Document: JULI COREAS RESIDENT Medical Necessity Reason Pt with a Central, PICC or Fol: No Subjective Review of Systems Geovanna Davis is a 74-year-old female with past medical history of type 2 diabetes mellitus, hypertension and CKD stage 5 (not in dialysis). The patient with chief complain of 3 days of headache, throbbing like, 6/10, left temporal region, irradiated to the left side of the neck associated with dizziness. The patient's daughter reports that the patient was here on Tuesday on 01/03/2025 for high blood pressure and hyperkalemia. She was then later discharged home but her headache did not improved. One day before coming to the ED, the headache worsen, and were associated with dizziness, nausea and 3 episodes of vomiting. Patient denies any chills, fever, shortness of breath, chest pain, abdominal pain or other symptoms. On further questioning, the patient has denied dialysis. Dr. Ramirez, patient's functional mental disability teacher is aware. In ED, lab work showed: hyponantremia, Na: 110, Hyperkalemia, K: 5.2, BUN 79, creatinine 5.25, WBC 4.3, RBC 2.69, hemoglobin 7.3, hematocrit 22.3, MCV 83.1. On past medical history: Type 2 diabetes mellitus, hypertension, CKD stage 5, anemia. Past surgical history: Left total knee replacement 2 years ago. Family history: Mother had diabetes mellitus, father of prostate cancer. On social history: Patient denies ever smoking, drinking alcohol or taking any illicit drugs. Allergies: Penicillin. The patient was admitted for further management. Admission course: Today, 02/06/25, the patient was evaluated and examined at bed side. VS: BP: 138/89mmHg, HR: 68bpm. Labs were reviewed. New labs were ordered: potassium, Na, urine Na and urine creatinine. IV fluids:NS 3% was started. We will continue following up this patient. ROS Constitutional: Yes: Other Headache, dizziness; No: Fever, Chills, Sweats, Weakness, Malaise Eyes: No: Pain, Vision change, Conjunctivae inflammation, Eyelid inflammation, Other, Redness ENT: No: Ear pain, Ear discharge, Nose pain, Nose discharge, Nose congestion, Mouth pain, Mouth swelling, Throat pain, Throat swelling, Other Respiratory: No: Cough, Dry, Shortness of breath, SOB with excertion, Wheezing, Hemoptysis, Pleuritic Pain, Sputum, Wheezing, Other Cardiovascular: No: Chest Pain, Palpitations, Orthopnea, Paroxysmal Noc. Dyspnea, Edema, Lt Headedness, Other Gastrointestinal: Nausea, Vomiting; No: Abdominal Pain, Diarrhea, Constipation, Melena, Hematochezia, Other Genitourinary: No Dysuria, No Frequency, No Incontinence, No Hematuria, No Retention, No Other Musculoskeletal: No: other, neck pain, shoulder pain, arm pain, back pain, hand pain, leg pain, foot pain Skin: No: Rash, Lesions, Jaundice, Bruising, Other Neurological: No: Weakness, Numbness, Incoordination, Change in speech, Confusion, Seizures, Other Allergies: Penicillins (Unverified Allergy, Mild, hives Objective vital signs Vital Sign Date Time Temp Pulse Resp B/P (MAP) Pulse Ox O2 Delivery O2 Flow Rate FiO2 02/06/25 06:24 138/49 02/06/25 05:54 68 14 96 Room Air* 0 21 02/06/25 03:40 98.0 98.0 medications Current Medications Medications Dose Ordered Sig/Rigo Route Start Time Stop Time Status Last Admin Dose Admin Ondansetron HCl 4 mg Q4HP PRN IV 02/06/25 02:15 Atorvastatin Calcium 40 mg HS PO 02/06/25 22:00 Patient Own Medication 50,000 unit once a week PO 02/06/25 02:15 Hydralazine HCl 50 mg TID PO 02/06/25 06:00 02/06/25 06:24 50 MG Furosemide 40 mg DAILY IV 02/06/25 10:00 Carvedilol 12.5 mg DAILY PO 02/06/25 10:00 Diagnostic Test (Pha) 1 strip ACHS 02/06/25 07:00 02/06/25 06:24 1 STRIP Insulin Human Regular ACHS SC 02/06/25 07:00 Dextrose 50 ml UD PRN IV 02/06/25 02:15 Heparin Sodium (Porcine) 5,000 units Q12HR SC 02/06/25 10:00 Hydroxyzine Pamoate 25 mg Q6HP PRN PO 02/06/25 02:15 Sodium Bicarbonate 650 mg BID PO 02/06/25 10:00 Examination General Appearance: patient in mild distress, alert, oriented X3, Cooperative. HEENT: Atraumatic, PERRLA, EOMI, Mucous membrane moist/pink Respiratory: bilateral mild crackles on the bases. normal lung expansion. Cardiovascular: Regular rate, Normal S1, Normal S2, No murmurs, no chest wall tenderness Abdominal: Normal bowel sounds, Soft, No tenderness, No hepatospenomegaly, No masses Extremities: Bilateral pitting edema up to the lower part of the leg. No clubbing, No cyanosis, No edema, Normal pulses, No tenderness/swelling Skin: No rashes, No breakdown, No significant lesion Neuro: Grossly intact cranial nerves Cranial nerves 3-12 NL, Reflexes 2+ Psych/Mental Status: Normal mood. laboratory and microbiology Laboratory Tests 02/06/25 09:35 02/06/25 06:45 02/05/25 23:54 Test 02/06/25 06:45 Range/Units Serum Glucose 117 H 74-106 mg/dL Problem List/Assessment/Plan Problem List/Assessment/Plan #Hypervolemic symptomatic hyponatremia #Metabolic encephalopathy due to above #Mixed severe anemia- iron deficiency and anemia of chronic disease -iron profile and previous visit shows low iron levels -Furosemide 40 mg IV daily -home medication Ferrous sulfate 325 mg p.o. daily continued -Zofran 4 mg IV q.4 PRN -stool occult blood -Type and screen ordered. #Type 2 diabetes mellitus with hyperglycemia - A1c: 6.1% -Mild sliding scale insulin -Accu-Cheks #Dyslipidemia -home medication Atorvastatin 40 mg continue daily HS # CKD stage 5, not in dialysis (due to patient preference) -Nephrology consult placed -Avoid any nephrotoxic agents #Hyperkalemia -Lokelma 10 mg p.o. once -home medication Sodium bicarbonate 650 mg p.o. b.i.d. continued #Acute on chronic exacerbation of CHF, rule out systolic vs diastolic. -BNP 328.98 -Echo, report is pending -chest x-ray shows: Cardiomegaly with mild pulmonary vascular congestion. #Anxiety -hydroxyzine 25 mg p.o. q.6 PRN Diet: Renal diet DVT prophylaxis: heparin 5000 units subcutaneous b.i.d. Goals of care discussed with the patient > 35 min. Discussed plan of care with Dr. Knox Code status: Full code PCP: Michael. Nephrology: Dr. Ramirez Plan discussed with: Patient and daughter, the patient agrees with the plan. critical care time 45 mins Plan discussed with: Patient, Daughter My Orders My Orders Orders - JULI COREAS Procedure Category Date Status Time Renal DIET 02/06/25 Transmitted Standard(2gna,3gk,Lopho) Breakfast Date of Service: Feb 06, 2025 Billing Provider: ANGELES KNOX MD Common Visit Codes: [id number] CARE 30-74 MIN JULI COREAS Feb 06, 2025 10:27 ANGELES KNOX MD Feb 07, 2025 08:33
[2025-02-06] MEDS: CARVEDILOL 12.5 MG TAB PO SCH (10:40)
[2025-02-06] MEDS: SODIUM BICARBONATE 650 MG TAB PO SCH (10:40)
[2025-02-06] MEDS: FUROSEMIDE 40 MG/4 ML VIAL IV SCH (10:41)
[2025-02-06] MEDS: FERROUS SULFATE 325mg EC TAB PO ONE (10:41)
--- NOTE | 2025-02-06 10:52 | DVH ---
RENAL ULTRASOUND CLINICAL HISTORY: KEHINDE on CKD TECHNIQUE: Multiple grayscale ultrasound images were obtained through the kidneys and urinary bladder . COMPARISON: US KIDNEY on DOS: 05/18/24 FINDINGS: Right kidney: Measures 7.7 cm. No hydronephrosis. Increased cortical echogenicity. Small cyst in the upper pole measures 1.4 cm. Left kidney: Measures 7.9 cm. No hydronephrosis. Increased cortical echogenicity. Small cyst in the u pper pole measures 1.7 cm. Tiny echogenic lesion in the mid left kidney measuring 6 mm Urinary bladder: Unremarkable. Prevoid volume 197 ML. IMPRESSION: 1. Small kidneys without hydronephrosis. 2. Increased cortical echogenicity of the kidneys likely due to medical renal disease. 3. Tiny echogenic structure in the mid left kidney measuring 6 mm which could reflect a nonobstructin g calculus or milk of calcium cyst. 4. Tiny bilateral renal cysts.
[2025-02-06] MEDS: SODIUM CHL 3% 50 ML IV ONE (10:55)
[2025-02-06 11:01] LABS: INR 0.93 (0.9-1.15); Partial Thromboplastin Time 30.7 SEC (24.5-34.5); Prothrombin Time 9.9 sec (9.3-11.8)
[2025-02-06 11:22] LABS: Iron 48.0 ug/dL (50-170); Total Iron Binding Capacity 234.0 ug/dL (250-425)
[2025-02-06] MEDS: HEPARIN SODIUM (PORCINE) 5000 UNITS/ML 1ML VIAL SC SCH (11:40)
[2025-02-06 12:37] LABS: Potassium 4.7 mmol/L (3.5-5.1)
[2025-02-06 12:37] LABS: Urine Protein, UAD 1+ (Negative)
[2025-02-06 12:38] LABS: Anion Gap 12 (5-15)
[2025-02-06 12:42] LABS: Calcium 8.1 mg/dL (8.7-10.4); Carbon Dioxide 17 mmol/L (20-31); Chloride 82 mmol/L (98-107)
[2025-02-06 12:43] LABS: BUN/Creatinine Ratio 13.9 (10.0-20.0); Sodium 111 mmol/L (136-145)
[2025-02-06 12:50] LABS: Blood Urea Nitrogen 74 mg/dL (9-23); Glucose 167 mg/dL (74-106)
[2025-02-06 15:38] LABS: Hepatitis A Total Antibody Positive (Negative); Hepatitis B Surface Antigen Negative (Negative); Hepatitis C Antibody Negative (Negative)
--- NOTE | 2025-02-06 16:17 | DVHCONRES ---
Date Seen: Feb 06, 2025 Resident Creating Document: [facility]OC [facility] History of Present Illness This is a 74-year-old Togolese-speaking female with past medical history of type 2 diabetes mellitus, hypertension, CKD stage 5 who presented to the emergency department in a wheelchair being pushed by her daughter, with chief complaints of headache and dizziness for the past 3 days. Patient's daughter reports that the patient was here on Tuesday on 01/03/2025 for high blood pressure and was told that her potassium levels were high. She was then later discharged home but has been having constant headaches since then. Patient states that today morning when she woke up she had a constant headache which was 6/10 in intensity, not localized but all over the head and associated with dizziness, nausea and 3 episodes of vomiting. Patient's daughter reports that the patient has been very anxious and unable to stay still but due to dizziness has been in the wheelchair. She reports that her mother took Tylenol in the afternoon but it did not help with the headache. Patient denies any chills, fever, shortness of breath, chest pain. She has had no recent contacts with anyone who has been sick. Patient's daughter also states that patient was told she needs hemodialysis by her icing machine operator Dr. Ramirez, but her mother did not want it b efore but is ready to get it if needed. On presentation patient's sodium is 110, potassium 5.2, BUN 79, creatinine 5.25, WBC 4.3, RBC 2.69, hemoglobin 7.3, hematocrit 22.3, MCV 83.1. We are admitting the patient for further workup and management Past medical history: Type 2 diabetes mellitus, hypertension, CKD stage 5, anemia Past surgical history: Left total knee replacement 2 years ago Family history: Mother had diabetes mellitus, father of prostate cancer Social history: Patient denies ever smoking, drinking alcohol or taking any illicit drugs Allergies: Penicillin PCP: Code status: Full code Family History: Diabetes mellitus G8 MOTHER FHx: cancer G8 MOTHER G8 FATHER Allergies: Coded Allergies: Penicillins (Unverified Allergy, Mild, hives, 03/13/24) Home Meds Active Scripts Hydralazine Hcl (Hydralazine Hcl) 50 Mg Tab, 1 TAB PO TID for 30 Days, #90 TAB 3 Refills Prov:JAEL RODRIGUEZ MD 02/02/25 Amlodipine Besylate (Amlodipine Besylate) 10 Mg Tab, 10 MG PO DAILY for 30 Days, #30 TAB Prov:JAEL RODRIGUEZ MD 02/02/25 Metoprolol Tartrate (LOPRESSOR TABLET) 50 Mg Tb, 50 MG GT BID for 30 Days, #60 TAB Prov:JAEL RODRIGUEZ MD 02/02/25 Sodium Zirconium Cyclosilicate (Lokelma) 10 Gm Kermit, 10 GM PO DAILY, #30 PACK 0 Refills Prov:ANANDA SMALL MD 05/21/24 Sodium Bicarbonate (Sodium Bicarbonate) 650 Mg Tab, 1300 MG PO TID for 30 Days, #180 TAB 0 Refills Prov:ANANDA SMALL MD 05/21/24 Reported Medications Ergocalciferol (VITAMIN D2) 400 Unit Tab, 77820 UNIT PO once a week, TAB 05/18/24 Insulin NPH (Human) (Isophane) (Novolin N Flexpen) 100 Unit/Ml Inj, 100 UNIT SC UD, INJ 0-150 0 151-200 4 u 201-250 6 u 251-300 8 u 301-350 10 u 351-400 12 u 06/18/22 Insulin Glargine (Basaglar Kwikpen) 100 Unit/Ml Inj, 100 UNIT SC, INJ 25 units q am, 10 units qhs 06/18/22 Atorvastatin Calcium (Lipitor) 40 Mg Tab, 40 MG PO HS, TAB 06/18/22 Discontinued Scripts Carvedilol (Carvedilol) 6.25 Mg Tab, 1 TAB PO BID, #60 TAB 0 Refills Prov:ANANDA SMALL MD 05/21/24 Current Medications Current Medications Medications (Trade) Dose Ordered Sig/Rigo Route PRN Reason Start Time Stop Time Status Last Admin Ondansetron HCl (Zofran) 4 mg Q4HP PRN IV NAUSEA / VOMITING 02/06/25 02:15 Atorvastatin Calcium (Lipitor) 40 mg HS PO 02/06/25 22:00 Patient Own Medication 50,000 unit once a week PO 02/06/25 02:15 Hydralazine HCl (Apresoline Tablet) 50 mg TID PO 02/06/25 06:00 02/06/25 13:59 Furosemide (Lasix Injection) 40 mg DAILY IV 02/06/25 10:00 02/06/25 10:41 Carvedilol (Coreg Tablet) 12.5 mg DAILY PO 02/06/25 10:00 02/06/25 10:40 Diagnostic Test (Pha) (Accu-Chek Comfort Curve T) 1 strip ACHS 02/06/25 07:00 02/06/25 12:23 Insulin Human Regular (InsuLIN R) ACHS SC 02/06/25 07:00 02/06/25 12:27 Dextrose 50 ml UD PRN IV Blood Sugar LESS THAN 60 02/06/25 02:15 Heparin Sodium (Porcine) 5,000 units Q12HR SC 02/06/25 10:00 02/06/25 11:40 Hydroxyzine Pamoate (Vistaril Oral) 25 mg Q6HP PRN PO FOR ITCHING 02/06/25 02:15 Sodium Bicarbonate 650 mg BID PO 02/06/25 10:00 02/06/25 10:40 Review of Systems Patient seen and examined at the bedside. Patient is complaining of nausea, vomiting, and dizziness. Vital Signs Vital Signs Date Time Temp Pulse Resp B/P (MAP) Pulse Ox O2 Delivery O2 Flow Rate FiO2 02/06/25 13:59 169/68 02/06/25 12:00 91 02/06/25 10:00 20 100 02/06/25 08:30 Room Air* 0 21 02/06/25 08:00 98.0 98.0 Physical Exam General Appearance: Alert, Oriented X3, Cooperative, lethargic HEENT: Atraumatic, PERRLA, EOMI, Mucous membrane moist/pink Respiratory: Clear to auscultation, Normal air movement Cardiovascular: Regular rate, Normal S1, Normal S2, No murmurs, no chest wall tenderness Abdominal: Normal bowel sounds, Soft, No tenderness, No hepatospenomegaly, No masses Extremities: Bilateral grade 2 pedal edema Skin: No rashes, No breakdown, No significant lesion Neuro: Normal gait, Normal speech, Strength at 5/5 X4 ext, Normal tone, Sensation intact, Cranial nerves 3-12 NL, Reflexes 2+ Psych/Mental Status: Mental status NL, Mood NL Labs/Diagnostic Data Labs Test 02/06/25 12:21 02/06/25 12:13 02/06/25 11:50 02/06/25 09:35 Range/Units POC Glucose 167 H 70-106 mg/dl Sodium Level 111 *L 136-145 mmol/L Potassium Level 4.7 3.5-5.1 mmol/L Chloride Level 82 L 98-107 mmol/L Carbon Dioxide Level 17 L 20-31 mmol/L Anion Gap 12 5-15 Blood Urea Nitrogen 74 H 9-23 mg/dL Creatinine 5.32 H 0.550-1.02 mg/dL Glomerular Filtration Rate Calc 8 >90 mL/min BUN/Creatinine Ratio 13.9 10.0-20.0 Serum Glucose 167 H 74-106 mg/dL Calcium Level 8.1 L 8.7-10.4 mg/dL Urine Color Colorless Yellow Urine Clarity Clear Clear Urine pH 5.5 5.0-9.0 Urine Specific [place] 1.007 1.001-1.035 Urine Protein 1+ H Negative Urine Ketones Negative Negative Urine Blood 1+ H Negative /uL Urine Nitrite Negative Negative Urine Bilirubin Negative Negative Urine Urobilinogen Normal Negative mg/dL Urine Leukocyte Esterase Negative Negative /uL Urine RBC 1 0 - 4 /hpf Urine Microscopic WBC 1 0-5 /HPF Urine Squamous Epithelial Cells Few <5 /hpf Urine Bacteria None seen None Seen /hpf Urine Creatinine 28.16 L 30.0-125.0 mg/dL Urine Sodium 67 40-220 mmol/L Urine Glucose Normal Normal mg/dL Prothrombin Time 9.9 9.3-11.8 sec Prothrombin Time INR 0.93 0.9-1.15 Activated Partial Thromboplast Time 30.7 24.5-34.5 SEC Magnesium Level 1.7 1.6-2.6 mg/dL Iron Level 48 L 50-170 ug/dL Total Iron Binding Capacity 234 L 250-425 ug/dL Percent Iron Saturation 20.5 15-50 % Ferritin 83.0 10-291 ng/mL Parathyroid Hormone (Intact) 515.3 H 18.4-80.1 pg/mL Hepatitis A Antibody Total Positive H Negative Hepatitis B Surface Antigen Negative Negative Hepatitis B Surface Antibody Negative Negative Hepatitis B Core Total Antibody Negative Negative Hepatitis C Antibody Negative Negative Test 02/06/25 06:49 02/06/25 01:31 02/05/25 23:54 Range/Units Vitamin B12 Level 452 211-911 pg/mL Vitamin D 25-Hydroxy 87.5 30.0-100 ng/mL Serum Osmolality 264 L 278-298 mOsm/kg White Blood Count 4.3 L 4.4-10.8 10^3/uL Red Blood Count 2.69 L 4.0-5.20 10^6/uL Hemoglobin 7.3 L 12.2-16.2 g/dL Hematocrit 22.3 L 36.0-46.0 % Mean Corpuscular Volume 83.1 80.0-100.0 fL Mean Corpuscular Hemoglobin 27.1 L 28.0-32.0 pg Mean Corpuscular Hemoglobin Concent 32.6 32.0-36.0 g/dL Red Cell Distribution Width 14.9 H 11.8-14.3 % Platelet Count 259 140-450 10^3/uL Mean Platelet Volume 7.1 6.9-10.8 fL Neutrophils (%) (Auto) 82.1 H 37.0-80.0 % Lymphocytes (%) (Auto) 13.1 10.0-50.0 % Monocytes (%) (Auto) 3.9 0.0-12.0 % Eosinophils (%) (Auto) 0.5 0.0-7.0 % Basophils (%) (Auto) 0.4 0.0-2.0 % Neutrophils # (Auto) 3.5 1.6-8.6 10 ^3/uL Lymphocytes # (Auto) 0.6 0.4-5.4 10 ^3/uL Monocytes # (Auto) 0.2 0-1.3 10 ^3/uL Eosinophils # (Auto) 0 0-0.8 10 ^3/uL Basophils # (Auto) 0 0-0.2 10 ^3/uL Nucleated Red Blood Cells 0.2 % Phosphorus Level 6.5 H 2.4-5.1 mg/dL Total Bilirubin 0.4 0.2-1.0 mg/dL Aspartate Amino Transferase (AST) 27 13-40 U/L Alanine Aminotransferase (ALT) 18 7-40 U/L Alkaline Phosphatase 134 H 46-116 U/L Troponin I High Sensitivity 31 </=34 ng/L B-Type Natriuretic Peptide 328.98 0-100 pg/mL Total Protein 6.2 5.7-8.2 g/dL Albumin 3.7 3.2-4.8 g/dL Assessment This is a 74 lady with past medical history of diabetes, hypertension, systolic heart failure CKD stage 5 came to the hospital due to nausea, vomiting, headache and dizziness. Nephrology consulted due to severe hyponatremia. Assessment: Hypoosmolar, hypervolemic severe symptomatic hyponatremia KEHINDE, on CKD stage 5, likely VMN Diabetes type 2 Hypertension Possible acute on chronic systolic heart failure Volume overload * Serum sodium is 110, serum osmolality 264, urine sodium 67 * Head CT scan shows no significant intracranial abnormalities Plan/recommendation: (Dr. Ospina) * Hypertonic normal saline 3% 50 mL given, subsequently urine sodium 111 * NS 3% 100 mL at 30 mL/hour, check serum sodium q.2 hours * IV Lasix 40 mg daily * Tentative plan for dialysis tomorrow * Consulted IR for placement of tunneled catheter * Strict I&Os * We will follow up with the patient Thank you for giving us the opportunity to take care of your patients failure please call back if you have any questions/concerns. Plan discussed with: Patient, Daughter, Other (RN) CUAUHTEMOC ARNDT Feb 06, 2025 16:17
[2025-02-06] MEDS: SODIUM CHL 3% 100 ML IV ONE (17:42)
[2025-02-06] MEDS: ATORVASTATIN 20 MG TAB PO SCH (20:47)
[2025-02-07] VITALS (51 sets, daily range): BP systolic 103–189; BP diastolic 43–77; PULSE 69–99; RESP 9–22; TEMP 97.6–98.4; O2SAT 91–100
[2025-02-07 02:30] LABS: Iron 44.0 ug/dL (50-170)
[2025-02-07 02:34] LABS: Total Iron Binding Capacity 223.0 ug/dL (250-425)
[2025-02-07 03:04] LABS: Mean Corpuscular Hemoglobin 27.7 pg (28.0-32.0); Nucleated Red Blood Cells % 0.0 %
[2025-02-07 03:06] LABS: Hematocrit 18.9 % (36.0-46.0); Mean Corpuscular Volume 80.3 fL (80.0-100.0)
[2025-02-07 03:21] LABS: INR 0.94 (0.9-1.15); Partial Thromboplastin Time 21.7 SEC (24.5-34.5); Prothrombin Time 10.0 sec (9.3-11.8)
[2025-02-07 03:22] LABS: Alanine Aminotransferase 19 U/L (7-40); Alkaline Phosphatase 115 U/L (46-116); Anion Gap 12 (5-15); BUN/Creatinine Ratio 15.7 (10.0-20.0); Potassium 4.1 mmol/L (3.5-5.1)
[2025-02-07 03:44] LABS: Albumin 3.0 g/dL (3.2-4.8); Bilirubin, Total 0.3 mg/dL (0.2-1.0); Blood Urea Nitrogen 77 mg/dL (9-23); Calcium 7.6 mg/dL (8.7-10.4); Carbon Dioxide 17 mmol/L (20-31); Chloride 88 mmol/L (98-107); Glucose 68 mg/dL (74-106); Sodium 117 mmol/L (136-145); Total Protein 5.0 g/dL (5.7-8.2)
[2025-02-07 03:47] LABS: Hemoglobin 6.5 g/dL (12.2-16.2)
[2025-02-07 04:52] LABS: Hematocrit 19.0 % (36.0-46.0)
[2025-02-07 04:53] LABS: Hemoglobin 6.4 g/dL (12.2-16.2)
[2025-02-07] MEDS: SODIUM CHL 0.9% 1000 ML BAG XX ONE (07:00)
[2025-02-07] MEDS ORDERED: PANTOPRAZOLE 40 MG/10 ML VIAL INJ IV SCH (10:00)
--- NOTE | 2025-02-07 12:51 | DVH ---
INDICATION: POST FEMORAL DIALYSIS CATH PLACEMENT TECHNIQUE: Multiple views of the abdomen were obtained. COMPARISON: XY KUB ABDOMEN SINGLE VIEW on DOS: 10/04/24, XY KUB ABDOMEN SINGLE VIEW on DOS: 01/04/24, X Y PELVIS AP on DOS: 01/04/24 FINDINGS: The bowel loops are nondilated. There is no evidence of free air. The lung bases are clear. The visualized osseous structures appear intact. IMPRESSION: 1. Normal bowel gas pattern. Right hemodialysis catheter overlying the right femoral neck.
[2025-02-07] MEDS: VANCOMYCIN 500mg/100mL 100 ML IV ONE (14:30)
[2025-02-07] MEDS: SUCRALFATE 1 GM/10 ML ORAL SUSP PO ONE (14:49)
[2025-02-07 14:56] LABS: Hematocrit 23.5 % (36.0-46.0); Hemoglobin 7.8 g/dL (12.2-16.2)
--- NOTE | 2025-02-07 16:41 | DVHPN2 ---
Progress Note Date Seen: Feb 07, 2025 Resident Creating Document: CUAUHTEMOC ARNDT RESDIENT Medical Necessity Reason Pt with a Central, PICC or Fol: No Subjective Review of Systems Patient seen and examined at the bedside, patient is feeling better and has no active complain. Objective vital signs Vital Sign Date Time Temp Pulse Resp B/P (MAP) Pulse Ox O2 Delivery O2 Flow Rate FiO2 02/07/25 16:00 13 Room Air* 0 21 02/07/25 16:00 98.2 83 155/66 (95) 97 98.2 Total Intake and Output 02/06/25 02/06/25 02/07/25 15:00 23:00 07:00 Intake Total 530 ml 300 ml Output Total 200 ml 750 ml Balance 330 ml -450 ml medications Current Medications Medications Dose Ordered Sig/Rigo Route Start Time Stop Time Status Last Admin Dose Admin Ondansetron HCl 4 mg Q4HP PRN IV 02/06/25 02:15 Atorvastatin Calcium 40 mg HS PO 02/06/25 22:00 02/06/25 20:47 40 MG Patient Own Medication 50,000 unit once a week PO 02/06/25 02:15 Hydralazine HCl 50 mg TID PO 02/06/25 06:00 02/07/25 05:47 50 MG Furosemide 40 mg DAILY IV 02/06/25 10:00 02/07/25 09:50 40 MG Carvedilol 12.5 mg DAILY PO 02/06/25 10:00 02/07/25 09:51 12.5 MG Diagnostic Test (Pha) 1 strip ACHS 02/06/25 07:00 02/07/25 11:30 1 STRIP Insulin Human Regular ACHS SC 02/06/25 07:00 02/07/25 11:30 4 UNITS Dextrose 50 ml UD PRN IV 02/06/25 02:15 Heparin Sodium (Porcine) 5,000 units Q12HR SC 02/06/25 10:00 02/06/25 11:40 5,000 UNITS Hydroxyzine Pamoate 25 mg Q6HP PRN PO 02/06/25 02:15 Sodium Bicarbonate 650 mg BID PO 02/06/25 10:00 02/07/25 09:50 650 MG Epoetin Matt-epbx 10,000 unit MWF@2100 SC 02/06/25 21:00 Pantoprazole Sodium 40 mg BID IV 02/07/25 22:00 Sucralfate 1 gm TID@0600,1130,2200 PO 02/07/25 22:00 Examination General Appearance: Alert, Oriented X3, Cooperative, lethargic HEENT: Atraumatic, PERRLA, EOMI, Mucous membrane moist/pink Respiratory: Clear to auscultation, Normal air movement Cardiovascular: Regular rate, Normal S1, Normal S2, No murmurs, no chest wall tenderness Abdominal: Normal bowel sounds, Soft, No tenderness, No hepatospenomegaly, No masses Extremities: Bilateral grade 2 pedal edema Skin: No rashes, No breakdown, No significant lesion Neuro: Normal gait, Normal speech, Strength at 5/5 X4 ext, Normal tone, Sensation intact, Cranial nerves 3-12 NL, Reflexes 2+ Psych/Mental Status: Mental status NL, Mood NL laboratory and microbiology Laboratory Tests 02/07/25 14:08 02/07/25 02:30 Test 02/07/25 02:30 Range/Units Serum Glucose 68 L 74-106 mg/dL Labs and/or images reviewed: Labs reviewed by me, Image(s) reviewed by me Problem List/Assessment/Plan Problem List/Assessment/Plan This is a 74 lady with past medical history of diabetes, hypertension, systolic heart failure CKD stage 5 came to the hospital due to nausea, vomiting, headache and dizziness. Nephrology consulted due to severe hyponatremia. Assessment: Hypoosmolar, hypervolemic severe symptomatic hyponatremia KEHINDE, on CKD stage 5, likely VMN Diabetes type 2 Hypertension Possible acute on chronic systolic heart failure Volume overload * Serum sodium is 110, serum osmolality 264, urine sodium 67 * Head CT scan shows no significant intracranial abnormalities Plan/recommendation: (Dr. Palmer) * sodium increased to 117, DC NS 3% * HD today * IV Lasix 40 mg daily * Consulted IR for placement of tunneled catheter * Strict I&Os * We will follow up with the patient Thank you for giving us the opportunity to take care of your patients failure please call back if you have any questions/concerns. Plan discussed with: Patient, Other (RN) My Orders My Orders Orders - CUAUHTEMOC ARNDT RESDIMARYANN Procedure Category Date Status Time Post Procedure XY 02/07/25 Resulted Abd/Pel Xray 10:46 ADDENDUM ADDENDUM ckd 5 with progression to ESRD- kiki for HD today w/ reduced Na bath TC tomorrow then HD again SW for ESRD chairtime no further 3% HD adjusted for Na corrections Seen with resident CUAUHTEMOC ARNDT Feb 07, 2025 16:41 VENANCIO PALMER MD Feb 07, 2025 18:31
--- NOTE | 2025-02-07 19:29 | DVHPNRES ---
Progress Note Date Seen: Feb 07, 2025 Resident Creating Document: JULI COREAS RESIDENT Medical Necessity Reason Pt with a Central, PICC or Fol: No Subjective Review of Systems Geovanna Davis is a 74-year-old female with past medical history of type 2 diabetes mellitus, hypertension and CKD stage 5 (not in dialysis). The patient with chief complain of 3 days of headache, throbbing like, 6/10, left temporal region, irradiated to the left side of the neck associated with dizziness. The patient's daughter reports that the patient was here on Tuesday on 01/03/2025 for high blood pressure and hyperkalemia. She was then later discharged home but her headache did not improved. One day before coming to the ED, the headache worsen, and were associated with dizziness, nausea and 3 episodes of vomiting. Patient denies any chills, fever, shortness of breath, chest pain, abdominal pain or other symptoms. On further questioning, the patient has denied dialysis. Dr. Ramirez, patient's inspector and unloader is aware. In ED, lab work showed: hyponantremia, Na: 110, Hyperkalemia, K: 5.2, BUN 79, creatinine 5.25, WBC 4.3, RBC 2.69, hemoglobin 7.3, hematocrit 22.3, MCV 83.1. On past medical history: Type 2 diabetes mellitus, hypertension, CKD stage 5, anemia. Past surgical history: Left total knee replacement 2 years ago. Family history: Mother had diabetes mellitus, father of prostate cancer. On social history: Patient denies ever smoking, drinking alcohol or taking any illicit drugs. Allergies: Penicillin. The patient was admitted for further management. Admission course: On 02/06/25, the patient was evaluated and examined at bed side. VS: BP: 138/89mmHg, HR: 68bpm. Labs were reviewed. New labs were ordered: potassium, Na, urine Na and urine creatinine. IV fluids:NS 3% was started. On 02/07/25, the patient was re-evaluated and examined at the bedside, the patient reports feeling well. VS, labs and chart was reviewed. Due to Hb 6.4 the patient received 1 RBC unit improving her hemoglobin to 7.3mg/dl. Sodium levels are improving with NS 3%, the increase is being perform slowly, Na: 118mmol/l. The patient had a catheter placed for hemodyalisis. She will receive first hemodyalisis session today. I spoke with the family and they are aware of patient status and progress. We will continue monitoring with this patient. ROS Constitutional: Yes:Headache and dizziness has improved to 4/10; No: Fever, Chills, Sweats, Weakness, Malaise Eyes: No: Pain, Vision change, Conjunctivae inflammation, Eyelid inflammation, Other, Redness ENT: No: Ear pain, Ear discharge, Nose pain, Nose discharge, Nose congestion, Mouth pain, Mouth swelling, Throat pain, Throat swelling, Other Respiratory: No: Cough, Dry, Shortness of breath, SOB with excertion, Wheezing, Hemoptysis, Pleuritic Pain, Sputum, Wheezing, Other Cardiovascular: No: Chest Pain, Palpitations, Orthopnea, Paroxysmal Noc. Dyspnea, Edema, Lt Headedness, Other Gastrointestinal: No: Abdominal Pain, Diarrhea, Constipation, Melena, Hematochezia, Other Genitourinary: No Dysuria, No Frequency, No Incontinence, No Hematuria, No Retention, No Other Musculoskeletal: No: other, neck pain, shoulder pain, arm pain, back pain, hand pain, leg pain, foot pain Skin: No: Rash, Lesions, Jaundice, Bruising, Other Neurological: No: Weakness, Numbness, Incoordination, Change in speech, Confusion, Seizures, Other Allergies: Penicillins (Unverified Allergy, Mild, hives Objective vital signs Vital Sign Date Time Temp Pulse Resp B/P (MAP) Pulse Ox O2 Delivery O2 Flow Rate FiO2 02/07/25 18:00 89 02/07/25 18:00 18 Room Air* 0 21 02/07/25 17:30 139/61 (87) 96 02/07/25 16:00 98.2 98.2 Total Intake and Output 02/06/25 02/06/25 02/07/25 15:00 23:00 07:00 Intake Total 530 ml 300 ml Output Total 200 ml 750 ml Balance 330 ml -450 ml medications Current Medications Medications Dose Ordered Sig/Rigo Route Start Time Stop Time Status Last Admin Dose Admin Ondansetron HCl 4 mg Q4HP PRN IV 02/06/25 02:15 Atorvastatin Calcium 40 mg HS PO 02/06/25 22:00 02/06/25 20:47 40 MG Patient Own Medication 50,000 unit once a week PO 02/06/25 02:15 Hydralazine HCl 50 mg TID PO 02/06/25 06:00 02/07/25 05:47 50 MG Furosemide 40 mg DAILY IV 02/06/25 10:00 02/07/25 09:50 40 MG Carvedilol 12.5 mg DAILY PO 02/06/25 10:00 02/07/25 09:51 12.5 MG Diagnostic Test (Pha) 1 strip ACHS 02/06/25 07:00 02/07/25 17:00 1 STRIP Insulin Human Regular ACHS SC 02/06/25 07:00 02/07/25 11:30 4 UNITS Dextrose 50 ml UD PRN IV 02/06/25 02:15 Heparin Sodium (Porcine) 5,000 units Q12HR SC 02/06/25 10:00 02/06/25 11:40 5,000 UNITS Hydroxyzine Pamoate 25 mg Q6HP PRN PO 02/06/25 02:15 Epoetin Matt-epbx 10,000 unit MWF@2100 PR 02/06/25 21:00 Pantoprazole Sodium 40 mg BID IV 02/07/25 22:00 Sucralfate 1 gm TID@0600,1130,2200 PO 02/07/25 22:00 Examination General Appearance: patient not in distress, alert, oriented X3, Cooperative. HEENT: Atraumatic, PERRLA, EOMI, Mucous membrane moist/pink Respiratory: bilateral mild crackles on the bases. normal lung expansion. Cardiovascular: Regular rate, Normal S1, Normal S2, No murmurs, no chest wall tenderness Abdominal: Normal bowel sounds, Soft, No tenderness, No hepatospenomegaly, No masses Extremities: Bilateral pitting edema up to the lower part of the leg. No clubbing, No cyanosis, No edema, Normal pulses, No tenderness/swelling Skin: No rashes, No breakdown, No significant lesion Neuro: Grossly intact cranial nerves Cranial nerves 3-12 NL, Reflexes 2+ Psych/Mental Status: Normal mood. laboratory and microbiology Laboratory Tests 02/07/25 14:08 02/07/25 02:30 Test 02/07/25 02:30 Range/Units Serum Glucose 68 L 74-106 mg/dL Problem List/Assessment/Plan Problem List/Assessment/Plan #Hypervolemic symptomatic hyponatremia #Metabolic encephalopathy due to above #Mixed severe anemia- iron deficiency and anemia of chronic disease -iron profile and previous visit shows low iron levels -Furosemide 40 mg IV daily -home medication Ferrous sulfate 325 mg p.o. daily continued -Zofran 4 mg IV q.4 PRN -stool occult blood -Type and screen ordered. #Type 2 diabetes mellitus with hyperglycemia - A1c: 6.1% -Mild sliding scale insulin -Accu-Cheks #Dyslipidemia -home medication Atorvastatin 40 mg continue daily # CKD stage 5, not in dialysis (due to patient preference) -Nephrology consult placed -Avoid any nephrotoxic agents #Hyperkalemia -Lokelma 10 mg p.o. once -home medication Sodium bicarbonate 650 mg p.o. b.i.d. continued #Acute on chronic exacerbation of CHF, rule out systolic vs diastolic. -BNP 328.98 -Echo, report is pending -chest x-ray shows: Cardiomegaly with mild pulmonary vascular congestion. #Anxiety -hydroxyzine 25 mg p.o. q.6 PRN Diet: Renal diet DVT prophylaxis: heparin 5000 units subcutaneous b.i.d. Goals of care discussed with the patient > 35 min. Discussed plan of care with Dr. Knox Code status: Full code PCP: Michael. Nephrology: Dr. Ramirez Plan discussed with: Patient and daughter, the patient agrees with the plan. Plan discussed with: Patient, Daughter Date of Service: Feb 07, 2025 Billing Provider: ANGELES KNOX MD Common Visit Codes: [id number] INP/OBS CARE(HIGH) JULI COREAS RESIDENT Feb 07, 2025 19:29 ANGELES KNOX MD Feb 13, 2025 11:51
--- NOTE | 2025-02-07 19:33 | DVHCONRES ---
Date Seen: Feb 07, 2025 Resident Creating Document: JHAJJ,SARPUNEET RESIDENT Referring Physician Jason Reason for Consultation GI bleed History of Present Illness Patient is a 74-year-old female with past medical history of type 2 diabetes mellitus, hypertension and CKD stage 5 (not on dialysis) was brought to the hospital with c/c of 3 days of headache and dizziness. The patient was recently discharged from the hospital. Patient denies any chills, fever, shortness of breath, chest pain, abdominal pain or other symptoms. GI were consulted because the patient's hemoglobin dropped. On reviewing previous records patient was seen to have hemoglobin at times between 6-7. Talking to the patient's daughter she never had endoscopy before and does not to have any history of GI bleed . Before this admission patient did not have any episode of hematemesis, melena. As per the nurse patient had had blackish/dark green bowel movement. Patient was found to have severe hyponatremia and likely the cause of altered mental status. Past Medical History As per HPI Past Surgical History Left total knee replacement 2 years ago Family History: Diabetes mellitus G8 MOTHER FHx: cancer G8 MOTHER G8 FATHER Family History Mother had diabetes mellitus, father of prostate cancer. Social History denies ever smoking, drinking alcohol or taking any illicit drugs. Allergies: Coded Allergies: Penicillins (Unverified Allergy, Mild, hives, 03/13/24) Home Meds Active Scripts Hydralazine Hcl (Hydralazine Hcl) 50 Mg Tab, 1 TAB PO TID for 30 Days, #90 TAB 3 Refills Prov:JAEL RODRIGUEZ MD 02/02/25 Amlodipine Besylate (Amlodipine Besylate) 10 Mg Tab, 10 MG PO DAILY for 30 Days, #30 TAB Prov:JAEL RODRIGUEZ MD 02/02/25 Metoprolol Tartrate (LOPRESSOR TABLET) 50 Mg Tb, 50 MG GT BID for 30 Days, #60 TAB Prov:JAEL RODRIGUEZ MD 02/02/25 Sodium Zirconium Cyclosilicate (Lokelma) 10 Gm Kermit, 10 GM PO DAILY, #30 PACK 0 Refills Prov:ANANDA SMALL MD 05/21/24 Sodium Bicarbonate (Sodium Bicarbonate) 650 Mg Tab, 1300 MG PO TID for 30 Days, #180 TAB 0 Refills Prov:ANANDA SMALL MD 05/21/24 Reported Medications Ergocalciferol (VITAMIN D2) 400 Unit Tab, 63190 UNIT PO once a week, TAB 05/18/24 Insulin NPH (Human) (Isophane) (Novolin N Flexpen) 100 Unit/Ml Inj, 100 UNIT SC UD, INJ 0-150 0 151-200 4 u 201-250 6 u 251-300 8 u 301-350 10 u 351-400 12 u 06/18/22 Insulin Glargine (Basaglar Kwikpen) 100 Unit/Ml Inj, 100 UNIT SC, INJ 25 units q am, 10 units qhs 06/18/22 Atorvastatin Calcium (Lipitor) 40 Mg Tab, 40 MG PO HS, TAB 06/18/22 Discontinued Scripts Carvedilol (Carvedilol) 6.25 Mg Tab, 1 TAB PO BID, #60 TAB 0 Refills Prov:ANANDA SMALL MD 05/21/24 Current Medications Current Medications Medications (Trade) Dose Ordered Sig/Rigo Route PRN Reason Start Time Stop Time Status Last Admin Atorvastatin Calcium (Lipitor) 40 mg HS PO 02/06/25 22:00 02/06/25 20:47 Epoetin Matt-epbx (Retacrit) 10,000 unit MWF@2100 SC 02/06/25 21:00 Pantoprazole Sodium (Protonix) 40 mg DAILY IV 02/07/25 10:00 02/07/25 12:29 DC Pantoprazole Sodium (Protonix) 40 mg BID IV 02/07/25 22:00 Sucralfate (Carafate Susp) 1 gm TID@0600,1130,2200 PO 02/07/25 22:00 Review of Systems Patient is seen and examined with the bedside Alert and oriented X 2 Denies any abdominal pain, nausea, vomiting, diarrhea Vital Signs Vital Signs Date Time Temp Pulse Resp B/P (MAP) Pulse Ox O2 Delivery O2 Flow Rate FiO2 02/07/25 18:00 89 02/07/25 18:00 18 Room Air* 0 21 02/07/25 17:30 139/61 (87) 96 02/07/25 16:00 98.2 98.2 Physical Exam Gen - mild conjunctival pallor, no scleral icterus Skin - Patients skin is warm and dry. HEENT - normocephalic, atraumatic, dry mucous membranes. Neck - supple, no lymphadenopathy Pulmonary - B/L equal air entry with vesicular breath sounds cardiovascular - regular S1,S2 heard GI - soft nontender abdomen. Bowel sounds normoactive. Neurological - Patient is alert and oriented x2. Labs/Diagnostic Data Labs Test 02/07/25 14:35 02/07/25 14:08 02/07/25 02:30 02/06/25 23:55 Range/Units POC Glucose 205 H 70-106 mg/dl Hemoglobin 7.8 #L 12.2-16.2 g/dL Hematocrit 23.5 #L 36.0-46.0 % Sodium Level 118 *L 136-145 mmol/L Ammonia 30 11-32 umol/L White Blood Count 3.8 L 4.4-10.8 10^3/uL Red Blood Count 2.35 L 4.0-5.20 10^6/uL Mean Corpuscular Volume 80.3 80.0-100.0 fL Mean Corpuscular Hemoglobin 27.7 L 28.0-32.0 pg Mean Corpuscular Hemoglobin Concent 34.5 32.0-36.0 g/dL Red Cell Distribution Width 15.0 H 11.8-14.3 % Platelet Count 250 140-450 10^3/uL Mean Platelet Volume 7.2 6.9-10.8 fL Neutrophils (%) (Auto) 75.3 37.0-80.0 % Lymphocytes (%) (Auto) 15.1 10.0-50.0 % Monocytes (%) (Auto) 8.8 0.0-12.0 % Eosinophils (%) (Auto) 0.4 0.0-7.0 % Basophils (%) (Auto) 0.4 0.0-2.0 % Neutrophils # (Auto) 2.9 1.6-8.6 10 ^3/uL Lymphocytes # (Auto) 0.6 0.4-5.4 10 ^3/uL Monocytes # (Auto) 0.3 0-1.3 10 ^3/uL Eosinophils # (Auto) 0 0-0.8 10 ^3/uL Basophils # (Auto) 0 0-0.2 10 ^3/uL Nucleated Red Blood Cells 0.0 % Prothrombin Time 10.0 9.3-11.8 sec Prothrombin Time INR 0.94 0.9-1.15 Activated Partial Thromboplast Time 21.7 L 24.5-34.5 SEC Potassium Level 4.1 3.5-5.1 mmol/L Chloride Level 88 L 98-107 mmol/L Carbon Dioxide Level 17 L 20-31 mmol/L Anion Gap 12 5-15 Blood Urea Nitrogen 77 H 9-23 mg/dL Creatinine 4.91 H 0.550-1.02 mg/dL Glomerular Filtration Rate Calc 9 >90 mL/min BUN/Creatinine Ratio 15.7 10.0-20.0 Serum Glucose 68 L 74-106 mg/dL Calcium Level 7.6 L 8.7-10.4 mg/dL Total Bilirubin 0.3 0.2-1.0 mg/dL Aspartate Amino Transferase (AST) 32 13-40 U/L Alanine Aminotransferase (ALT) 19 7-40 U/L Alkaline Phosphatase 115 46-116 U/L Total Protein 5.0 L 5.7-8.2 g/dL Albumin 3.0 L 3.2-4.8 g/dL Iron Level 44 L 50-170 ug/dL Total Iron Binding Capacity 223 L 250-425 ug/dL Percent Iron Saturation 19.7 15-50 % Ferritin 71.7 10-291 ng/mL Test 02/06/25 23:54 02/06/25 23:33 02/06/25 11:50 02/06/25 09:35 Range/Units Hemoglobin A1c 5.7 <5.7 % A1C Stool Occult Blood Positive Negative Stool Occult Blood Sample #3 Negative Urine Color Colorless Yellow Urine Clarity Clear Clear Urine pH 5.5 5.0-9.0 Urine Specific [place] 1.007 1.001-1.035 Urine Protein 1+ H Negative Urine Ketones Negative Negative Urine Blood 1+ H Negative /uL Urine Nitrite Negative Negative Urine Bilirubin Negative Negative Urine Urobilinogen Normal Negative mg/dL Urine Leukocyte Esterase Negative Negative /uL Urine RBC 1 0 - 4 /hpf Urine Microscopic WBC 1 0-5 /HPF Urine Squamous Epithelial Cells Few <5 /hpf Urine Bacteria None seen None Seen /hpf Urine Osmolality 257 mOsm/kg Urine Creatinine 28.16 L 30.0-125.0 mg/dL Urine Sodium 67 40-220 mmol/L Urine Glucose Normal Normal mg/dL Magnesium Level 1.7 1.6-2.6 mg/dL Parathyroid Hormone (Intact) 515.3 H 18.4-80.1 pg/mL Hepatitis A Antibody Total Positive H Negative Hepatitis B Surface Antibody Negative Negative Hepatitis B Core Total Antibody Negative Negative Test 02/06/25 06:49 02/06/25 01:31 02/05/25 23:54 Range/Units Vitamin B12 Level 452 211-911 pg/mL Vitamin D 25-Hydroxy 87.5 30.0-100 ng/mL Serum Osmolality 264 L 278-298 mOsm/kg Phosphorus Level 6.5 H 2.4-5.1 mg/dL Troponin I High Sensitivity 31 </=34 ng/L B-Type Natriuretic Peptide 328.98 0-100 pg/mL Assessment Assessment Normocytic hypochromic anemia Possible upper GI bleed Possible with the place ulcer disease Probable Anemia of chronic disease Hypoosmolar, hypervolemic severe symptomatic hyponatremia KEHINDE, on CKD stage 5, likely VMN Plan - IV Protonix b.i.d. - Carafate p.o. b.i.d. - NPO after midnight for EGD tomorrow - monitor H&H and keep hemoglobin above [address] Beverly Plan discussed with: Patient, Daughter, Other (NETTIE Núñez) AGNIESZKA ORR RESIDENT Feb 07, 2025 19:33
[2025-02-07] MEDS: PANTOPRAZOLE 40 MG/10 ML VIAL INJ IV SCH (19:44)
[2025-02-07] MEDS: SUCRALFATE 1 GM/10 ML ORAL SUSP PO SCH (19:44)
[2025-02-07] MEDS: EPOETIN ALFA-EPBX 10,000 UNIT/1ML VIAL SC SCH (20:11)
[2025-02-08] VITALS (49 sets, daily range): BP systolic 124–185; BP diastolic 45–76; PULSE 70–91; RESP 11–24; TEMP 98–99.2; O2SAT 88–99
[2025-02-08 04:12] LABS: Mean Corpuscular Volume 80.7 fL (80.0-100.0); Nucleated Red Blood Cells % 0.1 %
[2025-02-08 04:14] LABS: Hematocrit 21.6 % (36.0-46.0); Hemoglobin 7.3 g/dL (12.2-16.2); Mean Corpuscular Hemoglobin 27.4 pg (28.0-32.0)
[2025-02-08 04:39] LABS: Anion Gap 12 (5-15); Carbon Dioxide 21 mmol/L (20-31)
[2025-02-08 04:40] LABS: Chloride 93 mmol/L (98-107); Potassium 3.3 mmol/L (3.5-5.1); Sodium 126 mmol/L (136-145)
[2025-02-08 04:45] LABS: Glucose 78 mg/dL (74-106)
[2025-02-08 04:46] LABS: BUN/Creatinine Ratio 12.8 (10.0-20.0)
[2025-02-08 04:51] LABS: Blood Urea Nitrogen 50 mg/dL (9-23); Calcium 7.5 mg/dL (8.7-10.4)
[2025-02-08] MEDS: POTASSIUM CHL 20MEQ/100ML 100 ML IV ONE (06:29)
[2025-02-08 10:46] LABS: Potassium 3.6 mmol/L (3.5-5.1)
[2025-02-08 10:52] LABS: Magnesium 1.6 mg/dL (1.6-2.6)
[2025-02-08] MEDS: MIDAZOLAM HCL 2MG/2ML 2ml VIAL (1mg/ml) ONE (11:37)
[2025-02-08] MEDS: fentaNYL CITRATE 100 MCG/2 ML VL ONE (11:37)
[2025-02-08] MEDS: VANCOMYCIN 1GM/250ML KIT 250 ML IV ONE (11:37)
[2025-02-08] MEDS: HEPARIN SODIUM (PORCINE) 5000 UNITS/ML 1ML VIAL ONE (11:38)
[2025-02-08] MEDS: LIDOCAINE 2%HCL (LOCAL ANESTH.) INJ 20ML MDV ONE (11:38)
[2025-02-08 12:03] LABS: Hepatitis B Surface Antigen Negative (Negative); Hepatitis C Antibody Negative (Negative)
--- NOTE | 2025-02-08 12:10 | DVH ---
XY Insertion of Venous Cath, HISTORY: TD CATH INSERTION PROCEDURE: Informed consent was obtained. The patient was placed supine on the interventional table. A limited localization ultrasound of the right neck base was obtained. The right neck base and upper chest were prepped with chlorhexidine which was allowed to dry and draped in the usual sterile fashio n. Time out was performed. IV sedation was administered. The skin and the soft tissues were infiltrat ed with 1% Lidocaine. With real-time ultrasound guidance, the internal jugular vein was accessed with a micropuncture kit, and an image documenting patency was recorded to PACS. A subcutaneous tunneled tract was created from the right upper chest to the venotomy site. A 14.5 [place] [address], 19 cm lo ng hemodialysis catheter was advanced through the tunneled tract. Fluoroscopy was used to advance a guidewire through the internal jugular vein into the inferior vena cava. Following serial dilatation, a 15 Serbian peel-away sheath was introduced, though which was adva nced the catheter into the right atrium. The catheter tip position was confirmed with fluoroscopy. Th ere was satisfactory flow in both lumens. The catheter lumens were flushed with saline and heparin wa s left indwelling in the catheter. A post-procedure image of the chest was obtained. The neck incisio n site was closed with Dermabond and dressed sterilely. The catheter was sutured at the skin surface and exit site also dressed sterilely. No immediate complication was identified. DAP 66 FLUOROSCOPY TIME: 1.1 minutes. SEDATION: Dr. Maya Marlow was personally responsible for the administration of moderate sedation during the procedure performed, including the use of an independent trained observer who had no other duties during the procedure. The drugs utilized were IV fentanyl and versed (see nursing log for details). The total time of supervision by the attending physician was approximately 30 minutes. FINDINGS: Widely patent right IJV. Post procedure image demonstrates smooth course of the hemodialysi s catheter with the tip in the right atrium. IMPRESSION: Placement of 14.5 maltese [place] [address], 19 cm long hemodialysis catheter through right internal jugular vein. Plan: Please contact IR for removal when no longer needed.
[2025-02-08] MEDS: SODIUM CHL 0.9% 1000 ML BAG XX ONE (13:50)
--- NOTE | 2025-02-08 13:54 | DVHPN2 ---
Progress Note Date Seen: Feb 08, 2025 Resident Creating Document: JHCrystalJAGNIESZKA Tomlinson RESIDENT Medical Necessity Reason Pt with a Central, PICC or Fol: No Subjective Review of Systems Patient seen and examined at the bedside Does not report of any abdominal pain, nausea or vomiting No bowel movement reported H&H stable after one unit of PRBC, trended down from 7.8 to 7.3 today continue monitoring Objective vital signs Vital Sign Date Time Temp Pulse Resp B/P (MAP) Pulse Ox O2 Delivery O2 Flow Rate FiO2 02/08/25 13:41 150/65 02/08/25 13:02 79 02/08/25 13:00 12 97 02/08/25 12:00 Room Air* 0 21 02/08/25 04:00 98.2 98.2 Total Intake and Output 02/07/25 02/07/25 02/08/25 15:00 23:00 07:00 Intake Total 220 ml 540 ml 300 ml Output Total 650 ml 1000 ml Balance 220 ml -110 ml -700 ml medications Current Medications Medications Dose Ordered Sig/Rigo Route Start Time Stop Time Status Last Admin Dose Admin Ondansetron HCl 4 mg Q4HP PRN IV 02/06/25 02:15 Atorvastatin Calcium 40 mg HS PO 02/06/25 22:00 02/07/25 19:44 40 MG Patient Own Medication 50,000 unit once a week PO 02/06/25 02:15 Hydralazine HCl 50 mg TID PO 02/06/25 06:00 02/08/25 06:23 50 MG Furosemide 40 mg DAILY IV 02/06/25 10:00 02/08/25 12:45 40 MG Carvedilol 12.5 mg DAILY PO 02/06/25 10:00 02/07/25 09:51 12.5 MG Diagnostic Test (Pha) 1 strip ACHS 02/06/25 07:00 02/08/25 12:46 1 STRIP Insulin Human Regular ACHS SC 02/06/25 07:00 02/07/25 11:30 4 UNITS Dextrose 50 ml UD PRN IV 02/06/25 02:15 Heparin Sodium (Porcine) 5,000 units Q12HR SC 02/06/25 10:00 02/06/25 11:40 5,000 UNITS Hydroxyzine Pamoate 25 mg Q6HP PRN PO 02/06/25 02:15 Epoetin Matt-epbx 10,000 unit MWF@2100 SC 02/06/25 21:00 02/07/25 20:11 10,000 UNIT Pantoprazole Sodium 40 mg BID IV 02/07/25 22:00 02/08/25 12:43 40 MG Sucralfate 1 gm TID@0600,1130,2200 PO 02/07/25 22:00 02/08/25 12:42 1 GM Examination Gen - mild conjunctival pallor, no scleral icterus Skin - Patients skin is warm and dry. HEENT - normocephalic, atraumatic, dry mucous membranes. Neck - supple, no lymphadenopathy Pulmonary - B/L equal air entry with vesicular breath sounds cardiovascular - regular S1,S2 heard GI - soft nontender abdomen. Bowel sounds normoactive. Neurological - Patient is alert and oriented x4. following commands. laboratory and microbiology Laboratory Tests 02/08/25 10:17 02/08/25 03:37 Test 02/08/25 03:37 Range/Units Serum Glucose 78 74-106 mg/dL Problem List/Assessment/Plan Problem List/Assessment/Plan Assessment Normocytic hypochromic anemia Possible upper GI bleed Possible with the place ulcer disease Probable Anemia of chronic disease Hypoosmolar, hypervolemic severe symptomatic hyponatremia KEHINDE, on CKD stage 5, likely VMN Plan - IV Protonix b.i.d. - Carafate p.o. b.i.d. - NPO after midnight for EGD tomorrow - monitor H&H and keep hemoglobin above 7, transfuse PRBC as needed - today the patient underwent tunneled dialysis catheter insertion and was scheduled for a hemodialysis later on, EGD could not be performed - we will monitor the patient and a possible EGD next week on tuesday - clear liquid diet Plan discussed with Dr. Beverly Plan discussed with: Patient, Daughter, Other (NETTIE Zhang) My Orders My Orders Orders - AGNIESZKA ORR Procedure Category Date Status Time Hemoglobin & LAB 02/08/25 Logged Hematocrit 14:00 Clear Liq Diet DIET 02/08/25 Transmitted Dinner AGNIESZKA ORR RESIDENT Feb 08, 2025 13:54
[2025-02-08 14:45] LABS: Hematocrit 20.1 % (36.0-46.0)
[2025-02-08 14:47] LABS: Hemoglobin 6.6 g/dL (12.2-16.2)
--- NOTE | 2025-02-08 16:23 | DVHPNRES ---
Progress Note Date Seen: Feb 08, 2025 Resident Creating Document: CUAUHTEMOC ARNDT RESDIENT Medical Necessity Reason Pt with a Central, PICC or Fol: No Subjective Review of Systems Patient seen and examined at the bedside, patient is feeling better and has no active complain.General Appearance: Objective vital signs Vital Sign Date Time Temp Pulse Resp B/P (MAP) Pulse Ox O2 Delivery O2 Flow Rate FiO2 02/08/25 16:08 98.0 81 16 156/55 98.0 02/08/25 16:00 98 Room Air* 0 21 Total Intake and Output 02/07/25 02/07/25 02/08/25 15:00 23:00 07:00 Intake Total 220 ml 540 ml 300 ml Output Total 650 ml 1000 ml Balance 220 ml -110 ml -700 ml medications Current Medications Medications Dose Ordered Sig/Rigo Route Start Time Stop Time Status Last Admin Dose Admin Ondansetron HCl 4 mg Q4HP PRN IV 02/06/25 02:15 Atorvastatin Calcium 40 mg HS PO 02/06/25 22:00 02/07/25 19:44 40 MG Patient Own Medication 50,000 unit once a week PO 02/06/25 02:15 Hydralazine HCl 50 mg TID PO 02/06/25 06:00 02/08/25 06:23 50 MG Furosemide 40 mg DAILY IV 02/06/25 10:00 02/08/25 12:45 40 MG Carvedilol 12.5 mg DAILY PO 02/06/25 10:00 02/07/25 09:51 12.5 MG Diagnostic Test (Pha) 1 strip ACHS 02/06/25 07:00 02/08/25 12:46 1 STRIP Insulin Human Regular ACHS SC 02/06/25 07:00 02/07/25 11:30 4 UNITS Dextrose 50 ml UD PRN IV 02/06/25 02:15 Heparin Sodium (Porcine) 5,000 units Q12HR SC 02/06/25 10:00 02/06/25 11:40 5,000 UNITS Hydroxyzine Pamoate 25 mg Q6HP PRN PO 02/06/25 02:15 Epoetin Amtt-epbx 10,000 unit MWF@2100 SC 02/06/25 21:00 02/07/25 20:11 10,000 UNIT Sucralfate 1 gm TID@0600,1130,2200 PO 02/07/25 22:00 02/08/25 12:42 1 GM Pantoprazole Sodium 50 ml @ 10 mls/hr Q5H IV 02/08/25 19:00 Examination Alert, Oriented X3, Cooperative, lethargic HEENT: Atraumatic, PERRLA, EOMI, Mucous membrane moist/pink Respiratory: Clear to auscultation, Normal air movement Cardiovascular: Regular rate, Normal S1, Normal S2, No murmurs, no chest wall tenderness Abdominal: Normal bowel sounds, Soft, No tenderness, No hepatospenomegaly, No masses Extremities: Bilateral grade 2 pedal edema Skin: No rashes, No breakdown, No significant lesion Neuro: Normal gait, Normal speech, Strength at 5/5 X4 ext, Normal tone, Sensation intact, Cranial nerves 3-12 NL, Reflexes 2+ Psych/Mental Status: Mental status NL, Mood NL laboratory and microbiology Laboratory Tests 02/08/25 14:17 02/08/25 10:17 02/08/25 03:37 Test 02/08/25 03:37 Range/Units Serum Glucose 78 74-106 mg/dL Labs and/or images reviewed: Labs reviewed by me, Image(s) reviewed by me Problem List/Assessment/Plan Problem List/Assessment/Plan This is a 74 lady with past medical history of diabetes, hypertension, systolic heart failure CKD stage 5 came to the hospital due to nausea, vomiting, headache and dizziness. Nephrology consulted due to severe hyponatremia. Assessment: Hypoosmolar, hypervolemic severe symptomatic hyponatremia KEHINDE, on CKD stage 5, likely VMN Diabetes type 2 Hypertension Possible acute on chronic systolic heart failure Volume overload * Serum sodium is 110, serum osmolality 264, urine sodium 67 * Head CT scan shows no significant intracranial abnormalities Plan/recommendation: (Dr. Villanueva) * Today, Na increased to 128 * HD today, previous session on 02/07 * IV Lasix 40 mg daily * DC femoral dialysis catheter * Strict I&Os * We will follow up with the patient Thank you for giving us the opportunity to take care of your patients failure please call back if you have any questions/concerns. Plan discussed with: Patient, Other (RN) CUAUHTEMOC ARNDT Feb 08, 2025 16:23 PRICE VILLANUEVA MD Feb 09, 2025 14:31
[2025-02-08 20:11] LABS: Hematocrit 24.9 % (36.0-46.0); Hemoglobin 8.5 g/dL (12.2-16.2)
[2025-02-08] MEDS: PANTOPRAZOLE 40mg/50ML NS AE 50 ML IV SCH (20:12)
--- NOTE | 2025-02-08 20:18 | DVHPNRES ---
Progress Note Date Seen: Feb 08, 2025 Resident Creating Document: JULI COREAS RESIDENT Medical Necessity Reason Pt with a Central, PICC or Fol: No Subjective Review of Systems Geovanna Davis is a 74-year-old female with past medical history of type 2 diabetes mellitus, hypertension and CKD stage 5 (not in dialysis). The patient with chief complain of 3 days of headache, throbbing like, 6/10, left temporal region, irradiated to the left side of the neck associated with dizziness. The patient's daughter reports that the patient was here on Tuesday on 01/03/2025 for high blood pressure and hyperkalemia. She was then later discharged home but her headache did not improved. One day before coming to the ED, the headache worsen, and were associated with dizziness, nausea and 3 episodes of vomiting. Patient denies any chills, fever, shortness of breath, chest pain, abdominal pain or other symptoms. On further questioning, the patient has denied dialysis. Dr. Ramirez, patient's music director is aware. In ED, lab work showed: hyponantremia, Na: 110, Hyperkalemia, K: 5.2, BUN 79, creatinine 5.25, WBC 4.3, RBC 2.69, hemoglobin 7.3, hematocrit 22.3, MCV 83.1. On past medical history: Type 2 diabetes mellitus, hypertension, CKD stage 5, anemia. Past surgical history: Left total knee replacement 2 years ago. Family history: Mother had diabetes mellitus, father of prostate cancer. On social history: Patient denies ever smoking, drinking alcohol or taking any illicit drugs. Allergies: Penicillin. The patient was admitted for further management. Admission course: On 02/06/25, the patient was evaluated and examined at bed side. VS: BP: 138/89mmHg, HR: 68bpm. Labs were reviewed. New labs were ordered: potassium, Na, urine Na and urine creatinine. IV fluids:NS 3% was started. On 02/07/25, the patient was re-evaluated and examined at the bedside, the patient reports feeling well. VS, labs and chart was reviewed. Due to Hb 6.4 the patient received 1 RBC unit improving her hemoglobin to 7.3mg/dl. Sodium levels are improving with NS 3%, the increase is being perform slowly, Na: 118mmol/l. The patient had a catheter placed for hemodyalisis. She will receive first hemodyalisis session today. I spoke with the family and they are aware of patient status and progress. We will continue monitoring with this patient. On 02/08/25, the patient was re-evaluate at bedside. VS, labs and chart was reviewed. Hb is 7.3mg/dl after 1 RBC U. The patient will have a tunnel catheter placed today for dial is 126mmol/l. K:3.3 was replenished. The patient reports feeling better, headache and dizziness have improved. H&H was requested. The patient will have GED today to r/o GI bleeding. We will continue monitoring this patient. ROS Constitutional: Yes:Headache and dizziness has improved to 4/10; No: Fever, Chills, Sweats, Weakness, Malaise Eyes: No: Pain, Vision change, Conjunctivae inflammation, Eyelid inflammation, Other, Redness ENT: No: Ear pain, Ear discharge, Nose pain, Nose discharge, Nose congestion, Mouth pain, Mouth swelling, Throat pain, Throat swelling, Other Respiratory: No: Cough, Dry, Shortness of breath, SOB with excertion, Wheezing, Hemoptysis, Pleuritic Pain, Sputum, Wheezing, Other Cardiovascular: No: Chest Pain, Palpitations, Orthopnea, Paroxysmal Noc. Dyspnea, Edema, Lt Headedness, Other Gastrointestinal: No: Abdominal Pain, Diarrhea, Constipation, Melena, Hematochezia, Other Genitourinary: No Dysuria, No Frequency, No Incontinence, No Hematuria, No Retention, No Other Musculoskeletal: No: other, neck pain, shoulder pain, arm pain, back pain, hand pain, leg pain, foot pain Skin: No: Rash, Lesions, Jaundice, Bruising, Other Neurological: No: Weakness, Numbness, Incoordination, Change in speech, Confusion, Seizures, Other Allergies: Penicillins (Unverified Allergy, Mild, hives Objective vital signs Vital Sign Date Time Temp Pulse Resp B/P (MAP) Pulse Ox O2 Delivery O2 Flow Rate FiO2 02/08/25 18:05 87 164/48 02/08/25 18:00 14 97 Room Air* 0 21 02/08/25 17:00 98.3 98.3 Total Intake and Output 02/07/25 02/07/25 02/08/25 15:00 23:00 07:00 Intake Total 220 ml 540 ml 300 ml Output Total 650 ml 1000 ml Balance 220 ml -110 ml -700 ml medications Current Medications Medications Dose Ordered Sig/Rigo Route Start Time Stop Time Status Last Admin Dose Admin Ondansetron HCl 4 mg Q4HP PRN IV 02/06/25 02:15 Atorvastatin Calcium 40 mg HS PO 02/06/25 22:00 02/07/25 19:44 40 MG Patient Own Medication 50,000 unit once a week PO 02/06/25 02:15 Hydralazine HCl 50 mg TID PO 02/06/25 06:00 02/08/25 17:24 50 MG Furosemide 40 mg DAILY IV 02/06/25 10:00 02/08/25 12:45 40 MG Carvedilol 12.5 mg DAILY PO 02/06/25 10:00 02/08/25 17:18 12.5 MG Diagnostic Test (Pha) 1 strip ACHS 02/06/25 07:00 02/08/25 17:17 1 STRIP Insulin Human Regular ACHS SC 02/06/25 07:00 02/07/25 11:30 4 UNITS Dextrose 50 ml UD PRN IV 02/06/25 02:15 Heparin Sodium (Porcine) 5,000 units Q12HR SC 02/06/25 10:00 02/06/25 11:40 5,000 UNITS Hydroxyzine Pamoate 25 mg Q6HP PRN PO 02/06/25 02:15 Epoetin Matt-epbx 10,000 unit MWF@2100 [place] 02/06/25 21:00 02/07/25 20:11 10,000 UNIT Sucralfate 1 gm TID@0600,1130,2200 PO 02/07/25 22:00 02/08/25 12:42 1 GM Pantoprazole Sodium 50 ml @ 10 mls/hr Q5H IV 02/08/25 19:00 Examination General Appearance: patient not in distress, alert, oriented X3, Cooperative. HEENT: Atraumatic, PERRLA, EOMI, Mucous membrane moist/pink Respiratory: bilateral mild crackles on the bases. normal lung expansion. Cardiovascular: Regular rate, Normal S1, Normal S2, No murmurs, no chest wall tenderness Abdominal: Normal bowel sounds, Soft, No tenderness, No hepatospenomegaly, No masses Extremities: Bilateral pitting edema up to the lower part of the leg. No clubbing, No cyanosis, No edema, Normal pulses, No tenderness/swelling Skin: No rashes, No breakdown, No significant lesion Neuro: Grossly intact cranial nerves Cranial nerves 3-12 NL, Reflexes 2+ Psych/Mental Status: anxious. laboratory and microbiology Laboratory Tests 02/08/25 18:47 02/08/25 10:17 02/08/25 03:37 Test 02/08/25 03:37 Range/Units Serum Glucose 78 74-106 mg/dL Problem List/Assessment/Plan Problem List/Assessment/Plan #Hypoosmolar, Hypervolemic symptomatic severe hyponatremia #Metabolic encephalopathy due to above #Mixed severe anemia- iron deficiency and anemia of chronic disease -iron profile and previous visit shows low iron levels -Furosemide 40 mg IV daily -home medication Ferrous sulfate 325 mg p.o. daily continued -Zofran 4 mg IV q.4 PRN -stool occult blood -Type and screen ordered. #Type 2 diabetes mellitus with hyperglycemia - A1c: 6.1% -Mild sliding scale insulin -Accu-Cheks #Dyslipidemia -home medication Atorvastatin 40 mg continue daily #KEHINDE, on CKD stage 5, likely VMN -Nephrology consult placed -The patient started dialysis, chair time was requested. -Tunnel catheter -Avoid any nephrotoxic agents #Hyperkalemia -Lokelma 10 mg p.o. once -home medication Sodium bicarbonate 650 mg p.o. b.i.d. continued #Acute on chronic exacerbation of CHF, rule out systolic vs diastolic. -BNP 328.98 -Echo, result is still pending. -chest x-ray shows: Cardiomegaly with mild pulmonary vascular congestion. #Anxiety -hydroxyzine 25 mg p.o. q.6 PRN Diet: Renal diet DVT prophylaxis: heparin 5000 units subcutaneous b.i.d. Goals of care discussed with the patient > 35 min. Discussed plan of care with Dr. Triplett. Code status: Full code PCP: Michael. Nephrology: Dr. Ramirez Plan discussed with: Patient and daughter, the patient agrees with the plan. Plan discussed with: Patient My Orders My Orders Orders - JULI COREAS Procedure Category Date Status Time Complete Blood Count LAB 02/09/25 Verified 04:00 Basic Metabolic Panel LAB 02/09/25 Verified 04:00 Date of Service: Feb 08, 2025 Billing Provider: ISAK TRIPLETT MD Common Visit Codes: [id number] INP/OBS CARE(HIGH) Date of Service: Feb 08, 2025 Billing Provider: ISAK TRIPLETT MD Common Visit Codes: [id number] INP/OBS CARE(HIGH) JOSSJULI RESIDENT Feb 08, 2025 20:18 ISAK TRIPLETT MD Feb 08, 2025 22:28
[2025-02-09] VITALS (26 sets, daily range): BP systolic 127–177; BP diastolic 45–78; PULSE 71–100; RESP 12–32; TEMP 98.2–100.2; O2SAT 88–98
[2025-02-09] MEDS: MELATONIN 5 MG TAB PO ONE (03:44)
[2025-02-09 03:46] LABS: Nucleated Red Blood Cells % 0.1 %
[2025-02-09 03:51] LABS: Hematocrit 23.1 % (36.0-46.0); Hemoglobin 8.1 g/dL (12.2-16.2); Mean Corpuscular Hemoglobin 28.2 pg (28.0-32.0); Mean Corpuscular Volume 80.3 fL (80.0-100.0)
[2025-02-09 03:57] LABS: Anion Gap 9 (5-15); Carbon Dioxide 28 mmol/L (20-31)
[2025-02-09 04:02] LABS: BUN/Creatinine Ratio 7.8 (10.0-20.0); Blood Urea Nitrogen 19 mg/dL (9-23); Glucose 77 mg/dL (74-106)
[2025-02-09 04:14] LABS: Chloride 96 mmol/L (98-107); Potassium 3.3 mmol/L (3.5-5.1); Sodium 133 mmol/L (136-145)
[2025-02-09 04:15] LABS: Calcium 7.8 mg/dL (8.7-10.4)
[2025-02-09] MEDS: POTASSIUM EFFERVESENT TAB 25 MEQ PO ONE ×2 (06:01→08:25)
[2025-02-09] MEDS: CARVEDILOL 12.5 MG TAB PO SCH (07:45)
[2025-02-09] MEDS: MAGNESIUM OXIDE 400 MG TAB PO ONE (08:31)
--- NOTE | 2025-02-09 11:08 | DVHPNRES ---
Progress Note Date Seen: Feb 09, 2025 Resident Creating Document: CHARLOTTE SMITH RESIDENT Medical Necessity Reason Pt with a Central, PICC or Fol: No Subjective Review of Systems Geovanna Davis is a 74-year-old female with past medical history of type 2 diabetes mellitus, hypertension and CKD stage 5 (not in dialysis). The patient with chief complain of 3 days of headache, throbbing like, 6/10, left temporal region, irradiated to the left side of the neck associated with dizziness. The patient's daughter reports that the patient was here on Tuesday on 01/03/2025 for high blood pressure and hyperkalemia. She was then later discharged home but her headache did not improved. One day before coming to the ED, the headache worsen, and were associated with dizziness, nausea and 3 episodes of vomiting. Patient denies any chills, fever, shortness of breath, chest pain, abdominal pain or other symptoms. Patient was seen examined on the bedside. He is alert oriented x3. Mentioned feeling better and no active complaint this time. Status post tunnel catheter placement and EGD was rescheduled to Tuesday on 02/11/2025. Sodium is now 133 and stable, patient is downgraded to telemetry. Objective vital signs Vital Sign Date Time Temp Pulse Resp B/P (MAP) Pulse Ox O2 Delivery O2 Flow Rate FiO2 02/09/25 11:00 99.1 75 22 167/73 (104) 94 99.1 02/09/25 08:30 Room Air* 0 21 Total Intake and Output 02/08/25 02/08/25 02/09/25 15:00 23:00 07:00 Intake Total 1070 ml 320 ml Output Total 1000 ml 730 ml Balance 70 ml -410 ml medications Current Medications Medications Dose Ordered Sig/Rigo Route Start Time Stop Time Status Last Admin Dose Admin Ondansetron HCl 4 mg Q4HP PRN IV 02/06/25 02:15 Atorvastatin Calcium 40 mg HS PO 02/06/25 22:00 02/08/25 20:14 40 MG Patient Own Medication 50,000 unit once a week PO 02/06/25 02:15 Hydralazine HCl 50 mg TID PO 02/06/25 06:00 02/08/25 20:13 50 MG Furosemide 40 mg DAILY IV 02/06/25 10:00 02/09/25 10:48 40 MG Diagnostic Test (Pha) 1 strip ACHS 02/06/25 07:00 02/09/25 10:52 1 STRIP Insulin Human Regular ACHS SC 02/06/25 07:00 02/08/25 20:26 3 UNITS Dextrose 50 ml UD PRN IV 02/06/25 02:15 Heparin Sodium (Porcine) 5,000 units Q12HR SC 02/06/25 10:00 02/08/25 20:24 5,000 UNITS Hydroxyzine Pamoate 25 mg Q6HP PRN PO 02/06/25 02:15 Epoetin Matt-epbx 10,000 unit MWF@2100 SC 02/06/25 21:00 02/08/25 20:14 10,000 UNIT Sucralfate 1 gm TID@0600,1130,2200 PO 02/07/25 22:00 02/09/25 10:45 1 GM Pantoprazole Sodium 50 ml @ 10 mls/hr Q5H IV 02/08/25 19:00 02/09/25 08:37 10 MLS/HR Carvedilol 6.25 mg BID PO 02/09/25 07:45 02/09/25 10:49 6.25 MG Examination Examination General Appearance: patient not in distress, alert, oriented X3, Cooperative. HEENT: Atraumatic, PERRLA, EOMI, Mucous membrane moist/pink Respiratory: bilateral mild crackles on the bases. normal lung expansion. Cardiovascular: Regular rate, Normal S1, Normal S2, No murmurs, no chest wall tenderness Abdominal: Normal bowel sounds, Soft, No tenderness, No hepatospenomegaly, No masses Extremities: Bilateral pitting edema up to the lower part of the leg. No clubbing, No cyanosis, No edema, Normal pulses, No tenderness/swelling Skin: No rashes, No breakdown, No significant lesion Neuro: Grossly intact cranial nerves Cranial nerves 3-12 NL, Reflexes 2+ Psych/Mental Status: anxious. laboratory and microbiology Laboratory Tests 02/09/25 03:13 Test 02/09/25 03:13 Range/Units Serum Glucose 77 74-106 mg/dL Labs and/or images reviewed: Labs reviewed by me, Image(s) reviewed by me Problem List/Assessment/Plan Problem List/Assessment/Plan Problem List/Assessment/Plan #Hypoosmolar, Hypervolemic symptomatic severe hyponatremia #Metabolic encephalopathy due to above - Sodium is now 133 # Acute on chronic mixed severe anemia- iron deficiency and anemia of chronic disease - Iron profile and previous visit shows low iron levels - Stool occult blood positive - patient received 2 units of PRBC - Scheduled for EGD on 02/11/2025 - Ferrous sulfate 325 mg p.o. daily - Protonix 40 mg IV daily, Carafate 1 g p.o. b.i.d. # Type 2 diabetes mellitus , HbA1C 6.1% - Mild sliding scale insulin #Dyslipidemia -home medication Atorvastatin 40 mg continue daily #KEHINDE, on CKD stage 5, likely VMN - Hemodialysis today -Furosemide 40 mg IV daily - consulted social studies teacher to arrange outpatient chair time #Hyperkalemia resolved - Monitor BMP #Acute on chronic exacerbation of CHF, rule out systolic vs diastolic. -BNP 328.98 -Echo, result is still pending. -chest x-ray shows: Cardiomegaly with mild pulmonary vascular congestion. #Anxiety -hydroxyzine 25 mg p.o. q.6 PRN Diet: Renal diet DVT prophylaxis: heparin 5000 units subcutaneous b.i.d. Goals of care discussed with the patient > 35 min. Discussed plan of care with Dr. Hastings. Code status: Full code Plan discussed with: Patient, Daughter, Other (RN) My Orders My Orders Orders - CHARLOTTE SMITH Procedure Category Date Status Time Carvedilol Tablet PHA 02/09/25 In Process (Coreg Tablet) 07:45 Dietary Evaluation Review Comments: 1) Advance to 45g [facility] renal cardiac diet when medically feasible 2) Encourage optimal PO intake 3) Refer to outpatient RD/CD[facility] for weight management 4) Follow-up with nephrology and cardiology 5) Continue to monitor I&O, labs, and skin integrity Expected Outcomes/Goals: 1) appetite and labs to improve 2) diet to advance 3) gradual wt loss 4) f/u in 3-5 days Date of Service: Feb 09, 2025 Billing Provider: ISAK HASTINGS MD Common Visit Codes: [id number] INP/OBS CARE(HIGH) CHARLOTTE SMITH Feb 09, 2025 11:08 ISAK HASTINGS MD Feb 09, 2025 18:03
--- NOTE | 2025-02-09 14:33 | DVHPN2 ---
Progress Note Date Seen: Feb 09, 2025 Medical Necessity Reason Pt with a Central, PICC or Fol: No Subjective Patient reports: No new complaints, Feels better Review of Systems: Deferred Objective vital signs Vital Sign Date Time Temp Pulse Resp B/P (MAP) Pulse Ox O2 Delivery O2 Flow Rate FiO2 02/09/25 14:05 174/70 02/09/25 14:00 84 12 97 02/09/25 11:00 99.1 99.1 02/09/25 08:30 Room Air* 0 21 Total Intake and Output 02/08/25 02/08/25 02/09/25 15:00 23:00 07:00 Intake Total 1070 ml 320 ml Output Total 1000 ml 730 ml Balance 70 ml -410 ml medications Current Medications Medications Dose Ordered Sig/Rigo Route Start Time Stop Time Status Last Admin Dose Admin Ondansetron HCl 4 mg Q4HP PRN IV 02/06/25 02:15 Atorvastatin Calcium 40 mg HS PO 02/06/25 22:00 02/08/25 20:14 40 MG Patient Own Medication 50,000 unit once a week PO 02/06/25 02:15 Hydralazine HCl 50 mg TID PO 02/06/25 06:00 02/09/25 14:05 50 MG Furosemide 40 mg DAILY IV 02/06/25 10:00 02/09/25 10:48 40 MG Diagnostic Test (Pha) 1 strip ACHS 02/06/25 07:00 02/09/25 10:52 1 STRIP Insulin Human Regular ACHS SC 02/06/25 07:00 02/08/25 20:26 3 UNITS Dextrose 50 ml UD PRN IV 02/06/25 02:15 Heparin Sodium (Porcine) 5,000 units Q12HR SC 02/06/25 10:00 02/08/25 20:24 5,000 UNITS Hydroxyzine Pamoate 25 mg Q6HP PRN PO 02/06/25 02:15 Epoetin Matt-epbx 10,000 unit MWF@2100 SC 02/06/25 21:00 02/08/25 20:14 10,000 UNIT Sucralfate 1 gm TID@0600,1130,2200 PO 02/07/25 22:00 02/09/25 10:45 1 GM Pantoprazole Sodium 50 ml @ 10 mls/hr Q5H IV 02/08/25 19:00 02/09/25 08:37 10 MLS/HR Carvedilol 6.25 mg BID PO 02/09/25 07:45 02/09/25 10:49 6.25 MG Examination: GENERAL:Normal, HEENT:Normal, NECK:Normal, LUNGS:Normal, CVS:Normal, ABDOMEN:Normal, MSK:Normal, SKIN:Normal, NEURO:Normal, :Normal laboratory and microbiology Laboratory Tests 02/09/25 13:35 02/09/25 03:13 Test 02/09/25 03:13 Range/Units Serum Glucose 77 74-106 mg/dL Problem List/Assessment/Plan Problem List/Assessment/Plan Hypoosmolar, hypervolemic severe symptomatic hyponatremia CKD stage 5, now ESRD Diabetes type 2 Hypertension acute on chronic systolic heart failure Volume overload Plan/recommendation: * HD tomorrow * IV Lasix 40 mg daily * DC femoral dialysis catheter * Strict I&Os * We will follow up with the patient * chairtime with dcd Plan discussed with: Patient, Daughter, Son My Orders My Orders Orders - PRICE VILLANUEVA MD Procedure Category Date Status Time * Ergonomics Engineer CONS 02/09/25 Transmitted Consult Dietary Evaluation Review Comments: 1) Advance to 45g CCHO renal cardiac diet when medically feasible 2) Encourage optimal PO intake 3) Refer to outpatient RD/[facility] for weight management 4) Follow-up with nephrology and cardiology 5) Continue to monitor I&O, labs, and skin integrity Expected Outcomes/Goals: 1) appetite and labs to improve 2) diet to advance 3) gradual wt loss 4) f/u in 3-5 days PRICE VILLANUEVA MD Feb 09, 2025 14:33
[2025-02-10] VITALS (8 sets, daily range): BP systolic 110–188; BP diastolic 35–92; PULSE 8–95; RESP 16–20; TEMP 97.8–99.5; O2SAT 92–98
--- NOTE | 2025-02-10 00:01 | DVHPN2 ---
Progress Note - Dictate Date Seen: Feb 09, 2025 Medical Necessity Reason Pt with a Central, PICC or Fol: No Subjective No new complaints, patient feels better Carlos catheter was removed Patient underwent placement of dialysis catheter yesterday and had dialysis yesterday Hyponatremia has improved Hemoglobin stable at 8.1 vital signs Vital Sign Date Time Temp Pulse Resp B/P (MAP) Pulse Ox O2 Delivery O2 Flow Rate FiO2 02/09/25 22:02 93 156/76 02/09/25 21:00 98.2 18 93 98.2 02/09/25 20:00 Room Air* 0 21 Total Intake and Output 02/08/25 02/08/25 02/09/25 15:00 23:00 07:00 Intake Total 1070 ml 320 ml Output Total 1000 ml 730 ml Balance 70 ml -410 ml medications Current Medications Medications Dose Ordered Sig/Rigo Route Start Time Stop Time Status Last Admin Dose Admin Ondansetron HCl 4 mg Q4HP PRN IV 02/06/25 02:15 Atorvastatin Calcium 40 mg HS PO 02/06/25 22:00 02/09/25 21:01 40 MG Patient Own Medication 50,000 unit once a week PO 02/06/25 02:15 Hydralazine HCl 50 mg TID PO 02/06/25 06:00 02/09/25 21:01 50 MG Furosemide 40 mg DAILY IV 02/06/25 10:00 02/09/25 10:48 40 MG Diagnostic Test (Pha) 1 strip ACHS 02/06/25 07:00 02/09/25 22:24 1 STRIP Insulin Human Regular ACHS SC 02/06/25 07:00 02/09/25 16:38 2 UNITS Dextrose 50 ml UD PRN IV 02/06/25 02:15 Heparin Sodium (Porcine) 5,000 units Q12HR SC 02/06/25 10:00 02/09/25 21:05 5,000 UNITS Hydroxyzine Pamoate 25 mg Q6HP PRN PO 02/06/25 02:15 Epoetin Matt-epbx 10,000 unit MWF@2100 SC 02/06/25 21:00 02/08/25 20:14 10,000 UNIT Sucralfate 1 gm TID@0600,1130,2200 PO 02/07/25 22:00 02/09/25 21:02 1 GM Pantoprazole Sodium 50 ml @ 10 mls/hr Q5H IV 02/08/25 19:00 02/09/25 21:00 10 MLS/HR Carvedilol 6.25 mg BID PO 02/09/25 07:45 02/09/25 21:02 6.25 MG objective Gen - mild conjunctival pallor, no scleral icterus Skin - Patients skin is warm and dry. HEENT - normocephalic, atraumatic, dry mucous membranes. Neck - supple, no lymphadenopathy Pulmonary - B/L equal air entry with vesicular breath sounds cardiovascular - regular S1,S2 heard GI - soft nontender abdomen. Bowel sounds normoactive. Neurological - Patient is alert and oriented x4. following commands. laboratory and microbiology Laboratory Tests 02/09/25 18:36 02/09/25 03:13 Test 02/09/25 03:13 Range/Units Serum Glucose 77 74-106 mg/dL Problems(with codes): (1) Renal failure (2) Hyponatremia (3) End-stage renal disease needing dialysis (4) Generalized weakness (5) CKD stage 5 due to type 2 diabetes mellitus Prognosis Plan Patient is not having any obvious GI bleeding Continue to monitor labs Continue IV Protonix Tentatively patient is scheduled for EGD on 02/11/2025 Dietary Evaluation Review Comments: 1) Advance to 45g CCHO renal cardiac diet when medically feasible 2) Encourage optimal PO intake 3) Refer to outpatient RD/[facility] for weight management 4) Follow-up with nephrology and cardiology 5) Continue to monitor I&O, labs, and skin integrity Expected Outcomes/Goals: 1) appetite and labs to improve 2) diet to advance 3) gradual wt loss 4) f/u in 3-5 days Plan discussed with: Patient, Daughter, Other (ICU Nurse) PAUL PERES MD Feb 10, 2025 00:01
[2025-02-10 06:39] LABS: Anion Gap 8 (5-15); Carbon Dioxide 27 mmol/L (20-31); Potassium 4.3 mmol/L (3.5-5.1)
[2025-02-10 06:40] LABS: Hematocrit 25.0 % (36.0-46.0); Hemoglobin 8.5 g/dL (12.2-16.2); Mean Corpuscular Hemoglobin 27.7 pg (28.0-32.0); Mean Corpuscular Volume 81.7 fL (80.0-100.0); Nucleated Red Blood Cells % 0.2 %
[2025-02-10 06:45] LABS: BUN/Creatinine Ratio 6.8 (10.0-20.0)
[2025-02-10 06:49] LABS: Blood Urea Nitrogen 24 mg/dL (9-23); Calcium 8.3 mg/dL (8.7-10.4); Chloride 98 mmol/L (98-107); Glucose 108 mg/dL (74-106); Sodium 133 mmol/L (136-145)
--- NOTE | 2025-02-10 08:55 | DVHPN2 ---
Progress Note Date Seen: Feb 10, 2025 Medical Necessity Reason Pt with a Central, PICC or Fol: No Subjective Patient reports: No new complaints Review of Systems: Deferred Objective vital signs Vital Sign Date Time Temp Pulse Resp B/P (MAP) Pulse Ox O2 Delivery O2 Flow Rate FiO2 02/10/25 05:42 146/78 02/10/25 05:00 99.5 8 17 93 99.5 02/09/25 20:00 Room Air* 0 21 Total Intake and Output 02/09/25 02/09/25 02/10/25 15:00 23:00 07:00 Intake Total 70 ml 200 ml Balance 70 ml 200 ml medications Current Medications Medications Dose Ordered Sig/Rigo Route Start Time Stop Time Status Last Admin Dose Admin Ondansetron HCl 4 mg Q4HP PRN IV 02/06/25 02:15 Atorvastatin Calcium 40 mg HS PO 02/06/25 22:00 02/09/25 21:01 40 MG Patient Own Medication 50,000 unit once a week PO 02/06/25 02:15 Hydralazine HCl 50 mg TID PO 02/06/25 06:00 02/10/25 05:42 50 MG Furosemide 40 mg DAILY IV 02/06/25 10:00 02/09/25 10:48 40 MG Diagnostic Test (Pha) 1 strip ACHS 02/06/25 07:00 02/10/25 05:57 1 STRIP Insulin Human Regular ACHS SC 02/06/25 07:00 02/09/25 16:38 2 UNITS Dextrose 50 ml UD PRN IV 02/06/25 02:15 Heparin Sodium (Porcine) 5,000 units Q12HR SC 02/06/25 10:00 02/09/25 21:05 5,000 UNITS Hydroxyzine Pamoate 25 mg Q6HP PRN PO 02/06/25 02:15 Epoetin Matt-epbx 10,000 unit MWF@2100 SC 02/06/25 21:00 02/08/25 20:14 10,000 UNIT Sucralfate 1 gm TID@0600,1130,2200 PO 02/07/25 22:00 02/10/25 05:42 1 GM Pantoprazole Sodium 50 ml @ 10 mls/hr Q5H IV 02/08/25 19:00 02/10/25 05:29 10 MLS/HR Carvedilol 6.25 mg BID PO 02/09/25 07:45 02/09/25 21:02 6.25 MG Examination: GENERAL:Normal, HEENT:Normal, NECK:Normal, LUNGS:Normal, CVS:Normal, ABDOMEN:Normal, MSK:Normal, SKIN:Normal, NEURO:Normal, :Normal laboratory and microbiology Laboratory Tests 02/10/25 05:11 Test 02/10/25 05:11 Range/Units Serum Glucose 108 H 74-106 mg/dL Problem List/Assessment/Plan Problem List/Assessment/Plan CKD stage 5, now ESRD Hyponatremia Diabetes type 2 Hypertension acute on chronic systolic heart failure Volume overload Plan/recommendation: * HD today 02/10 * IV Lasix 40 mg daily * DC femoral dialysis catheter//status post IR guided tunneled catheter placement * Strict I&Os * chairtime with dcd Plan discussed with: Patient My Orders My Orders Orders - PRICE VILLANUEVA MD Procedure Category Date Status Time * Cherry Dipper CONS 02/09/25 Transmitted Consult Hemodialysis Orders ORDERS 02/10/25 Transmitted 04:00 Dietary Evaluation Review Comments: 1) Advance to 45g CCHO renal cardiac diet when medically feasible 2) Encourage optimal PO intake 3) Refer to outpatient RD/[facility] for weight management 4) Follow-up with nephrology and cardiology 5) Continue to monitor I&O, labs, and skin integrity Expected Outcomes/Goals: 1) appetite and labs to improve 2) diet to advance 3) gradual wt loss 4) f/u in 3-5 days PRICE VILLANUEVA MD Feb 10, 2025 08:55
--- NOTE | 2025-02-10 14:15 | DVHSR ---
APPROVED REPORT EXAM: Two-dimensional and M-mode echocardiogram with Doppler and color Doppler. Blood Pressure: 138/49 mmHg INDICATION Pulmonary Edema RISK FACTORS Height: 60, Weight: 155 DIMENSIONS LVDd4.1 (3.8-5.7cm)LA (2D)4.7 (1.9-4.0cm)Aortic Root4.1 (2.0-3.7cm) LVDs2.8 (2.5-4.0cm)LA (MM) (1.9-4.0cm)Aortic Cusp Exc1.5 (1.5-2.0cm) EF (%) 60.0 (55-70%)Rt. Atrium4.3 (1.9-4.0cm)Asc. Aorta cm Mitral Valve MitralMitral Stenosis E wave1.18m/sMV Mean GR.5mmHg A wave1.67m/sMV Peak GR.101mmHg E/A ratio0.72D MVAcm2 DECEL [id number] 1/2 [id number] IVRTmsDop MVA1.79cm2 Aortic Valve Aortic ValveAortic Stenosis V11.17m/Gama Mean GR.7mmHg V21.75m/Gama Peak GR.12mmHg LVOT Diameter2.5 (1.8-2.4cm)Doppler AVA3.28cm2 AI P 1/2 Dvaz519.31ms Pulmonic Valve V21.13m/s Tricuspid Valve TR Velocity2.67m/s [id number] Conclusion lvef 60% moderate LVH normal rv function left atrium enlarged moderate no severe valve abnormaliteis noted moderate MAC, moderate mitral stenosis, mean gradient of 4m mhg asked to read echo 1 hour ago
--- NOTE | 2025-02-10 16:01 | DVHPN2 ---
Progress Note - Dictate Date Seen: Feb 10, 2025 Medical Necessity Reason Pt with a Central, PICC or Fol: No Subjective No new complaints, patient feels better Carlos catheter was removed Patient downgraded to tele Patient underwent placement of dialysis catheter yesterday and had dialysis yesterday Hyponatremia has improved Hemoglobin stable at 8.5 vital signs Vital Sign Date Time Temp Pulse Resp B/P (MAP) Pulse Ox O2 Delivery O2 Flow Rate FiO2 02/10/25 12:44 98.8 83 20 110/35 (60) 98 98.8 02/10/25 08:00 Room Air* 0 21 Total Intake and Output 02/09/25 02/09/25 02/10/25 15:00 23:00 07:00 Intake Total 70 ml 200 ml Balance 70 ml 200 ml medications Current Medications Medications Dose Ordered Sig/Rigo Route Start Time Stop Time Status Last Admin Dose Admin Ondansetron HCl 4 mg Q4HP PRN IV 02/06/25 02:15 Atorvastatin Calcium 40 mg HS PO 02/06/25 22:00 02/09/25 21:01 40 MG Patient Own Medication 50,000 unit once a week PO 02/06/25 02:15 Hydralazine HCl 50 mg TID PO 02/06/25 06:00 02/10/25 05:42 50 MG Furosemide 40 mg DAILY IV 02/06/25 10:00 02/09/25 10:48 40 MG Diagnostic Test (Pha) 1 strip ACHS 02/06/25 07:00 02/10/25 11:30 1 STRIP Insulin Human Regular ACHS SC 02/06/25 07:00 02/09/25 16:38 2 UNITS Dextrose 50 ml UD PRN IV 02/06/25 02:15 Heparin Sodium (Porcine) 5,000 units Q12HR SC 02/06/25 10:00 02/10/25 10:51 5,000 UNITS Hydroxyzine Pamoate 25 mg Q6HP PRN PO 02/06/25 02:15 Epoetin Matt-epbx 10,000 unit MWF@2100 SC 02/06/25 21:00 02/08/25 20:14 10,000 UNIT Sucralfate 1 gm TID@0600,1130,2200 PO 02/07/25 22:00 02/10/25 11:43 1 GM Pantoprazole Sodium 50 ml @ 10 mls/hr Q5H IV 02/08/25 19:00 02/10/25 10:52 10 MLS/HR Carvedilol 6.25 mg BID PO 02/09/25 07:45 02/09/25 21:02 6.25 MG objective Gen - mild conjunctival pallor, no scleral icterus Skin - Patients skin is warm and dry. HEENT - normocephalic, atraumatic, dry mucous membranes. Neck - supple, no lymphadenopathy Pulmonary - B/L equal air entry with vesicular breath sounds cardiovascular - regular S1,S2 heard GI - soft nontender abdomen. Bowel sounds normoactive. Neurological - Patient is alert and oriented x4. following commands. laboratory and microbiology Laboratory Tests 02/10/25 05:11 Test 02/10/25 05:11 Range/Units Serum Glucose 108 H 74-106 mg/dL Problems(with codes): (1) End-stage renal disease needing dialysis (2) Generalized weakness (3) Renal failure (4) Hyponatremia (5) Anemia of chronic disease (6) Positive occult stool blood test Prognosis PLAN Taper off IV Protonix drip Protonix 40 mg IV q.12 hours NPO after midnight Patient is scheduled for an endoscopy tomorrow She can follow up with GI Services outpatient for elective colonoscopy Patient is scheduled for hemodialysis today She is getting IV Lasix 40 mg daily IR guided catheter placement Dietary Evaluation Review Comments: 1) Advance to 45g CCHO renal cardiac diet when medically feasible 2) Encourage optimal PO intake 3) Refer to outpatient RD/[facility] for weight management 4) Follow-up with nephrology and cardiology 5) Continue to monitor I&O, labs, and skin integrity Expected Outcomes/Goals: 1) appetite and labs to improve 2) diet to advance 3) gradual wt loss 4) f/u in 3-5 days Plan discussed with: Patient, Daughter PAUL PERES MD Feb 10, 2025 16:01
--- NOTE | 2025-02-10 16:13 | DVHPNRES ---
Progress Note Date Seen: Feb 10, 2025 Resident Creating Document: JULI COREAS RESIDENT Has the PT tested + for MRSA If YES, has PT been informed?: No Medical Necessity Reason Pt with a Central, PICC or Fol: No Subjective Review of Systems Geovanna Davis is a 74-year-old female, with past medical history of type 2 diabetes mellitus, hypertension and CKD stage 5 (not in dialysis). The patient with chief complain of 3 days of headache, throbbing like, 6/10, left temporal region, irradiated to the left side of the neck associated with dizziness. The patient's daughter reports that the patient was here on Tuesday on 01/03/2025 for high blood pressure and hyperkalemia. She was then later discharged home but her headache did not improved. One day before coming to the ED, the headache worsen, and were associated with dizziness, nausea and 3 episodes of vomiting. Patient denies any chills, fever, shortness of breath, chest pain, abdominal pain or other symptoms. On further questioning, the patient has denied dialysis. Dr. 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 In ED, lab work showed: hyponantremia, Na: 110, Hyperkalemia, K: 5.2, BUN 79, creatinine 5.25, WBC 4.3, RBC 2.69, hemoglobin 7.3, hematocrit 22.3, MCV 83.1. On past medical history: Type 2 diabetes mellitus, hypertension, CKD stage 5, anemia. Past surgical history: Left total knee replacement 2 years ago. Family history: Mother had diabetes mellitus, father of prostate cancer. On social history: Patient denies ever smoking, drinking alcohol or taking any illicit drugs. Allergies: Penicillin. The patient was admitted for further management. Admission course: On 02/06/25, the patient was evaluated and examined at bed side. VS: BP: 138/89mmHg, HR: 68bpm. Labs were reviewed. New labs were ordered: potassium, Na, urine Na and urine creatinine. IV fluids:NS 3% was started. On 02/07/25, the patient was re-evaluated and examined at the bedside, the patient reports feeling well. VS, labs and chart was reviewed. Due to Hb 6.4 the patient received 1 RBC unit improving her hemoglobin to 7.3mg/dl. Sodium levels are improving with NS 3%, the increase is being perform slowly, Na: 118mmol/l. The patient had a catheter placed for hemodyalisis. She will receive first hemodyalisis session today. I spoke with the family and they are aware of patient status and progress. We will continue monitoring with this patient. On 02/08/25, the patient was re-evaluate at bedside. VS, labs and chart was reviewed. Hb is 7.3mg/dl after 1 RBC U. The patient will have a tunnel catheter placed today for dial is 126mmol/l. K:3.3 was replenished. The patient reports feeling better, headache and dizziness have improved. H&H was requested. The patient will have GED today to r/o GI bleeding. We will continue monitoring this patient. On 02/09/25: corazon was seen examined on the bedside. He is alert oriented x3. Mentioned feeling better and no active complaint this time. Status post tunnel catheter placement and EGD was rescheduled to Tuesday on 02/11/2025. Sodium is now 133 and stable, patient is downgraded to telemetry. On 02/10/25, the patient was re-evaluated and examined at bed side. VS, labs and chart was a reviewed. The Na is 133. Hb: 8.5mg/dl. The patient reports feeling better today, headache is 2/10, reports no dizzines. No fever last night. The patient will have hemodyalisis today. The FOTB was positive, patient will have GED tomorrow 02/11/25. We will continue following up the progress of this patient. ROS Constitutional: Yes:Headache and dizziness has improved to 2/10; No: Fever, Chills, Sweats, Weakness, Malaise Eyes: No: Pain, Vision change, Conjunctivae inflammation, Eyelid inflammation, Other, Redness ENT: No: Ear pain, Ear discharge, Nose pain, Nose discharge, Nose congestion, Mouth pain, Mouth swelling, Throat pain, Throat swelling, Other Respiratory: No: Cough, Dry, Shortness of breath, SOB with excertion, Wheezing, Hemoptysis, Pleuritic Pain, Sputum, Wheezing, Other Cardiovascular: No: Chest Pain, Palpitations, Orthopnea, Paroxysmal Noc. Dyspnea, Edema, Lt Headedness, Other Gastrointestinal: No: Abdominal Pain, Diarrhea, Constipation, Melena, Hematochezia, Other Genitourinary: No Dysuria, No Frequency, No Incontinence, No Hematuria, No Retention, No Other Musculoskeletal: Bilateral hand swelling. No: other, neck pain, shoulder pain, arm pain, back pain, hand pain, leg pain, foot pain Skin: No: Rash, Lesions, Jaundice, Bruising, Other Neurological: No: Weakness, Numbness, Incoordination, Change in speech, Confusion, Seizures, Other Allergies: Penicillins (Unverified Allergy, Mild, hives Objective vital signs Vital Sign Date Time Temp Pulse Resp B/P (MAP) Pulse Ox O2 Delivery O2 Flow Rate FiO2 02/10/25 12:44 98.8 83 20 110/35 (60) 98 98.8 02/10/25 08:00 Room Air* 0 21 Total Intake and Output 02/09/25 02/09/25 02/10/25 15:00 23:00 07:00 Intake Total 70 ml 200 ml Balance 70 ml 200 ml medications Current Medications Medications Dose Ordered Sig/Rigo Route Start Time Stop Time Status Last Admin Dose Admin Ondansetron HCl 4 mg Q4HP PRN IV 02/06/25 02:15 Atorvastatin Calcium 40 mg HS PO 02/06/25 22:00 02/09/25 21:01 40 MG Patient Own Medication 50,000 unit once a week PO 02/06/25 02:15 Hydralazine HCl 50 mg TID PO 02/06/25 06:00 02/10/25 05:42 50 MG Furosemide 40 mg DAILY IV 02/06/25 10:00 02/09/25 10:48 40 MG Diagnostic Test (Pha) 1 strip ACHS 02/06/25 07:00 02/10/25 11:30 1 STRIP Insulin Human Regular ACHS SC 02/06/25 07:00 02/09/25 16:38 2 UNITS Dextrose 50 ml UD PRN IV 02/06/25 02:15 Heparin Sodium (Porcine) 5,000 units Q12HR SC 02/06/25 10:00 02/10/25 10:51 5,000 UNITS Hydroxyzine Pamoate 25 mg Q6HP PRN PO 02/06/25 02:15 Epoetin Matt-epbx 10,000 unit MWF@2100 SC 02/06/25 21:00 02/08/25 20:14 10,000 UNIT Sucralfate 1 gm TID@0600,1130,2200 PO 02/07/25 22:00 02/10/25 11:43 1 GM Pantoprazole Sodium 50 ml @ 10 mls/hr Q5H IV 02/08/25 19:00 02/10/25 10:52 10 MLS/HR Carvedilol 6.25 mg BID PO 02/09/25 07:45 02/09/25 21:02 6.25 MG Examination General Appearance: pale, patient not in distress, alert, oriented X3, Cooperative. HEENT: Atraumatic, PERRLA, EOMI, Mucous membrane moist/pink Respiratory: bilateral mild crackles on the bases. normal lung expansion. Cardiovascular: Regular rate, Normal S1, Normal S2, No murmurs, no chest wall tenderness Abdominal: Normal bowel sounds, Soft, No tenderness, No hepatospenomegaly, No masses Extremities: Bilateral hand swelling. Bilateral pitting edema up to the lower part of the leg. No clubbing, No cyanosis, No edema, Normal pulses, No tenderness/swelling Skin: No rashes, No breakdown, No significant lesion Neuro: Grossly intact cranial nerves Cranial nerves 3-12 NL, Reflexes 2+ Psych/Mental Status: anxious. laboratory and microbiology Laboratory Tests 02/10/25 05:11 Test 02/10/25 05:11 Range/Units Serum Glucose 108 H 74-106 mg/dL Problem List/Assessment/Plan Problem List/Assessment/Plan #Hypoosmolar, Hypervolemic symptomatic severe hyponatremia #Metabolic encephalopathy due to above #Mixed severe anemia- iron deficiency and anemia of chronic disease -Na: 133mmol/l 02/10/25 -iron profile and previous visit shows low iron levels -Furosemide 40 mg IV daily -home medication Ferrous sulfate 325 mg p.o. daily continued -Zofran 4 mg IV q.4 PRN -stool occult blood: positive, GED tomorrow 02/11/25 -Type and screen ordered. #Type 2 diabetes mellitus with hyperglycemia - A1c: 6.1% -Mild sliding scale insulin -Accu-Cheks #Dyslipidemia -home medication Atorvastatin 40 mg continue daily #KEHINDE, on CKD stage 5, likely VMN -Nephrology consult placed -The patient started dialysis, chair time was requested. -Hemodialysis today 02/10/25 -Tunnel catheter placed on 02/09/25 -Avoid any nephrotoxic agents #Hyperkalemia -Lokelma 10 mg p.o. once -Home medication Sodium bicarbonate 650 mg p.o. b.i.d. continued #Acute on chronic exacerbation of CHF, rule out systolic vs diastolic. -BNP 328.98 -Echo, result is still pending. -chest x-ray shows: Cardiomegaly with mild pulmonary vascular congestion. #Anxiety -hydroxyzine 25 mg p.o. q.6 PRN Diet: Full liquid diet DVT prophylaxis: heparin 5000 units subcutaneous b.i.d. Goals of care discussed with the patient > 35 min. Discussed plan of care with Dr. Triplett. Code status: Full code PCP: Michael. Nephrology: Dr. Ramirez Plan discussed with: Patient and daughter, the patient agrees with the plan. Plan discussed with: Patient, Daughter My Orders My Orders Orders - JULI COREAS Procedure Category Date Status Time Complete Blood Count LAB 02/11/25 Verified 04:00 Basic Metabolic Panel LAB 02/11/25 Verified 04:00 Dietary Evaluation Review Comments: 1) [facility] when medically feasible 2) Encourage optimal PO intake 3) Refer to outpatient RD/[facility] for weight management 4) Follow-up with nephrology and cardiology 5) Continue to monitor I&O, labs, and skin integrity Expected Outcomes/Goals: 1) appetite and labs to improve 2) diet to advance 3) gradual wt loss 4) f/u in 3-5 days Date of Service: Feb 10, 2025 Billing Provider: ISAK TRIPLETT MD Common Visit Codes: 30159-[id number] INP/OBS CARE(HIGH) Date of Service: Feb 10, 2025 Billing Provider: ISAK TRIPLETT MD Common Visit Codes: [id number] INP/OBS CARE(HIGH) JULI COREAS Feb 10, 2025 16:13 ISAK TRIPLETT MD Feb 10, 2025 22:17
[2025-02-11] VITALS (10 sets, daily range): BP systolic 154–170; BP diastolic 73–80; PULSE 81–110; RESP 13–20; TEMP 97.8–98.9; O2SAT 94–100
[2025-02-11 06:02] LABS: Hematocrit 28.9 % (36.0-46.0); Hemoglobin 9.6 g/dL (12.2-16.2); Mean Corpuscular Hemoglobin 27.3 pg (28.0-32.0); Mean Corpuscular Volume 81.6 fL (80.0-100.0); Nucleated Red Blood Cells % 0.1 %
[2025-02-11 06:11] LABS: Chloride 99 mmol/L (98-107); Potassium 3.9 mmol/L (3.5-5.1); Sodium 138 mmol/L (136-145)
[2025-02-11 06:12] LABS: Anion Gap 9 (5-15); Calcium 9.1 mg/dL (8.7-10.4); Carbon Dioxide 30 mmol/L (20-31)
[2025-02-11 06:17] LABS: BUN/Creatinine Ratio 4.4 (10.0-20.0); Blood Urea Nitrogen 11 mg/dL (9-23)
[2025-02-11 06:24] LABS: Glucose 115 mg/dL (74-106)
--- NOTE | 2025-02-11 08:55 | DVHPN2 ---
Progress Note Date Seen: Feb 11, 2025 Resident Creating Document: CUAUHTEMOC ARNDT MICHELL Has the PT tested + for MRSA If YES, has PT been informed?: No Medical Necessity Reason Pt with a Central, PICC or Fol: No Subjective Review of Systems Patient seen and examined at the bedside. Patient is feeling better since admission, does not have any active complaint. Other Systems: Patient seen and examined by myself with the medicine resident, I agree with his Objective vital signs Vital Sign Date Time Temp Pulse Resp B/P (MAP) Pulse Ox O2 Delivery O2 Flow Rate FiO2 02/11/25 08:39 98.9 97 18 154/75 (101) 96 98.9 02/10/25 20:00 Room Air* 0 21 Total Intake and Output 02/10/25 02/10/25 02/11/25 15:00 23:00 07:00 Intake Total 400 ml 0 ml Balance 400 ml 0 ml medications Current Medications Medications Dose Ordered Sig/Rigo Route Start Time Stop Time Status Last Admin Dose Admin Ondansetron HCl 4 mg Q4HP PRN IV 02/06/25 02:15 Atorvastatin Calcium 40 mg HS PO 02/06/25 22:00 02/10/25 21:48 40 MG Patient Own Medication 50,000 unit once a week PO 02/06/25 02:15 Hydralazine HCl 50 mg TID PO 02/06/25 06:00 02/11/25 06:01 50 MG Furosemide 40 mg DAILY IV 02/06/25 10:00 02/09/25 10:48 40 MG Diagnostic Test (Pha) 1 strip ACHS 02/06/25 07:00 02/11/25 06:45 1 STRIP Insulin Human Regular ACHS SC 02/06/25 07:00 02/09/25 16:38 2 UNITS Dextrose 50 ml UD PRN IV 02/06/25 02:15 Heparin Sodium (Porcine) 5,000 units Q12HR SC 02/06/25 10:00 02/10/25 21:56 5,000 UNITS Hydroxyzine Pamoate 25 mg Q6HP PRN PO 02/06/25 02:15 Epoetin Matt-epbx 10,000 unit MWF@2100 SC 02/06/25 21:00 02/08/25 20:14 10,000 UNIT Sucralfate 1 gm TID@0600,1130,2200 PO 02/07/25 22:00 02/11/25 06:00 1 GM Pantoprazole Sodium 50 ml @ 10 mls/hr Q5H IV 02/08/25 19:00 02/11/25 06:45 10 MLS/HR Carvedilol 6.25 mg BID PO 02/09/25 07:45 02/10/25 21:48 6.25 MG Examination Alert, Oriented X3, Cooperative, lethargic HEENT: Atraumatic, PERRLA, EOMI, Mucous membrane moist/pink Respiratory: Clear to auscultation, Normal air movement Cardiovascular: Regular rate, Normal S1, Normal S2, No murmurs, no chest wall tenderness Abdominal: Normal bowel sounds, Soft, No tenderness, No hepatospenomegaly, No masses Extremities: Bilateral grade 2 pedal edema Skin: No rashes, No breakdown, No significant lesion Neuro: Normal gait, Normal speech, Strength at 5/5 X4 ext, Normal tone, Sensation intact, Cranial nerves 3-12 NL, Reflexes 2+ Psych/Mental Status: Mental status NL, Mood NL laboratory and microbiology Laboratory Tests 02/11/25 05:07 Test 02/11/25 05:07 Range/Units Serum Glucose 115 H 74-106 mg/dL Problem List/Assessment/Plan Problem List/Assessment/Plan Assessment and plan This is a 74 lady with past medical history of diabetes, hypertension, systolic heart failure CKD stage 5 came to the hospital due to nausea, vomiting, headache and dizziness. Nephrology consulted due to severe hyponatremia. Assessment: CKD stage 5, now ESRD requiring HD 3 x weekly Hypoosmolar, hypervolemic severe symptomatic hyponatremia Diabetes type 2 Hypertension Chronic diastolic Congestive heart failure GI bleeding Anemia due to blood loss Secondary hyperparathyroidism Plan/recommendation: (Dr. Peterson) * Hemodialysis tomorrow, use no heparin * Epogen 31507 subQ 3 times a week * Strict I&Os * GI consult * Renal diet * Chair time at [facility] * IV Lasix 40 mg daily, and sevelamer * Calcitriol 0.25 mcg p.o. q.day * Strict I&Os * We will follow up with the patient Thank you for giving us the opportunity to take care of your patients failure please call back if you have any questions/concerns. Plan discussed with: Patient, Other (RN) Dietary Evaluation Review Comments: 1) Advance to 45g CCHO renal cardiac diet when medically feasible 2) Encourage optimal PO intake 3) Refer to outpatient RD/[facility] for weight management 4) Follow-up with nephrology and cardiology 5) Continue to monitor I&O, labs, and skin integrity Expected Outcomes/Goals: 1) appetite and labs to improve 2) diet to advance 3) gradual wt loss 4) f/u in 3-5 days CUAUHTEMOC ARNDT Feb 11, 2025 08:55 JAE PETERSON MD Feb 11, 2025 13:32
[2025-02-11] MEDS ORDERED: SEVELAMER 800 MG TAB PO SCH (12:00)
[2025-02-11] MEDS ORDERED: SIMETHICONE 40 MG/0.6 ML ORAL DROP ONE (14:04)
[2025-02-11] MEDS ORDERED: LIDOCAINE 2% (LOCAL ANESTH.) PF 5ml SDV ONE (14:30)
[2025-02-11] MEDS ORDERED: PROPOFOL 10 MG/ML 20 ML IV ONE (14:30)
[2025-02-11] MEDS ORDERED: MIDAZOLAM HCL 2MG/2ML 2ml VIAL (1mg/ml) ONE (14:30)
[2025-02-11] MEDS ORDERED: fentaNYL CITRATE 100 MCG/2 ML VL ONE (14:30)
[2025-02-11] MEDS ORDERED: GLYCOPYRROLATE 0.2 MG/ML 1ML VIAL ONE (14:30)
[2025-02-11] MEDS ORDERED: ONDANSETRON HCL 4 MG/2 ML VIAL ONE (14:30)
--- NOTE | 2025-02-11 14:54 | DVHOP2 ---
Operative Report DATE OF OPERATION: 02/11/25 PROCEDURE: Upper Endoscopy with biopsy. PREOPERATIVE INDICATION: The patient is a 74 -year-old female undergoing endoscopy for anemia and Hemoccult-positive stools nausea and vomiting POSTOPERATIVE DIAGNOSES: 1. Mild gastritis and gastropathy otherwise normal examination up to the 2nd and 3rd part of the duodenum PROCEDURE PERFORMED BY: Paul Beverly GI NURSE: Sindy SCOPE: Olympus videoendoscope. ASA CLASS: 3 PREOPERATIVE MEDICATIONS: Yogi gold, Dr. Magallanes PROCEDURE IN DETAIL: After obtaining an informed consent, the patient was placed on left lateral decubitus position. The patient was then sedated with the above medications. A bite block was placed between her teeth. The endoscope was then passed through the oropharynx, into the esophagus, and through the stomach and pylorus up to the second and third part of the duodenum. The endoscope was then withdrawn. The 2nd and 3rd part of the duodenal and the duodenal bulb were normal. Duodenal biopsies were obtained The pre-pyloric area antrum body showed mild gastritis and gastropathy with some mucosal edema. Gastric biopsies were obtained On retroflexion the fundus cardia and angularis were normal. There was no fresh or old blood in the stomach. The endoscope was then withdrawn into distal esophagus where the patient had no significant erosive esophagitis or hiatal hernia Remaining distal and proximal esophagus and oropharynx were unremarkable The patient tolerated the procedure well without difficulty. COMPLICATIONS : None SPECIMENS: Duodenal biopsies Gastric biopsies DISPOSITION: Transfer back to the floor Stable PLAN: 1. Await for biopsy result 2. Will place pt on Protonix 40 mg p.o. daily 3. DC aspirin NSAIDs smoking alcohol 4. Elective colonoscopy once medically stabilized PAUL BEVERLY MD Feb 11, 2025 14:54
--- NOTE | 2025-02-11 18:27 | DVHPNRES ---
Progress Note Date Seen: Feb 11, 2025 Resident Creating Document: JULI COREAS RESIDENT Has the PT tested + for MRSA If YES, has PT been informed?: No Medical Necessity Reason Pt with a Central, PICC or Fol: No Subjective Review of Systems Geovanna Davis is a 74-year-old female, with past medical history of type 2 diabetes mellitus, hypertension and CKD stage 5 (not in dialysis). The patient with chief complain of 3 days of headache, throbbing like, 6/10, left temporal region, irradiated to the left side of the neck associated with dizziness. The patient's daughter reports that the patient was here on Tuesday on 01/03/2025 for high blood pressure and hyperkalemia. She was then later discharged home but her headache did not improved. One day before coming to the ED, the headache worsen, and were associated with dizziness, nausea and 3 episodes of vomiting. Patient denies any chills, fever, shortness of breath, chest pain, abdominal pain or other symptoms. On further questioning, the patient has denied dialysis. Dr. Ramirez, is patient's counseling center manager, he is aware. In ED, lab work showed: hyponantremia, Na: 110, Hyperkalemia, K: 5.2, BUN 79, creatinine 5.25, WBC 4.3, RBC 2.69, hemoglobin 7.3, hematocrit 22.3, MCV 83.1. On past medical history: Type 2 diabetes mellitus, hypertension, CKD stage 5, anemia. Past surgical history: Left total knee replacement 2 years ago. Family history: Mother had diabetes mellitus, father of prostate cancer. On social history: Patient denies ever smoking, drinking alcohol or taking any illicit drugs. Allergies: Penicillin. The patient was admitted for further management. Admission course: On 02/06/25, the patient was evaluated and examined at bed side. VS: BP: 138/89mmHg, HR: 68bpm. Labs were reviewed. New labs were ordered: potassium, Na, urine Na and urine creatinine. IV fluids:NS 3% was started. On 02/07/25, the patient was re-evaluated and examined at the bedside, the patient reports feeling well. VS, labs and chart was reviewed. Due to Hb 6.4 the patient received 1 RBC unit improving her hemoglobin to 7.3mg/dl. Sodium levels are improving with NS 3%, the increase is being perform slowly, Na: 118mmol/l. The patient had a catheter placed for hemodyalisis. She will receive first hemodyalisis session today. I spoke with the family and they are aware of patient status and progress. We will continue monitoring with this patient. On 02/08/25, the patient was re-evaluate at bedside. VS, labs and chart was reviewed. Hb is 7.3mg/dl after 1 RBC U. The patient will have a tunnel catheter placed today for dial is 126mmol/l. K:3.3 was replenished. The patient reports feeling better, headache and dizziness have improved. H&H was requested. The patient will have GED today to r/o GI bleeding. We will continue monitoring this patient. On 02/09/25: corazon was seen examined on the bedside. He is alert oriented x3. Mentioned feeling better and no active complaint this time. Status post tunnel catheter placement and EGD was rescheduled to Tuesday on 02/11/2025. Sodium is now 133 and stable, patient is downgraded to telemetry. On 02/10/25, the patient was re-evaluated and examined at bed side. VS, labs and chart was a reviewed. The Na is 133. Hb: 8.5mg/dl. The patient reports feeling better today, headache is 2/10, reports no dizzines. No fever last night. The patient will have hemodyalisis today. The FOTB was positive, patient will have GED tomorrow 02/11/25. We will continue following up the progress of this patient. On 02/11/25, the patient was assessed and examined at bedside, VS, labs and chart was reviewed. Hyponantremia has improved to 138mmol/l. The patient reports feeling better, no headache today, no new complaints. The patient will go for GED today. Hb is been stable, 9.4mg/dl. The patient is receiving hemodialysis without complications. ECHO result showed: lvef 60% with moderate LVH. Possible discharge tomorrow. We will continue following up the progress of this patient. ROS Constitutional: Yes:Headache and dizziness has improved to 0/10; No: Fever, Chills, Sweats, Weakness, Malaise Eyes: No: Pain, Vision change, Conjunctivae inflammation, Eyelid inflammation, Other, Redness ENT: No: Ear pain, Ear discharge, Nose pain, Nose discharge, Nose congestion, Mouth pain, Mouth swelling, Throat pain, Throat swelling, Other Respiratory: No: Cough, Dry, Shortness of breath, SOB with excertion, Wheezing, Hemoptysis, Pleuritic Pain, Sputum, Wheezing, Other Cardiovascular: No: Chest Pain, Palpitations, Orthopnea, Paroxysmal Noc. Dyspnea, Edema, Lt Headedness, Other Gastrointestinal: No: Abdominal Pain, Diarrhea, Constipation, Melena, Hematochezia, Other Genitourinary: No Dysuria, No Frequency, No Incontinence, No Hematuria, No Retention, No Other Musculoskeletal: Bilateral hand swelling improving. No: other, neck pain, shoulder pain, arm pain, back pain, hand pain, leg pain, foot pain Skin: No: Rash, Lesions, Jaundice, Bruising, Other Neurological: No: Weakness, Numbness, Incoordination, Change in speech, Confusion, Seizures, Other Allergies: Penicillins (Unverified Allergy, Mild, hives Objective vital signs Vital Sign Date Time Temp Pulse Resp B/P (MAP) Pulse Ox O2 Delivery O2 Flow Rate FiO2 02/11/25 17:00 97.8 89 20 167/73 (104) 95 97.8 02/11/25 15:10 Room Air 0 02/11/25 15:10 100 Total Intake and Output 02/10/25 02/10/25 02/11/25 15:00 23:00 07:00 Intake Total 400 ml 0 ml Balance 400 ml 0 ml medications Current Medications Medications Dose Ordered Sig/Rigo Route Start Time Stop Time Status Last Admin Dose Admin Ondansetron HCl 4 mg Q4HP PRN IV 02/06/25 02:15 Atorvastatin Calcium 40 mg HS PO 02/06/25 22:00 02/10/25 21:48 40 MG Hydralazine HCl 50 mg TID PO 02/06/25 06:00 02/11/25 06:01 50 MG Furosemide 40 mg DAILY IV 02/06/25 10:00 02/11/25 09:03 40 MG Diagnostic Test (Pha) 1 strip ACHS 02/06/25 07:00 02/11/25 17:00 1 STRIP Insulin Human Regular ACHS SC 02/06/25 07:00 02/09/25 16:38 2 UNITS Dextrose 50 ml UD PRN IV 02/06/25 02:15 Heparin Sodium (Porcine) 5,000 units Q12HR SC 02/06/25 10:00 02/10/25 21:56 5,000 UNITS Hydroxyzine Pamoate 25 mg Q6HP PRN PO 02/06/25 02:15 Epoetin Matt-epbx 10,000 unit MWF@2100 SC 02/06/25 21:00 02/08/25 20:14 10,000 UNIT Sucralfate 1 gm TID@0600,1130,2200 PO 02/07/25 22:00 02/11/25 06:00 1 GM Carvedilol 6.25 mg BID PO 02/09/25 07:45 02/11/25 08:58 6.25 MG Sevelamer HCl 1,200 mg TIDWM PO 02/11/25 12:00 Hold Pantoprazole Sodium 40 mg DAILY@0600 PO 02/12/25 06:00 Examination General Appearance: pale, patient not in distress, alert, oriented X3, Cooperative. HEENT: Atraumatic, PERRLA, EOMI, Mucous membrane moist/pink Respiratory: improved bilateral mild crackles. normal lung expansion. Cardiovascular: Regular rate, Normal S1, Normal S2, No murmurs, no chest wall tenderness Abdominal: Normal bowel sounds, Soft, No tenderness, No hepatospenomegaly, No masses Extremities: Bilateral hand swelling and bilateral pitting edema is improving with laxis. No clubbing, No cyanosis, No edema, Normal pulses, No tenderness/swelling Skin: No rashes, No breakdown, No significant lesion Neuro: Grossly intact cranial nerves Cranial nerves 3-12 NL, Reflexes 2+ Psych/Mental Status: anxious mood. laboratory and microbiology Laboratory Tests 02/11/25 05:07 Test 02/11/25 05:07 Range/Units Serum Glucose 115 H 74-106 mg/dL Problem List/Assessment/Plan Problem List/Assessment/Plan #Hypoosmolar, Hypervolemic symptomatic severe hyponatremia #Metabolic encephalopathy due to above -Na: 138mmol/l 02/11/25 -Furosemide 40 mg IV daily -home medication Ferrous sulfate 325 mg p.o. daily continued -Zofran 4 mg IV q.4 PRN #GI bleeding Upper/Lower GI consult -stool occult blood: positive, GED performed today 02/11/25. Report is pending. #Mixed severe anemia- iron deficiency and anemia of chronic disease -Type and screen ordered. -1-RBC unit transfused -Improving Hb: 9.4 -Epoetin Sc -iron profile and previous visit shows low iron levels #Type 2 diabetes mellitus with hyperglycemia - A1c: 6.1% -Mild sliding scale insulin -Accu-Cheks #Dyslipidemia -home medication Atorvastatin 40 mg continue daily #CKD stage 5, on hemodyalisis -Nephrology consult placed -The patient started dialysis, chair time was requested. - Patient on Hemodialysis -Tunnel catheter placed on 02/09/25 -Avoid any nephrotoxic agents #Hyperkalemia. -Lokelma 10 mg p.o. once -Home medication Sodium bicarbonate 650 mg p.o. b.i.d. continued - Resolving. #Acute on chronic exacerbation of CHF, rule out systolic vs diastolic. -BNP 328.98 -Echo: lvef 60%, moderate LVH -chest x-ray shows: Cardiomegaly with mild pulmonary vascular congestion. #Anxiety -hydroxyzine 25 mg p.o. q.6 PRN Diet: Full liquid diet DVT prophylaxis: heparin 5000 units subcutaneous b.i.d. Goals of care discussed with the patient > 35 min. Discussed plan of care with Dr. Triplett. Code status: Full code PCP: Michael. Nephrology: Dr. Ramirez Plan discussed with: Patient and daughter, the patient agrees with the plan. Plan discussed with: Patient Dietary Evaluation Review Comments: 1) Advance to 45g CCHO renal cardiac diet when medically feasible 2) Encourage optimal PO intake 3) Refer to outpatient RD/[facility] for weight management 4) Follow-up with nephrology and cardiology 5) Continue to monitor I&O, labs, and skin integrity Expected Outcomes/Goals: 1) appetite and labs to improve 2) diet to advance 3) gradual wt loss 4) f/u in 3-5 days Date of Service: Feb 11, 2025 Billing Provider: ISAK TRIPLETT MD Common Visit Codes: [id number] INP/OBS CARE(HIGH) JULI COREAS RESIDENT Feb 11, 2025 18:27 ISAK TRIPLETT MD Feb 11, 2025 21:16
[2025-02-12 00:48] VITALS: BP 139/64; PULSE 90; RESP 18; TEMP 98.3; O2SAT 98
[2025-02-12 04:39] VITALS: BP 146/68; PULSE 83; RESP 18; TEMP 98.1; O2SAT 98
[2025-02-12] MEDS: PANTOPRAZOLE 40 MG TAB PO SCH (06:05)
[2025-02-12 06:46] LABS: Hematocrit 25.2 % (36.0-46.0); Hemoglobin 8.2 g/dL (12.2-16.2); Mean Corpuscular Hemoglobin 27.1 pg (28.0-32.0); Mean Corpuscular Volume 83.1 fL (80.0-100.0); Nucleated Red Blood Cells % 0.1 %
[2025-02-12 06:55] LABS: Anion Gap 8 (5-15); Carbon Dioxide 30 mmol/L (20-31); Chloride 99 mmol/L (98-107); Potassium 4.0 mmol/L (3.5-5.1); Sodium 137 mmol/L (136-145)
[2025-02-12] MEDS ORDERED: SODIUM CHL 0.9% 1000 ML BAG XX ONE (07:00)
[2025-02-12 07:01] LABS: BUN/Creatinine Ratio 4.7 (10.0-20.0); Blood Urea Nitrogen 18 mg/dL (9-23); Glucose 85 mg/dL (74-106)
[2025-02-12 07:04] LABS: Calcium 8.5 mg/dL (8.7-10.4)
[2025-02-12 08:00] VITALS: PULSE 87
[2025-02-12 09:00] VITALS: BP 152/72; PULSE 84; RESP 16; TEMP 98.8; O2SAT 96
--- NOTE | 2025-02-12 09:28 | DVHDSRES ---
Discharge Summary Date of Admission Resident Creating Document: JULI COREAS RESIDENT Feb 06, 2025 at 02:01 Date of Discharge: Feb 12, 2025 Admitting Diagnosis Severe hyponantremia Severe anemia Possible GI bleeding Hypertensive urgency Wounds: No wounds on admission Labs/Diagnostic Data: Laboratory Results Test 02/12/25 05:41 02/12/25 05:15 02/08/25 10:17 02/07/25 14:08 POC Glucose 103 mg/dl (70-106) White Blood Count 9.2 10^3/uL (4.4-10.8) Red Blood Count 3.04 10^6/uL (4.0-5.20) Hemoglobin 8.2 g/dL (12.2-16.2) Hematocrit 25.2 % (36.0-46.0) Mean Corpuscular Volume 83.1 fL (80.0-100.0) Mean Corpuscular Hemoglobin 27.1 pg (28.0-32.0) Mean Corpuscular Hemoglobin Concent 32.6 g/dL (32.0-36.0) Red Cell Distribution Width 16.4 % (11.8-14.3) Platelet Count 256 10^3/uL (140-450) Mean Platelet Volume 7.2 fL (6.9-10.8) Neutrophils (%) (Auto) 80.6 % (37.0-80.0) Lymphocytes (%) (Auto) 9.3 % (10.0-50.0) Monocytes (%) (Auto) 8.3 % (0.0-12.0) Eosinophils (%) (Auto) 1.2 % (0.0-7.0) Basophils (%) (Auto) 0.6 % (0.0-2.0) Neutrophils # (Auto) 7.4 10 ^3/uL (1.6-8.6) Lymphocytes # (Auto) 0.9 10 ^3/uL (0.4-5.4) Monocytes # (Auto) 0.8 10 ^3/uL (0-1.3) Eosinophils # (Auto) 0.1 10 ^3/uL (0-0.8) Basophils # (Auto) 0.1 10 ^3/uL (0-0.2) Nucleated Red Blood Cells 0.1 % Sodium Level 137 mmol/L (136-145) Potassium Level 4.0 mmol/L (3.5-5.1) Chloride Level 99 mmol/L (98-107) Carbon Dioxide Level 30 mmol/L (20-31) Anion Gap 8 (5-15) Blood Urea Nitrogen 18 mg/dL (9-23) Creatinine 3.83 mg/dL (0.550-1.02) Glomerular Filtration Rate Calc 12 mL/min (>90) BUN/Creatinine Ratio 4.7 (10.0-20.0) Serum Glucose 85 mg/dL (74-106) Calcium Level 8.5 mg/dL (8.7-10.4) Phosphorus Level 3.8 mg/dL (2.4-5.1) Magnesium Level 1.6 mg/dL (1.6-2.6) Ammonia 30 umol/L (11-32) Test 02/07/25 02:30 02/06/25 23:55 02/06/25 23:54 02/06/25 23:33 Prothrombin Time 10.0 sec (9.3-11.8) Prothrombin Time INR 0.94 (0.9-1.15) Activated Partial Thromboplast Time 21.7 SEC (24.5-34.5) Total Bilirubin 0.3 mg/dL (0.2-1.0) Aspartate Amino Transferase (AST) 32 U/L (13-40) Alanine Aminotransferase (ALT) 19 U/L (7-40) Alkaline Phosphatase 115 U/L (46-116) Total Protein 5.0 g/dL (5.7-8.2) Albumin 3.0 g/dL (3.2-4.8) Iron Level 44 ug/dL (50-170) Total Iron Binding Capacity 223 ug/dL (250-425) Percent Iron Saturation 19.7 % (15-50) Ferritin 71.7 ng/mL (10-291) Hemoglobin A1c 5.7 % A1C (<5.7) Stool Occult Blood Positive (Negative) Stool Occult Blood Sample #3 (Negative) Test 02/06/25 11:50 02/06/25 09:35 02/06/25 06:49 02/06/25 01:31 Urine Color Colorless (Yellow) Urine Clarity Clear (Clear) Urine pH 5.5 (5.0-9.0) Urine Specific Rogers 1.007 (1.001-1.035) Urine Protein 1+ (Negative) Urine Ketones Negative (Negative) Urine Blood 1+ /uL (Negative) Urine Nitrite Negative (Negative) Urine Bilirubin Negative (Negative) Urine Urobilinogen Normal mg/dL (Negative) Urine Leukocyte Esterase Negative /uL (Negative) Urine RBC 1 /hpf (0 - 4) Urine Microscopic WBC 1 /HPF (0-5) Urine Squamous Epithelial Cells Few /hpf (<5) Urine Bacteria None seen /hpf (None Seen) Urine Osmolality 257 mOsm/kg Urine Creatinine 28.16 mg/dL (30.0-125.0) Urine Sodium 67 mmol/L (40-220) Urine Glucose Normal mg/dL (Normal) Parathyroid Hormone (Intact) 515.3 pg/mL (18.4-80.1) Hepatitis A IgM Antibody Negative Hepatitis A Antibody Total Positive (Negative) Hepatitis B Surface Antigen Negative (Negative) Hepatitis B Surface Antibody Negative (Negative) Hepatitis B Core Total Antibody Negative (Negative) Hepatitis B Core IgM Antibody Negative (Negative) Hepatitis C Antibody Negative (Negative) Vitamin B12 Level 452 pg/mL (211-911) Vitamin D 25-Hydroxy 87.5 ng/mL (30.0-100) Serum Osmolality 264 mOsm/kg (278-298) Test 02/05/25 23:54 Troponin I High Sensitivity 31 ng/L (</=34) B-Type Natriuretic Peptide 328.98 pg/mL (0-100) Other Laboratory Tests 02/12/25 05:15 Brief Hx & Hospital Course: Geovanna Davis is a 74-year-old female, with past medical history of type 2 diabetes mellitus, hypertension and CKD stage 5 (not in dialysis). The patient with chief complain of 3 days of headache, throbbing like, 6/10, left temporal region, irradiated to the left side of the neck associated with dizziness. The patient's daughter reports that the patient was here on Tuesday on 01/03/2025 for high blood pressure and hyperkalemia. She was then later discharged home but her headache did not improved. One day before coming to the ED, the headache worsen, and were associated with dizziness, nausea and 3 episodes of vomiting. Patient denies any chills, fever, shortness of breath, chest pain, abdominal pain or other symptoms. On further questioning, the patient has denied dialysis. Dr. Ramirez, is patient's strategic debriefing specialist, he is aware. In ED, lab work showed: hyponantremia, Na: 110, Hyperkalemia, K: 5.2, BUN 79, creatinine 5.25, WBC 4.3, RBC 2.69, hemoglobin 7.3, hematocrit 22.3, MCV 83.1. On past medical history: Type 2 diabetes mellitus, hypertension, CKD stage 5, anemia. Past surgical history: Left total knee replacement 2 years ago. Family history: Mother had diabetes mellitus, father of prostate cancer. On social history: Patient denies ever smoking, drinking alcohol or taking any illicit drugs. Allergies: Penicillin. The patient was admitted for further management. Admission course: On 02/06/25, the patient was evaluated and examined at bed side. VS: BP: 138/89mmHg, HR: 68bpm. Labs were reviewed. New labs were ordered: potassium, Na, urine Na and urine creatinine. IV fluids:NS 3% was started. On 02/07/25, the patient was re-evaluated and examined at the bedside, the patient reports feeling well. VS, labs and chart was reviewed. Due to Hb 6.4 the patient received 1 RBC unit improving her hemoglobin to 7.3mg/dl. Sodium levels are improving with NS 3%, the increase is being perform slowly, Na: 118mmol/l. The patient had a catheter placed for hemodyalisis. She will receive first hemodyalisis session today. I spoke with the family and they are aware of patient status and progress. We will continue monitoring with this patient. On 02/08/25, the patient was re-evaluate at bedside. VS, labs and chart was reviewed. Hb is 7.3mg/dl after 1 RBC U. The patient will have a tunnel catheter placed today for dial is 126mmol/l. K:3.3 was replenished. The patient reports feeling better, headache and dizziness have improved. H&H was requested. The patient will have GED today to r/o GI bleeding. We will continue monitoring this patient. On 02/09/25: corazon was seen examined on the bedside. He is alert oriented x3. Mentioned feeling better and no active complaint this time. Status post tunnel catheter placement and EGD was rescheduled to Tuesday on 02/11/2025. Sodium is now 133 and stable, patient is downgraded to telemetry. On 02/10/25, the patient was re-evaluated and examined at bed side. VS, labs and chart was a reviewed. The Na is 133. Hb: 8.5mg/dl. The patient reports feeling better today, headache is 2/10, reports no dizzines. No fever last night. The patient will have hemodyalisis today. The FOTB was positive, patient will have GED tomorrow 02/11/25. We will continue following up the progress of this patient. On 02/11/25, the patient was assessed and examined at bedside, VS, labs and chart was reviewed. Hyponantremia has improved to 138mmol/l. The patient reports feeling better, no headache today, no new complaints. The patient will go for GED today. Hb is been stable, 9.4mg/dl. The patient is receiving hemodialysis without complications. ECHO result showed: lvef 60% with moderate LVH. Possible discharge tomorrow. We will continue following up the progress of this patient. On 02/12/25, the patient was assessed and examined at bedside, VS, labs and chart was reviewed. Hyponantremia has improved to 137mmol/l today. The patient reports feeling better, no headache, no new complaints. The patient went for GED on 02/11/25. Hb is been stable. The patient is receiving hemodialysis without complications. Due to a significant clinical and objective improvement, the patient will be discharge home today after dialysis; the patient's family was notified. The patient will follow up with PCP, Neprhology in one week, also will follow up with GI for a colonoscopy in one week. ROS Constitutional: Yes:Headache and dizziness has improved to 0/10; No: Fever, Chills, Sweats, Weakness, Malaise Eyes: No: Pain, Vision change, Conjunctivae inflammation, Eyelid inflammation, Other, Redness ENT: No: Ear pain, Ear discharge, Nose pain, Nose discharge, Nose congestion, Mouth pain, Mouth swelling, Throat pain, Throat swelling, Other Respiratory: No: Cough, Dry, Shortness of breath, SOB with excertion, Wheezing, Hemoptysis, Pleuritic Pain, Sputum, Wheezing, Other Cardiovascular: No: Chest Pain, Palpitations, Orthopnea, Paroxysmal Noc. Dyspnea, Edema, Lt Headedness, Other Gastrointestinal: No: Abdominal Pain, Diarrhea, Constipation, Melena, Hematochezia, Other Genitourinary: No Dysuria, No Frequency, No Incontinence, No Hematuria, No Retention, No Other Musculoskeletal: Bilateral hand swelling improved. No: other, neck pain, shoulder pain, arm pain, back pain, hand pain, leg pain, foot pain Skin: No: Rash, Lesions, Jaundice, Bruising, Other Neurological: No: Weakness, Numbness, Incoordination, Change in speech, Confusion, Seizures, Other Allergies: Penicillins (Unverified Allergy, Mild, hives Physical exam: General Appearance: pale, patient not in distress, alert, oriented X3, Cooperative. HEENT: Atraumatic, PERRLA, EOMI, Mucous membrane moist/pink Respiratory: lungs are clear to auscultation normal lung expansion. Cardiovascular: Regular rate, Normal S1, Normal S2, No murmurs, no chest wall tenderness Abdominal: Normal bowel sounds, Soft, No tenderness, No hepatospenomegaly, No masses Extremities: normal ROM, no edema No clubbing, No cyanosis, No edema, Normal pulses, No tenderness/swelling Skin: No rashes, No breakdown, No significant lesion Neuro: Grossly intact cranial nerves Cranial nerves 3-12 NL, Reflexes 2+ Psych/Mental Status: anxious mood. Consults/Reason for consult Nephrology for CKD stage V GI: for possible GI bleeding Operations or Procedures PROCEDURE(s): INVENCAT - Insertion of Venous Cath REASON: TD CATH INSERTION ORDER NUMBER(s): [id number], ACCESSION NUMBER(s): [id number] Insertion of Venous Cath, HISTORY: TD CATH INSERTION PROCEDURE: Informed consent was obtained. The patient was placed supine on the interventional table. A limited localization ultrasound of the right neck base was obtained. The right neck base and upper chest were prepped with chlorhexidine which was allowed to dry and draped in the usual sterile fashion. Time out was performed. IV sedation was administered. The skin and the soft tissues were infiltrated with 1% Lidocaine. With real-time ultrasound guidance, the internal jugular vein was accessed with a micropuncture kit, and an image documenting patency was recorded to PACS. A subcutaneous tunneled tract was created from the right upper chest to the venotomy site. A 14.5 [place] [address] Path, 19 cm long hemodialysis catheter was advanced through the tunneled tract. Fluoroscopy was used to advance a guidewire through the internal jugular vein into the inferior vena cava. Following serial dilatation, a 15 [place]ian peel-away sheath was introduced, though which was advanced the catheter into the right atrium. The catheter tip position was confirmed with fluoroscopy. There was satisfactory flow in both lumens. The catheter lumens were flushed with saline and heparin was left indwelling in the catheter. A post-procedure image of the chest was obtained. The neck incision site was closed with Dermabond and dressed sterilely. The catheter was sutured at the skin surface and exit site also dressed sterilely. No immediate complication was identified. DAP 66 FLUOROSCOPY TIME: 1.1 minutes. SEDATION: Dr. Maya Marlow was personally responsible for the administration of moderate sedation during the procedure performed, including the use of an independent trained observer who had no other duties during the procedure. The drugs utilized were IV fentanyl and versed (see nursing log for details). The total time of supervision by the attending physician was approximately 30 minutes. FINDINGS: Widely patent right IJV. Post procedure image demonstrates smooth course of the hemodialysis catheter with the tip in the right atrium. IMPRESSION: Placement of 14.5 japanese [address] Path, 19 cm long hemodialysis catheter through right internal jugular vein. Plan: Please contact IR for removal when no longer needed. EDURE(s): PPOABPL - POST PROCEDURE ABD/PEL XRAY REASON: POST FEMORAL DIALYSIS CATH PLACEMENT ORDER NUMBER(s): [id number], ACCESSION NUMBER(s): [id number] INDICATION: POST FEMORAL DIALYSIS CATH PLACEMENT TECHNIQUE: Multiple views of the abdomen were obtained. COMPARISON: XY KUB ABDOMEN SINGLE VIEW on DOS: 10/04/24, XY KUB ABDOMEN SINGLE VIEW on DOS: 01/04/24, XY PELVIS AP on DOS: 01/04/24 FINDINGS: The bowel loops are nondilated. There is no evidence of free air. The lung bases are clear. The visualized osseous structures appear intact. IMPRESSION: 1. Normal bowel gas pattern. Right hemodialysis catheter overlying the right femoral neck. EDURE(s): KIDUS - KIDNEY REASON: KEHINDE on CKD ORDER NUMBER(s): [id number], ACCESSION NUMBER(s): [id number] RENAL ULTRASOUND CLINICAL HISTORY: KEHINDE on CKD TECHNIQUE: Multiple grayscale ultrasound images were obtained through the kidneys and urinary bladder. COMPARISON: US KIDNEY on DOS: 05/18/24 FINDINGS: Right kidney: Measures 7.7 cm. No hydronephrosis. Increased cortical echogenicity. Small cyst in the upper pole measures 1.4 cm. Left kidney: Measures 7.9 cm. No hydronephrosis. Increased cortical echogenicity. Small cyst in the upper pole measures 1.7 cm. Tiny echogenic lesion in the mid left kidney measuring 6 mm Urinary bladder: Unremarkable. Prevoid volume 197 ML. IMPRESSION: 1. Small kidneys without hydronephrosis. 2. Increased cortical echogenicity of the kidneys likely due to medical renal disease. 3. Tiny echogenic structure in the mid left kidney measuring 6 mm which could reflect a nonobstructing calculus or milk of calcium cyst. 4. Tiny bilateral renal cysts. EDURE(s): CXR1 - CHEST XRAY 1 VIEW REASON: sob ORDER NUMBER(s): [id number], ACCESSION NUMBER(s): [id number] CHEST RADIOGRAPH Indication: sob Technique: Single frontal view of the chest was obtained COMPARISON: XY CHEST XRAY 1 VIEW on DOS: 02/01/25, XY CHEST XRAY 1 VIEW on DOS: 05/26/24, XY CHEST PORTABLE on DOS: 05/17/24, CT CHEST WITHOUT CONTRAST on DOS: 10/13/23, XY CHEST TWO VIEWS ROUTINE on DOS: 06/18/22 FINDINGS: Lines and Tubes: None Lungs: Mild diffuse increased prominence of the pulmonary vasculature. No evidence of focal consolidation. Pleura: No effusion. No pneumothorax. Cardiomediastinal contours: Cardiomegaly. Bones: Unremarkable IMPRESSION: 1. Cardiomegaly with mild pulmonary vascular congestion. EDURE(s): HWOCT - HEAD WITHOUT CONTRAST REASON: severe headache ORDER NUMBER(s): [id number], ACCESSION NUMBER(s): [id number] EXAM: CT HEAD WITHOUT CONTRAST INDICATION: severe headache TECHNIQUE: CT of the head without intravenous contrast. Radiation Dose : 1. Head: CT Dose: CTDI volume is 56.08 mGy. Dose-length product is 900.22 mGy*cm The dose indicators for CT are the volume Computed Tomography (CT) Dose Index (CTDIvol) and the Dose Length Product (DLP), and are measured in units of mGy and mGy-cm, respectively. These indicators are not patient dose, but values generated from the CT scanner acquisition factors. The report includes radiation exposure data for exposures received during this examination. COMPARISON: CT HEAD WITHOUT CONTRAST on DOS: 02/01/25, CT HEAD WITHOUT CONTRAST on DOS: 10/13/23 FINDINGS: Motion artifact degrades fine detail. No acute territorial infarct, intracranial hemorrhage, or mass effect. There are global involutional changes with compensatory prominence of the ventricles and sulci. Patchy periventricular and subcortical white matter hypoattenuation is nonspecific but may be related to small vessel ischemic disease. The orbits are normal. The paranasal sinuses and mastoid air cells are clear. The osseous structures are unremarkable. IMPRESSION: 1. No acute territorial infarct, intracranial hemorrhage, or mass effect. 2. Age-related involutional changes. Chronic microvascular changes. 3. If clinical symptoms persist, MRI may be beneficial in further evaluation. Radiation optimization: All CT scans at this facility use at least one of these dose optimization techniques: automated exposure control mA and/or kV adjustment per patient size (includes targeted exams where dose is matched to clinical indication) or iterative reconstruction. OF OPERATION: 02/11/25 PROCEDURE: Upper Endoscopy with biopsy. PREOPERATIVE INDICATION: The patient is a 74 -year-old female undergoing endoscopy for anemia and Hemoccult-positive stools nausea and vomiting POSTOPERATIVE DIAGNOSES: 1. Mild gastritis and gastropathy otherwise normal examination up to the 2nd and 3rd part of the duodenum PROCEDURE PERFORMED BY: Cesilia Beverly GI NURSE: Sindy SCOPE: Olympus videoendoscope. ASA CLASS: 3 PREOPERATIVE MEDICATIONS: Mac sedation, Dr. Magallanes PROCEDURE IN DETAIL: After obtaining an informed consent, the patient was placed on left lateral decubitus position. The patient was then sedated with the above medications. A bite block was placed between her teeth. The endoscope was then passed through the oropharynx, into the esophagus, and through the stomach and pylorus up to the second and third part of the duodenum. The endoscope was then withdrawn. The 2nd and 3rd part of the duodenal and the duodenal bulb were normal. Duodenal biopsies were obtained The pre-pyloric area antrum body showed mild gastritis and gastropathy with some mucosal edema. Gastric biopsies were obtained On retroflexion the fundus cardia and angularis were normal. There was no fresh or old blood in the stomach. The endoscope was then withdrawn into distal esophagus where the patient had no significant erosive esophagitis or hiatal hernia Remaining distal and proximal esophagus and oropharynx were unremarkable The patient tolerated the procedure well without difficulty. COMPLICATIONS : None SPECIMENS: Duodenal biopsies Gastric biopsies DISPOSITION: Transfer back to the floor Stable PLAN: 1. Await for biopsy result 2. Will place pt on Protonix 40 mg p.o. daily 3. DC aspirin NSAIDs smoking alcohol 4. Elective colonoscopy once medically stabilized Condition at Discharge: Stable Final Diagnosis/Problems List #Hypoosmolar, Hypervolemic symptomatic severe hyponatremia #Metabolic encephalopathy due to above #Possible GI bleeding upper/lower #CKD stage V on Dialysis #Severe anemia #Hyperkalemia #Hypertensive urgency #Acute on chronic CHF exacerbation sistolyc/diastolic disfunction #Diabetes type 2 with hyperglycemia #Dislipidemia Discharge Disposition: Home SNF Discharge Will this Physician continue t: No Discharge Instruct/Medications Diet: Consistent carbohydrate, Cardiac 2g Na,low cholest, Renal Activity: No Restrictions, As Tolerated Follow Up/Referral: F/U with PCP in one week F/U with Civil Defense Director in one week F/U with GI for colonoscopy Medications: Continue home medications Protonics 40mg po daily Scheduled Amlodipine Besylate (Amlodipine Besylate), 10 MG PO DAILY Atorvastatin Calcium (Lipitor), 40 MG PO HS, (Reported) Carvedilol (Carvedilol), 1 TAB PO BID Ergocalciferol (Vitamin D2), 50,000 UNIT PO once a week, (Reported) Hydralazine Hcl (Hydralazine Hcl), 1 TAB PO TID Insulin NPH (Human) (Isophane) (Novolin N Flexpen), 100 UNIT SC UD, (Reported) Pantoprazole Sodium Sesquihydr (Protonix), 40 MG PO DAILY Pantoprazole Sodium Sesquihydr (Protonix), 40 MG PO DAILY Sodium Bicarbonate (Sodium Bicarbonate), 1,300 MG PO TID Miscellaneous Medications Insulin Glargine (Basaglar Kwikpen), 100 UNIT SC, (Reported) Discontinued Medications Metoprolol Tartrate (Lopressor Tablet), 50 MG GT BID Sodium Zirconium Cyclosilicate (Lokelma), 10 GM PO DAILY Discharge Statement: "Patient was advised to return to the ER or call 911 if any headaches, dizziness, shortness of breath, chest pain, abdominal pain, bleeding, fevers, or worsening of medical condition. Patient was counseled about treatment plan, medications, possible side effects, patientverbalized understanding. All questions were answered to the best of my ability. This discharge took greater then 30 minutes in planning, reviewing documentation, counseling the patient, and discussing with other team members." ASSESSMENT ASSESSMENT Assessment #Hypoosmolar, hypervolemic symptomatic severe hyponatremia #Metabolic encephalopathy due to above #Possible GI bleeding upper/lower #CKD stage V on Dialysis #Severe anemia #Hyperkalemia #Hypertensive urgency #Acute on chronic CHF exacerbation systolic/diastolic disfunction #Diabetes type 2 with hyperglycemia #Dyslipidemia Diet: Full liquid diet Goals of care discussed with the patient > 35 min. Discussed plan of care with Dr. Triplett. Code status: Full code PCP: Michael. Nephrology: Dr. Ramirez Plan discussed with: Patient and daughter, the patient agrees with discharge the plan. Date of Service: Feb 12, 2025 Billing Provider: ISAK TRIPLETT MD Common Visit Codes: 28072-QSX/OBS DISCH DAY >30min JULI COREAS RESIDENT Feb 12, 2025 09:28 ISAK TRIPLETT MD Feb 13, 2025 22:24
[2025-02-12] MEDS ORDERED: CARV6.2551 PO (10:31)
[2025-02-12] MEDS ORDERED: PANT40TA2 PO (10:31)
--- NOTE | 2025-02-12 10:47 | DVHPN2 ---
Progress Note Date Seen: Feb 12, 2025 Resident Creating Document: CUAUHTEMOC ARNDT MICHELL Has the PT tested + for MRSA If YES, has PT been informed?: No Medical Necessity Reason Pt with a Central, PICC or Fol: No Subjective Review of Systems Patient seen and examined at the bedside. Patient is feeling better since admission, does not have any active complaint. Other Systems: Patient seen and examined by myself today on rounds with the medicine resident, I agree with his assessment and plan Patient examined hemodialysis, blood pressure stable Objective vital signs Vital Sign Date Time Temp Pulse Resp B/P (MAP) Pulse Ox O2 Delivery O2 Flow Rate FiO2 02/12/25 09:00 98.8 84 16 152/72 (98) 96 98.8 02/12/25 08:00 Room Air* 0 21 Total Intake and Output 02/11/25 02/11/25 02/12/25 15:00 23:00 07:00 Intake Total 20 ml 0 ml 175 ml Balance 20 ml 0 ml 175 ml medications Current Medications Medications Dose Ordered Sig/Rigo Route Start Time Stop Time Status Last Admin Dose Admin Ondansetron HCl 4 mg Q4HP PRN IV 02/06/25 02:15 Atorvastatin Calcium 40 mg HS PO 02/06/25 22:00 02/11/25 21:41 40 MG Hydralazine HCl 50 mg TID PO 02/06/25 06:00 02/12/25 06:06 50 MG Furosemide 40 mg DAILY IV 02/06/25 10:00 02/11/25 09:03 40 MG Diagnostic Test (Pha) 1 strip ACHS 02/06/25 07:00 02/12/25 06:08 1 STRIP Insulin Human Regular ACHS SC 02/06/25 07:00 02/11/25 21:49 3 UNITS Dextrose 50 ml UD PRN IV 02/06/25 02:15 Heparin Sodium (Porcine) 5,000 units Q12HR SC 02/06/25 10:00 02/11/25 21:49 5,000 UNITS Hydroxyzine Pamoate 25 mg Q6HP PRN PO 02/06/25 02:15 Epoetin Matt-epbx 10,000 unit MWF@2100 SC 02/06/25 21:00 02/11/25 21:43 10,000 UNIT Sucralfate 1 gm TID@0600,1130,2200 PO 02/07/25 22:00 02/12/25 06:06 1 GM Carvedilol 6.25 mg BID PO 02/09/25 07:45 02/11/25 21:42 6.25 MG Sevelamer HCl 1,200 mg TIDWM PO 02/11/25 12:00 Hold Pantoprazole Sodium 40 mg DAILY@0600 PO 02/12/25 06:00 02/12/25 06:05 40 MG Examination Alert, Oriented X3, Cooperative, lethargic HEENT: Atraumatic, PERRLA, EOMI, Mucous membrane moist/pink Respiratory: Clear to auscultation, Normal air movement Cardiovascular: Regular rate, Normal S1, Normal S2, No murmurs, no chest wall tenderness Abdominal: Normal bowel sounds, Soft, No tenderness, No hepatospenomegaly, No masses Extremities: Bilateral grade 2 pedal edema Skin: No rashes, No breakdown, No significant lesion Neuro: Normal gait, Normal speech, Strength at 5/5 X4 ext, Normal tone, Sensation intact, Cranial nerves 3-12 NL, Reflexes 2+ Psych/Mental Status: Mental status NL, Mood NL laboratory and microbiology Laboratory Tests 02/12/25 05:15 Test 02/12/25 05:15 Range/Units Serum Glucose 85 74-106 mg/dL Labs and/or images reviewed: Labs reviewed by me, Image(s) reviewed by me Problem List/Assessment/Plan Problem List/Assessment/Plan This is a 74 lady with past medical history of diabetes, hypertension, systolic heart failure CKD stage 5 came to the hospital due to nausea, vomiting, headache and dizziness. Nephrology consulted due to severe hyponatremia. Assessment: Hypoosmolar, hypervolemic severe symptomatic hyponatremia KEHINDE, on CKD stage 5, likely VMN Diabetes type 2 Hypertension Possible acute on chronic systolic heart failure Volume overload * Serum sodium is 110, serum osmolality 264, urine sodium 67 * Head CT scan shows no significant intracranial abnormalities Plan/recommendation: (Dr. Peterson) * Dialysis today * Follow with [facility] for scheduled dialysis * IV Lasix 40 mg daily, and sevelamer * We sign off the patient, stable to be DC from nephrology stand point Thank you for giving us the opportunity to take care of your patients failure please call back if you have any questions/concerns. Plan discussed with: Patient, Other (RN) My Orders My Orders Orders - CUAUHTEMOC ARNDT RESCHRISTOPHER Procedure Category Date Status Time [place] (Renagel) PHA 02/11/25 In Process 12:00 Dietary Evaluation Review Comments: 1) Advance to 45g CCHO renal cardiac diet when medically feasible 2) Encourage optimal PO intake 3) Refer to outpatient RD/[facility] for weight management 4) Follow-up with nephrology and cardiology 5) Continue to monitor I&O, labs, and skin integrity Expected Outcomes/Goals: 1) appetite and labs to improve 2) diet to advance 3) gradual wt loss 4) f/u in 3-5 days CUAUHTEMOC ARNDT Feb 12, 2025 10:47 JAE PETERSON MD Feb 12, 2025 11:36
[2025-02-12 12:19] VITALS: BP 146/68; PULSE 89; RESP 17; TEMP 98.4; O2SAT 95
--- NOTE | 2025-02-12 12:21 | DVH ---
BILATERAL UPPER EXTREMITY VENOUS DUPLEX REASON FOR EXAMINATION: To rule out DVT COMPARISON: US BILAT LOWER DVT on DOS: 07/02/22, US LT LOWER DVT on DOS: 07/01/22 TECHNIQUE: Using real-time freeze-frame technique with a high-frequency transducer, multiple longitu dinal and transverse sections were obtained. Simultaneous color flow and spectral Doppler imaging wa s performed. FINDINGS: RIGHT: Deep veins Internal jugular vein: Compressible. No thrombus identified. Expected Doppler flow. Subclavian vein: Expected Doppler flow. Axillary vein: Compressible. No thrombus identified. Expected Doppler flow. Brachial vein: Compressible. No thrombus identified. Expected Doppler flow. Radial vein: Compressible. No thrombus identified. Expected Doppler flow. Ulnar vein: Compressible. No thrombus identified. Expected Doppler flow. Superficial veins Cephalic vein: There is occlusive thrombus in the right cephalic vein. Basilic vein: Compressible. No thrombus identified. Expected Doppler flow. LEFT: Deep veins Internal jugular vein: Compressible. No thrombus identified. Expected Doppler flow. Subclavian vein: Expected Doppler flow. Axillary vein: Compressible. No thrombus identified. Expected Doppler flow. Brachial vein: Compressible. No thrombus identified. Expected Doppler flow. Radial vein: Compressible. No thrombus identified. Expected Doppler flow. Ulnar vein: Compressible. No thrombus identified. Expected Doppler flow. Superficial veins Cephalic vein: Compressible. No thrombus identified. Expected Doppler flow. Basilic vein: Compressible. No thrombus identified. Expected Doppler flow. IMPRESSION: No evidence of deep venous thrombosis. Occlusive thrombus in the right cephalic vein. Correlate clinically for superficial thrombophlebitis .
[2025-02-12 12:44] VITALS: BP 160/76; PULSE 79; RESP 16; TEMP 98.7; O2SAT 97
--- NOTE | 2025-02-12 20:27 | DVHPN2 ---
Progress Note - Dictate Date Seen: Feb 12, 2025 (Late entryTime of visit 2:00 p.m.) Has the PT tested + for MRSA If YES, has PT been informed?: No Medical Necessity Reason Pt with a Central, PICC or Fol: No Subjective No new complaints, patient feels better Patient undergoing hemodialysis Hyponatremia has improved Hemoglobin stable at 8.2 EGD showed mild gastritis vital signs Vital Sign Date Time Temp Pulse Resp B/P (MAP) Pulse Ox O2 Delivery O2 Flow Rate FiO2 02/12/25 13:47 160/76 02/12/25 12:44 98.7 79 16 97 98.7 02/12/25 08:00 Room Air* 0 21 Total Intake and Output 02/11/25 02/11/25 02/12/25 15:00 23:00 07:00 Intake Total 20 ml 0 ml 175 ml Balance 20 ml 0 ml 175 ml objective Gen - mild conjunctival pallor, no scleral icterus Skin - Patients skin is warm and dry. HEENT - normocephalic, atraumatic, dry mucous membranes. Neck - supple, no lymphadenopathy Pulmonary - B/L equal air entry with vesicular breath sounds cardiovascular - regular S1,S2 heard GI - soft nontender abdomen. Bowel sounds normoactive. Neurological - Patient is alert and oriented x4. following commands. laboratory and microbiology Laboratory Tests 02/12/25 05:15 Test 02/12/25 05:15 Range/Units Serum Glucose 85 74-106 mg/dL Problems(with codes): (1) Positive occult stool blood test (2) Anemia of chronic disease (3) End-stage renal disease needing dialysis (4) Renal failure (5) Hyponatremia Prognosis Plan Discharge planning is in progress after dialysis Patient will be on outpatient dialysis scheduled at [facility] dialysis Outpatient follow up with GI Services once stable for elective colonoscopy Dietary Evaluation Review Comments: 1) Advance to 45g CCHO renal cardiac diet when medically feasible 2) Encourage optimal PO intake 3) Refer to outpatient RD/[facility] for weight management 4) Follow-up with nephrology and cardiology 5) Continue to monitor I&O, labs, and skin integrity Expected Outcomes/Goals: 1) appetite and labs to improve 2) diet to advance 3) gradual wt loss 4) f/u in 3-5 days Plan discussed with: Patient PAUL PERES MD Feb 12, 2025 20:27
[2025-02-12] MEDS ORDERED: EPOETIN ALFA-EPBX 10,000 UNIT/1ML VIAL SC ONE (21:00)
== END 2025-02-12 16:31 | disposition home or self-care (01) | DRG 377 ==
LOC: ER 21:20 → OVERFLOW 02-06 02:01 → TELE-EAST 02-06 12:40 → DOU IN ICU 02-06 18:32 → ICU CENTRL 02-06 18:33 → TELE-CENTR 02-09 15:03
PROVIDERS: ADMIT Internal Medicine; ATTEND Internal Medicine
PROC: 30233N1 Transfusion of Nonautologous Red Blood Cells into Peripheral Vein, Percutaneous Approach (ICD-10-PCS; 2025-02-07)
PROC: 5A1D70Z Performance of Urinary Filtration, Intermittent, Less than 6 Hours Per Day (ICD-10-PCS; 2025-02-07)
PROC: 5A1D70Z Performance of Urinary Filtration, Intermittent, Less than 6 Hours Per Day (ICD-10-PCS; 2025-02-08)
PROC: 0JH63XZ Insertion of Tunneled Vascular Access Device into Chest Subcutaneous Tissue and Fascia, Percutaneous Approach (ICD-10-PCS; 2025-02-08)
PROC: 02H633Z Insertion of Infusion Device into Right Atrium, Percutaneous Approach (ICD-10-PCS; 2025-02-08)
PROC: B5181ZA Fluoroscopy of Superior Vena Cava using Low Osmolar Contrast, Guidance (ICD-10-PCS; 2025-02-08)
PROC: B548ZZA Ultrasonography of Superior Vena Cava, Guidance (ICD-10-PCS; 2025-02-08)
PROC: 5A1D70Z Performance of Urinary Filtration, Intermittent, Less than 6 Hours Per Day (ICD-10-PCS; 2025-02-10)
PROC: 0DB68ZX Excision of Stomach, Via Natural or Artificial Opening Endoscopic, Diagnostic (ICD-10-PCS; 2025-02-11)
PROC: 0DB98ZX Excision of Duodenum, Via Natural or Artificial Opening Endoscopic, Diagnostic (ICD-10-PCS; principal; 2025-02-11 14:38)
DX: K29.71 Gastritis, unspecified, with bleeding (principal); G93.41 Metabolic encephalopathy; N18.6 End stage renal disease; I50.43 Acute on chronic combined systolic (congestive) and diastolic (congestive) heart failure; I13.2 Hypertensive heart and chronic kidney disease with heart failure and with stage 5 chronic kidney disease, or end stage renal disease; E87.1 Hypo-osmolality and hyponatremia; N25.81 Secondary hyperparathyroidism of renal origin; N17.9 Acute kidney failure, unspecified; E87.5 Hyperkalemia; E11.22 Type 2 diabetes mellitus with diabetic chronic kidney disease; E11.65 Type 2 diabetes mellitus with hyperglycemia; E78.5 Hyperlipidemia, unspecified; D50.0 Iron deficiency anemia secondary to blood loss (chronic); K31.9 Disease of stomach and duodenum, unspecified; Z96.652 Presence of left artificial knee joint; E86.1 Hypovolemia; F41.9 Anxiety disorder, unspecified; D63.8 Anemia in other chronic diseases classified elsewhere; I16.0 Hypertensive urgency; Z88.0 Allergy status to penicillin; Z99.2 Dependence on renal dialysis; Z83.3 Family history of diabetes mellitus; Z80.42 Family history of malignant neoplasm of prostate
CPT/HCPCS: 36415; 36558; 43239; 70450; 71045; 74018; 76775; 77001; 80048; 80053; 80074; 81001; 82140; 82270; 82306; 82570; 82607; 82728; 82962; 83036; 83540; 83550; 83735; 83880; 83930; 83935; 83970; 84100; 84132; 84295; 84300; 84484; 85014; 85018; 85025; 85610; 85730; 86704; 86706; 86708; 86803; 86850; 86900; 86901; 86920; 87340; 90935; 93005; 93306; 93970; 99152; C1894; G0378; J0131; J1642; J1815; J2003; J2250; J2405; J2470; J2704; J3480

== ENCOUNTER 2025-02-14 09:42 | Outpatient (CLI) | payer OTHER ==
[~2025-02-14 09:42] MED LIST changes: +CARV6.2551 PO; -MET50T GT; +PANT40TA2 PO; -SODI10PA PO
[2025-02-14 10:45] LABS: Hematocrit 23.6 % (36.0-46.0); Hemoglobin 7.8 g/dL (12.2-16.2); Mean Corpuscular Hemoglobin 27.3 pg (28.0-32.0); Mean Corpuscular Volume 82.4 fL (80.0-100.0); Nucleated Red Blood Cells % 0.0 %
[2025-02-14 10:55] LABS: Urine Protein, UAD 2+ (Negative)
[2025-02-14 11:05] LABS: Anion Gap 9.0 (5-15); Carbon Dioxide 30.0 mmol/L (20-31); Sodium 137.0 mmol/L (136-145)
[2025-02-14 11:09] LABS: Calcium 8.1 mg/dL (8.7-10.4); Chloride 98.0 mmol/L (98-107); Potassium 3.5 mmol/L (3.5-5.1)
[2025-02-14 11:11] LABS: Albumin 3.2 g/dL (3.2-4.8); BUN/Creatinine Ratio 5.1 (10.0-20.0); Blood Urea Nitrogen 14.0 mg/dL (9-23)
[2025-02-14 11:49] LABS: Glucose 121.0 mg/dL (74-106); Protein, Urine 394.2 mg/dL (1-14)
[2025-02-14 12:30] LABS: Uric Acid 2.9 mg/dL (3.1-7.8)
== END 2025-02-14 17:00 | disposition home or self-care (01) ==
LOC: LAB 09:42
PROVIDERS: ATTEND Internal Medicine Nephrology
DX: E11.22 Type 2 diabetes mellitus with diabetic chronic kidney disease (principal); N18.30 Chronic kidney disease, stage 3 unspecified; E11.21 Type 2 diabetes mellitus with diabetic nephropathy; E55.9 Vitamin D deficiency, unspecified; E21.3 Hyperparathyroidism, unspecified; D63.1 Anemia in chronic kidney disease; N39.0 Urinary tract infection, site not specified; M10.9 Gout, unspecified; R80.9 Proteinuria, unspecified
CPT/HCPCS: 36415; 80069; 81001; 82570; 83970; 84156; 84550; 85025

== ENCOUNTER 2025-02-18 08:46 | Outpatient (CLI) | payer OTHER ==
[2025-02-18 09:35] LABS: Hematocrit 24.9 % (36.0-46.0); Hemoglobin 8.2 g/dL (12.2-16.2); Mean Corpuscular Hemoglobin 26.9 pg (28.0-32.0); Mean Corpuscular Volume 81.3 fL (80.0-100.0); Nucleated Red Blood Cells % 0.0 %
[2025-02-18 09:51] LABS: Alanine Aminotransferase 19 U/L (7-40); Anion Gap 10 (5-15); BUN/Creatinine Ratio 9.4 (10.0-20.0); Carbon Dioxide 26 mmol/L (20-31); Glucose 81 mg/dL (74-106); Potassium 4.0 mmol/L (3.5-5.1); Total Protein 6.0 g/dL (5.7-8.2); Triglycerides 123 mg/dL (< 150)
[2025-02-18 09:53] LABS: Albumin 3.5 g/dL (3.2-4.8); Bilirubin, Total 0.4 mg/dL (0.2-1.0); Cholesterol 130 mg/dL (< 200); HDL Cholesterol 44 mg/dL (40-59)
[2025-02-18 09:56] LABS: Alkaline Phosphatase 157 U/L (46-116); Blood Urea Nitrogen 37 mg/dL (9-23); Calcium 8.2 mg/dL (8.7-10.4); Chloride 93 mmol/L (98-107); Sodium 129 mmol/L (136-145)
[2025-02-18 10:35] LABS: Urine Protein, UAD 1+ (Negative)
== END 2025-02-18 17:00 | disposition home or self-care (01) ==
LOC: LAB 08:46
PROVIDERS: ATTEND Internal Medicine
DX: I13.0 Hypertensive heart and chronic kidney disease with heart failure and stage 1 through stage 4 chronic kidney disease, or unspecified chronic kidney disease (principal); E11.22 Type 2 diabetes mellitus with diabetic chronic kidney disease; I50.9 Heart failure, unspecified; N18.9 Chronic kidney disease, unspecified; E11.29 Type 2 diabetes mellitus with other diabetic kidney complication; E55.9 Vitamin D deficiency, unspecified; D64.9 Anemia, unspecified; K59.00 Constipation, unspecified; K82.9 Disease of gallbladder, unspecified; Z00.01 Encounter for general adult medical examination with abnormal findings; Z79.899 Other long term (current) drug therapy
CPT/HCPCS: 36415; 80053; 80061; 81001; 83036; 84439; 84443; 85025